=== PATIENT | female | born 1950 | race Caucasian/White ===

== ENCOUNTER 2022-02-20 11:13 | Emergency (ER) | payer OTHER, SELFPAY ==
--- NOTE | ~2022-02-20 | CT_ITS ---
Indication: Trauma EXAMINATION: CT of the brain and CT cervical spine. Axial imaging with coronal and sagittal reformatted images. This CT examination was performed using dose optimization techniques as appropriate, variously including the following: *Automated exposure control *Adjustment of mA and/or kV according to patient size (this includes techniques or standardized protocols for targeted exams where dose is matched to indication/reason for exam; i.e. extremities or head) *Use of iterative reconstruction technique. Radiation dose [address] brain; There is no midline shift there is no mass effect. There is no hemorrhage. The basal cisterns appear patent. The posterior fossa is grossly within normal limits. Scattered areas of probable white matter ischemic changes. No fracture on the bone windows. CT cervical spine; Motion limits this exam. Given this there is no convincing evidence for an acute fracture or dislocation. Carotid stent seen on the left. CT/CT cervical spine wo IV con IMPRESSION: Negative acute noncontrast CT of the brain. Limited cervical spine but no convincing evidence for fracture or dislocation. Degenerative changes are noted.
--- NOTE | ~2022-02-20 | CT_ITS ---
Indication: Trauma EXAMINATION: CT of the brain and CT cervical spine. Axial imaging with coronal and sagittal reformatted images. This CT examination was performed using dose optimization techniques as appropriate, variously including the following: *Automated exposure control *Adjustment of mA and/or kV according to patient size (this includes techniques or standardized protocols for targeted exams where dose is matched to indication/reason for exam; i.e. extremities or head) *Use of iterative reconstruction technique. Radiation dose [address] brain; There is no midline shift there is no mass effect. There is no hemorrhage. The basal cisterns appear patent. The posterior fossa is grossly within normal limits. Scattered areas of probable white matter ischemic changes. No fracture on the bone windows. CT cervical spine; Motion limits this exam. Given this there is no convincing evidence for an acute fracture or dislocation. Carotid stent seen on the left. CT/CT head/brain wo IV con IMPRESSION: Negative acute noncontrast CT of the brain. Limited cervical spine but no convincing evidence for fracture or dislocation. Degenerative changes are noted.
--- NOTE | ~2022-02-20 | XR_ITS ---
EXAMINATION: XR CHEST CLINICAL INFORMATION: Fall. Off balance. COMPARISON: None TECHNIQUE: Frontal view of the chest was obtained. FINDINGS: The cardiac silhouette is upper normal in size. The right pulmonary hilum appears slightly prominent. Mediastinal contours are unremarkable. There is linear scarring or subsegmental atelectasis in the right midlung. The lungs are otherwise clear. There is no pleural effusion or pneumothorax. There may be old right fourth and fifth posterior lateral rib fractures. No acute rib fracture. Degenerative changes of the spine and scoliosis. Sagittal seen in the soft tissues of the left lateral neck. XR/XR chest 1V IMPRESSION: No evidence for acute disease in the chest. Slightly prominent right pulmonary hilum and right midlung linear scarring or subsegmental atelectasis. Follow-up PA and lateral chest x-ray recommended.
[2022-02-20 11:21] VITALS: BP 206/94; PULSE 53; RESP 16; TEMP 36.8; O2SAT 96; BMI 17.9
--- NOTE | 2022-02-20 11:30 | ED_ITS ---
HPI - Fall General Chief Complaint: Fall <JENNIFER Lemus Last Filed: 02/20/22 17:39> Stated Complaint: Fall head inj <JENNIFER Lemus Last Filed: 02/20/22 17:39> Time Seen by Provider: 02/20/22 11:23 <JENNIFER Lemus Last Filed: 02/20/22 17:39> Source: patient <JENNIFER Lemus Last Filed: 02/20/22 17:39> Mode of arrival: wheelchair <JENNIFER Lemus Last Filed: 02/20/22 17:39> History of Present Illness HPI Narrative: 71-year-old female with a past medical history of CVA on Plavix, HTN, COPD, presenting to ED from search consultant appointment s/p mechanical fall in the office with head strike, and laceration to right eyebrow, denies LOC. Patient ambulates at baseline with cane, reports intermittently feeling off balance x months, and felt off balance [employer]. States she was trying to keep up with person in front of her and couldn't. Denies headache, neck pain, back pain, CP/SOB, abdominal pain, nausea/vomiting, numbness/tingling, room spinning dizziness/lightheadedness. Tetanus up-to-date <JENNIFER Lemus Last Filed: 02/20/22 17:39> MD complaint: fall <JENNIFER Lemus Last Filed: 02/20/22 17:39> Related Data Home Medications: Previous Rx's Medication Instructions Recorded cefuroxime axetil 250 mg tablet 250 mg PO BID 7 days #14 tabs 02/20/22 <JENNIFER Lemus Last Filed: 02/20/22 17:39> Allergies/Adverse Reactions: Allergies Allergy/AdvReac Type Severity Reaction Status Date / Time No Known Allergies Allergy Verified 02/20/22 11:48 <JENNIFER Lemus Last Filed: 02/20/22 17:39> Review of Systems Review of Systems: Constitutional: No Fever, No Chills, No Fatigue, No Malaise ENT/Mouth: No Ear Pain, No Nasal Congestion, No Hoarseness, No sore throat, No Rhinorrhea, No Swallowing Difficulty Eyes: No Eye Pain, No Swelling, No Redness, No Vision Changes Cardiovascular: No Chest Pain, No SOB, No Edema, No Palpitations Respiratory: No Cough, No Sputum, No Dyspnea Gastrointestinal: No Nausea, No Vomiting, No Diarrhea, No Constipation, No Abdominal pain Genitourinary: No Dysuria, No Urinary Frequency, No Hematuria, No Urinary Incontinence/retention, No Flank Pain Musculoskeletal: No joint pain, No Myalgias, No Joint Swelling Skin: + Skin Lesions, No rash Neuro: No Weakness, No Numbness, No Paresthesias, No Loss of Consciousness, No Dizziness, No Headache, +off balance <JENNIFER Lemus - Last Filed: 02/20/22 17:39> Yes all other systems are reviewed and are negative <JENNIFER Lemus - Last Filed: 02/20/22 17:39> Constitutional: Constitutional: Reports as per HPI <JENNIFER Lemus - Last Filed: 02/20/22 17:39> Neurologic: Denies Abnormal speech present <JENNIFER Lemus - Last Filed: 02/20/22 17:39> [facility] Past Medical History Attestation statement: The following information was validated with the patient. <JENNIFER Lemus - Last Filed: 02/20/22 17:39> Social History Social History: Social History Advance Directives: No <JENNIFER Lemus - Last Filed: 02/20/22 17:39> Physical Exam Vital Signs: Vital Signs: Last Vital Signs Temp 97.6 F 02/20/22 15:42 Pulse 77 02/20/22 15:42 Resp 16 02/20/22 15:42 BP 174/90 H 02/20/22 17:27 Pulse Ox 98 02/20/22 15:42 O2 Del Method 02/20/22 15:42 BMI result Body Mass Index 17.9 <JENNIFER Lemus - Last Filed: 02/20/22 17:39> Vital Signs: Last Vital Signs Temp 97.6 F 02/20/22 15:42 Pulse 77 02/20/22 15:42 Resp 16 02/20/22 15:42 BP 174/90 H 02/20/22 17:27 Pulse Ox 98 02/20/22 15:42 O2 Del Method 02/20/22 15:42 BMI result Body Mass Index 17.9 <Lucero Stewart NP - Last Filed: 02/20/22 17:39> Const: General: cooperative, healthy appearing and no acute distress <Crys Morgan PA - Last Filed: 02/20/22 17:39> Orientation/consciousness: patient oriented x3 <Crys Morgan PA - Last Filed: 02/20/22 17:39> Limitations: no limitations <Crys Morgan PA - Last Filed: 02/20/22 17:39> HEENT: Other: + superficial 1.5 cm linear laceration noted to right eyebrow <Crys Morgan PA - Last Filed: 02/20/22 17:39> Head: Yes normal to inspection <Crys Morgan PA - Last Filed: 02/20/22 17:39> Ears: hearing grossly normal bilaterally <Crys Morgan PA - Last Filed: 02/20/22 17:39> General nose exam: Normal external nose present <JENNIFER Lemus - Last Amilcar ed: 02/20/22 17:39> Face and sinus: Yes normal facial exam <Crys Morgan PA - Last Filed: 02/20/22 17:39> Eyes: General: appearance normal, both eyes and all related structures <Crys Morgan PA - Last Filed: 02/20/22 17:39> Pupils: Equal, round and reactive pupils present <Crys Morgan PA - Last Filed: 02/20/22 17:39> EOM: EOMs intact bilaterally <Crys Morgan PA - Last Filed: 02/20/22 17:39> Neck: Other: No midline cervical spinous tenderness <Crys Morgan PA - Last Filed: 02/20/22 17:39> Neck: Yes normal visual inspection and Yes no meningeal signs <Crys Morgan PA - Last Filed: 02/20/22 17:39> Resp: Effort & Inspection: normal respiratory effort and no respiratory distress <Crys Morgan PA - Last Filed: 02/20/22 17:39> Auscultation: clear to auscultation bilaterally, no crackles, no rales, no rhonchi and no wheezes <Crys Pouliot, PA - Last Filed: 02/20/22 17:39> Cardio: Rate: regular rate <Crys Pouliot, PA - Last Filed: 02/20/22 17:39> Heart sounds: S1 normal heart sound present and S2 normal heart sound present <Crys Pouliot, PA - Last Filed: 02/20/22 17:39> GI: Inspection: Yes normal to inspection <Crys Pouliot, PA - Last Filed: 02/20/22 17:39> Palpation (GI): Soft to palpation, nontender, no guarding and not rigid <Crys Pouliot, PA - Last Filed: 02/20/22 17:39> : General: Yes no CVA tenderness <Crys Pouliot, PA - Last Filed: 02/20/22 17:39> Back/Spine/Pelvis: Other: No midline thoracic/lumbar spinous tenderness/step-off or deformity <Crys Pouliot, PA - Last Filed: 02/20/22 17:39> Back: no CVA tenderness <Crys Pouliot, PA - Last Filed: 02/20/22 17:39> Skin: Rashes: no rashes <Crys Pouliot, PA - Last Filed: 02/20/22 17:39> Wounds: no wounds <Crys Pouliot, PA - Last Filed: 02/20/22 17:39> Neuro: General: patient oriented x3, tone normal, moves all extremities, no meningeal signs, no focal motor deficits and CN's II-XI intact bilaterally <Crys Pouliot, PA - Last Filed: 02/20/22 17:39> Cranial nerves: Yes CN's II-XII intact bilaterally, Yes Equal, round and reactive pupils present and Yes Bilaterally intact EOM present <Crys Pouliot, PA - Last Filed: 02/20/22 17:39> Cognition (Neuro): normal cognition <Crys Pouliot, PA - Last Filed: 02/20/22 17:39> Speech: No Abnormal speech present <Crys Pouliot, PA - Last Filed: 02/20/22 17:39> Gait exam (Neuro): Normal gait present <JENNIFER Lemus - Last Filed: 02/20/22 17:39> Motor exam (neuro): 5/5 motor strength present throughout, Pronator motor function not present and no tremor noted <JENNIFER Lemus - Last Filed: 02/20/22 17:39> Coordination: [id number] test normal <JENNIFER Lemus - Last Filed: 02/20/22 17:39> Romberg Test: Negative <JENNIFER Lemus - Last Filed: 02/20/22 17:39> Extrem: General: Yes normal to inspection <JENNIFER Lemus - Last Filed: 02/20/22 17:39> Course Course Course Narrative: -1500--no leukocytosis. H&H stable. Initial troponin 5.8 > will obtain 3 hour repeat -UA infected > IV Rocephin ordered CT head/brain wo IV con/CT cervical spine wo IV con IMPRESSION: Negative acute noncontrast CT of the brain. ? Limited cervical spine but no convincing evidence for fracture or dislocation. Degenerative changes are noted. XR chest 1V IMPRESSION: No evidence for acute disease in the chest. Slightly prominent right pulmonary hilum and right midlung linear scarring or subsegmental atelectasis. Follow-up PA and lateral chest x-ray recommended. ? -patient has been ambulating in the ED with steady gait -1737--repeat troponin equivocal, mi unlikely. Patient's repeat BP improved Results discussed with patient including worrisome signs and symptoms and strict return precautions, and when to return to the emergency department. They verbalized understanding and feel safe for discharge at this time. <JENNIFER Lemus - Last Filed: 02/20/22 17:39> Medications Administered Discontinued Medications Generic Name Dose Route Start Last Admin Trade Name Jerryq PRN Reason Stop Dose Admin Acetaminophen 650 mg 02/20/22 11:48 02/20/22 12:44 Acetaminophen 325 Mg Tablet PO 02/20/22 11:49 650 mg ONCE ONE Administration Sodium Chloride 500 mls @ 999 mls/hr 02/20/22 12:00 02/20/22 15:48 Ns IV 02/20/22 12:30 Infused .Q31M ANITA Infusion Lidocaine HCl 2 ml 02/20/22 11:48 02/20/22 14:46 Lidocaine Hcl 1 % Mpf 2 Ml Vial INFILTRATI 02/20/22 11:49 2 ml ONCE ONE Administration Lidocaine HCl 5 ml 02/20/22 14:27 02/20/22 14:49 Lidocaine Hcl 1 % Mpf 5 Ml Vial INFILTRATI 02/20/22 14:28 Not Given ONCE ONE Lisinopril 10 mg 02/20/22 16:20 02/20/22 16:26 Lisinopril 10 Mg Tablet PO 02/20/22 16:21 10 mg ONCE ONE Administration Protocol <JENNIFER Lemus - Last Filed: 02/20/22 17:39> Medications Administered Discontinued Medications Generic Name Dose Route Start Last Admin Trade Name Jerryq PRN Reason Stop Dose Admin Acetaminophen 650 mg 02/20/22 11:48 02/20/22 12:44 Acetaminophen 325 Mg Tablet PO 02/20/22 11:49 650 mg ONCE ONE Administration Sodium Chloride 500 mls @ 999 mls/hr 02/20/22 12:00 02/20/22 15:48 Ns IV 02/20/22 12:30 Infused .Q31M ANITA Infusion Lidocaine HCl 2 ml 02/20/22 11:48 02/20/22 14:46 Lidocaine Hcl 1 % Mpf 2 Ml Vial INFILTRATI 02/20/22 11:49 2 ml ONCE ONE Administration Lidocaine HCl 5 ml 02/20/22 14:27 02/20/22 14:49 Lidocaine Hcl 1 % Mpf 5 Ml Vial INFILTRATI 02/20/22 14:28 Not Given ONCE ONE Lisinopril 10 mg 02/20/22 16:20 02/20/22 16:26 Lisinopril 10 Mg Tablet PO 02/20/22 16:21 10 mg ONCE ONE Administration Protocol <Lucero Stewart NP - Last Filed: 02/20/22 17:39> Procedures Laceration Laceration 1: Site: face and other (eyebrow) <Lucero Stewart NP - Last Filed: 02/20/22 17:39> Side (If applicable): right <Lucero Stewart NP - Last Filed: 02/20/22 17:39> Description: linear <Lucero Stewart NP - Last Filed: 02/20/22 17:39> Depth: simple, single layer <Lucero Stewart NP - Last Filed: 02/20/22 17:39> Local Anesthetic: lidocaine 1% <Lucero Stewart NP - Last Filed: 02/20/22 17:39> Amount of anesthesia used (mL): 1 <Lucero Stewart NP - Last Filed: 02/20/22 17:39> Skin layer closed with: nylon <Lucero Stewart NP - Last Filed: 02/20/22 17:39> Size (cm): 6-0 <Lucero Stewart NP - Last Filed: 02/20/22 17:39> Number of sutures: 4 <Lucero Stewart NP - Last Filed: 02/20/22 17:39> Technique: simple, interrupted <Lucero Stewart NP - Last Filed: 02/20/22 17:39> MDM - Fall MDM Narrative Medical decision making narrative: 71-year-old female with a past medical history of CVA on Plavix, HTN, COPD, presenting to ED from search consultant appointment s/p mechanical fall in the office with head strike, and laceration to right eyebrow, denies LOC. Patient ambulates at baseline with cane, reports intermittently feeling off balance x months. On exam hypertensive, mildly anxious, laceration noted to right eyebrow, no focal neuro deficits, no midline spinous tenderness. Concern for ICH vs fracture s acute on chronic unsteady gait from ?Prior CVA. Low suspicion for acute CVA/TIA. Lower suspicion for ACS/PE Plan: EKG, labs, CXR, head/C-spine CTA, orthostatics, repair laceration, re- evaluate <JENNIFER Lemus - Last Filed: 02/20/22 17:39> Differential Diagnosis Differential diagnosis: Likely concussion without loss of consciousness <JENNIFER Lemus - Last Filed: 02/20/22 17:39> Medical Records Attestation: I reviewed the patient's medical records. <JENNIFER Lemus - Last Filed: 02/20/22 17:39> Lab Data Attestation: I reviewed the patient's lab results. <JENNIFER Lemus - Last Filed: 02/20/22 17:39> Result diagrams: : 02/20/22 12:24 02/20/22 12:24 <JENNIFER Lemus - Last Filed: 02/20/22 17:39> Labs: Lab Results 02/20/22 02/20/22 02/20/22 Range/Units 12:24 12:24 12:24 WBC 5.2 (4.8-10.8) X10*3/uL RBC 4.18 L (4.20-5.50) X10*6/uL Hgb 11.5 L (12.0-16.0) g/dl Hct 35.7 L (37.0-47.0) % MCV 85.4 (80.0-98.0) fL MCH 27.5 (27.0-33.0) pg MCHC 32.2 (31.0-35.0) g/dl RDW 15.5 (11.0-16.0) % Plt Count 199 (160-400) X10*3/uL MPV 8.8 L (9.4-12.3) fL Immature Gran % (Auto) 0.8 H (0.0-0.4) % Neut % (Auto) 70.5 (45-73) % Lymph % (Auto) 23.1 (20-40) % [place] % (Auto) 4.6 (2-11) % Eos % (Auto) 0.6 (0-4) % Baso % (Auto) 0.4 (0-2) % Lymph # (Auto) 1.2 (1.2-4.9) X10*3/uL [place] # (Auto) 0.2 (0.1-1.2) X10*3/uL Eos # (Auto) 0.0 (0.0-0.4) X10*3/uL Baso # (Auto) 0.0 (0.0-0.2) X10*3/uL Abs Immat Gran (auto) 0.04 H (0.00-0.03) X10*3/uL Absolute Neuts (auto) 3.7 (2.0-8.3) x10*3/uL Absolute Nucleated RBC 0.000 (0.0-0.012) X10*3/uL Nucleated RBC % (auto) 0.0 (0.0-0.2) /100WBC PT (10.0-13.1) SEC INR (0.9-1.1) Sodium 137 (135-145) mmol/L Potassium 4.3 (3.3-5.1) mmol/L Chloride 102 (96-108) mmol/L Carbon Dioxide 26 (22-29) mmol/L Anion Gap 13 (12-20) BUN 13 (9-16) mg/dL Creatinine 0.94 (0.5-1.4) mg/dL Estim Creat Clear Calc 35.6 Estimated GFR 59 Random Glucose 93 (60-115) mg/dL Calcium 9.0 (8.4-10.2) mg/dL Magnesium 2.1 (1.6-2.6) mg/dL Total Bilirubin 0.8 (0.0-1.0) mg/dL Direct Bilirubin 0.5 (0.0-0.5) mg/dL AST 16 (5-31) U/L ALT 8 (0-31) U/L Alkaline Phosphatase 99 (39-117) U/L Troponin I High Sens 5.8 (<3.5-17.0) ng/L Total Protein 8.5 H (6.5-8.0) g/dL Albumin 3.9 (3.5-5.0) g/dL Urine Color Urine Appearance Urine pH (5.0-9.0) Ur Specific [place] (1.005-1.025) Urine Protein (Neg-Trace) mg/dL Urine Glucose (UA) (Negative) mg/dL Urine Ketones (Negative) mg/dL Urine Blood (Negative) Urine Nitrite (Negative) Ur Leukocyte Esterase (Negative) Urine RBC (0-2) /HPF Urine WBC (0-5) /HPF Ur Squamous Epith Cells (0-2) /HPF Urine Bacteria (None Seen) Hyaline Casts (0-2) /LPF COVID-19 ([facility]) (Negative) COVID-19 Clin Com 02/20/22 02/20/22 02/20/22 Range/Units 12:24 12:24 12:46 WBC (4.8-10.8) X10*3/uL RBC (4.20-5.50) X10*6/uL Hgb (12.0-16.0) g/dl Hct (37.0-47.0) % MCV (80.0-98.0) fL MCH (27.0-33.0) pg MCHC (31.0-35.0) g/dl RDW (11.0-16.0) % Plt Count (160-400) X10*3/uL MPV (9.4-12.3) fL Immature Gran % (Auto) (0.0-0.4) % Neut % (Auto) (45-73) % Lymph % (Auto) (20-40) % [place] % (Auto) (2-11) % Eos % (Auto) (0-4) % Baso % (Auto) (0-2) % Lymph # (Auto) (1.2-4.9) X10*3/uL [place] # (Auto) (0.1-1.2) X10*3/uL Eos # (Auto) (0.0-0.4) X10*3/uL Baso # (Auto) (0.0-0.2) X10*3/uL Abs Immat Gran (auto) (0.00-0.03) X10*3/uL Absolute Neuts (auto) (2.0-8.3) x10*3/uL Absolute Nucleated RBC (0.0-0.012) X10*3/uL Nucleated RBC % (auto) (0.0-0.2) /100WBC PT 12.9 (10.0-13.1) SEC INR 1.1 (0.9-1.1) Sodium (135-145) mmol/L Potassium (3.3-5.1) mmol/L Chloride (96-108) mmol/L Carbon Dioxide (22-29) mmol/L Anion Gap (12-20) BUN (9-16) mg/dL Creatinine (0.5-1.4) mg/dL Estim Creat Clear Calc Estimated GFR Random Glucose (60-115) mg/dL Calcium (8.4-10.2) mg/dL Magnesium (1.6-2.6) mg/dL Total Bilirubin (0.0-1.0) mg/dL Direct Bilirubin (0.0-0.5) mg/dL AST (5-31) U/L ALT (0-31) U/L Alkaline Phosphatase (39-117) U/L Troponin I High Sens (<3.5-17.0) ng/L Total Protein (6.5-8.0) g/dL Albumin (3.5-5.0) g/dL Urine Color Yellow Urine Appearance Cloudy Urine pH 7.5 (5.0-9.0) Ur Specific [place] 1.010 (1.005-1.025) Urine Protein Trace (Neg-Trace) mg/dL Urine Glucose (UA) Negative (Negative) mg/dL Urine Ketones Negative (Negative) mg/dL Urine Blood Negative (Negative) Urine Nitrite Negative (Negative) Ur Leukocyte Esterase Large (3+) H (Negative) Urine RBC 0-2 (0-2) /HPF Urine WBC >50 H (0-5) /HPF Ur Squamous Epith Cells 3-5 (0-2) /HPF Urine Bacteria None Seen (None Seen) Hyaline Casts 0-2 (0-2) /LPF COVID-19 ([facility]) Negative (Negative) COVID-19 Clin Com See Note 02/20/22 Range/Units 15:37 WBC (4.8-10.8) X10*3/uL RBC (4.20-5.50) X10*6/uL Hgb (12.0-16.0) g/dl Hct (37.0-47.0) % MCV (80.0-98.0) fL MCH (27.0-33.0) pg MCHC (31.0-35.0) g/dl RDW (11.0-16.0) % Plt Count (160-400) X10*3/uL MPV (9.4-12.3) fL Immature Gran % (Auto) (0.0-0.4) % Neut % (Auto) (45-73) % Lymph % (Auto) (20-40) % [place] % (Auto) (2-11) % Eos % (Auto) (0-4) % Baso % (Auto) (0-2) % Lymph # (Auto) (1.2-4.9) X10*3/uL [place] # (Auto) (0.1-1.2) X10*3/uL Eos # (Auto) (0.0-0.4) X10*3/uL Baso # (Auto) (0.0-0.2) X10*3/uL Abs Immat Gran (auto) (0.00-0.03) X10*3/uL Absolute Neuts (auto) (2.0-8.3) x10*3/uL Absolute Nucleated RBC (0.0-0.012) X10*3/uL Nucleated RBC % (auto) (0.0-0.2) /100WBC PT (10.0-13.1) SEC INR (0.9-1.1) Sodium (135-145) mmol/L Potassium (3.3-5.1) mmol/L Chloride (96-108) mmol/L Carbon Dioxide (22-29) mmol/L Anion Gap (12-20) BUN (9-16) mg/dL Creatinine (0.5-1.4) mg/dL Estim Creat Clear Calc Estimated GFR Random Glucose (60-115) mg/dL Calcium (8.4-10.2) mg/dL Magnesium (1.6-2.6) mg/dL Total Bilirubin (0.0-1.0) mg/dL Direct Bilirubin (0.0-0.5) mg/dL AST (5-31) U/L ALT (0-31) U/L Alkaline Phosphatase (39-117) U/L Troponin I High Sens 5.6 (<3.5-17.0) ng/L Total Protein (6.5-8.0) g/dL Albumin (3.5-5.0) g/dL Urine Color Urine Appearance Urine pH (5.0-9.0) Ur Specific [place] (1.005-1.025) Urine Protein (Neg-Trace) mg/dL Urine Glucose (UA) (Negative) mg/dL Urine Ketones (Negative) mg/dL Urine Blood (Negative) Urine Nitrite (Negative) Ur Leukocyte Esterase (Negative) Urine RBC (0-2) /HPF Urine WBC (0-5) /HPF Ur Squamous Epith Cells (0-2) /HPF Urine Bacteria (None Seen) Hyaline Casts (0-2) /LPF COVID-19 ([facility]) (Negative) COVID-19 Clin Com <Crys Pouliot, PA - Last Filed: 02/20/22 17:39> Lab Results 02/20/22 02/20/22 02/20/22 Range/Units 12:24 12:24 12:24 WBC 5.2 (4.8-10.8) X10*3/uL RBC 4.18 L (4.20-5.50) X10*6/uL Hgb 11.5 L (12.0-16.0) g/dl Hct 35.7 L (37.0-47.0) % MCV 85.4 (80.0-98.0) fL MCH 27.5 (27.0-33.0) pg MCHC 32.2 (31.0-35.0) g/dl RDW 15.5 (11.0-16.0) % Plt Count 199 (160-400) X10*3/uL MPV 8.8 L (9.4-12.3) fL Immature Gran % (Auto) 0.8 H (0.0-0.4) % Neut % (Auto) 70.5 (45-73) % Lymph % (Auto) 23.1 (20-40) % [place] % (Auto) 4.6 (2-11) % Eos % (Auto) 0.6 (0-4) % Baso % (Auto) 0.4 (0-2) % Lymph # (Auto) 1.2 (1.2-4.9) X10*3/uL [place] # (Auto) 0.2 (0.1-1.2) X10*3/uL Eos # (Auto) 0.0 (0.0-0.4) X10*3/uL Baso # (Auto) 0.0 (0.0-0.2) X10*3/uL Abs Immat Gran (auto) 0.04 H (0.00-0.03) X10*3/uL Absolute Neuts (auto) 3.7 (2.0-8.3) x10*3/uL Absolute Nucleated RBC 0.000 (0.0-0.012) X10*3/uL Nucleated RBC % (auto) 0.0 (0.0-0.2) /100WBC PT (10.0-13.1) SEC INR (0.9-1.1) Sodium 137 (135-145) mmol/L Potassium 4.3 (3.3-5.1) mmol/L Chloride 102 (96-108) mmol/L Carbon Dioxide 26 (22-29) mmol/L Anion Gap 13 (12-20) BUN 13 (9-16) mg/dL Creatinine 0.94 (0.5-1.4) mg/dL Estim Creat Clear Calc 35.6 Estimated GFR 59 Random Glucose 93 (60-115) mg/dL Calcium 9.0 (8.4-10.2) mg/dL Magnesium 2.1 (1.6-2.6) mg/dL Total Bilirubin 0.8 (0.0-1.0) mg/dL Direct Bilirubin 0.5 (0.0-0.5) mg/dL AST 16 (5-31) U/L ALT 8 (0-31) U/L Alkaline Phosphatase 99 (39-117) U/L Troponin I High Sens 5.8 (<3.5-17.0) ng/L Total Protein 8.5 H (6.5-8.0) g/dL Albumin 3.9 (3.5-5.0) g/dL Urine Color Urine Appearance Urine pH (5.0-9.0) Ur Specific [place] (1.005-1.025) Urine Protein (Neg-Trace) mg/dL Urine Glucose (UA) (Negative) mg/dL Urine Ketones (Negative) mg/dL Urine Blood (Negative) Urine Nitrite (Negative) Ur Leukocyte Esterase (Negative) Urine RBC (0-2) /HPF Urine WBC (0-5) /HPF Ur Squamous Epith Cells (0-2) /HPF Urine Bacteria (None Seen) Hyaline Casts (0-2) /LPF COVID-19 ([facility]) (Negative) COVID-19 Clin Com 02/20/22 02/20/22 02/20/22 Range/Units 12:24 12:24 12:46 WBC (4.8-10.8) X10*3/uL RBC (4.20-5.50) X10*6/uL Hgb (12.0-16.0) g/dl Hct (37.0-47.0) % MCV (80.0-98.0) fL MCH (27.0-33.0) pg MCHC (31.0-35.0) g/dl RDW (11.0-16.0) % Plt Count (160-400) X10*3/uL MPV (9.4-12.3) fL Immature Gran % (Auto) (0.0-0.4) % Neut % (Auto) (45-73) % Lymph % (Auto) (20-40) % [place] % (Auto) (2-11) % Eos % (Auto) (0-4) % Baso % (Auto) (0-2) % Lymph # (Auto) (1.2-4.9) X10*3/uL [place] # (Auto) (0.1-1.2) X10*3/uL Eos # (Auto) (0.0-0.4) X10*3/uL Baso # (Auto) (0.0-0.2) X10*3/uL Abs Immat Gran (auto) (0.00-0.03) X10*3/uL Absolute Neuts (auto) (2.0-8.3) x10*3/uL Absolute Nucleated RBC (0.0-0.012) X10*3/uL Nucleated RBC % (auto) (0.0-0.2) /100WBC PT 12.9 (10.0-13.1) SEC INR 1.1 (0.9-1.1) Sodium (135-145) mmol/L Potassium (3.3-5.1) mmol/L Chloride (96-108) mmol/L Carbon Dioxide (22-29) mmol/L Anion Gap (12-20) BUN (9-16) mg/dL Creatinine (0.5-1.4) mg/dL Estim Creat Clear Calc Estimated GFR Random Glucose (60-115) mg/dL Calcium (8.4-10.2) mg/dL Magnesium (1.6-2.6) mg/dL Total Bilirubin (0.0-1.0) mg/dL Direct Bilirubin (0.0-0.5) mg/dL AST (5-31) U/L ALT (0-31) U/L Alkaline Phosphatase (39-117) U/L Troponin I High Sens (<3.5-17.0) ng/L Total Protein (6.5-8.0) g/dL Albumin (3.5-5.0) g/dL Urine Color Yellow Urine Appearance Cloudy Urine pH 7.5 (5.0-9.0) Ur Specific [place] 1.010 (1.005-1.025) Urine Protein Trace (Neg-Trace) mg/dL Urine Glucose (UA) Negative (Negative) mg/dL Urine Ketones Negative (Negative) mg/dL Urine Blood Negative (Negative) Urine Nitrite Negative (Negative) Ur Leukocyte Esterase Large (3+) H (Negative) Urine RBC 0-2 (0-2) /HPF Urine WBC >50 H (0-5) /HPF Ur Squamous Epith Cells 3-5 (0-2) /HPF Urine Bacteria None Seen (None Seen) Hyaline Casts 0-2 (0-2) /LPF COVID-19 ([facility]) Negative (Negative) COVID-19 Clin Com See Note 02/20/22 Range/Units 15:37 WBC (4.8-10.8) X10*3/uL RBC (4.20-5.50) X10*6/uL Hgb (12.0-16.0) g/dl Hct (37.0-47.0) % MCV (80.0-98.0) fL MCH (27.0-33.0) pg MCHC (31.0-35.0) g/dl RDW (11.0-16.0) % Plt Count (160-400) X10*3/uL MPV (9.4-12.3) fL Immature Gran % (Auto) (0.0-0.4) % Neut % (Auto) (45-73) % Lymph % (Auto) (20-40) % [place] % (Auto) (2-11) % Eos % (Auto) (0-4) % Baso % (Auto) (0-2) % Lymph # (Auto) (1.2-4.9) X10*3/uL [place] # (Auto) (0.1-1.2) X10*3/uL Eos # (Auto) (0.0-0.4) X10*3/uL Baso # (Auto) (0.0-0.2) X10*3/uL Abs Immat Gran (auto) (0.00-0.03) X10*3/uL Absolute Neuts (auto) (2.0-8.3) x10*3/uL Absolute Nucleated RBC (0.0-0.012) X10*3/uL Nucleated RBC % (auto) (0.0-0.2) /100WBC PT (10.0-13.1) SEC INR (0.9-1.1) Sodium (135-145) mmol/L Potassium (3.3-5.1) mmol/L Chloride (96-108) mmol/L Carbon Dioxide (22-29) mmol/L Anion Gap (12-20) BUN (9-16) mg/dL Creatinine (0.5-1.4) mg/dL Estim Creat Clear Calc Estimated GFR Random Glucose (60-115) mg/dL Calcium (8.4-10.2) mg/dL Magnesium (1.6-2.6) mg/dL Total Bilirubin (0.0-1.0) mg/dL Direct Bilirubin (0.0-0.5) mg/dL AST (5-31) U/L ALT (0-31) U/L Alkaline Phosphatase (39-117) U/L Troponin I High Sens 5.6 (<3.5-17.0) ng/L Total Protein (6.5-8.0) g/dL Albumin (3.5-5.0) g/dL Urine Color Urine Appearance Urine pH (5.0-9.0) Ur Specific [place] (1.005-1.025) Urine Protein (Neg-Trace) mg/dL Urine Glucose (UA) (Negative) mg/dL Urine Ketones (Negative) mg/dL Urine Blood (Negative) Urine Nitrite (Negative) Ur Leukocyte Esterase (Negative) Urine RBC (0-2) /HPF Urine WBC (0-5) /HPF Ur Squamous Epith Cells (0-2) /HPF Urine Bacteria (None Seen) Hyaline Casts (0-2) /LPF COVID-19 ([facility]) (Negative) COVID-19 Clin Com <Lucero Stewart NP - Last Filed: 02/20/22 17:39> Discharge Plan Discharge Clinical Impression: Acute UTI, Laceration of face <JENNIFER Lemus - Last Filed: 02/20/22 17:39> Patient Disposition: Home, Self-Care <JENNIFER Lemus - Last Filed: 02/20/22 17:39> Instructions: Laceration (ED), Urinary Tract Infection in Older Adults (ED) <JENNIFER Lemus - Last Filed: 02/20/22 17:39> Additional Instructions: Your blood work was reassuring today in the emergency department. Your scans did not show any new findings. You do have a urine infection. Ceftin is antibiotic please take as prescribed. Please have close follow-up with her doct or pertaining to her blood pressure. Your wounds were repaired today in the emergency department. Keep dry and clean. You need to return to any emergency department, urgent care, or your PCPs office in 5 days for suture removal Apply bacitracin and or Neosporin daily Once sutures are removed apply anti scar cream like Mederma If area begins look infected, is red, there is drainage, streaking, or you have fever please return to the emergency department <JENNIFER Lemus - Last Filed: 02/20/22 17:39>
--- NOTE | 2022-02-20 11:48 | ECG_ITS ---
Test Reason : FALL Blood Pressure : / mmHG Vent. Rate : 055 BPM Atrial Rate : 055 BPM P-R Int : 140 ms QRS Dur : 072 ms QT Int : 454 ms P-R-T Axes : 052 005 031 degrees QTc Int : 434 ms Sinus bradycardia Otherwise normal ECG No previous ECGs available Referred By: Crys Morgan Electronically Signed By:RONNY EDGE MD
[2022-02-20] MEDS: Acetaminophen 325 MG TABLET 650 MG PO (12:44)
[2022-02-20 12:47] LABS: MANUAL DIFF FLAG NO
[2022-02-20 12:49] LABS: Basophils Percent Auto 0.4 % (0-2); Eosinophils Percent Auto 0.6 % (0-4); Hematocrit 35.7 % (37.0-47.0); Hemoglobin 11.5 g/dl (12.0-16.0); Imm Gran Abs Auto 0.04 X10*3/uL (0.00-0.03); Imm Gran Pct Auto 0.8 % (0.0-0.4); Lymphocytes Absolute Auto 1.2 X10*3/uL (1.2-4.9); Lymphocytes Percent Auto 23.1 % (20-40); Mean Corpuscular HGB Conc 32.2 g/dl (31.0-35.0); Mean Corpuscular Hemoglobin 27.5 pg (27.0-33.0); Mean Corpuscular Volume 85.4 fL (80.0-98.0); Mean Platelet Volume 8.8 fL (9.4-12.3); Monocytes Absolute Auto 0.2 X10*3/uL (0.1-1.2); Monocytes Percent Auto 4.6 % (2-11); Neutrophils Absolute Auto 3.7 x10*3/uL (2.0-8.3); Neutrophils Percent Auto 70.5 % (45-73); Platelet Count 199 X10*3/uL (160-400); Red Blood Count 4.18 X10*6/uL (4.20-5.50); Red Cell Distribution Width 15.5 % (11.0-16.0); White Blood Count 5.2 X10*3/uL (4.8-10.8)
[2022-02-20 12:54] LABS: INTERNATIONAL NORM RATIO 1.1 (0.9-1.1); Prothrombin Time 12.9 SEC (10.0-13.1)
[2022-02-20 12:55] LABS: Appearance Urine Cloudy; Color Urine Yellow; Glucose Urine UA Negative (Negative); Leukocyte Esterase Urine Large (3+) (Negative); Nitrite Urine Negative (Negative); PH 7.5 (5.0-9.0); UMIC TRIGGER UACC YES; Urine Blood Negative (Negative); Urine Ketones Negative (Negative); Urine Protein Trace mg/dL (Neg-Trace)
[2022-02-20 13:00] LABS: Bacteria Urine None Seen (None Seen); Hyaline Casts Urine 0-2 /LPF (0-2); RBC Urine 0-2 /HPF (0-2); UACC Culture Trigger YES; WBC Urine >50 /HPF (0-5)
[2022-02-20 13:03] LABS: COVID-19 Test Negative (Negative)
[2022-02-20 13:11] LABS: Alanine Aminotransferase 8 U/L (0-31); Albumin Level 3.9 g/dL (3.5-5.0); Alkaline Phosphatase 99 U/L (39-117); Anion Gap 13 (12-20); Aspartate Amino Transferase 16 U/L (5-31); Bilirubin Direct 0.5 mg/dL (0.0-0.5); Bilirubin Total 0.8 mg/dL (0.0-1.0); Blood Urea Nitrogen 13 mg/dL (9-16); Carbon Dioxide 26 mmol/L (22-29); Chloride 102 mmol/L (96-108); Creatinine Clr Calc Pharmacy 35.6; Estimated Glomerular Filt Rate 59; Glucose Random 93 mg/dL (60-115); Magnesium 2.1 mg/dL (1.6-2.6); Potassium 4.3 mmol/L (3.3-5.1); Sodium 137 mmol/L (135-145); Total Protein 8.5 g/dL (6.5-8.0)
[2022-02-20 13:17] LABS: Troponin-I High Sensitivity 5.8 ng/L (<3.5-17.0)
[2022-02-20 13:55] VITALS: BP 205/98; PULSE 52
[2022-02-20 13:56] VITALS: BP 177/77; BP 179/78; PULSE 53; PULSE 55
[2022-02-20] MEDS: Lidocaine HCl 1 % MPF 2 ML VIAL INFILTRATI (14:46)
[2022-02-20] MEDS: 0.9 % Sodium Chloride 500 ML 999 ML IV (14:47)
[2022-02-20 15:42] VITALS: BP 205/94; PULSE 77; RESP 16; TEMP 36.4; O2SAT 98
[2022-02-20 16:09] LABS: Troponin-I High Sensitivity 5.6 ng/L (<3.5-17.0)
[2022-02-20] MEDS: lisinopriL 10 MG TABLET PO (16:26)
[2022-02-20 16:59] VITALS: BP 198/89
[2022-02-20 17:27] VITALS: BP 174/90
== END 2022-02-20 17:52 | disposition home or self-care (01) ==
PROVIDERS: Physician Assistant; Emergency Provider Student in an Organized Health Care Education/Training Program; PCP Family Medicine
DX: N39.0 Urinary tract infection, site not specified (principal); S01.111A Laceration without foreign body of right eyelid and periocular area, initial encounter; W01.0XXA Fall on same level from slipping, tripping and stumbling without subsequent striking against object, initial encounter; R26.89 Other abnormalities of gait and mobility; I10 Essential (primary) hypertension; Z91.81 History of falling; Y93.01 Activity, walking, marching and hiking; Y92.531 Health care provider office as the place of occurrence of the external cause; Y99.9 Unspecified external cause status; Z86.73 Personal history of transient ischemic attack (TIA), and cerebral infarction without residual deficits; Z79.02 Long term (current) use of antithrombotics/antiplatelets; Z20.822 Contact with and (suspected) exposure to COVID-19
CPT/HCPCS: 12011; 36415; 70450; 71045; 72125; 80048; 80076; 81001; 83735; 84484; 85025; 85610; 87086; 87088; 87186; 87635; 93005; 96360; 99284

== ENCOUNTER 2022-02-20 19:53 | Emergency (ER) | payer OTHER, MEDICARE, SELFPAY ==
--- NOTE | ~2022-02-20 | CT_ITS ---
EXAMINATION: CT LUMBAR SPINE WITHOUT CONTRAST CLINICAL INFORMATION: Lower back pain. COMPARISON: None TECHNIQUE: Axial images obtained through the lumbar spine. Coronal and sagittal reformatted images are performed This CT examination was performed using dose optimization techniques as appropriate, variously including the following: *Automated exposure control *Adjustment of mA and/or kV according to patient size (this includes techniques or standardized protocols for targeted exams where dose is matched to indication/reason for exam; i.e. extremities or head) *Use of iterative reconstruction technique DLP; 185.23+29.42 mGy-cm FINDINGS: There is a grade 2 anterolisthesis of L4 on L5. This is due to bilateral spondylolysis of the L4 pars interarticularis. Marked disc height narrowing at L4-L5 with irregularity of the endplate and vertebral spurring. No paraspinal mass, fluid collection. Vascular calcifications of aorta without aneurysm. 2 mm nonobstructive stone left kidney. There are calcifications in the right renal hilum likely due to a vascular calcification. This levels: L1-L2: Lumbar discs normal in height. No focal disc protrusion. No central canal stenosis. Neural foramina are open. Mild facet joint arthrosis. L2-L3: Lumbar disc heights are normal. No focal disc protrusion or central canal stenosis. Slight narrowing of the right neural foramina without significant compression of. The left neural foramina is open. Mild degenerative change of facet joint. L3-L4: Disc height is normal. No focal disc protrusion. No central canal stenosis. Mild narrowing of the right neural foramina slightly compressing the exiting L3 nerve root. L4-L5: Grade 2 anterolisthesis of L4 on L5 with marked disc height narrowing at L4-L5 and irregularity the endplate. Bilateral spondylolysis of the L4 pars interarticularis. Central canal is open. There is narrowing of the neural foramina bilaterally with mild compression of the exiting nerve roots. L5-S1: Lumbar disc height normal. No focal disc protrusion. No central canal stenosis. Neural foramina open bilaterally. CT/CT lumbar spine wo IV con IMPRESSION: 1. Grade 2 anterolisthesis of L4 on L5 due to bilateral spondylolysis of the L4 pars interarticularis. Narrowing of the neural foramina bilaterally with compression of the exiting nerve roots. 2. Mild narrowing of the right neural foramina at L2-L3 and L3-L4.
--- NOTE | ~2022-02-20 | CT_ITS ---
EXAMINATION: CT THORACIC SPINE WITHOUT CONTRAST CLINICAL INFORMATION: Mid back pain. COMPARISON: None TECHNIQUE: Axial images obtained through the thoracic spine. Coronal and sagittal reformatted images are performed at CT scanner This CT examination was performed using dose optimization techniques as appropriate, variously including the following: *Automated exposure control *Adjustment of mA and/or kV according to patient size (this includes techniques or standardized protocols for targeted exams where dose is matched to indication/reason for exam; i.e. extremities or head) *Use of iterative reconstruction technique DLP: 235.22 mGy-cm FINDINGS: There is a levoscoliosis of the mid thoracic spine. Multilevel disc height narrowing and vertebral endplate spurring. No acute abnormality. No fracture or bone destruction. No paraspinal soft tissue fluid collection hematoma or mass. CT/CT thoracic spine wo IV con IMPRESSION: No acute abnormality. Degenerative spondylosis of thoracic spine. Fleischner guidelines were followed.
[2022-02-20 20:06] VITALS: BP 186/81; RESP 17; TEMP 37.2; O2SAT 93; BMI 17.9
--- NOTE | 2022-02-20 22:22 | ED.FALL ---
HPI - Fall General Chief Complaint: Fall <Annmarie Kang NP - Last Filed: 02/21/22 02:01> Stated Complaint: Fall <Annmarie Kang NP - Last Filed: 02/21/22 02:01> Time Seen by Provider: 02/20/22 22:14 <Annmarie Kang NP - Last Filed: 02/21/22 02:01> Source: patient <Annmarie Kang NP - Last Filed: 02/21/22 02:01> Mode of arrival: ambulatory <Annmarie Kang NP - Last Filed: 02/21/22 02:01> Limitations: no limitations <Annmarie Kang NP - Last Filed: 02/21/22 02:01> History of Present Illness HPI Narrative: 71-year-old female presents for the 2nd time today for injuries sustained from a fall. Patient was discharged from this facility about an hour ago for injury sustained from a fall requiring sutures to the right eyebrow. Patient states that when she got out of the hospital, she slipped and fell landing on her back,. She did not hit her head or lose consciousness. She is complaining of 10/10 back pain. <Annmarie Kang NP - Last Filed: 02/21/22 02:01> MD complaint: fall <Annmarie Kang NP - Last Filed: 02/21/22 02:01> Onset (ago): hour(s) (Within the hour of arrival) <Annmarie Kang NP - Last Filed: 02/21/22 02:01> Fall from: standing <Annmarie Kang NP - Last Filed: 02/21/22 02:01> Fall witnessed: no <Annmarie Kang NP - Last Filed: 02/21/22 02:01> Place fall occurred: street <Annmarie Kang NP - Last Filed: 02/21/22 02:01> Loss of consciousness: none <Annmarie Kang NP - Last Filed: 02/21/22 02:01> Prolonged down time: no <Annmarie Kang NP - Last Filed: 02/21/22 02:01> Symptoms prior to fall: none <Annmarie Kang NP - Last Filed: 02/21/22 02:01> Context: tripped/slipped <Annmarie Kang NP - Last Filed: 02/21/22 02:01> Location of injury: back <Annmarie Kang NP - Last Filed: 02/21/22 02:01> Severity: moderate <Annmarie Kang NP - Last Filed: 02/21/22 02:01> Severity scale (1-10): 7 <Annmarie Kang NP - Last Filed: 02/21/22 02:01> Quality: aching <Annmarie Kang NP - Last Filed: 02/21/22 02:01> Associated symptoms (after fall): other (Back pain) <Annmarie Kang NP - Last Filed: 02/21/22 02:01> Related Data Home Medications: Home Medications Medication Instructions Recorded Confirmed albuterol sulfate 90 mcg/actuation 2 inh inhalation Q4H PRN Wheezing 02/21/22 02/21/22 aerosol inhaler buprenorphine 12 mg-naloxone 3 mg 1 film sublingual DAILY 02/21/22 02/21/22 sublingual film bupropion HCl 150 mg tablet,12 hr 150 mg PO DAILY 02/21/22 02/21/22 sustained-release fluticasone fur. 100 mcg-umeclid 1 inh inhalation DAILY 02/21/22 02/21/22 62.5 mcg-vilant 25 mcg inhalat.powder (Trelegy Ellipta) lisinopril 5 mg tablet 5 mg PO DAILY 02/21/22 02/21/22 paroxetine HCl 40 mg tablet 40 mg PO DAILY 02/21/22 02/21/22 propranolol 20 mg tablet 20 mg PO TID PRN Anxiety 02/21/22 02/21/22 topiramate 100 mg tablet 100 mg PO BID 02/21/22 02/21/22 Previous Rx's Medication Instructions Recorded cefuroxime axetil 250 mg tablet 250 mg PO BID 7 days #14 tabs 02/20/22 <Annmarie Kang NP - Last Filed: 02/21/22 02:01> Allergies/Adverse Reactions: Allergies Allergy/AdvReac Type Severity Reaction Status Date / Time No Known Allergies Allergy Verified 02/20/22 20:11 <Annmarie Kang NP - Last Filed: 02/21/22 02:01> Review of Systems Review of Systems: Constitutional: No Fever, No Chills ENT/Mouth: No Ear Pain, No Hoarseness, No sore throat Eyes: No Eye Pain, No Swelling, No Redness, No Foreign Body Cardiovascular: No Chest Pain, No SOB Respiratory: No Cough, No Dyspnea Gastrointestinal: No Nausea, No Vomiting, No Diarrhea, No abdominal Pain Genitourinary: No Dysuria, No Hematuria Musculoskeletal: positive back pain, No Myalgias, No Joint Swelling Skin: No Skin lacerations, No rash Neuro: No Weakness, No Numbness, No Paresthesias, No Loss of Consciousness, No Dizziness, No Headache Psych: No Anxiety/Panic, No Depression Heme/Lymph: no easy bruising, no Lymphadenopathy Endocrine: No Polyuria, No Polydipsia <Annmarie Kang NP - Last Filed: 02/21/22 02:01> Yes all other systems are reviewed and are negative <Annmarie Kang NP - Last Filed: 02/21/22 02:01> FOR[facility]LY [facility], [facility] Past Medical History Attestation statement: The following information was validated with the patient. <Annmarie Kang NP - Last Filed: 02/21/22 02:01> Source: old records reviewed <Annmarie Kang NP - Last Filed: 02/21/22 02:01> Social History Social History: Social History Alcohol intake: never Smoked in Last 30 Days: No Use of substances other than those prescribed or required for medical reasons: No Advance Directives: No <Annmarie Kang NP - Last Filed: 02/21/22 02:01> Physical Exam Vital Signs: Vital Signs: Last Vital Signs Temp 98 F 02/21/22 11:30 Pulse 67 02/21/22 11:30 Resp 16 02/21/22 11:30 BP 148/64 H 02/21/22 11:30 Pulse Ox 94 02/21/22 11:30 O2 Del Method 02/21/22 11:30 BMI result Body Mass Index 17.9 <Annmarie Kang NP - Last Filed: 02/21/22 02:01> Vital Signs: Last Vital Signs Temp 98 F 02/21/22 11:30 Pulse 67 1201/22 11:30 Resp 16 02/21/22 11:30 BP 148/64 H 02/21/22 11:30 Pulse Ox 94 02/21/22 11:30 O2 Del Method 02/21/22 11:30 BMI result Body Mass Index 17.9 <JENNIFER Davis - Last Filed: 02/21/22 12:09> Appearance: Alert. Oriented X3. No acute distress. Eyes: Pupils equal, round and reactive to light. ENT: Pharynx normal. Neck: Normal inspection. Neck supple. CVS: Normal heart rate and rhythm. Pulses normal. Respiratory: No respiratory distress. Breath sounds normal. Abdomen: Soft and nontender. Skin: Skin warm and dry. Normal skin color. Normal skin turgor. Extremities: No lower extremity edema. Moves all extremities against resistance. Gait not assessed for safety. Neuro: No motor deficit. No sensory deficit. Cranial nerves 2-12 intact <Annmarie Kang NP - Last Filed: 02/21/22 02:01> Course Course Course Narrative: 71-year-old female presents for 2nd fall today. She was discharged from this facility an hour ago for injury sustained from a fall. She stated that when she was walking into her home she slipped because of the rain, and landed on her back. Patient states that she is unable to walk due to the back pain. Patient does not report hitting her head or losing consciousness. Will order CT scan of lumbar spine, patient was tested positive for UTI earlier today. Will continue her cefuroxime, will order PT consult and case management. Tyshawn coma scale 15, NIH stroke scale 0. Labs reviewed from her visit at 12:24. I do not feel that it is necessary to repeat these lab values. Patient is not complaining of any chest pain, has no shortness of breath, no abdominal pain, no chest wall tenderness to palpation, no adventitious lung sounds, lung sounds clear to auscultation all lobes. Cranial nerves 2-12 intact. PERRLA, EOMI. No vertebral tenderness or step-offs. Patient is neurovascularly intact. 00:30 CT scan of thoracic and lumbar spine negative for acute findings requiring emergent intervention. Physician observation started at this time, patient pending PT evaluation, and possible nursing home facility versus subacute rehab placement. <Annmarie Kang NP - Last Filed: 02/21/22 02:01> Reevaluation(s) Reevaluation #1: Physician observation continued overnight. Patient remains hemodynamically stable. She was started on antibiotics for UTI. Seen by Physical therapy who is recommending short-term rehab. Case Management involved. Will continue antibiotics, all home meds have been reordered at this time as well. Will continue monitor. <JENNIFER Davis - Last Filed: 02/21/22 12:09> Medications Administered Generic Name Dose Route Start Last Admin Trade Name Freq PRN Reason Stop Dose Admin Cefuroxime Axetil 250 mg 02/20/22 22:30 02/21/22 09:38 Cefuroxime Axetil 250 Mg Tablet PO 02/27/22 22:29 250 mg Q12H ANITA Administration <Annmarie Kang NP - Last Filed: 02/21/22 02:01> Medications Administered Generic Name Dose Route Start Last Admin Trade Name Freq PRN Reason Stop Dose Admin Cefuroxime Axetil 250 mg 02/20/22 22:30 02/21/22 09:38 Cefuroxime Axetil 250 Mg Tablet PO 02/27/22 22:29 250 mg Q12H ANITA Administration <JENNIFER Davis - Last Filed: 02/21/22 12:09> MDM - Fall Differential Diagnosis Differential diagnosis: Likely dislocation, fracture, compression fracture and concussion without loss of consciousness <Annmarie Kang NP - Last Filed: 02/21/22 02:01> Medical Records Attestation: I reviewed the patient's medical records. <Annmarie Kang NP - Last Filed: 02/21/22 02:01> Lab Data Attestation: I reviewed the patient's lab results. <Annmarie Kang NP - Last Filed: 02/21/22 02:01> Labs: Lab Results 02/21/22 Range/Units 10:46 COVID-19 ([facility]) Negative (Negative) COVID-19 Clin Com See Note Labs reviewed from 02/20/2022 at 12:24 <Annmarie Kang NP - Last Filed: 02/21/22 02:01> Lab Results 02/21/22 Range/Units 10:46 COVID-19 ([facility]) Negative (Negative) COVID-19 Clin Com See Note <JENNIFER Davis - Last Filed: 02/21/22 12:09> Imaging Data CT thoracic and lumbar: Attestation: I personally reviewed and interpreted this imaging study as follows: <Annmarie Kang NP - Last Filed: 02/21/22 02:01> Radiologist's impression: EXAMINATION: CT LUMBAR SPINE WITHOUT CONTRAST CLINICAL INFORMATION: Lower back pain.? COMPARISON: None? TECHNIQUE: Axial images obtained through the lumbar spine. Coronal and sagittal reformatted images are performed? This CT examination was performed using dose optimization techniques as appropriate, variously including the following: *Automated exposure control *Adjustment of mA and/or kV according to patient size (this includes techniques or standardized protocols for targeted exams where dose is matched to indication/reason for exam; i.e. extremities or head) *Use of iterative reconstruction technique DLP; 185.23+29.42 mGy-cm FINDINGS: There is a grade 2 anterolisthesis of L4 on L5. This is due to bilateral spondylolysis of the L4 pars interarticularis. Marked disc height narrowing at L4-L5 with irregularity of the endplate and vertebral spurring. No paraspinal mass, fluid collection. Vascular calcifications of aorta without aneurysm. 2 mm nonobstructive stone left kidney. There are calcifications in the right renal hilum likely due to a vascular calcification. This levels: L1-L2: Lumbar discs normal in height. No focal disc protrusion. No central canal stenosis. Neural foramina are open. Mild facet joint arthrosis. L2-L3: Lumbar disc heights are normal. No focal disc protrusion or central canal stenosis. Slight narrowing of the right neural foramina without significant compression of. The left neural foramina is open. Mild degenerative change of facet joint. L3-L4: Disc height is normal. No focal disc protrusion. No central canal stenosis. Mild narrowing of the right neural foramina slightly compressing the exiting L3 nerve root. L4-L5: Grade 2 anterolisthesis of L4 on L5 with marked disc height narrowing at L4-L5 and irregularity the endplate. Bilateral spondylolysis of the L4 pars interarticularis. Central canal is open. There is narrowing of the neural foramina bilaterally with mild compression of the exiting nerve roots. L5-S1: Lumbar disc height normal. No focal disc protrusion. No central canal stenosis. Neural foramina open bilaterally. CT/CT lumbar spine wo IV con IMPRESSION: 1.? Grade 2 anterolisthesis of L4 on L5 due to bilateral spondylolysis of the L4 pars interarticularis. Narrowing of the neural foramina bilaterally with compression of the exiting nerve roots. 2.? Mild narrowing of the right neural foramina at L2-L3 and L3-L4. <Annmarie Kang NP - Last Filed: 02/21/22 02:01> Discharge Plan Discharge Clinical Impression: Multiple falls, Acute UTI <Annmarie Kang NP - Last Filed: 02/21/22 02:01> Patient Disposition: Still a Patient <Annmarie Kang NP - Last Filed: 02/21/22 02:01> Prescriptions: No Action cefuroxime axetil 250 mg tablet 250 mg PO BID 7 Days Qty: 14 0RF bupropion HCl 150 mg tablet sustained-release 12 hr 150 mg PO DAILY lisinopril 5 mg tablet 5 mg PO DAILY albuterol sulfate 90 mcg/actuation HFA aerosol inhaler 2 inh INHALATION Q4H PRN (Reason: Wheezing) paroxetine HCl 40 mg tablet 40 mg PO DAILY propranolol 20 mg tablet 20 mg PO TID PRN (Reason: Anxiety) topiramate 100 mg tablet 100 mg PO BID buprenorphine-naloxone 12-3 mg film 1 film sublingual DAILY Trelegy Ellipta 100-62.5-25 mcg blister with device 1 inh INHALATION DAILY <Annmarie Kang NP - Last Filed: 02/21/22 02:01>
--- NOTE | 2022-02-20 23:09 | MHC.CM.ED ---
CM met with patient at request of Annmarie ARELLANO. Pt seen twice today for falls. Has UTI and lac over right eye. Thinks she lost her balance and fell with rain. Lives with roommate, Rose. Uses cane. No services. Independent. Moderna x3/[employer] x1. 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 States works well for her. No HCP on file. Reviewed, completed and signed. Copies given. Uploaded into [facility] and [facility] Expan[facility]. HCP/daughter Kae Dupont ([phone]). PT pending. Pt agreeable to STR if recommended. Requests local facilities. Aware that CM will refer to facilities that accept [employer]. CM will follow for d/c planning.
[2022-02-21] VITALS (8 sets, daily range): BP systolic 124–182; BP diastolic 64–83; PULSE 66–109; RESP 16–19; TEMP 36.6–37; O2SAT 92–97
--- NOTE | 2022-02-21 07:46 | PC.NURSE ---
pt's sister bruce regalado ([phone]) called [facility] and was updated on pt status.
--- NOTE | 2022-02-21 09:40 | PC.NURSE ---
pt is a/o x 4 no sob/mateo noted lungs - aziza upper lobes cta, aizza lobes - slightly diminished. speaks in full sentences. heart sounds regular. abd soft and non-tender. bs + 4 quads. no edema noted. pt seen by physical therapy earlier. pt is aware of plan of care.
--- NOTE | 2022-02-21 10:14 | MHC.CM.ED ---
Patient remains in ER. Physical therapy eval completed. Short term rehab is recomended. Patient's Suboxone is prescribed by Dr Ha Rainey at [facility]. Continue to monitor for d/c needs.
--- NOTE | 2022-02-21 10:22 | PHA.MEDREC ---
Pharmacy Consult ? Medication Reconciliation Pharmacy has completed the medication reconciliation. Patient mildly confused and only knew directions on some meds. Called [facility] to verify doses. Audie
[2022-02-21 11:17] LABS: COVID-19 Test Negative (Negative); IDNOW Serial# BCCEAD1C
[2022-02-21] MEDS: Buprenorphine/Naloxone 12/3 mg FILM 1 FILM SUBLINGUAL (13:14)
[2022-02-21] MEDS: Topiramate 100 MG TABLET PO ×2 (13:14→22:52)
[2022-02-21] MEDS: PARoxetine HCL 40 MG TABLET PO (13:14)
[2022-02-21] MEDS: lisinopriL 5 MG TABLET PO (13:14)
[2022-02-22 05:34] VITALS: BP 176/72; PULSE 62; RESP 16; O2SAT 95
--- NOTE | 2022-02-22 06:05 | PC.NURSE ---
pt cleaned, linens changed. resting comfortably at this time.
[2022-02-22 07:18] VITALS: BP 149/66; PULSE 55; RESP 12; TEMP 36.6; O2SAT 95
[2022-02-22] MEDS: Topiramate 100 MG TABLET PO ×2 (09:21→21:14)
[2022-02-22] MEDS: lisinopriL 5 MG TABLET PO (09:21)
[2022-02-22] MEDS: buPROPion HCL 75 MG TABLET PO ×2 (09:22→21:15)
[2022-02-22] MEDS: Buprenorphine/Naloxone 12/3 mg FILM 1 FILM SUBLINGUAL (09:22)
[2022-02-22] MEDS: PARoxetine HCL 40 MG TABLET PO (09:22)
[2022-02-22 09:24] VITALS: TEMP 36.6
[2022-02-22 09:34] VITALS: BP 174/53; PULSE 59; RESP 16; TEMP 36.5; O2SAT 98
--- NOTE | 2022-02-22 10:12 | PC.NURSE ---
patient a/ox4 . latrellrliyah . stitches above right eye from prior fall . heart rate regular at 60 beats per minute . breathing even and unlabored . lungs diminished , history of smoking , patient reports quitting within last two years . skin pink warm and dry . abdomen soft . positive bowel sounds through out . patient aware of plan of care .
--- NOTE | 2022-02-22 10:45 | MHC.CM.ED ---
Patient remains in ER. [facility] is in the process of trying to obtain insurance auth and verify with Suboxone provider that they will prescribe Suboxone while patient is in [place]. Continue to monitor for d/c needs.
[2022-02-22 16:09] VITALS: BP 153/65; PULSE 60; RESP 14; TEMP 36.9; O2SAT 97
--- NOTE | 2022-02-22 21:59 | PC.NURSE ---
Patient had episode of urinary incontinence. Kristie care provided, purewick external catheter applied to prevent skin breakdown. Patient reports she is comfortable. She is alert and oriented x3 and able to make her needs known. Call [facility] within patient's reach.
[2022-02-22 23:51] VITALS: BP 160/60; PULSE 67; RESP 16; TEMP 36.9; O2SAT 98
--- NOTE | 2022-02-23 00:55 | PC.NURSE ---
This snow technician brought pt toothbrush, toothpaste, basin and water to rinse mouth.
[2022-02-23] MEDS: Acetaminophen 325 MG TABLET 650 MG PO ×2 (01:11→09:45)
[2022-02-23 06:00] VITALS: BP 155/65; PULSE 68; RESP 16; TEMP 36.9; O2SAT 98
[2022-02-23] MEDS: lisinopriL 5 MG TABLET PO ×2 (08:12→11:02)
[2022-02-23] MEDS: Buprenorphine/Naloxone 12/3 mg FILM 1 FILM SUBLINGUAL (08:12)
[2022-02-23] MEDS: Topiramate 100 MG TABLET PO ×2 (08:12→23:16)
[2022-02-23] MEDS: buPROPion HCL 75 MG TABLET PO (08:22)
[2022-02-23] MEDS: PARoxetine HCL 40 MG TABLET PO (08:22)
[2022-02-23 09:15] VITALS: BP 189/87; PULSE 64; RESP 16; TEMP 38.1; O2SAT 100
--- NOTE | 2022-02-23 09:47 | PC.NURSE ---
medicated as ordered, nad, has some body aches and occasional cough, watching tv
[2022-02-23] MEDS: Propranolol HCL 20 MG TABLET PO (10:54)
--- NOTE | 2022-02-23 10:56 | PC.NURSE ---
medicated w inderal for tremors, pharmacy looking into lisinopril additional order of 10mg as pt already got her 5mg
[2022-02-23 11:01] LABS: Influenza A PCR NEGATIVE (Negative); Influenza B PCR NEGATIVE (Negative); Resp Syncy Virus RNA Qual PCR NEGATIVE (Negative); SARS COV2 PCR INHOUSE NEGATIVE (Negative)
--- NOTE | 2022-02-23 11:02 | PC.NURSE ---
medicated as ordered 140/54 bp, pa aware and aware of inderal prn
[2022-02-23 15:35] VITALS: BP 168/71; PULSE 54; RESP 16; TEMP 36.7; O2SAT 95
--- NOTE | 2022-02-23 23:20 | PC.NURSE ---
this rn medicated pt according to 2099 wellbutrin 75mg not available in ED. Nursing supervisor receiving and processing contacted and will be bringing to this rn
[2022-02-24] VITALS: BP 186/75; PULSE 81; RESP 18; TEMP 36.3; O2SAT 96
[2022-02-24] MEDS: buPROPion HCL 75 MG TABLET PO ×3 (00:01→21:32)
--- NOTE | 2022-02-24 01:45 | PC.NURSE ---
pt had a purewick in but was put in wrong way , when i went to check pt she was saturated, she was cleaned up new jm, and new purewick now the pt is comfortable nurse aware
--- NOTE | 2022-02-24 06:14 | PC.NURSE ---
pt resting comfortably at this time. no new requests at this time
[2022-02-24 06:35] VITALS: BP 136/79; PULSE 79; RESP 16; TEMP 36.3; O2SAT 96
[2022-02-24 10:18] VITALS: BP 180/60; PULSE 54; RESP 16; TEMP 36.8; O2SAT 97
[2022-02-24] MEDS: Topiramate 100 MG TABLET PO ×2 (10:20→21:32)
[2022-02-24] MEDS: Buprenorphine/Naloxone 12/3 mg FILM 1 FILM SUBLINGUAL (10:20)
[2022-02-24] MEDS: PARoxetine HCL 40 MG TABLET PO (10:20)
[2022-02-24] MEDS: lisinopriL 10 MG TABLET PO (10:21)
[2022-02-24] MEDS: Acetaminophen 325 MG TABLET 650 MG PO (13:38)
--- NOTE | 2022-02-24 13:52 | MHC.CM.ED ---
Patient remains in ER. Waiting for insurance auth from [facility]. Continue to monitor for d/c needs.
--- NOTE | 2022-02-24 15:41 | PC.NURSE ---
Report received from [facility]. Pt resting on stretcher. Replaced purewick, suctioning properly. Adjusted pt on stretcher to ensure comfort. Pt reports no pain at this time.
[2022-02-24 21:06] VITALS: BP 137/60; PULSE 57; TEMP 36.8; O2SAT 94
--- NOTE | 2022-02-24 23:51 | PC.NURSE ---
Pt continues to rest comfortably, pt ate 100% of dinner, continues to remain pain free. Pt now getting ready to go to sleep
[2022-02-25 03:59] VITALS: RESP 17
[2022-02-25 05:52] VITALS: BP 135/61; PULSE 60; TEMP 36.8; O2SAT 95
[2022-02-25 09:07] VITALS: BP 132/68; PULSE 64; RESP 16; TEMP 36.8; O2SAT 96
[2022-02-25] MEDS: PARoxetine HCL 40 MG TABLET PO (10:02)
[2022-02-25] MEDS: Buprenorphine/Naloxone 12/3 mg FILM 1 FILM SUBLINGUAL (10:03)
[2022-02-25] MEDS: lisinopriL 10 MG TABLET PO (10:03)
[2022-02-25] MEDS: Topiramate 100 MG TABLET PO ×2 (10:03→22:00)
[2022-02-25] MEDS: buPROPion HCL 75 MG TABLET PO ×2 (10:03→22:01)
[2022-02-25 10:06] VITALS: PULSE 67; RESP 18; O2SAT 97
--- NOTE | 2022-02-25 10:24 | PC.NURSE ---
report taken from rojelio gutiérrez pt here for case mgmt placement, sitting upright in stretcher, ate some of breakfast but mostly refused, did not like options. tolerating po without issue. alert and oriented x 3. no new complaints noted, took all hs meds. awaiting insurance auth for placement, wctm for dc needs.
--- NOTE | 2022-02-25 11:53 | MHC.CM.ED ---
Addendum entered by Brittani Louise 02/25/22 14:19: Patient aware and agreeable of discharge plan. Original Note: Patient remains in ER. T/W spoke with Cinthia at Dr Rainey's office. They would normally send an electric prescription to [facility]. However, they are in the process of switching computer systems and don't have that ability at this time. They will happily send the RX to [facility]) on 03/04. Thea Schneider NP will be asked to send a bridge Suboxone RX when she [place] [facility] [place]. After that RX is received, patient will be able to transport to [facility] via BLS. Continue to monitor for d/c needs.
[2022-02-25 13:16] LABS: COVID-19 Test Negative (Negative); IDNOW Serial# 55D5AD1C
--- NOTE | 2022-02-25 15:36 | PC.NURSE ---
THIS PCT ASSUMED CARE OF PT AT 1500 ,PT IN BED WATCHING TELEVISION ,CALL RODRIGUEZ WITHIN REACH .
--- NOTE | 2022-02-25 18:52 | PC.NURSE ---
Addendum entered by Harini Carson RN 02/26/22 07:06: Report given to ARNOL Liu Addendum entered by Harini Carson RN 02/26/22 03:58: pt resting comfortably no signs of acute distress notice breathing equally unlabored close monitoring maintained Original Note: report received from ARNOL Mendieta
[2022-02-25 20:42] VITALS: BP 161/80; PULSE 77; RESP 15; TEMP 37.6; O2SAT 94
--- NOTE | 2022-02-25 20:59 | PC.NURSE ---
pt ate some chicken noddle soup for supper and drank 120 ml jasiel collin,pt was given a bed bath ,linen change clean purewick in place ,warm blankets given ,urine out put 700 ml ,call hennessy within reach .
--- NOTE | 2022-02-26 00:29 | PC.NURSE ---
0000 rounding done ,pt sleeping ,call hennessy within reach.
[2022-02-26 06:00] VITALS: BP 130/71; PULSE 73; RESP 16; TEMP 36.1; O2SAT 95
--- NOTE | 2022-02-26 06:11 | PC.NURSE ---
0600 rounding done ,pt vs taken pt was reposition ,pt is dry and warm blanket given .
[2022-02-26] MEDS: lisinopriL 10 MG TABLET PO (09:20)
[2022-02-26] MEDS: buPROPion HCL 75 MG TABLET PO ×2 (09:20→22:14)
[2022-02-26] MEDS: PARoxetine HCL 40 MG TABLET PO (09:20)
[2022-02-26] MEDS: Topiramate 100 MG TABLET PO ×2 (09:20→22:13)
--- NOTE | 2022-02-26 10:08 | PC.NURSE ---
At 9am this RN did give patient Suboxone per order
[2022-02-26 20:47] VITALS: BP 153/70; PULSE 74; RESP 18; TEMP 36.7; O2SAT 98
[2022-02-26] MEDS: Acetaminophen 325 MG TABLET 650 MG PO (22:13)
[2022-02-27 02:55] VITALS: BP 132/79; PULSE 77; RESP 18; TEMP 36.3; O2SAT 96
--- NOTE | 2022-02-27 02:56 | PC.NURSE ---
pt is resting , her suction canister was emptied and a new one was put in replace,her vitals are good, no issues
--- NOTE | 2022-02-27 02:57 | PC.NURSE ---
1500 was the output in the canister
[2022-02-27 06:26] VITALS: BP 121/73; PULSE 69; RESP 17; TEMP 36.1; O2SAT 96
[2022-02-27 07:41] VITALS: BP 153/53; PULSE 61; RESP 16; TEMP 36.7
[2022-02-27] MEDS: lisinopriL 10 MG TABLET PO (09:38)
[2022-02-27] MEDS: Topiramate 100 MG TABLET PO (09:38)
[2022-02-27] MEDS: Buprenorphine/Naloxone 12/3 mg FILM 1 FILM SUBLINGUAL ×2 (09:39→09:40)
--- NOTE | 2022-02-27 09:41 | PC.NURSE ---
patient a&ox3, pt denies pain/discomfort, vss, pure wick intact, pt had large bm in bedpan, pt medicated per order, will continue to monitor
--- NOTE | 2022-02-27 09:41 | PC.NURSE ---
called pharmacy for missing medications
--- NOTE | 2022-02-27 11:28 | PC.NURSE ---
Awaiting morning medications from pharmacy, this RN called pharmacy at 11:17 for the medications
--- NOTE | 2022-02-27 11:52 | PC.NURSE ---
this pt remains in ed pending [facility], pt is aware of plan. Pt states she is uncomfortable in on stretcher and feels her mobility is declining. This RN will attempt to get a hospital bed to allow pt more independence. Otherwise pt has no pain and no other complaints at this time. Pt has purewick in place draining appropriately
--- NOTE | 2022-02-27 12:28 | PC.NURSE ---
Moved pt into hospital bed. Pt was able to successfully stand and pivot over to the bed with some assistance from this RN. Pt is feeling hopeful about moving around again. Pt has eaten lunch and is now resting
[2022-02-27] MEDS: buPROPion HCL 75 MG TABLET PO (15:01)
[2022-02-27] MEDS: PARoxetine HCL 40 MG TABLET PO (15:01)
--- NOTE | 2022-02-27 15:02 | MHC.CM.ED ---
Patient remains in ER. [facility] has been obtained. Patient can leave at 4pm. Marlys JAMES booked. [facility]. Patient, Flex RN and Trice RODRIGUEZ aware. Left voicemail for patient's sisterPrema at [phone] providing discharge information. Continue to monitor for d/c needs.
[2022-02-27 16:00] VITALS: BP 140/70; PULSE 74; RESP 16; TEMP 36.6; O2SAT 96
--- NOTE | 2022-02-27 16:43 | PC.NURSE ---
Ambulance here to pick pt up
--- NOTE | 2022-02-27 16:54 | PC.NURSE ---
This RN attempted to give report to [facility] 3 separate times. Each time, this RN got disconnected. Will attempt a final time. EMS was given full report as well as discharge papers
== END 2022-02-27 16:57 | disposition skilled nursing facility (03) ==
PROVIDERS: Physician Assistant; Physician Assistant Medical; Emergency Provider Internal Medicine; PCP Family Medicine
DX: N39.0 Urinary tract infection, site not specified (principal); B96.1 Klebsiella pneumoniae [K. pneumoniae] as the cause of diseases classified elsewhere; R50.9 Fever, unspecified; R29.6 Repeated falls; Z91.81 History of falling; Z79.899 Other long term (current) drug therapy; Z20.822 Contact with and (suspected) exposure to COVID-19
CPT/HCPCS: 0241U; 72128; 72131; 87635; 97162; 99285

== ENCOUNTER 2022-03-26 14:13 | Inpatient (IN) | payer OTHER, MEDICARE, SELFPAY ==
--- NOTE | ~2022-03-26 | XR_ITS ---
EXAMINATION: XR CHEST CLINICAL INFORMATION: Cough. COMPARISON: None TECHNIQUE: Frontal view of the chest was obtained. FINDINGS: The lungs are well-expanded with minimal patchy atelectatic changes left lung base. Rest lungs are clear. The heart size and pulmonary vascularity is normal. There is moderate ipsilateral scoliosis. XR/XR chest 1V IMPRESSION: Minimal patchy atelectatic changes left lung base. .
--- NOTE | ~2022-03-26 | CT_ITS ---
EXAMINATION: CT ABDOMEN AND PELVIS WITHOUT CONTRAST CLINICAL INFORMATION: Recurrent UTI COMPARISON: None TECHNIQUE: Multidetector volumetric imaging was performed from the superior aspect of the liver through the pubic symphysis. Sagittal and coronal reformatted images were obtained on the technologist's workstation. This CT examination was performed using dose optimization techniques as appropriate, variously including the following: *Automated exposure control *Adjustment of mA and/or kV according to patient size (this includes techniques or standardized protocols for targeted exams where dose is matched to indication/reason for exam; i.e. extremities or head) *Use of iterative reconstruction technique DLP: 152 mGy-cm FINDINGS: Limited exam due to lack of oral and IV contrast. LUNG BASES: The visualized lung bases are unremarkable. LIVER, GALLBLADDER, AND BILIARY TREE: The liver is normal in size, shape, and attenuation. No focal hepatic lesion or biliary ductal dilatation is present. The gallbladder is unremarkable with no evidence of radiopaque gallstones, gallbladder wall thickening, or obvious pericholecystic inflammatory changes. PANCREAS: Unremarkable. SPLEEN: Unremarkable. ADRENAL GLANDS: Unremarkable. KIDNEYS AND URETERS: The kidneys are normal in size, shape, and attenuation. There are small nonobstructive radiopaque calculi measuring 6 mm in upper pole right kidney, 3 mm lower pole and 2 small tumor radiopaque calculi adjacent to each other midpole left kidney. There is no caliectasis or hydronephrosis. BLADDER: Unremarkable. GASTROINTESTINAL TRACT: There is a large amount of stool and gas seen throughout the entire colon suggesting moderate to severe constipation. There are multiple prominent small bowel loops with air-fluid levels in mid and lower pelvis. No free air or free fluid seen. ABDOMINAL WALL: No significant hernia is appreciated. LYMPH NODES: Normal. VASCULAR: There is atherosclerotic changes of abdominal aorta without aneurysmal dilatation. PELVIC VISCERA: The uterus is not visualized. No adnexal mass or free fluid. OSSEOUS STRUCTURES: There is grade 2 anterolisthesis L4 over L5 with degenerative disc changes L4-L5, T10-T11 and T11-T12 disc levels. No aggressive lytic or sclerotic process seen.. CT/CT abdomen pelvis wo IV con IMPRESSION: 1. Bilateral nonobstructive radiopaque renal calculi. No caliectasis or hydronephrosis. 2. Significant constipation with mild prominence of small bowel loops with air-fluid levels in mid and lower pelvis. Question ileus versus early obstruction. No free air or free fluid seen 3. Grade 2 anterolisthesis L4 over L5 with degenerative disc changes L4-L5, T10-T11 and T11-T12 disc levels. Fleischner guidelines were followed.
--- NOTE | ~2022-03-26 | CT_ITS ---
EXAMINATION: CT HEAD WITHOUT CONTRAST CLINICAL INFORMATION: Headache. COMPARISON: None TECHNIQUE: Contiguous axial imaging was performed from the skull base to vertex without intravenous administration of contrast. This CT examination was performed using dose optimization techniques as appropriate, variously including the following: *Automated exposure control *Adjustment of mA and/or kV according to patient size (this includes techniques or standardized protocols for targeted exams where dose is matched to indication/reason for exam; i.e. extremities or head) *Use of iterative reconstruction technique DLP: 628 mGy-cm FINDINGS: There is no acute intra-axial, extra-axial bleed, masses or midline shift. There is no acute infarction evolution. There is no edema. The lucero to white matter differentiation is maintained normal. The lateral ventricles are symmetrical but moderately enlarged with mild prominence of cortical sulci. There is mild periventricular hypodensity in both cerebral hemispheres without mass effect. Bone windows reveal no calvarial abnormality. Bilateral paranasal sinuses and mastoid air cells are well-aerated. CT/CT head/brain wo IV con IMPRESSION: 1. No acute intracranial process seen. 2. Age-related cerebral volume loss with chronic small vessel ischemic changes.
--- NOTE | 2022-03-26 14:23 | ECG_ITS ---
Test Reason : weakness Blood Pressure : / mmHG Vent. Rate : 055 BPM Atrial Rate : 055 BPM P-R Int : 146 ms QRS Dur : 074 ms QT Int : 470 ms P-R-T Axes : 064 -18 009 degrees QTc Int : 449 ms Sinus bradycardia Septal infarct , age undetermined Abnormal ECG When compared with ECG of 20-FEB-2022 12:20, Nonspecific T wave abnormality now evident in Anterolateral leads Referred By: Ketty Allen Electronically Signed By:KATHARINA MARTINEZ
--- NOTE | 2022-03-26 14:42 | ED.GENADULT ---
HPI - General Adult General Chief complaint: Weakness Stated complaint: WARM TO TOUCH,WEAK PER EMS Time Seen by Provider: 03/26/22 14:17 Source: patient and EMS Mode of arrival: EMS History of Present Illness HPI narrative: 71-year-old female who arrives via EMS from ?her friend's house? and was recently discharged from short-term rehab when she had a UTI and now is presenting with what the patient believes is a high heart rate and several episodes of nausea and vomiting. Patient states that she was able take her morning medications today and denies any associated fever but is having chills and denies any shortness of breath/cough/chest pain/palpitations and states that she is having urinary frequency but no diarrhea. Patient states that she walks around with a walker which she used this morning. Related Data Home Medications Medication Instructions Recorded Confirmed buprenorphine 12 mg-naloxone 3 mg 1 film sublingual DAILY 02/21/22 03/26/22 sublingual film bupropion HCl 150 mg tablet,12 hr 150 mg PO DAILY 02/21/22 03/26/22 sustained-release fluticasone fur. 100 mcg-umeclid 1 inh inhalation DAILY 02/21/22 03/26/22 62.5 mcg-vilant 25 mcg inhalat.powder (Trelegy Ellipta) paroxetine HCl 40 mg tablet 40 mg PO DAILY 02/21/22 03/26/22 propranolol 20 mg tablet 20 mg PO TID PRN Anxiety 02/21/22 03/26/22 topiramate 100 mg tablet 100 mg PO BID 02/21/22 03/26/22 ipratropium 20 mcg-albuterol 100 1 puff inhalation QID 03/26/22 03/26/22 mcg/actuation mist for inhalation (Combivent Respimat) naloxone 4 mg/actuation nasal 4 mg intranasal Q24H PRN Opiate 03/26/22 03/26/22 spray (Narcan) Reversal Allergies Allergy/AdvReac Type Severity Reaction Status Date / Time No Known Allergies Allergy Verified 02/20/22 20:11 Review of Systems Review of Systems: Pertinent positives and negatives as stated in HPI [facility] Past Medical History Source: nursing notes reviewed Social History Social History Alcohol intake: never Advance Directives: No Advance Directives Information Provided: No Physical Exam ED Vital Signs: Vital Signs - 24 hr 03/26/22 15:04 03/26/22 16:23 03/26/22 17:41 Temperature 97.9 F Pulse Rate 55 58 60 Respiratory Rate 16 18 18 Blood Pressure 198/67 H 191/85 H 186/98 H Pulse Oximetry 97 94 97 Oxygen Delivery Method Room Air Room Air Room Air BMI result Body Mass Index 15.7 VITAL SIGNS: Reviewed. GENERAL: Frail, elderly in no acute distress. HEAD: Normocephalic/atraumatic EYES: PERRLA, EOMI EARS: Ext canals without abnormality OROPHARYNX: no oral lesions noted, posterior pharynx clear LUNGS: Normal breath sounds. No adventitious sounds or accessory muscle use. CARDIOVASCULAR: Regular rate and rhythm without noted murmurs, no JVD or lower extremity edema. ABDOMEN: Soft, non-tender, non-distended with bowel sounds. MUSCULOSKELETAL: No tenderness, deformities, or effusions noted on gross inspection. EXTREMITIES: No cyanosis, clubbing or edema. SKIN: Inspection of the skin reveals no rashes, ulcerations, jaundice, pallor, or petechiae. NEUROLOGIC: Alert and oriented x 3. Strength and sensation to light touch were grossly intact x 4, it is noted that patient has 4/5 symmetrical strength on lower extremity leg lift but otherwise plantar and dorsiflexion are 5/5 and otherwise cranial nerves 2-12 are grossly intact.. Medications Administered Discontinued Medications Generic Name Dose Route Start Last Admin Trade Name Freq PRN Reason Stop Dose Admin Ceftriaxone Sodium 1 gm/ 50 mls @ 100 mls/hr 03/26/22 16:01 03/26/22 16:52 Sodium Chloride IV 03/26/22 16:30 Infused ONCE ONE Infusion Lisinopril 5 mg 03/26/22 14:47 03/26/22 15:19 Lisinopril 5 Mg Tablet PO 03/26/22 14:48 5 mg ONCE ONE Administration Protocol Medical Decision Making Medical Decision Making MDM Narrative: 71-year-old female with a few episodes of nausea and vomiting, chills and ?high heart rate? but suspect that the latter may have been high blood pressure. I have reviewed all workup and findings are consistent with confusion likely attributed to by UTI as CT of the head is negative and there are no focal findings. Patient received IV antibiotics, but due to her mild confusion will seek admission. There is no leukocytosis and anemia is chronically stable. Remaining lab work appears to be chronically stable and suspect that the bilirubin is mildly elevated at 1.3 secondary to patient's nausea and vomiting. Differential Diagnosis Differential Diagnoses: The differential diagnosis associated with the presentation includes I will rule out viral illness, infection, anemia Admission/Observation Consideration of admission/observation: Escalation of care including admission/observation considered Consult Healthcare Provider Management of the patient was discussed with: Hospitalist [id number]: I communicated with the inpatient hospitalist for admission in this patient who is mildly altered and has a UTI. Lab Data MDM Lab Attestation statement: I reviewed the patient's lab results. Please see above discussion. Result Diagrams: 03/26/22 14:54 03/26/22 14:54 Labs: Lab Results 03/26/22 03/26/22 03/26/22 Range/Units 14:54 14:54 14:54 WBC 7.7 (4.8-10.8) X10*3/uL RBC 4.21 (4.20-5.50) X10*6/uL Hgb 11.9 L (12.0-16.0) g/dl Hct 35.5 L (37.0-47.0) % MCV 84.3 (80.0-98.0) fL MCH 28.3 (27.0-33.0) pg MCHC 33.5 (31.0-35.0) g/dl RDW 15.7 (11.0-16.0) % Plt Count 164 (160-400) X10*3/uL MPV 8.8 L (9.4-12.3) fL Immature Gran % (Auto) 0.4 (0.0-0.4) % Neut % (Auto) 77.6 H (45-73) % Lymph % (Auto) 16.7 L (20-40) % Rains % (Auto) 5.0 (2-11) % Eos % (Auto) 0.0 (0-4) % Baso % (Auto) 0.3 (0-2) % Lymph # (Auto) 1.3 (1.2-4.9) X10*3/uL Rains # (Auto) 0.4 (0.1-1.2) X10*3/uL Eos # (Auto) 0.0 (0.0-0.4) X10*3/uL Baso # (Auto) 0.0 (0.0-0.2) X10*3/uL Abs Immat Gran (auto) 0.03 (0.00-0.03) X10*3/uL Absolute Neuts (auto) 6.0 (2.0-8.3) x10*3/uL Absolute Nucleated RBC 0.000 (0.0-0.012) X10*3/uL Nucleated RBC % (auto) 0.0 (0.0-0.2) /100WBC Sodium 139 (135-145) mmol/L Potassium 3.8 (3.3-5.1) mmol/L Chloride 107 (96-108) mmol/L Carbon Dioxide 25 (22-29) mmol/L Anion Gap 11 L (12-20) BUN 17 H (9-16) mg/dL Creatinine 1.08 (0.5-1.4) mg/dL Estim Creat Clear Calc 31.0 Estimated GFR 50 Random Glucose 113 (60-115) mg/dL Lactic Acid (0.5-2.0) mmol/L Calcium 9.4 (8.4-10.2) mg/dL Total Bilirubin 1.3 H (0.0-1.0) mg/dL AST 17 (5-31) U/L ALT 9 (0-31) U/L Alkaline Phosphatase 151 H (39-117) U/L Troponin I High Sens (<3.5-17.0) ng/L Total Protein 7.7 (6.5-8.0) g/dL Albumin 3.9 (3.5-5.0) g/dL Urine Color Urine Appearance Urine pH (5.0-9.0) Ur Specific [place] (1.005-1.025) Urine Protein (Neg-Trace) mg/dL Urine Glucose (UA) (Negative) mg/dL Urine Ketones (Negative) mg/dL Urine Blood (Negative) Urine Nitrite (Negative) Ur Leukocyte Esterase (Negative) Urine RBC (0-2) /HPF Urine WBC (0-5) /HPF Ur Squamous Epith Cells (0-2) /HPF Urine Bacteria (None Seen) Hyaline Casts (0-2) /LPF COVID-19 (MORALES) (Negative) COVID-19 Clin Com Influenza Type A (HIRAL) Negative (Negative) Influenza Type B (HIRAL) Negative (Negative) Influenza A & B Note See Note 03/26/22 03/26/22 03/26/22 Range/Units 14:54 14:54 15:43 WBC (4.8-10.8) X10*3/uL RBC (4.20-5.50) X10*6/uL Hgb (12.0-16.0) g/dl Hct (37.0-47.0) % MCV (80.0-98.0) fL MCH (27.0-33.0) pg MCHC (31.0-35.0) g/dl RDW (11.0-16.0) % Plt Count (160-400) X10*3/uL MPV (9.4-12.3) fL Immature Gran % (Auto) (0.0-0.4) % Neut % (Auto) (45-73) % Lymph % (Auto) (20-40) % Rains % (Auto) (2-11) % Eos % (Auto) (0-4) % Baso % (Auto) (0-2) % Lymph # (Auto) (1.2-4.9) X10*3/uL Rains # (Auto) (0.1-1.2) X10*3/uL Eos # (Auto) (0.0-0.4) X10*3/uL Baso # (Auto) (0.0-0.2) X10*3/uL Abs Immat Gran (auto) (0.00-0.03) X10*3/uL Absolute Neuts (auto) (2.0-8.3) x10*3/uL Absolute Nucleated RBC (0.0-0.012) X10*3/uL Nucleated RBC % (auto) (0.0-0.2) /100WBC Sodium (135-145) mmol/L Potassium (3.3-5.1) mmol/L Chloride (96-108) mmol/L Carbon Dioxide (22-29) mmol/L Anion Gap (12-20) BUN (9-16) mg/dL Creatinine (0.5-1.4) mg/dL Estim Creat Clear Calc Estimated GFR Random Glucose (60-115) mg/dL Lactic Acid (0.5-2.0) mmol/L Calcium (8.4-10.2) mg/dL Total Bilirubin (0.0-1.0) mg/dL AST (5-31) U/L ALT (0-31) U/L Alkaline Phosphatase (39-117) U/L Troponin I High Sens 6.7 (<3.5-17.0) ng/L Total Protein (6.5-8.0) g/dL Albumin (3.5-5.0) g/dL Urine Color Dark Yellow Urine Appearance Turbid Urine pH 6.5 (5.0-9.0) Ur Specific [place] 1.015 (1.005-1.025) Urine Protein 100 (2+) H (Neg-Trace) mg/dL Urine Glucose (UA) Negative (Negative) mg/dL Urine Ketones Negative (Negative) mg/dL Urine Blood Large (3+) H (Negative) Urine Nitrite Positive H (Negative) Ur Leukocyte Esterase Large (3+) H (Negative) Urine RBC >20 H (0-2) /HPF Urine WBC >50 H (0-5) /HPF Ur Squamous Epith Cells 11-20 (0-2) /HPF Urine Bacteria 4+ (None Seen) Hyaline Casts 0-2 (0-2) /LPF COVID-19 (MORALES) Negative (Negative) COVID-19 Clin Com See Note Influenza Type A (HIRAL) (Negative) Influenza Type B (HIRAL) (Negative) Influenza A & B Note 03/26/22 Range/Units 16:12 WBC (4.8-10.8) X10*3/uL RBC (4.20-5.50) X10*6/uL Hgb (12.0-16.0) g/dl Hct (37.0-47.0) % MCV (80.0-98.0) fL MCH (27.0-33.0) pg MCHC (31.0-35.0) g/dl RDW (11.0-16.0) % Plt Count (160-400) X10*3/uL MPV (9.4-12.3) fL Immature Gran % (Auto) (0.0-0.4) % Neut % (Auto) (45-73) % Lymph % (Auto) (20-40) % Rains % (Auto) (2-11) % Eos % (Auto) (0-4) % Baso % (Auto) (0-2) % Lymph # (Auto) (1.2-4.9) X10*3/uL Rains # (Auto) (0.1-1.2) X10*3/uL Eos # (Auto) (0.0-0.4) X10*3/uL Baso # (Auto) (0.0-0.2) X10*3/uL Abs Immat Gran (auto) (0.00-0.03) X10*3/uL Absolute Neuts (auto) (2.0-8.3) x10*3/uL Absolute Nucleated RBC (0.0-0.012) X10*3/uL Nucleated RBC % (auto) (0.0-0.2) /100WBC Sodium (135-145) mmol/L Potassium (3.3-5.1) mmol/L Chloride (96-108) mmol/L Carbon Dioxide (22-29) mmol/L Anion Gap (12-20) BUN (9-16) mg/dL Creatinine (0.5-1.4) mg/dL Estim Creat Clear Calc Estimated GFR Random Glucose (60-115) mg/dL Lactic Acid 1.2 (0.5-2.0) mmol/L Calcium (8.4-10.2) mg/dL Total Bilirubin (0.0-1.0) mg/dL AST (5-31) U/L ALT (0-31) U/L Alkaline Phosphatase (39-117) U/L Troponin I High Sens (<3.5-17.0) ng/L Total Protein (6.5-8.0) g/dL Albumin (3.5-5.0) g/dL Urine Color Urine Appearance Urine pH (5.0-9.0) Ur Specific [place] (1.005-1.025) Urine Protein (Neg-Trace) mg/dL Urine Glucose (UA) (Negative) mg/dL Urine Ketones (Negative) mg/dL Urine Blood (Negative) Urine Nitrite (Negative) Ur Leukocyte Esterase (Negative) Urine RBC (0-2) /HPF Urine WBC (0-5) /HPF Ur Squamous Epith Cells (0-2) /HPF Urine Bacteria (None Seen) Hyaline Casts (0-2) /LPF COVID-19 (MORALES) (Negative) COVID-19 Clin Com Influenza Type A (HIRAL) (Negative) Influenza Type B (HIRAL) (Negative) Influenza A & B Note Independent Interpretation I performed an independent interpretation of an: EKG Interpretation: Sinus bradycardia, HR -55, no STEMI, DC/QRS/QTC is within normal limits. Radiology Impression Radiologist Impression: My interpretation is in agreement with radiology's impression of radiologic studies. External Record Review External record reviewed: Inpatient record, Outpatient record and Prior outpatient labs Chronic Conditions Patient?s care impacted by: Hypertension Critical Care Time Critical Care Time Critical Care Time: Yes Total Critical Care Time: 45 Attestation: I personally attest to this time spent taking care of the patient. Discharge Plan Discharge Clinical Impression: Altered mental status, Acute UTI Patient Disposition: Admitted As Inpatient
[2022-03-26 15:01] LABS: MANUAL DIFF FLAG NO
[2022-03-26 15:02] LABS: Basophils Percent Auto 0.3 % (0-2); Hematocrit 35.5 % (37.0-47.0); Hemoglobin 11.9 g/dl (12.0-16.0); Imm Gran Abs Auto 0.03 X10*3/uL (0.00-0.03); Imm Gran Pct Auto 0.4 % (0.0-0.4); Lymphocytes Absolute Auto 1.3 X10*3/uL (1.2-4.9); Lymphocytes Percent Auto 16.7 % (20-40); Mean Corpuscular HGB Conc 33.5 g/dl (31.0-35.0); Mean Corpuscular Hemoglobin 28.3 pg (27.0-33.0); Mean Corpuscular Volume 84.3 fL (80.0-98.0); Mean Platelet Volume 8.8 fL (9.4-12.3); Monocytes Absolute Auto 0.4 X10*3/uL (0.1-1.2); Neutrophils Percent Auto 77.6 % (45-73); Platelet Count 164 X10*3/uL (160-400); Red Blood Count 4.21 X10*6/uL (4.20-5.50); Red Cell Distribution Width 15.7 % (11.0-16.0); White Blood Count 7.7 X10*3/uL (4.8-10.8)
[2022-03-26 15:04] VITALS: BP 198/67; BP 200/100; PULSE 55; PULSE 67; RESP 16; TEMP 36.6; O2SAT 97; BMI 15.7
[2022-03-26 15:18] LABS: IDNOW Serial# BCCEAD1C; Influenza A Negative (Negative); Influenza B2 Negative (Negative)
[2022-03-26 15:19] LABS: COVID-19 Test Negative (Negative); IDNOW Serial# 55D5AD1C
[2022-03-26] MEDS: lisinopriL 5 MG TABLET PO (15:19)
[2022-03-26 15:32] LABS: Troponin-I High Sensitivity 6.7 ng/L (<3.5-17.0)
[2022-03-26 15:51] LABS: Appearance Urine Turbid; Color Urine Dark Yellow; Glucose Urine UA Negative (Negative); Leukocyte Esterase Urine Large (3+) (Negative); Nitrite Urine Positive (Negative); PH 6.5 (5.0-9.0); Specific Gravity - Urine 1.015 (1.005-1.025); UMIC TRIGGER UACC YES; Urine Blood Large (3+) (Negative); Urine Ketones Negative (Negative); Urine Protein 100 (2+) mg/dL (Neg-Trace)
--- NOTE | 2022-03-26 15:53 | PC.NURSE ---
Tonya needs assistance to stand and does have episodes of confusion MD aware will CTM
[2022-03-26 16:01] LABS: Alanine Aminotransferase 9 U/L (0-31); Albumin Level 3.9 g/dL (3.5-5.0); Alkaline Phosphatase 151 U/L (39-117); Anion Gap 11 (12-20); Aspartate Amino Transferase 17 U/L (5-31); Bilirubin Total 1.3 mg/dL (0.0-1.0); Blood Urea Nitrogen 17 mg/dL (9-16); Calcium 9.4 mg/dL (8.4-10.2); Carbon Dioxide 25 mmol/L (22-29); Chloride 107 mmol/L (96-108); Estimated Glomerular Filt Rate 50; Glucose Random 113 mg/dL (60-115); Potassium 3.8 mmol/L (3.3-5.1); Sodium 139 mmol/L (135-145); Total Protein 7.7 g/dL (6.5-8.0)
[2022-03-26 16:06] LABS: Bacteria Urine 4+ (None Seen); Hyaline Casts Urine 0-2 /LPF (0-2); RBC Urine >20 /HPF (0-2); UACC Culture Trigger YES; WBC Urine >50 /HPF (0-5)
[2022-03-26] MEDS: cefTRIAXone sodium 1 GM in 0.9 % Sodium Chloride 50 ML IV (16:21)
[2022-03-26 16:23] VITALS: BP 191/85; PULSE 58; RESP 18; O2SAT 94
[2022-03-26 16:36] LABS: Lactic Acid 1.2 mmol/L (0.5-2.0)
[2022-03-26 17:41] VITALS: BP 186/98; PULSE 60; RESP 18; O2SAT 97
--- NOTE | 2022-03-26 18:11 | PC.NURSE ---
Confusion noted patient is able to be redirected will CTM
--- NOTE | 2022-03-26 18:16 | P.HPHOSP_ITS ---
History of Present Illness Date of Service: 03/26/22 Chief Complaint: Confusion 71-year-old female with unknown PMH history brought to the ED to be evaluated for confusion, detail are lacking and patient is confused and not able to offer any reliable history at this point, she tells me she lives with roomate RN states that her daughter has called several times when I try calling the daughter Hope only go to answering machine. CT of head is negative, UA is grossely negative and given Ceftriaxone . Review of Systems Review of Systems: Gen: no fever Resp: no sob, no cough CV: no chest, no ZAPATA, no leg edema GI: No n/v, no abd pain Neuro: + confusion Yes all other systems are reviewed and are negative PMFSH Social History Alcohol intake: never Smoked in Last 30 Days: No Advance Directives: No Advance Directives Information Provided: No service: No Current occupational status: retired [employer] Allergies Allergy/AdvReac Type Severity Reaction Status Date / Time No Known Allergies Allergy Verified 02/20/22 20:11 Active Medications: Current Medications Pharmacy Consult (Consult Rx Perform Med Rec) 1 each MISCELLANE ONCE PRN PRN Reason: Consult order Home Medications Medication Instructions Recorded Confirmed Last Taken Type buprenorphine 12 mg-naloxone 3 mg 1 film sublingual DAILY 02/21/22 03/26/22 02/20/22 History sublingual film bupropion HCl 150 mg tablet,12 hr 150 mg PO DAILY 02/21/22 03/26/22 Unknown History sustained-release fluticasone fur. 100 mcg-umeclid 1 inh inhalation DAILY 02/21/22 03/26/22 Unknown History 62.5 mcg-vilant 25 mcg inhalat.powder (Trelegy Ellipta) paroxetine HCl 40 mg tablet 40 mg PO DAILY 02/21/22 03/26/22 Unknown History propranolol 20 mg tablet 20 mg PO TID PRN Anxiety 02/21/22 03/26/22 Unknown History topiramate 100 mg tablet 100 mg PO BID 02/21/22 03/26/22 Unknown History ipratropium 20 mcg-albuterol 100 1 puff inhalation QID 03/26/22 03/26/22 Unknown History mcg/actuation mist for inhalation (Combivent Respimat) naloxone 4 mg/actuation nasal 4 mg intranasal Q24H PRN Opiate 03/26/22 03/26/22 Unknown History spray (Narcan) Reversal Physical Exam Vital Signs and Narrative: Vital Signs: Last Vital Signs Temp 97.9 F 03/26/22 15:04 Pulse 60 03/26/22 17:41 Resp 18 03/26/22 17:41 BP 186/98 H 03/26/22 17:41 Pulse Ox 97 03/26/22 17:41 O2 Del Method 03/26/22 17:41 BMI result Body Mass Index 15.7 Const: Other: Constitutional: Alert, in no distress, oriented to self Mental Status: Oriented to person, place and time. Eyes: Pupils are equal, round and reactive to light. Ear, Nose and Throat: Oropharynx clear, mucous membranes moist. Ears and nose without eformities. Trachea midline. Respiratory: Clear to auscultation. No wheezing, rales or rhonchi. Cardiovascular: S1 S2 regular. No murmurs, rubs or gallops. Gastrointestinal: Abdomen soft, non-tender, non-distended. Normal bowel sounds.? Neurologic: Cranial nerves II-XII grossly intact. No focal neurological deficits. Moves all extremities spontaneously.? Skin: No rashes or lesions.? Musculoskeletal: No cyanosis or clubbing. Psychiatric: Normal mood and affect? Results Labs CBC and Chem 7: 03/26/22 14:54 03/26/22 14:54 Labs: Laboratory Results - last 24 hr 03/26/22 03/26/22 03/26/22 14:54 14:54 14:54 MCV 84.3 MCH 28.3 MCHC 33.5 RDW 15.7 Plt Count 164 MPV 8.8 L Immature Gran % (Auto) 0.4 Neut % (Auto) 77.6 H Lymph % (Auto) 16.7 L [place] % (Auto) 5.0 Eos % (Auto) 0.0 Baso % (Auto) 0.3 Lymph # (Auto) 1.3 [place] # (Auto) 0.4 Eos # (Auto) 0.0 Baso # (Auto) 0.0 Abs Immat Gran (auto) 0.03 Absolute Neuts (auto) 6.0 Absolute Nucleated RBC 0.000 Nucleated RBC % (auto) 0.0 Anion Gap 11 L Estim Creat Clear Calc 31.0 Estimated GFR 50 Random Glucose 113 Lactic Acid Calcium 9.4 Total Bilirubin 1.3 H AST 17 ALT 9 Alkaline Phosphatase 151 H Troponin I High Sens Total Protein 7.7 Albumin 3.9 Urine Color Urine Appearance Urine pH Ur Specific [place] Urine Protein Urine Glucose (UA) Urine Ketones Urine Blood Urine Nitrite Ur Leukocyte Esterase Urine RBC Urine WBC Ur Squamous Epith Cells Urine Bacteria Hyaline Casts COVID-19 (MORALES) COVID-19 Clin Com Influenza Type A (HIRAL) Negative Influenza Type B (HIRAL) Negative Influenza A & B Note See Note 03/26/22 03/26/22 03/26/22 14:54 14:54 15:43 MCV MCH MCHC RDW Plt Count MPV Immature Gran % (Auto) Neut % (Auto) Lymph % (Auto) [place] % (Auto) Eos % (Auto) Baso % (Auto) Lymph # (Auto) [place] # (Auto) Eos # (Auto) Baso # (Auto) Abs Immat Gran (auto) Absolute Neuts (auto) Absolute Nucleated RBC Nucleated RBC % (auto) Anion Gap Estim Creat Clear Calc Estimated GFR Random Glucose Lactic Acid Calcium Total Bilirubin AST ALT Alkaline Phosphatase Troponin I High Sens 6.7 Total Protein Albumin Urine Color Dark Yellow Urine Appearance Turbid Urine pH 6.5 Ur Specific [place] 1.015 Urine Protein 100 (2+) H Urine Glucose (UA) Negative Urine Ketones Negative Urine Blood Large (3+) H Urine Nitrite Positive H Ur Leukocyte Esterase Large (3+) H Urine RBC >20 H Urine WBC >50 H Ur Squamous Epith Cells 11-20 Urine Bacteria 4+ Hyaline Casts 0-2 COVID-19 (MORALES) Negative COVID-19 Clin Com See Note Influenza Type A (HIRAL) Influenza Type B (HIRAL) Influenza A & B Note 03/26/22 16:12 MCV MCH MCHC RDW Plt Count MPV Immature Gran % (Auto) Neut % (Auto) Lymph % (Auto) [place] % (Auto) Eos % (Auto) Baso % (Auto) Lymph # (Auto) [place] # (Auto) Eos # (Auto) Baso # (Auto) Abs Immat Gran (auto) Absolute Neuts (auto) Absolute Nucleated RBC Nucleated RBC % (auto) Anion Gap Estim Creat Clear Calc Estimated GFR Random Glucose Lactic Acid 1.2 Calcium Total Bilirubin AST ALT Alkaline Phosphatase Troponin I High Sens Total Protein Albumin Urine Color Urine Appearance Urine pH Ur Specific [place] Urine Protein Urine Glucose (UA) Urine Ketones Urine Blood Urine Nitrite Ur Leukocyte Esterase Urine RBC Urine WBC Ur Squamous Epith Cells Urine Bacteria Hyaline Casts COVID-19 (MORALES) COVID-19 Clin Com Influenza Type A (HIRAL) Influenza Type B (HIRAL) Influenza A & B Note Imaging Radiologist's Impressions: Impressions Chest X-Ray 03/26/22 13:00 IMPRESSION: Minimal patchy atelectatic changes left lung base. . Head CT 03/26/22 15:31 IMPRESSION: 1. No acute intracranial process seen. 2. Age-related cerebral volume loss with chronic small vessel ischemic changes. Assessment and Plan (1) UTI (urinary tract infection): Status: Acute (2) Metabolic encephalopathy: Status: Acute Plan 77/F with acute confusion/toxic metabolic encephalopathy likely related to UTI -Treat underlying UTI with Ceftriaxone and follow culture -will try to reachout to daughter later to get additional history, awaiting on med rec to be done mood desorder continue home meds once med rec done HTN --no meds listed, admission to span at least 2 midnights for metabolic encephalopathy due to UTI needing Iv Abx not able to do this in the communicity Time Spent With Patient Time: Total time managing care of this patient today ____ minutes. Quality Stroke Does the patient have a stroke diagnosis?: No VTE Prior VTE?: No VTE Risk Level:: Medical - moderate - high VTE Device Contraindication: Treatment Not Indicated VTE Drug Contraindication: Treatment Not Indicated
--- NOTE | 2022-03-26 18:20 | PHA.MEDREC ---
Pharmacy Consult ? Medication Reconciliation Pharmacy has completed the medication reconciliation. Med list obtained from [facility] and [facility]
--- NOTE | 2022-03-26 19:02 | PC.NURSE ---
Addendum entered by Harini Carson RN 03/26/22 20:05: repot given to ARNOL Ren Original Note: report received from ARNOL Chang
[2022-03-26] MEDS: Dextrose 5 % and 0.45 % NaCl 1,000 ML 100 ML IVCONT (19:52)
[2022-03-26] MEDS: Heparin Sodium,Porcine 5,000 UNIT/ML VIAL 5000 UNIT SUBCUT (19:57)
[2022-03-26 21:11] VITALS: BP 221/98; PULSE 86; RESP 16; TEMP 36.5; O2SAT 97
--- NOTE | 2022-03-26 21:12 | MHC.EDTECH ---
ARNOL RENEE IS AWARE OF PT HIGH BP .
--- NOTE | 2022-03-26 22:03 | PC.NURSE ---
Patient is oriented to self and place, confused at times. Patient denies any pain. She is incontinent of urine, purewick applied to prevent skin breakdown. BP is high 200-228/80's. P 86-88. Dr. Valencia notified, new order received for Labetalol IV push.
[2022-03-26] MEDS: Labetalol HCL 100 MG/20 ML VIAL 10 MG IVPUSH (22:17)
[2022-03-27] VITALS (10 sets, daily range): BP systolic 148–222; BP diastolic 70–95; PULSE 52–74; RESP 16–20; TEMP 36.4–37.1; O2SAT 95–97
--- NOTE | 2022-03-27 00:04 | PC.NURSE ---
Labetalol 10 mg IV push administered at 22:17. BP continues to be elevated 222/95, P 60. Dr. Valencia notified via [address] [employer] message.
[2022-03-27] MEDS: hydrALAZINE HCl 20 MG/ML VIAL 10 MG IVPUSH (00:30)
[2022-03-27] MEDS: Nitroglycerin 2 % Oint 1 GM Packet 1 INCH TRANSDERMA (00:40)
--- NOTE | 2022-03-27 00:43 | PC.NURSE ---
Nitro-Dur 0.1 mg transdermal patch is not available at this time. Dr. Valencia notified. Verbal order obtained for Nitro-Bid 2% apply 1 once.
[2022-03-27] MEDS: Dextrose 5 % and 0.45 % NaCl 1,000 ML 100 ML IVCONT ×2 (05:38→14:49)
[2022-03-27] MEDS: Heparin Sodium,Porcine 5,000 UNIT/ML VIAL 5000 UNIT SUBCUT ×2 (06:06→20:03)
[2022-03-27 07:22] LABS: Glucose, Whole Blood 115 mg/dL (60-115)
--- NOTE | 2022-03-27 09:26 | MHC.CM.PN ---
Patient is here with s/s of Confusion (UTI & Metabolic Encephalopathy);CM spoke with Daughter/HCP/Hope, in [place] @[phone] and addressed IMM with her (original and a copy to be placed on chart for Patient's future review if/when s/s of confusion improve). Patient lives in a trailer with her Roommate/Rose at [phone] or [phone] and she just recently was released from STR @ [facility] [place] (Patient is on Suboxone). Hope feels that Patient will benefit from a PT eval and may require further STR at time of dc. CM has initiated and will follow for dc planning. Kae also identified a secondary HCP/Waldemar @ [phone]. Patient has received [employer] vax x1 and her PCP is Dr. Jaye Lim.
[2022-03-27] MEDS: Topiramate 100 MG TABLET PO ×2 (10:25→20:03)
[2022-03-27] MEDS: PARoxetine HCL 40 MG TABLET PO (10:25)
[2022-03-27] MEDS: 0.9 % Sodium Chloride Flush 3 ML SYRINGE IVFLUSH ×2 (10:26→20:03)
--- NOTE | 2022-03-27 10:40 | PC.NURSE ---
Pt was assisted with a partial bed bath. Pt needed extensive assistance to run in bed but tolerated activity well. Pt was incontinent of urine.
--- NOTE | 2022-03-27 11:38 | P.PNIM_ITS ---
Subjective Subjective Date of Service: 03/27/22 Interval History: f/u on encephalopathy d/t uti, she's more lucid oriented to self, place Review of Systems Gen: no fever Resp: no sob, no cough CV: no chest, no ZAPATA, no leg edema GI: No n/v, no abd pain Neuro:less confusion Physical Exam Vital Signs: Vital Signs: Last Vital Signs Temp 98.0 F 03/27/22 08:06 Pulse 52 03/27/22 08:06 Resp 16 03/27/22 08:06 BP 192/86 H 03/27/22 08:06 Pulse Ox 97 03/27/22 08:06 O2 Del Method 03/27/22 08:06 BMI result Body Mass Index 15.7 Const: Other: Constitutional: Alert, in no distress, oriented to self Mental Status: Oriented to person, place and time. Eyes: Pupils are equal, round and reactive to light. Ear, Nose and Throat: Oropharynx clear, mucous membranes moist. Ears and nose without eformities. Trachea midline. Respiratory: Clear to auscultation. No wheezing, rales or rhonchi. Cardiovascular: S1 S2 regular. No murmurs, rubs or gallops. Gastrointestinal: Abdomen soft, non-tender, non-distended. Normal bowel sounds.? Neurologic: Cranial nerves II-XII grossly intact. No focal neurological deficits. Moves all extremities spontaneously.? Skin: No rashes or lesions.? Musculoskeletal: No cyanosis or clubbing. Psychiatric: Normal mood and affect? Objective Data Active Medications Acetaminophen (Acetaminophen 325 Mg Tablet) 650 mg PO Q6H PRN PRN Reason: Pain, Mild (Pain Scale 1-3) Albuterol/Ipratropium (Albuterol/Iprat 2.5/0.5mg 3 Ml Ampul.Neb) 3 ml INHALE RQID [facility] Buprenorphine/Naloxone (Buprenorphine/Naloxone 12/3 Mg Film) 1 film SUBLINGUAL DAILY [facility] Heparin Sodium (Porcine) (Heparin Sodium,Porcine 5,000 Unit/Ml Vial) 5,000 unit SUBCUT Q12H [facility] Last Admin: 03/27/22 06:06 Dose: 5,000 unit Documented By: CHRIS Dextrose/Sodium Chloride (D51/2ns) 1,000 mls @ 100 mls/hr IVCONT .Q10H [facility] Last Admin: 03/27/22 05:38 Dose: 100 mls/hr Documented By: CHRIS Melatonin (Melatonin 3 Mg Tablet) 3 mg PO BEDTIME PRN PRN Reason: Insomnia Non-Formulary Medication (Bupropion Hcl) 150 mg PO DAILY [facility] Non-Formulary Medication (Misryqifnrw-Elixobcbs-Lsgadtpz [Trelegy Ellipta]) 1 inhalation INHALE DAILY [facility] Ondansetron HCl (Ondansetron Hcl 4 Mg/2 Ml Vial) 4 mg IVPUSH Q8H PRN PRN Reason: Nausea and Vomiting Paroxetine HCl (Paroxetine Hcl 40 Mg Tablet) 40 mg PO DAILY [facility] Last Admin: 03/27/22 10:25 Dose: 40 mg Documented By: CONSTANTINO Pharmacy Consult (Consult Rx Perform Med Rec) 1 each MISCELLANE ONCE PRN PRN Reason: Consult order Propranolol HCl (Propranolol Hcl 20 Mg Tablet) 20 mg PO TID PRN; Protocol PRN Reason: Anxiety Sodium Chloride (0.9 % Sodium Chloride Flush 3 Ml Syringe) 3 ml IVFLUSH QSHIFT [facility] Last Admin: 03/27/22 10:26 Dose: 3 ml Documented By: CONSTANTINO Topiramate (Topiramate 100 Mg Tablet) 100 mg PO BID [facility] Last Admin: 03/27/22 10:25 Dose: 100 mg Documented By: CONSTANTINO Labs CBC & Chem 7: 03/26/22 14:54 03/26/22 14:54 Labs: Laboratory Results - last 24 hr 03/26/22 03/26/22 03/26/22 14:54 14:54 14:54 MCV 84.3 MCH 28.3 MCHC 33.5 RDW 15.7 Plt Count 164 MPV 8.8 L Immature Gran % (Auto) 0.4 Neut % (Auto) 77.6 H Lymph % (Auto) 16.7 L [place] % (Auto) 5.0 Eos % (Auto) 0.0 Baso % (Auto) 0.3 Lymph # (Auto) 1.3 [place] # (Auto) 0.4 Eos # (Auto) 0.0 Baso # (Auto) 0.0 Abs Immat Gran (auto) 0.03 Absolute Neuts (auto) 6.0 Absolute Nucleated RBC 0.000 Nucleated RBC % (auto) 0.0 Anion Gap 11 L Estim Creat Clear Calc 31.0 Estimated GFR 50 POC Glucose Random Glucose 113 Lactic Acid Calcium 9.4 Total Bilirubin 1.3 H AST 17 ALT 9 Alkaline Phosphatase 151 H Troponin I High Sens Total Protein 7.7 Albumin 3.9 Urine Color Urine Appearance Urine pH Ur Specific [place] Urine Protein Urine Glucose (UA) Urine Ketones Urine Blood Urine Nitrite Ur Leukocyte Esterase Urine RBC Urine WBC Ur Squamous Epith Cells Urine Bacteria Hyaline Casts COVID-19 ([facility]) COVID-19 Clin Com Influenza Type A (HIRAL) Negative Influenza Type B (HIRAL) Negative Influenza A & B Note See Note 03/26/22 03/26/22 03/26/22 14:54 14:54 15:43 MCV MCH MCHC RDW Plt Count MPV Immature Gran % (Auto) Neut % (Auto) Lymph % (Auto) [place] % (Auto) Eos % (Auto) Baso % (Auto) Lymph # (Auto) [place] # (Auto) Eos # (Auto) Baso # (Auto) Abs Immat Gran (auto) Absolute Neuts (auto) Absolute Nucleated RBC Nucleated RBC % (auto) Anion Gap Estim Creat Clear Calc Estimated GFR POC Glucose Random Glucose Lactic Acid Calcium Total Bilirubin AST ALT Alkaline Phosphatase Troponin I High Sens 6.7 Total Protein Albumin Urine Color Dark Yellow Urine Appearance Turbid Urine pH 6.5 Ur Specific [place] 1.015 Urine Protein 100 (2+) H Urine Glucose (UA) Negative Urine Ketones Negative Urine Blood Large (3+) H Urine Nitrite Positive H Ur Leukocyte Esterase Large (3+) H Urine RBC >20 H Urine WBC >50 H Ur Squamous Epith Cells 11-20 Urine Bacteria 4+ Hyaline Casts 0-2 COVID-19 ([facility]) Negative COVID-19 Clin Com See Note Influenza Type A (HIRAL) Influenza Type B (HIRAL) Influenza A & B Note 03/26/22 03/27/22 16:12 07:14 MCV MCH MCHC RDW Plt Count MPV Immature Gran % (Auto) Neut % (Auto) Lymph % (Auto) [place] % (Auto) Eos % (Auto) Baso % (Auto) Lymph # (Auto) [place] # (Auto) Eos # (Auto) Baso # (Auto) Abs Immat Gran (auto) Absolute Neuts (auto) Absolute Nucleated RBC Nucleated RBC % (auto) Anion Gap Estim Creat Clear Calc Estimated GFR POC Glucose 115 Random Glucose Lactic Acid 1.2 Calcium Total Bilirubin AST ALT Alkaline Phosphatase Troponin I High Sens Total Protein Albumin Urine Color Urine Appearance Urine pH Ur Specific [place] Urine Protein Urine Glucose (UA) Urine Ketones Urine Blood Urine Nitrite Ur Leukocyte Esterase Urine RBC Urine WBC Ur Squamous Epith Cells Urine Bacteria Hyaline Casts COVID-19 ([facility]) COVID-19 Clin Com Influenza Type A (HIRAL) Influenza Type B (HIRAL) Influenza A & B Note Microbiology Microbiology Results: Microbiology 03/26/22 16:19 Urine Culture - Preliminary Urine clean catch - Urine lucero top Gram negative jay Assessment and Plan (1) Metabolic encephalopathy: Status: Acute (2) UTI (urinary tract infection): Status: Acute Plan 77/F with acute confusion/toxic metabolic encephalopathy likely related to UTI -Treat underlying UTI with Ceftriaxone D2 and follow culture -to reach out to family or friend to get additional history ? COPD continue inhalers mood desorder continue home meds once med rec done mild protein calory malnutriton on top of small frame, ensure if not eating well HTN --no meds listed, admission to span at least 2 midnights for metabolic encephalopathy due to UTI needing Iv Abx not able to do this in the communicity Time Spent With Patient Time: Total time managing care of this patient today ____ minutes. Quality Stroke Does the patient have a stroke diagnosis?: No VTE Prior VTE?: No VTE Risk Level:: Medical - moderate - high VTE Device Contraindication: Treatment Not Indicated VTE Drug Contraindication: Treatment Not Indicated
[2022-03-27] MEDS: Albuterol/Iprat 2.5/0.5MG 3 ML AMPUL.NEB INHALE ×2 (12:37→15:29)
--- NOTE | 2022-03-27 12:43 | PC.NURSE ---
pharmacy contacted for amlodipine. not loaded in overflow pyxis.
[2022-03-27] MEDS: amLODIPine Besylate 2.5 MG TABLET PO (13:54)
[2022-03-27] MEDS: Buprenorphine/Naloxone 12/3 mg FILM 1 FILM SUBLINGUAL (14:05)
--- NOTE | 2022-03-27 18:16 | PC.NURSE ---
RN-RN report given to S3.
[2022-03-28] VITALS (11 sets, daily range): BP systolic 138–208; BP diastolic 70–102; PULSE 55–74; RESP 12–18; TEMP 36–36.6; O2SAT 94–99; BMI 17.9
[2022-03-28] MEDS: Dextrose 5 % and 0.45 % NaCl 1,000 ML 100 ML IVCONT (00:35)
[2022-03-28] MEDS: Heparin Sodium,Porcine 5,000 UNIT/ML VIAL 5000 UNIT SUBCUT ×2 (05:57→18:05)
[2022-03-28] MEDS: amLODIPine Besylate 2.5 MG TABLET PO ×2 (07:23→11:05)
[2022-03-28] MEDS: Topiramate 100 MG TABLET PO ×2 (07:23→20:30)
[2022-03-28] MEDS: PARoxetine HCL 40 MG TABLET PO (07:23)
[2022-03-28] MEDS: Buprenorphine/Naloxone 12/3 mg FILM 1 FILM SUBLINGUAL (07:24)
[2022-03-28] MEDS: cefTRIAXone sodium 1 GM in 0.9 % Sodium Chloride 50 ML IV (09:44)
--- NOTE | 2022-03-28 10:32 | HO.PM.IMPN ---
Subjective Subjective Date of Service: 03/28/22 Interval History: f/u on encephalopathy d/t uti, has some baseline confusion probably underlying dementia, BP high Review of Systems Gen: no fever Resp: no sob, no cough CV: no chest, no ZAPATA, no leg edema GI: No n/v, no abd pain Neuro:less confusion Physical Exam Vital Signs: Vital Signs: Last Vital Signs Temp 98 F 03/28/22 08:00 Pulse 61 03/28/22 08:28 Resp 16 03/28/22 08:28 BP 190/78 H 03/28/22 08:51 Pulse Ox 98 03/28/22 08:00 O2 Del Method 03/28/22 08:00 BMI result Body Mass Index 15.7 Const: Other: General: AO X 2, no acute distress Resp: CTA bilateral CVS: S1,S2,RRR GI: +BS, NT, no distention Skin: No rash Neuro: motor grossly intact Psych: appropriate affect Objective Data Active Medications Acetaminophen (Acetaminophen 325 Mg Tablet) 650 mg PO Q6H PRN PRN Reason: Pain, Mild (Pain Scale 1-3) Amlodipine Besylate (Amlodipine Besylate 2.5 Mg Tablet) 2.5 mg PO ONCE ONE; Protocol Stop: 03/28/22 10:29 Amlodipine Besylate (Amlodipine Besylate 5 Mg Tablet) 5 mg PO DAILY [facility] BEDS AT [facility]; Protocol Buprenorphine/Naloxone (Buprenorphine/Naloxone 12/3 Mg Film) 1 film SUBLINGUAL DAILY [facility]S INCLUDE 234 BEDS AT THE [facility] Last Admin: 03/28/22 07:24 Dose: 1 film Documented By: MAGGI Albuterol Sulfate 2.5 mg/ (Ipratropium [place] 0.5 mg) 0 mg INHALE RQID COUNTS INCLUDE 234 BEDS AT THE [facility] Last Admin: 03/28/22 08:26 Dose: 2.5 each Documented By: NADIA Heparin Sodium (Porcine) (Heparin Sodium,Porcine 5,000 Unit/Ml Vial) 5,000 unit SUBCUT Q12H [facility]S INCLUDE 234 BEDS AT THE [facility] Last Admin: 03/28/22 05:57 Dose: 5,000 unit Documented By: LUCIA Hydralazine HCl (Hydralazine Hcl 20 Mg/Ml Vial) 5 mg IVPUSH Q6H PRN; Protocol PRN Reason: SBP > 180 Dextrose/Sodium Chloride (D51/2ns) 1,000 mls @ 100 mls/hr IVCONT .Q10H [facility]S INCLUDE 234 BEDS AT THE [facility] Last Infusion: 03/28/22 10:22 Dose: 0 mls/hr Documented By: MAGGI Ceftriaxone Sodium 1 gm/ (Sodium Chloride) 50 mls @ 100 mls/hr IV Q24H [facility]S INCLUDE 234 BEDS AT THE [facility] Last Infusion: 03/28/22 10:26 Dose: 100 mls/hr Documented By: MAGGI Lisinopril (Lisinopril 10 Mg Tablet) 10 mg PO DAILY [facility]S [facility]CLUDE 234 BEDS AT [facility]; Protocol Melatonin (Melatonin 3 Mg Tablet) 3 mg PO BEDTIME PRN PRN Reason: Insomnia Non-Formulary Medication (Bupropion Hcl) 150 mg PO DAILY [facility] 234 BEDS AT [facility] Non-Formulary Medication (Fixujntviit-Tidknrpgb-Yjrfwjbh [Trelegy Ellipta]) 1 inhalation INHALE DAILY [facility]S INCLUDE 234 BEDS AT [facility] Ondansetron HCl (Ondansetron Hcl 4 Mg/2 Ml Vial) 4 mg IVPUSH Q8H PRN PRN Reason: Nausea and Vomiting Paroxetine HCl (Paroxetine Hcl 40 Mg Tablet) 40 mg PO DAILY [facility] 234 BEDS AT [facility] Last Admin: 03/28/22 07:23 Dose: 40 mg Documented By: MAGGI Pharmacy Consult (Consult Rx Perform Med Rec) 1 each MISCELLANE ONCE PRN PRN Reason: Consult order Propranolol HCl (Propranolol Hcl 20 Mg Tablet) 20 mg PO TID PRN; Protocol PRN Reason: Anxiety Sodium Chloride (0.9 % Sodium Chloride Flush 3 Ml Syringe) 3 ml IVFLUSH QSHIFT COUNTS INCLUDE 234 BEDS AT THE [facility] Last Admin: 03/28/22 07:24 Dose: Not Given Documented By: MAGGI Non-Admin Reason: IV Running Topiramate (Topiramate 100 Mg Tablet) 100 mg PO BID COUNTS INCLUDE 234 BEDS AT THE [facility] Last Admin: 03/28/22 07:23 Dose: 100 mg Documented By: MAGGI Labs CBC & Chem 7: 03/26/22 14:54 03/26/22 14:54 Microbiology Microbiology Results: Microbiology 03/26/22 16:19 Urine Culture - Final Urine clean catch - Urine lucero top Escherichia coli 03/26/22 16:12 Blood Culture - Preliminary Blood - Venous No growth after 24 hours. 03/26/22 16:11 Blood Culture - Preliminary Blood - Venous No growth after 24 hours. Assessment and Plan (1) Metabolic encephalopathy: Status: Acute (2) UTI (urinary tract infection): Status: Acute Plan 77/F with acute confusion/toxic metabolic encephalopathy likely related to UTI -Treat underlying UTI with Ceftriaxone D2, Culture: E.coli -to reach out to family or friend to get additional history ? COPD continue inhalers mood desorder continue home meds once med rec done mild protein calory malnutriton on top of small frame, ensure if not eating well HTN --no meds listed, history of opioid dependence subboxone admission to span at least 2 midnights for metabolic encephalopathy due to UTI needing Iv Abx not able to do this in the communicity PT and OT eval Time Spent With Patient Time: Total time managing care of this patient today ____ minutes. Quality Stroke Does the patient have a stroke diagnosis?: No VTE Prior VTE?: No VTE Risk Level:: Medical - moderate - high VTE Device Contraindication: Treatment Not Indicated VTE Drug Contraindication: Treatment Not Indicated
[2022-03-28] MEDS: lisinopriL 10 MG TABLET PO (11:05)
--- NOTE | 2022-03-28 12:10 | MHC.CLN ---
PT QUALIFIES FOR MODERATE MALNUTRITION PT REPORTS 8% NONSIGNIFICANT WT LOSS X 6 MONTHS WITH CHRONIC POOR PO INTAKE AND MODERATELY DEPLETED MUSCLE MASS PT REPORTS INVOLUNTARY WT LOSS OVER PAST 6 MONTHS R/T CHANGE IN HOUSING SITUATION AND MOVING FROM [place] PT STATED HER APPETITE SUCKS AND REQUIRES SMALL PORTIONS ONLY WITH MEALS UBW 100# HT 5' BMI CORRECTED 17.9 DIET RX: REGULAR-APPROPRIATE PT RECEPTIVE TO DRINKING ENSURE BID TO INCREASE KCALS PT FIXATED ON DISCHARGE PLANNING AND LIVING SITUATION UPON INTERVIEW MONITOR PO INTAKE CLOSELY SEE ALSO FULL CLINICAL NUTRITION ASSESSMENT
[2022-03-28] MEDS: 0.9 % Sodium Chloride Flush 3 ML SYRINGE IVFLUSH ×2 (15:36→23:57)
--- NOTE | 2022-03-28 16:27 | MHC.CM.PN ---
CM MET WITH PT AND BROTHER VISITING FROM [place]. THEY ARE CONCERNED ABOUT PTS AFTERCARE PLANS SHE WAS DC'D FROM STR PREMATURELY AND IS UNABLE TO MANAGE AT HOME CM EXPLAINED STR REFERRALS WERE MADE HOWEVER ACCORDING TO THE STR SHE WAS RECENTLY DISCHARGED FROM, [facility] HAD DENIED REQUESTS FOR FURTHER STR TREATMENT. PT REPORTS SHE IS INTERESTED IN CONVERTING HER INSURANCE BACK TO MEDICARE CM DISCUSSED CONCERNS ABOUT COVERAGE FOR PCP AND MEDS AND INFORMED HER THIS MAY COST MORE PER DISCUSSION, A REFERRAL WAS SENT TO [facility] [place] [facility] TO DETERMINE IF PT IS ABLE TO REVERT HER COVERAGE IF SO, PTS BROTHER WILL ASSIST HER IN DETERMINING COSTS FOR MEDICATION AND OUTPATIENT CARE BENEFITS PT WILL REQUIRE STR REFERRALS WERE MADE HOWEVER, [facility] IS UNWILLING TO OFFER A BED DUE TO [facility]S DENIALS DURING HER LAST ADMIT [facility] IS FOLLOWING BUT DOES NOT HAVE A BED DUE TO PT BEING ON [employer], THESE ARE THE ONLY AREA SNFS THAT WILL ACCEPT
[2022-03-29] VITALS (13 sets, daily range): BP systolic 160–197; BP diastolic 70–90; PULSE 64–74; RESP 16–18; TEMP 36.1–37.2; O2SAT 95–98
[2022-03-29] MEDS: hydrALAZINE HCl 20 MG/ML VIAL 5 MG IVPUSH (03:47)
[2022-03-29] MEDS: Heparin Sodium,Porcine 5,000 UNIT/ML VIAL 5000 UNIT SUBCUT ×2 (05:53→17:57)
[2022-03-29] MEDS: 0.9 % Sodium Chloride Flush 3 ML SYRINGE IVFLUSH ×3 (07:11→23:43)
[2022-03-29] MEDS: cefTRIAXone sodium 1 GM in 0.9 % Sodium Chloride 50 ML IV (09:17)
[2022-03-29] MEDS: Buprenorphine/Naloxone 12/3 mg FILM 1 FILM SUBLINGUAL (09:24)
[2022-03-29] MEDS: lisinopriL 10 MG TABLET PO (09:24)
[2022-03-29] MEDS: Topiramate 100 MG TABLET PO ×2 (09:24→20:28)
[2022-03-29] MEDS: PARoxetine HCL 40 MG TABLET PO (09:25)
[2022-03-29] MEDS: amLODIPine Besylate 5 MG TABLET PO (09:25)
--- NOTE | 2022-03-29 10:34 | P.PNIM_ITS ---
Subjective Subjective Date of Service: 03/29/22 Interval History: f/u on encephalopathy d/t uti, has some baseline confusion probably underlying dementia, BP is very better Review of Systems Gen: no fever Resp: no sob, no cough CV: no chest, no ZAPATA, no leg edema GI: No n/v, no abd pain Neuro:less confusion Physical Exam Vital Signs: Vital Signs: Last Vital Signs Temp 98.9 F 03/29/22 07:55 Pulse 68 03/29/22 09:03 Resp 17 03/29/22 07:55 BP 164/90 H 03/29/22 07:55 Pulse Ox 97 03/29/22 07:55 O2 Del Method 03/29/22 07:55 BMI result Body Mass Index 17.9 Const: Other: General: AO X 2, no acute distress Resp: CTA bilateral CVS: S1,S2,RRR GI: +BS, NT, no distention Skin: No rash Neuro: motor grossly intact Psych: appropriate affect Objective Data Active Medications Acetaminophen (Acetaminophen 325 Mg Tablet) 650 mg PO Q6H PRN PRN Reason: Pain, Mild (Pain Scale 1-3) Amlodipine Besylate (Amlodipine Besylate 5 Mg Tablet) 5 mg PO DAILY [facility]; Protocol Last Admin: 03/29/22 09:25 Dose: 5 mg Documented By: MONA Buprenorphine/Naloxone (Buprenorphine/Naloxone 12/3 Mg Film) 1 film SUBLINGUAL DAILY [facility] Last Admin: 03/29/22 09:24 Dose: 1 film Documented By: MONA Albuterol Sulfate 2.5 mg/ (Ipratropium [place] 0.5 mg) 0 mg INHALE RQID [facility] Last Admin: 03/29/22 09:02 Dose: 0.5 each Documented By: ADRIANE Heparin Sodium (Porcine) (Heparin Sodium,Porcine 5,000 Unit/Ml Vial) 5,000 unit SUBCUT Q12H [facility] Last Admin: 03/29/22 05:53 Dose: 5,000 unit Documented By: ROLANDO Hydralazine HCl (Hydralazine Hcl 20 Mg/Ml Vial) 5 mg IVPUSH Q6H PRN; Protocol PRN Reason: SBP > 180 Last Admin: 03/29/22 03:47 Dose: 5 mg Documented By: ROLANDO Ceftriaxone Sodium 1 gm/ (Sodium Chloride) 50 mls @ 100 mls/hr IV Q24H [facility] Last Infusion: 03/29/22 10:22 Dose: 0 mls/hr Documented By: MONA Lisinopril (Lisinopril 10 Mg Tablet) 10 mg PO DAILY [facility]; Protocol Last Admin: 03/29/22 09:24 Dose: 10 mg Documented By: MONA Melatonin (Melatonin 3 Mg Tablet) 3 mg PO BEDTIME PRN PRN Reason: Insomnia Pt Own Bupropion Sr (150 Mg) 0 each PO DAILY [facility] Non-Formulary Medication (Ofjxruabxnl-Hgyuyulaz-Sjurqtdk [Trelegy Ellipta]) 1 inhalation INHALE DAILY [facility] Ondansetron HCl (Ondansetron Hcl 4 Mg/2 Ml Vial) 4 mg IVPUSH Q8H PRN PRN Reason: Nausea and Vomiting Paroxetine HCl (Paroxetine Hcl 40 Mg Tablet) 40 mg PO DAILY [facility] [place] Last Admin: 03/29/22 09:25 Dose: 40 mg Documented By: MONA Pharmacy Consult (Consult Rx Perform Med Rec) 1 each MISCELLANE ONCE PRN PRN Reason: Consult order Propranolol HCl (Propranolol Hcl 20 Mg Tablet) 20 mg PO TID PRN; Protocol PRN Reason: Anxiety Sodium Chloride (0.9 % Sodium Chloride Flush 3 Ml Syringe) 3 ml IVFLUSH QSHIFT [facility] [place] Last Admin: 03/29/22 07:11 Dose: 3 ml Documented By: ROLANDO Topiramate (Topiramate 100 Mg Tablet) 100 mg PO BID [facility] [place] Last Admin: 03/29/22 09:24 Dose: 100 mg Documented By: MONA Labs 03/26/22 14:54 03/26/22 14:54 Microbiology Microbiology Results: Microbiology 03/26/22 16:11 Blood Culture - Preliminary Blood - Venous No growth after 48 hours. 03/26/22 16:12 Blood Culture - Preliminary Blood - Venous No growth after 48 hours. 03/26/22 16:19 Urine Culture - Final Urine clean catch - Urine lucero top Escherichia coli Assessment and Plan (1) Metabolic encephalopathy: Status: Acute (2) UTI (urinary tract infection): Status: Acute Plan 77/F with acute confusion/toxic metabolic encephalopathy likely related to UTI -Treat underlying UTI with Ceftriaxone D3, Culture: E.coli -brother wants urology for possible urine leak causing recurrent uti, this can be done on outpatient basis ? COPD continue inhalers mood desorder continue home meds once med rec done mild protein calory malnutriton on top of small frame, ensure if not eating well HTN --continue Lisinopril 10, Norvasc 5 and adjust as needed history of opioid dependence subboxone admission to span at least 2 midnights for metabolic encephalopathy due to UTI needing Iv Abx not able to do this in the communicity PT and OT eval recommend STR Time Spent With Patient Time: Total time managing care of this patient today ____ minutes. Quality Stroke Does the patient have a stroke diagnosis?: No VTE Prior VTE?: No VTE Risk Level:: Medical - moderate - high VTE Device Contraindication: Treatment Not Indicated VTE Drug Contraindication: Treatment Not Indicated
--- NOTE | 2022-03-29 12:16 | MHC.CLN ---
F/U PT QUALIFIES FOR MODERATE MALNUTRITION SEE ALSO FULL CLINICAL NUTRITION ASSESSMENT DATED 03/28/22 PT STATED HER APPETITE SUCKS AND REQUIRES SMALL PORTIONS ONLY WITH MEALS PO INTAKE 100% X 3 MEALS DIET RX: REGULAR-APPROPRIATE PT RECEPTIVE TO DRINKING ENSURE BID TO INCREASE KCALS SUPP PROVIDES 700KCALS, 40G PROTEIN MONITOR PO INTAKE CLOSELY
--- NOTE | 2022-03-29 16:09 | PC.NURSE ---
pt's brother requesting Urology consult whle pt is still inpatient. Dr Liu was notified and stated the consult will be ordered
[2022-03-30] VITALS (8 sets, daily range): BP systolic 141–189; BP diastolic 69–81; PULSE 53–71; RESP 16–18; TEMP 36.4–37; O2SAT 94–97
[2022-03-30] MEDS: Heparin Sodium,Porcine 5,000 UNIT/ML VIAL 5000 UNIT SUBCUT ×2 (06:30→18:34)
--- NOTE | 2022-03-30 08:19 | P.PNIM_ITS ---
Subjective Subjective Date of Service: 03/30/22 Interval History: f/u on encephalopathy d/t uti, has some baseline confusion probably underlying dementia, BP is still very high Review of Systems Gen: no fever Resp: no sob, no cough CV: no chest, no ZAPATA, no leg edema GI: No n/v, no abd pain Neuro:less confusion Physical Exam Vital Signs: Vital Signs: Last Vital Signs Temp 97.8 F 03/30/22 08:00 Pulse 64 03/30/22 08:00 Resp 17 03/30/22 08:00 BP 189/81 H 03/30/22 08:00 Pulse Ox 94 03/30/22 08:00 O2 Del Method 03/30/22 08:00 BMI result Body Mass Index 17.9 Const: Other: General: AO X 2, no acute distress Resp: CTA bilateral CVS: S1,S2,RRR GI: +BS, NT, no distention Skin: No rash Neuro: motor grossly intact Psych: appropriate affect Objective Data Active Medications Acetaminophen (Acetaminophen 325 Mg Tablet) 650 mg PO Q6H PRN PRN Reason: Pain, Mild (Pain Scale 1-3) Amlodipine Besylate (Amlodipine Besylate 5 Mg Tablet) 5 mg PO DAILY [facility]; Protocol Last Admin: 03/29/22 09:25 Dose: 5 mg Documented By: MONA Buprenorphine/Naloxone (Buprenorphine/Naloxone 12/3 Mg Film) 1 film SUBLINGUAL DAILY [facility] Last Admin: 03/29/22 09:24 Dose: 1 film Documented By: MONA Albuterol Sulfate 2.5 mg/ (Ipratropium [place] 0.5 mg) 0 mg INHALE RQID [facility] Last Admin: 03/29/22 19:48 Dose: Not Given Documented By: VANESA Non-Admin Reason: Patient Refused Heparin Sodium (Porcine) (Heparin Sodium,Porcine 5,000 Unit/Ml Vial) 5,000 unit SUBCUT Q12H [facility] Last Admin: 03/30/22 06:30 Dose: 5,000 unit Documented By: GENARO Hydralazine HCl (Hydralazine Hcl 20 Mg/Ml Vial) 5 mg IVPUSH Q6H PRN; Protocol PRN Reason: SBP > 180 Last Admin: 03/29/22 03:47 Dose: 5 mg Documented By: ROLANDO Ceftriaxone Sodium 1 gm/ (Sodium Chloride) 50 mls @ 100 mls/hr IV Q24H [facility] Last Infusion: 03/29/22 10:22 Dose: 0 mls/hr Documented By: MONA Lisinopril (Lisinopril 10 Mg Tablet) 10 mg PO DAILY [facility]; Protocol Last Admin: 03/29/22 09:24 Dose: 10 mg Documented By: MONA Melatonin (Melatonin 3 Mg Tablet) 3 mg PO BEDTIME PRN PRN Reason: Insomnia Pt Own Bupropion Sr (150 Mg) 0 each PO DAILY [facility] Non-Formulary Medication (Qliuizfbkld-Ylqibbqib-Mxunnwrt [Trelegy Ellipta]) 1 inhalation INHALE DAILY [facility] Ondansetron HCl (Ondansetron Hcl 4 Mg/2 Ml Vial) 4 mg IVPUSH Q8H PRN PRN Reason: Nausea and Vomiting Paroxetine HCl (Paroxetine Hcl 40 Mg Tablet) 40 mg PO DAILY [facility] Last Admin: 03/29/22 09:25 Dose: 40 mg Documented By: MONA Pharmacy Consult (Consult Rx Perform Med Rec) 1 each MISCELLANE ONCE PRN PRN Reason: Consult order Propranolol HCl (Propranolol Hcl 20 Mg Tablet) 20 mg PO TID PRN; Protocol PRN Reason: Anxiety Sodium Chloride (0.9 % Sodium Chloride Flush 3 Ml Syringe) 3 ml IVFLUSH QSHIFT [facility] Last Admin: 03/29/22 23:43 Dose: 3 ml Documented By: GENARO Topiramate (Topiramate 100 Mg Tablet) 100 mg PO BID [facility] Last Admin: 03/29/22 20:28 Dose: 100 mg Documented By: ANNABELLAMAT Labs 03/26/22 14:54 03/26/22 14:54 Assessment and Plan (1) Metabolic encephalopathy: Status: Acute (2) UTI (urinary tract infection): Status: Acute Plan 77/F with acute confusion/toxic metabolic encephalopathy likely related to UTI -Treat underlying UTI with Ceftriaxone D4, Culture: E.coli --> change to Ceftin -brother wants urology for possible urine leak causing recurrent uti, this can be done on outpatient basis ? COPD continue inhalers, assymptomatic mood desorder continue home meds once med rec done mild protein calory malnutriton on top of small frame, ensure if not eating well HTN --continue Lisinopril at higher dose of 20, Norvasc 5 and propranolol 20 bid history of opioid dependence subboxone admission to span at least 2 midnights for metabolic encephalopathy due to UTI needing Iv Abx not able to do this in the communicity PT and OT eval recommend STR, no bed available Time Spent With Patient Time: Total time managing care of this patient today ____ minutes. Quality Stroke Does the patient have a stroke diagnosis?: No VTE Prior VTE?: No VTE Risk Level:: Medical - moderate - high VTE Device Contraindication: Treatment Not Indicated VTE Drug Contraindication: Treatment Not Indicated
[2022-03-30] MEDS: Topiramate 100 MG TABLET PO ×2 (08:32→19:58)
[2022-03-30] MEDS: Buprenorphine/Naloxone 12/3 mg FILM 1 FILM SUBLINGUAL (08:32)
[2022-03-30] MEDS: lisinopriL 10 MG TABLET PO ×2 (08:32→09:55)
[2022-03-30] MEDS: amLODIPine Besylate 5 MG TABLET PO (08:32)
[2022-03-30] MEDS: cefTRIAXone sodium 1 GM in 0.9 % Sodium Chloride 50 ML IV (08:33)
[2022-03-30] MEDS: PARoxetine HCL 40 MG TABLET PO (08:33)
[2022-03-30] MEDS: 0.9 % Sodium Chloride Flush 3 ML SYRINGE IVFLUSH ×3 (08:33→19:58)
[2022-03-30] MEDS: Propranolol HCL 20 MG TABLET PO ×2 (09:58→19:58)
[2022-03-30] MEDS: hydrALAZINE HCl 20 MG/ML VIAL 5 MG IVPUSH (15:25)
[2022-03-31] VITALS (10 sets, daily range): BP systolic 142–190; BP diastolic 62–94; PULSE 51–100; RESP 15–18; TEMP 36–37.4; O2SAT 94–97
[2022-03-31] MEDS: Heparin Sodium,Porcine 5,000 UNIT/ML VIAL 5000 UNIT SUBCUT ×2 (05:51→17:46)
[2022-03-31] MEDS: hydrALAZINE HCl 20 MG/ML VIAL 5 MG IVPUSH ×2 (08:16→23:50)
[2022-03-31] MEDS: 0.9 % Sodium Chloride Flush 3 ML SYRINGE IVFLUSH ×3 (08:16→23:52)
[2022-03-31] MEDS: Topiramate 100 MG TABLET PO ×2 (08:19→19:38)
[2022-03-31] MEDS: PARoxetine HCL 40 MG TABLET PO (08:19)
[2022-03-31] MEDS: Propranolol HCL 20 MG TABLET PO ×2 (08:20→19:38)
[2022-03-31] MEDS: cefTRIAXone sodium 1 GM in 0.9 % Sodium Chloride 50 ML IV (08:20)
[2022-03-31] MEDS: lisinopriL 20 MG TABLET PO (08:20)
[2022-03-31] MEDS: amLODIPine Besylate 5 MG TABLET PO (08:20)
[2022-03-31] MEDS: Buprenorphine/Naloxone 12/3 mg FILM 1 FILM SUBLINGUAL (08:21)
[2022-03-31] MEDS: Fluticasone/Vilanterol 100/25 BLST.W.DEV 1 PUFF INHALE (08:35)
--- NOTE | 2022-03-31 09:33 | HO.PM.IMPN ---
Subjective Subjective Date of Service: 03/31/22 Interval History: f/u on encephalopathy d/t uti, has some baseline confusion probably underlying dementia but stable,. BP still very high Review of Systems no chest pain no sob Physical Exam Vital Signs: Vital Signs: Last Vital Signs Temp 98.1 F 03/31/22 08:00 Pulse 56 03/31/22 08:39 Resp 17 03/31/22 08:39 BP 188/82 H 03/31/22 09:05 Pulse Ox 97 03/31/22 08:00 O2 Del Method 03/31/22 08:00 BMI result Body Mass Index 17.9 Const: Other: General: AO X 2, no acute distress Resp: CTA bilateral CVS: S1,S2,RRR GI: +BS, NT, no distention Skin: No rash Neuro: motor grossly intact Psych: appropriate affect Objective Data Active Medications Acetaminophen (Acetaminophen 325 Mg Tablet) 650 mg PO Q6H PRN PRN Reason: Pain, Mild (Pain Scale 1-3) Amlodipine Besylate (Amlodipine Besylate 5 Mg Tablet) 5 mg PO DAILY [facility]; Protocol Last Admin: 03/31/22 08:20 Dose: 5 mg Documented By: ANA ROSA Buprenorphine/Naloxone (Buprenorphine/Naloxone 12/3 Mg Film) 1 film SUBLINGUAL DAILY [facility] Last Admin: 03/31/22 08:21 Dose: 1 film Documented By: ANA ROSA Albuterol Sulfate 2.5 mg/ (Ipratropium [place] 0.5 mg) 0 mg INHALE RQID [facility] Last Admin: 03/31/22 08:34 Dose: 0.5 each Documented By: ADRIANE Fluticasone/Vilanterol (Fluticasone/Vilanterol 100/25 Blst.W.Dev) 1 puff INHALE RDAILY [facility] Last Admin: 03/31/22 08:35 Dose: 1 puff Documented By: ADRIANE Heparin Sodium (Porcine) (Heparin Sodium,Porcine 5,000 Unit/Ml Vial) 5,000 unit SUBCUT Q12H [facility] Last Admin: 03/31/22 05:51 Dose: 5,000 unit Documented By: GABEORALB Hydralazine HCl (Hydralazine Hcl 20 Mg/Ml Vial) 5 mg IVPUSH Q6H PRN; Protocol PRN Reason: SBP > 180 Last Admin: 03/31/22 08:16 Dose: 5 mg Documented By: ANA ROSA Ceftriaxone Sodium 1 gm/ (Sodium Chloride) 50 mls @ 100 mls/hr IV Q24H [facility] Last Admin: 03/31/22 08:20 Dose: 100 mls/hr Documented By: ANA ROSA Lisinopril (Lisinopril 20 Mg Tablet) 20 mg PO DAILY [facility]; Protocol Last Admin: 03/31/22 08:20 Dose: 20 mg Documented By: ANA ROSA Melatonin (Melatonin 3 Mg Tablet) 3 mg PO BEDTIME PRN PRN Reason: Insomnia Pt Own Bupropion Sr (150 Mg) 0 each PO DAILY [facility] Ondansetron HCl (Ondansetron Hcl 4 Mg/2 Ml Vial) 4 mg IVPUSH Q8H PRN PRN Reason: Nausea and Vomiting Paroxetine HCl (Paroxetine Hcl 40 Mg Tablet) 40 mg PO DAILY [facility] Last Admin: 03/31/22 08:19 Dose: 40 mg Documented By: ANA ROSA Pharmacy Consult (Consult Rx Perform Med Rec) 1 each MISCELLANE ONCE PRN PRN Reason: Consult order Propranolol HCl (Propranolol Hcl 20 Mg Tablet) 20 mg PO BID [facility]; Protocol Last Admin: 03/31/22 08:20 Dose: 20 mg Documented By: ANA ROSA Sodium Chloride (0.9 % Sodium Chloride Flush 3 Ml Syringe) 3 ml IVFLUSH QSHIFT [facility] Last Admin: 03/31/22 08:16 Dose: 3 ml Documented By: ANA ROSA Tiotropium [place] (Tiotropium [place] 18 Mcg Cap.W.Dev) 1 puff INHALE RDAILY [facility] Last Admin: 03/31/22 08:35 Dose: 1 puff Documented By: ADRIANE Topiramate (Topiramate 100 Mg Tablet) 100 mg PO BID [facility] Last Admin: 03/31/22 08:19 Dose: 100 mg Documented By: ANA ROSA Labs 03/26/22 14:54 03/26/22 14:54 Assessment and Plan (1) Metabolic encephalopathy: Status: Acute (2) UTI (urinary tract infection): Status: Acute Plan 77/F with acute confusion/toxic metabolic encephalopathy likely related to UTI -Treat underlying UTI with Ceftriaxone D5, Culture: E.coli -brother wants urology for possible urine leak causing recurrent uti, this can be done on outpatient basis ? COPD continue inhalers, assymptomatic mood desorder continue home meds once med rec done mild protein calory malnutriton on top of small frame, ensure if not eating well HTN BP very high--continue Lisinopril at higher dose of 20, Norvasc increase to 10 and propranolol 20 bid, if persistently high then add PO Hydralazine history of opioid dependence subboxone admission to span at least 2 midnights for metabolic encephalopathy due to UTI needing Iv Abx not able to do this in the communicity PT and OT eval recommend STR, no bed available Time Spent With Patient Time: Total time managing care of this patient today ____ minutes. Quality Stroke Does the patient have a stroke diagnosis?: No VTE Prior VTE?: No VTE Risk Level:: Medical - moderate - high VTE Device Contraindication: Treatment Not Indicated VTE Drug Contraindication: Treatment Not Indicated
[2022-04-01] VITALS (10 sets, daily range): BP systolic 128–180; BP diastolic 60–92; PULSE 50–67; RESP 12–18; TEMP 36.2–36.7; O2SAT 94–98
[2022-04-01] MEDS: Heparin Sodium,Porcine 5,000 UNIT/ML VIAL 5000 UNIT SUBCUT ×2 (05:39→18:38)
[2022-04-01] MEDS: PARoxetine HCL 40 MG TABLET PO (08:28)
[2022-04-01] MEDS: cefTRIAXone sodium 1 GM in 0.9 % Sodium Chloride 50 ML IV (08:28)
[2022-04-01] MEDS: Topiramate 100 MG TABLET PO ×2 (08:28→19:55)
[2022-04-01] MEDS: Buprenorphine/Naloxone 12/3 mg FILM 1 FILM SUBLINGUAL (08:28)
[2022-04-01] MEDS: amLODIPine Besylate 10 MG TABLET PO (08:28)
[2022-04-01] MEDS: lisinopriL 20 MG TABLET PO (08:28)
[2022-04-01] MEDS: Propranolol HCL 20 MG TABLET PO ×2 (08:28→19:56)
[2022-04-01] MEDS: 0.9 % Sodium Chloride Flush 3 ML SYRINGE IVFLUSH ×3 (08:29→19:55)
[2022-04-01] MEDS: Fluticasone/Vilanterol 100/25 BLST.W.DEV 1 PUFF INHALE (09:08)
--- NOTE | 2022-04-01 12:09 | HO.PM.IMPN ---
Subjective Subjective Date of Service: 04/01/22 Interval History: f/u on encephalopathy d/t uti, has some baseline confusion probably underlying dementia but stable,. BP is better Review of Systems no chest pain no sob Physical Exam Vital Signs: Vital Signs: Last Vital Signs Temp 98 F 04/01/22 07:50 Pulse 64 04/01/22 11:40 Resp 16 04/01/22 11:40 BP 135/70 04/01/22 09:53 Pulse Ox 96 04/01/22 07:50 O2 Del Method 04/01/22 07:50 BMI result Body Mass Index 17.9 Const: Other: General: AO X 2, no acute distress Resp: CTA bilateral CVS: S1,S2,RRR GI: +BS, NT, no distention Skin: No rash Neuro: motor grossly intact Psych: appropriate affect Objective Data Active Medications Acetaminophen (Acetaminophen 325 Mg Tablet) 650 mg PO Q6H PRN PRN Reason: Pain, Mild (Pain Scale 1-3) Amlodipine Besylate (Amlodipine Besylate 10 Mg Tablet) 10 mg PO DAILY [facility]; Protocol Last Admin: 04/01/22 08:28 Dose: 10 mg Documented By: COTEMA Buprenorphine/Naloxone (Buprenorphine/Naloxone 12/3 Mg Film) 1 film SUBLINGUAL DAILY [facility] Last Admin: 04/01/22 08:28 Dose: 1 film Documented By: ALVAROEMA Albuterol Sulfate 2.5 mg/ (Ipratropium [place] 0.5 mg) 0 mg INHALE RQID [facility] Last Admin: 04/01/22 11:38 Dose: 1 each Documented By: TC Fluticasone/Vilanterol (Fluticasone/Vilanterol 100/25 Blst.W.Dev) 1 puff INHALE RDAILY [facility] Last Admin: 04/01/22 09:08 Dose: 1 puff Documented By: TC Heparin Sodium (Porcine) (Heparin Sodium,Porcine 5,000 Unit/Ml Vial) 5,000 unit SUBCUT Q12H [facility] Last Admin: 04/01/22 05:39 Dose: 5,000 unit Documented By: LAY-FARNE Hydralazine HCl (Hydralazine Hcl 20 Mg/Ml Vial) 5 mg IVPUSH Q6H PRN; Protocol PRN Reason: SBP > 180 Last Admin: 03/31/22 23:50 Dose: 5 mg Documented By: ZULAY Ceftriaxone Sodium 1 gm/ (Sodium Chloride) 50 mls @ 100 mls/hr IV Q24H [facility] Last Infusion: 04/01/22 09:22 Dose: 0 mls/hr Documented By: JADA Lisinopril (Lisinopril 20 Mg Tablet) 20 mg PO DAILY [facility]; Protocol Last Admin: 04/01/22 08:28 Dose: 20 mg Documented By: JADA Melatonin (Melatonin 3 Mg Tablet) 3 mg PO BEDTIME PRN PRN Reason: Insomnia Pt Own Bupropion Sr (150 Mg) 0 each PO DAILY [facility] Ondansetron HCl (Ondansetron Hcl 4 Mg/2 Ml Vial) 4 mg IVPUSH Q8H PRN PRN Reason: Nausea and Vomiting Paroxetine HCl (Paroxetine Hcl 40 Mg Tablet) 40 mg PO DAILY [facility] Last Admin: 04/01/22 08:28 Dose: 40 mg Documented By: JADA Pharmacy Consult (Consult Rx Perform Med Rec) 1 each MISCELLANE ONCE PRN PRN Reason: Consult order Propranolol HCl (Propranolol Hcl 20 Mg Tablet) 20 mg PO BID [facility]; Protocol Last Admin: 04/01/22 08:28 Dose: 20 mg Documented By: JADA Sodium Chloride (0.9 % Sodium Chloride Flush 3 Ml Syringe) 3 ml IVFLUSH QSHIFT [facility] Last Admin: 04/01/22 08:29 Dose: 3 ml Documented By: JADA Tiotropium [place] (Tiotropium [place] 18 Mcg Cap.W.Dev) 1 puff INHALE RDAILY [facility] Last Admin: 04/01/22 09:08 Dose: 1 puff Documented By: BLASCL Topiramate (Topiramate 100 Mg Tablet) 100 mg PO BID [facility] Last Admin: 04/01/22 08:28 Dose: 100 mg Documented By: JADA Labs 03/26/22 14:54 03/26/22 14:54 Microbiology Microbiology Results: Microbiology 03/26/22 16:11 Blood Culture - Final Blood - Venous No growth after 5 days. 03/26/22 16:12 Blood Culture - Final Blood - Venous No growth after 5 days. Assessment and Plan (1) Metabolic encephalopathy: Status: Acute (2) UTI (urinary tract infection): Status: Acute Plan 77/F with acute confusion/toxic metabolic encephalopathy likely related to UTI -Treat underlying UTI with Ceftriaxone D5, Culture: E.coli . Stop Ceftriaxone -brother wants urology for possible urine leak causing recurrent uti, this can be done on outpatient basis ? COPD continue inhalers, assymptomatic mood desorder continue home meds once med rec done mild protein calory malnutriton on top of small frame, ensure if not eating well HTN BP very high--continue Lisinopril at higher dose of 20, Norvasc increase to 10 and propranolol 20 bid, if persistently high then add PO Hydralazine history of opioid dependence subboxone admission to span at least 2 midnights for metabolic encephalopathy due to UTI needing Iv Abx not able to do this in the communicity PT and OT eval recommend STR, no bed available Time Spent With Patient Time: Total time managing care of this patient today ____ minutes. Quality Stroke Does the patient have a stroke diagnosis?: No VTE Prior VTE?: No VTE Risk Level:: Medical - moderate - high VTE Device Contraindication: Treatment Not Indicated VTE Drug Contraindication: Treatment Not Indicated
--- NOTE | 2022-04-01 14:20 | MHC.CLN ---
F/U DIET=REGULAR-APPROPRIATE. SUPPLEMENT ENSURE BID PROVIDES ADDITIONAL 700 KCALS, 40 G PROTEIN. PREFERS SMALL PORTIONS. PO INTAKE VARIABLE, 50-100%. MONITOR PO INTAKE CLOSELY.
[2022-04-01] MEDS: hydrALAZINE HCl 10 MG TABLET PO ×2 (15:04→19:54)
[2022-04-02] VITALS (7 sets, daily range): BP systolic 121–171; BP diastolic 59–72; PULSE 52–61; RESP 16–18; TEMP 36.1–37; O2SAT 95–98
[2022-04-02] MEDS: Heparin Sodium,Porcine 5,000 UNIT/ML VIAL 5000 UNIT SUBCUT ×2 (06:04→18:00)
[2022-04-02] MEDS: amLODIPine Besylate 10 MG TABLET PO (08:45)
[2022-04-02] MEDS: 0.9 % Sodium Chloride Flush 3 ML SYRINGE IVFLUSH (08:45)
[2022-04-02] MEDS: Topiramate 100 MG TABLET PO ×2 (08:45→20:27)
[2022-04-02] MEDS: Buprenorphine/Naloxone 12/3 mg FILM 1 FILM SUBLINGUAL (08:45)
[2022-04-02] MEDS: cefTRIAXone sodium 1 GM in 0.9 % Sodium Chloride 50 ML IV (08:45)
[2022-04-02] MEDS: hydrALAZINE HCl 10 MG TABLET PO ×3 (08:45→20:27)
[2022-04-02] MEDS: lisinopriL 20 MG TABLET PO (08:45)
[2022-04-02] MEDS: PARoxetine HCL 40 MG TABLET PO (08:45)
[2022-04-02] MEDS: Propranolol HCL 20 MG TABLET PO ×2 (08:49→20:27)
--- NOTE | 2022-04-02 12:43 | MHC.CM.PN ---
Patient recently @ [facility] for STR and discharged. The patient [place] [facility] [place] UTI Metobolic encephalopathy. PT is recommending STR. Spoke with the kerrie re Insurance authorization. She will speak with the Business office in the facility. T/W requests that she go for auth from [employer]. Kerrie will follow via [facility].
--- NOTE | 2022-04-02 14:46 | PC.NURSE ---
pt IV access infiltrated. Dr. kumari made aware. verbal order to hold on new iv. per dr. kumari IV ceftriaxone will be changed to po ceftin.
--- NOTE | 2022-04-02 15:09 | HO.PM.IMPN ---
Subjective Subjective Date of Service: 04/02/22 Interval History: Confusion improved; continues to improve ambulating with PT with walker Review of Systems Denies chest pain Denies shortness of breath Denies nausea vomiting diarrhea Denies fever chills Physical Exam Vital Signs: Vital Signs: Last Vital Signs Temp 98.6 F 04/02/22 07:53 Pulse 61 04/02/22 12:00 Resp 16 04/02/22 12:00 BP 145/72 H 04/02/22 10:05 Pulse Ox 95 04/02/22 10:05 O2 Del Method 04/02/22 07:53 BMI result Body Mass Index 17.9 Const: Other: Awake alert no acute issues Resp: Other: Clear to auscultation bilaterally no rales rhonchi wheezes Cardio: Other: No S4; positive S1-S2; no S3 murmurs rubs or gallops GI: Other: Soft nontender nondistended normoactive bowel sounds Extrem: Other: No edema bilaterally Objective Data Active Medications Acetaminophen (Acetaminophen 325 Mg Tablet) 650 mg PO Q6H PRN PRN Reason: Pain, Mild (Pain Scale 1-3) Amlodipine Besylate (Amlodipine Besylate 10 Mg Tablet) 10 mg PO DAILY [facility]; Protocol Last Admin: 04/02/22 08:45 Dose: 10 mg Documented By: COTEMA Buprenorphine/Naloxone (Buprenorphine/Naloxone 12/3 Mg Film) 1 film SUBLINGUAL DAILY [facility] Last Admin: 04/02/22 08:45 Dose: 1 film Documented By: COTEMA Albuterol Sulfate 2.5 mg/ (Ipratropium [place] 0.5 mg) 0 mg INHALE RQID [facility] Last Admin: 04/02/22 11:59 Dose: 2.5 each Documented By: GUIDIB Fluticasone/Vilanterol (Fluticasone/Vilanterol 100/25 Blst.W.Dev) 1 puff INHALE RDAILY [facility] Last Admin: 04/01/22 09:08 Dose: 1 puff Documented By: TC Heparin Sodium (Porcine) (Heparin Sodium,Porcine 5,000 Unit/Ml Vial) 5,000 unit SUBCUT Q12H [facility] Last Admin: 04/02/22 06:04 Dose: 5,000 unit Documented By: CASTILM Hydralazine HCl (Hydralazine Hcl 20 Mg/Ml Vial) 5 mg IVPUSH Q6H PRN; Protocol PRN Reason: SBP > 180 Last Admin: 03/31/22 23:50 Dose: 5 mg Documented By: N-FARNE Hydralazine HCl (Hydralazine Hcl 10 Mg Tablet) 10 mg PO TID [facility]; Protocol Last Admin: 04/02/22 15:05 Dose: 10 mg Documented By: S-KLEIC Ceftriaxone Sodium 1 gm/ (Sodium Chloride) 50 mls @ 100 mls/hr IV Q24H [facility] Last Infusion: 04/02/22 12:55 Dose: 0 mls/hr Documented By: JADA Lisinopril (Lisinopril 20 Mg Tablet) 20 mg PO DAILY [facility]; Protocol Last Admin: 04/02/22 08:45 Dose: 20 mg Documented By: JADA Melatonin (Melatonin 3 Mg Tablet) 3 mg PO BEDTIME PRN PRN Reason: Insomnia Pt Own Bupropion Sr (150 Mg) 0 each PO DAILY [facility] Ondansetron HCl (Ondansetron Hcl 4 Mg/2 Ml Vial) 4 mg IVPUSH Q8H PRN PRN Reason: Nausea and Vomiting Paroxetine HCl (Paroxetine Hcl 40 Mg Tablet) 40 mg PO DAILY [facility] Last Admin: 04/02/22 08:45 Dose: 40 mg Documented By: JADA Pharmacy Consult (Consult Rx Perform Med Rec) 1 each MISCELLANE ONCE PRN PRN Reason: Consult order Propranolol HCl (Propranolol Hcl 20 Mg Tablet) 20 mg PO BID [facility]; Protocol Last Admin: 04/02/22 08:49 Dose: 20 mg Documented By: JADA Sodium Chloride (0.9 % Sodium Chloride Flush 3 Ml Syringe) 3 ml IVFLUSH QSHIFT [facility] Last Admin: 04/02/22 14:46 Dose: Not Given Documented By: JADA Non-Admin Reason: No Access Tiotropium [place] (Tiotropium [place] 18 Mcg Cap.W.Dev) 1 puff INHALE RDAILY [facility] Last Admin: 04/01/22 09:08 Dose: 1 puff Documented By: BLASCL Topiramate (Topiramate 100 Mg Tablet) 100 mg PO BID [facility] Last Admin: 04/02/22 08:45 Dose: 100 mg Documented By: JADA Labs 03/26/22 14:54 03/26/22 14:54 Assessment and Plan (1) Metabolic encephalopathy: Status: Acute (2) UTI (urinary tract infection): Status: Acute (3) HTN (hypertension): Status: Acute (4) Opiate dependence: Status: Acute Plan 77/F with acute confusion/toxic metabolic encephalopathy likely related to UTI 1. Metabolic encephalopathy/UTI -will switch to p.o. Ceftin -likely baseline dementia underlying 2. COPD -no acute issues at this time -continue outpatient therapies 3.HTN -acceptable control on current therapies -adjust as indicated 4.Opioid dependence -subboxone as ordered Continues hospitalization required to guarantee safe post hospitalization placement Time Spent With Patient Time: Total time managing care of this patient today ____ minutes. Quality Stroke Does the patient have a stroke diagnosis?: No VTE Prior VTE?: No VTE Risk Level:: Medical - moderate - high VTE Device Contraindication: Treatment Not Indicated VTE Drug Contraindication: Treatment Not Indicated
[2022-04-03] VITALS (8 sets, daily range): BP systolic 130–172; BP diastolic 60–79; PULSE 51–60; RESP 17–18; TEMP 35.6–36.4; O2SAT 93–96
[2022-04-03] MEDS: Heparin Sodium,Porcine 5,000 UNIT/ML VIAL 5000 UNIT SUBCUT ×2 (05:38→18:17)
[2022-04-03] MEDS: lisinopriL 20 MG TABLET PO (08:22)
[2022-04-03] MEDS: PARoxetine HCL 40 MG TABLET PO (08:22)
[2022-04-03] MEDS: Topiramate 100 MG TABLET PO ×2 (08:23→22:24)
[2022-04-03] MEDS: Buprenorphine/Naloxone 12/3 mg FILM 1 FILM SUBLINGUAL (08:24)
[2022-04-03] MEDS: hydrALAZINE HCl 10 MG TABLET PO ×3 (08:24→22:24)
[2022-04-03] MEDS: amLODIPine Besylate 10 MG TABLET PO (08:24)
[2022-04-03] MEDS: Fluticasone/Vilanterol 100/25 BLST.W.DEV 1 PUFF INHALE (09:08)
--- NOTE | 2022-04-03 11:16 | MHC.CM.PN ---
NO BED OFFERS OF THIS NOTE. RENATO ASKING FOR A REFERRAL TO [facility] IN [place]
--- NOTE | 2022-04-03 11:40 | MHC.CM.PN ---
REFERRAL SENT TO [email or web address] [place]
--- NOTE | 2022-04-03 13:11 | MHC.CM.PN ---
CALL TO ADMISSIONS DEPARTMENT AT [facility] @ [phone] PER CONVERSATION WITH ZACH, CASE WAS RECEIVED VIA EMAIL AND IS UNDER REVIEW. CASE MANAGEMENT SHOULD HAVE AN ANSWER BY TOMORROW AFTERNOON AND WILL UPDATE ACCORDINGLY
--- NOTE | 2022-04-03 14:16 | HO.PM.IMPN ---
Subjective Subjective Date of Service: 04/03/22 Interval History: Confusion improved,clearer this am. Review of Systems Denies chest pain Denies shortness of breath Denies nausea vomiting diarrhea Denies fever chills Physical Exam Vital Signs: Vital Signs: Last Vital Signs Temp 97.3 F 04/03/22 07:33 Pulse 55 04/03/22 12:17 Resp 17 04/03/22 12:17 BP 172/79 H 04/03/22 07:33 Pulse Ox 93 04/03/22 07:33 O2 Del Method 04/03/22 07:33 BMI result Body Mass Index 17.9 Const: Other: Awake alert no acute issues Resp: Other: Clear to auscultation bilaterally no rales rhonchi wheezes Cardio: Other: No S4; positive S1-S2; no S3 murmurs rubs or gallops GI: Other: Soft nontender nondistended normoactive bowel sounds Extrem: Other: No edema bilaterally Objective Data Active Medications Acetaminophen (Acetaminophen 325 Mg Tablet) 650 mg PO Q6H PRN PRN Reason: Pain, Mild (Pain Scale 1-3) Amlodipine Besylate (Amlodipine Besylate 10 Mg Tablet) 10 mg PO DAILY [facility]; Protocol Last Admin: 04/03/22 08:24 Dose: 10 mg Documented By: NAYELI Buprenorphine/Naloxone (Buprenorphine/Naloxone 12/3 Mg Film) 1 film SUBLINGUAL DAILY [facility] Last Admin: 04/03/22 08:24 Dose: 1 film Documented By: NAYELI Cefuroxime Axetil (Cefuroxime Axetil 250 Mg Tablet) 250 mg PO Q12H [facility] Last Admin: 04/03/22 05:38 Dose: 250 mg Documented By: ERASMO Albuterol Sulfate 2.5 mg/ (Ipratropium [place] 0.5 mg) 0 mg INHALE RQID [facility] Last Admin: 04/03/22 12:15 Dose: 1 each Documented By: OLI Fluticasone/Vilanterol (Fluticasone/Vilanterol 100/25 Blst.W.Dev) 1 puff INHALE RDAILY [facility] Last Admin: 04/03/22 09:08 Dose: 1 puff Documented By: OLI Heparin Sodium (Porcine) (Heparin Sodium,Porcine 5,000 Unit/Ml Vial) 5,000 unit SUBCUT Q12H [facility] Last Admin: 04/03/22 05:38 Dose: 5,000 unit Documented By: ERASMO Hydralazine HCl (Hydralazine Hcl 20 Mg/Ml Vial) 5 mg IVPUSH Q6H PRN; Protocol PRN Reason: SBP > 180 Last Admin: 03/31/22 23:50 Dose: 5 mg Documented By: LAY-SUSANNE Hydralazine HCl (Hydralazine Hcl 10 Mg Tablet) 10 mg PO TID [facility]; Protocol Last Admin: 04/03/22 08:24 Dose: 10 mg Documented By: NAYELI Lisinopril (Lisinopril 20 Mg Tablet) 20 mg PO DAILY [facility]; Protocol Last Admin: 04/03/22 08:22 Dose: 20 mg Documented By: NAYELI Melatonin (Melatonin 3 Mg Tablet) 3 mg PO BEDTIME PRN PRN Reason: Insomnia Pt Own Bupropion Sr (150 Mg) 0 each PO DAILY [facility] Ondansetron HCl (Ondansetron Hcl 4 Mg/2 Ml Vial) 4 mg IVPUSH Q8H PRN PRN Reason: Nausea and Vomiting Paroxetine HCl (Paroxetine Hcl 40 Mg Tablet) 40 mg PO DAILY [facility] Last Admin: 04/03/22 08:22 Dose: 40 mg Documented By: NAYELI Pharmacy Consult (Consult Rx Perform Med Rec) 1 each MISCELLANE ONCE PRN PRN Reason: Consult order Propranolol HCl (Propranolol Hcl 20 Mg Tablet) 20 mg PO BID [facility]; Protocol Last Admin: 04/03/22 08:23 Dose: Not Given Documented By: NAYELI Non-Admin Reason: Decreased Heart Rate Sodium Chloride (0.9 % Sodium Chloride Flush 3 Ml Syringe) 3 ml IVFLUSH QSHIFT [facility] Last Admin: 04/03/22 07:19 Dose: Not Given Documented By: NAYELI Non-Admin Reason: No Access Tiotropium [place] (Tiotropium [place] 18 Mcg Cap.W.Dev) 1 puff INHALE RDAILY [facility] Last Admin: 04/03/22 09:08 Dose: 1 puff Documented By: OLI Topiramate (Topiramate 100 Mg Tablet) 100 mg PO BID [facility] Last Admin: 04/03/22 08:23 Dose: 100 mg Documented By: NAYELI Labs 03/26/22 14:54 03/26/22 14:54 Assessment and Plan (1) Metabolic encephalopathy: Status: Acute (2) UTI (urinary tract infection): Status: Acute (3) HTN (hypertension): Status: Acute (4) Opiate dependence: Status: Acute Plan 77/F with acute confusion/toxic metabolic encephalopathy likely related to UTI 1. Metabolic encephalopathy/UTI -Ceftin as ordered -likely baseline dementia underlying 2. COPD -no acute issues at this time -continue outpatient therapies 3.HTN -acceptable control on current therapies -adjust as indicated 4.Opioid dependence -subboxone as ordered Continues hospitalization required to guarantee safe post hospitalization placement Time Spent With Patient Time: Total time managing care of this patient today ____ minutes. Quality Stroke Does the patient have a stroke diagnosis?: No VTE Prior VTE?: No VTE Risk Level:: Medical - moderate - high VTE Device Contraindication: Treatment Not Indicated VTE Drug Contraindication: Treatment Not Indicated
--- NOTE | 2022-04-03 14:33 | MHC.CLN ---
F/U DIET=REGULAR-APPROPRIATE. DISLIKES ENSURE SUPPLEMENT AND DISCONTINUED. PO INTAKE VARIABLE, WITH MOST MEALS 50-75%. MONITOR PO INTAKE CLOSELY.
--- NOTE | 2022-04-03 15:28 | MHC.CM.PN ---
CALL FROM [employer]PERATOR, [employer], OR [facility], WHO STATES THAT PATIENT WOULD BE [id number] FOR 30% OF HER STAY AT REHAB BECAUSE OF HER INSURANCE PLAN. CURRENTLY, A REHAB BED IS APPROX. $3,000 AND THAT DOES NOT INCLUDE MEDICATION. JUSTINADOMINGUEZ IS UNABLE TO AFFORD THIS AND IS AWARE THAT CASE MANAGEMENT WILL CONTINUE WITH ATTEMPTS.
[2022-04-03] MEDS: Propranolol HCL 20 MG TABLET PO (22:24)
[2022-04-04 04:00] VITALS: BP 158/60; PULSE 55; RESP 18; TEMP 36.2; O2SAT 99
[2022-04-04] MEDS: Heparin Sodium,Porcine 5,000 UNIT/ML VIAL 5000 UNIT SUBCUT ×2 (05:54→18:20)
[2022-04-04 07:50] VITALS: BP 166/74; PULSE 53; RESP 17; TEMP 37.4; O2SAT 97
[2022-04-04] MEDS: Propranolol HCL 20 MG TABLET PO ×2 (10:19→20:08)
[2022-04-04] MEDS: Topiramate 100 MG TABLET PO ×2 (10:20→20:08)
[2022-04-04] MEDS: amLODIPine Besylate 10 MG TABLET PO (10:20)
[2022-04-04] MEDS: PARoxetine HCL 40 MG TABLET PO (10:20)
[2022-04-04] MEDS: hydrALAZINE HCl 10 MG TABLET PO ×3 (10:20→20:08)
[2022-04-04] MEDS: lisinopriL 20 MG TABLET PO (10:20)
[2022-04-04] MEDS: Buprenorphine/Naloxone 12/3 mg FILM 1 FILM SUBLINGUAL (10:20)
[2022-04-04] MEDS: Fluticasone/Vilanterol 100/25 BLST.W.DEV 1 PUFF INHALE (12:16)
[2022-04-04 12:18] VITALS: PULSE 57; RESP 16; O2SAT 95
[2022-04-04 13:03] VITALS: PULSE 57
[2022-04-04 15:53] VITALS: BP 143/65; PULSE 49; RESP 18; TEMP 36.6; O2SAT 96
--- NOTE | 2022-04-04 16:17 | P.PNIM_ITS ---
Subjective Subjective Date of Service: 04/04/22 Interval History: Confusion improved,clearer this am. Review of Systems Denies chest pain Denies shortness of breath Denies nausea vomiting diarrhea Denies fever chills Physical Exam Vital Signs: Vital Signs: Last Vital Signs Temp 97.9 F 04/04/22 15:53 Pulse 49 L 04/04/22 15:53 Resp 18 04/04/22 15:53 BP 143/65 H 04/04/22 15:53 Pulse Ox 96 04/04/22 15:53 O2 Del Method 04/04/22 15:53 BMI result Body Mass Index 17.9 Const: Other: Awake alert no acute issues Resp: Other: Clear to auscultation bilaterally no rales rhonchi wheezes Cardio: Other: No S4; positive S1-S2; no S3 murmurs rubs or gallops GI: Other: Soft nontender nondistended normoactive bowel sounds Extrem: Other: No edema bilaterally Objective Data Active Medications Acetaminophen (Acetaminophen 325 Mg Tablet) 650 mg PO Q6H PRN PRN Reason: Pain, Mild (Pain Scale 1-3) Amlodipine Besylate (Amlodipine Besylate 10 Mg Tablet) 10 mg PO DAILY [facility]; Protocol Last Admin: 04/04/22 10:20 Dose: 10 mg Documented By: JAQUI Buprenorphine/Naloxone (Buprenorphine/Naloxone 12/3 Mg Film) 1 film SUBLINGUAL DAILY [facility] Last Admin: 04/04/22 10:20 Dose: 1 film Documented By: JAQUI Cefuroxime Axetil (Cefuroxime Axetil 250 Mg Tablet) 250 mg PO Q12H [facility] Last Admin: 04/04/22 05:54 Dose: 250 mg Documented By: ANA ROSA Fluticasone/Vilanterol (Fluticasone/Vilanterol 100/25 Blst.W.Dev) 1 puff INHALE RDAILY [facility] Last Admin: 04/04/22 12:16 Dose: 1 puff Documented By: ADRIANE Heparin Sodium (Porcine) (Heparin Sodium,Porcine 5,000 Unit/Ml Vial) 5,000 unit SUBCUT Q12H [facility] Last Admin: 04/04/22 05:54 Dose: 5,000 unit Documented By: ANA ROSA Hydralazine HCl (Hydralazine Hcl 20 Mg/Ml Vial) 5 mg IVPUSH Q6H PRN; Protocol PRN Reason: SBP > 180 Last Admin: 03/31/22 23:50 Dose: 5 mg Documented By: ZULAY Hydralazine HCl (Hydralazine Hcl 10 Mg Tablet) 10 mg PO TID [facility]; Protocol Last Admin: 04/04/22 10:20 Dose: 10 mg Documented By: JAQUI Lisinopril (Lisinopril 20 Mg Tablet) 20 mg PO DAILY [facility]; Protocol Last Admin: 04/04/22 10:20 Dose: 20 mg Documented By: JAQUI Melatonin (Melatonin 3 Mg Tablet) 3 mg PO BEDTIME PRN PRN Reason: Insomnia Pt Own Bupropion Sr (150 Mg) 0 each PO DAILY [facility] Ondansetron HCl (Ondansetron Hcl 4 Mg/2 Ml Vial) 4 mg IVPUSH Q8H PRN PRN Reason: Nausea and Vomiting Paroxetine HCl (Paroxetine Hcl 40 Mg Tablet) 40 mg PO DAILY [facility] Last Admin: 04/04/22 10:20 Dose: 40 mg Documented By: JAQUI Pharmacy Consult (Consult Rx Perform Med Rec) 1 each MISCELLANE ONCE PRN PRN Reason: Consult order Propranolol HCl (Propranolol Hcl 20 Mg Tablet) 20 mg PO BID [facility]; Protocol Last Admin: 04/04/22 10:19 Dose: 20 mg Documented By: JAQUI Sodium Chloride (0.9 % Sodium Chloride Flush 3 Ml Syringe) 3 ml IVFLUSH QSHIFT [facility] Last Admin: 04/04/22 10:19 Dose: Not Given Documented By: JAQUI Non-Admin Reason: No Access Tiotropium [place] (Tiotropium [place] 18 Mcg Cap.W.Dev) 1 puff INHALE RDAILY [facility] Last Admin: 04/04/22 12:16 Dose: 1 puff Documented By: ADRIANE Topiramate (Topiramate 100 Mg Tablet) 100 mg PO BID [facility] Last Admin: 04/04/22 10:20 Dose: 100 mg Documented By: JAQUI Labs 03/26/22 14:54 03/26/22 14:54 Assessment and Plan (1) Metabolic encephalopathy: Status: Acute (2) UTI (urinary tract infection): Status: Acute (3) HTN (hypertension): Status: Acute (4) Opiate dependence: Status: Acute Plan 77/F with acute confusion/toxic metabolic encephalopathy likely related to UTI 1. Metabolic encephalopathy/UTI -Ceftin x 5 days -likely baseline dementia underlying 2. COPD -no acute issues at this time -continue outpatient therapies 3.HTN -acceptable control on current therapies -adjust as indicated 4.Opioid dependence -subboxone as ordered Continues hospitalization required to guarantee safe post hospitalization placement Time Spent With Patient Time: Total time managing care of this patient today ____ minutes. Quality Stroke Does the patient have a stroke diagnosis?: No VTE Prior VTE?: No VTE Risk Level:: Medical - moderate - high VTE Device Contraindication: Treatment Not Indicated VTE Drug Contraindication: Treatment Not Indicated
[2022-04-04 19:52] VITALS: BP 132/62; PULSE 56; RESP 16; TEMP 37.6; O2SAT 96
[2022-04-05] VITALS (7 sets, daily range): BP systolic 114–155; BP diastolic 53–68; PULSE 49–58; RESP 14–18; TEMP 36.2–36.6; O2SAT 93–98
[2022-04-05] MEDS: Heparin Sodium,Porcine 5,000 UNIT/ML VIAL 5000 UNIT SUBCUT ×2 (05:30→17:45)
[2022-04-05] MEDS: hydrALAZINE HCl 10 MG TABLET PO ×3 (08:34→20:03)
[2022-04-05] MEDS: Topiramate 100 MG TABLET PO ×2 (08:34→20:03)
[2022-04-05] MEDS: PARoxetine HCL 40 MG TABLET PO (08:34)
[2022-04-05] MEDS: lisinopriL 20 MG TABLET PO (08:35)
[2022-04-05] MEDS: Buprenorphine/Naloxone 12/3 mg FILM 1 FILM SUBLINGUAL (08:36)
[2022-04-05] MEDS: amLODIPine Besylate 10 MG TABLET PO (08:36)
--- NOTE | 2022-04-05 08:41 | PC.NURSE ---
Held AM propanolol, HR 50, MD aware
[2022-04-05] MEDS: Fluticasone/Vilanterol 100/25 BLST.W.DEV 1 PUFF INHALE (09:08)
--- NOTE | 2022-04-05 09:14 | MHC.CM.PN ---
CASE MANAGEMENT INFORMED THAT LTC APPLICATION HAS BEEN STARTED HERE. PATIENT AGREEABLE TO LTC. CASE MANAGEMENT IS FOLLOWING IN THE EVENT PATIENT CAN RETURN HOME INSTEAD
--- NOTE | 2022-04-05 10:36 | MHC.CLN ---
F/U DIET=REGULAR-APPROPRIATE. PO INTAKE X 2 DAYS 75-100%. CONTINUE TO MONITOR PO INTAKE.
--- NOTE | 2022-04-05 14:28 | HO.PM.IMPN ---
Subjective Subjective Date of Service: 04/05/22 Interval History: No acute issues overnight Review of Systems Denies chest pain Denies shortness of breath Denies nausea vomiting diarrhea Denies fever chills Physical Exam Vital Signs: Vital Signs: Last Vital Signs Temp 97.7 F 04/05/22 08:00 Pulse 55 04/05/22 09:13 Resp 18 04/05/22 09:13 BP 155/68 H 04/05/22 08:00 Pulse Ox 96 04/05/22 08:37 O2 Del Method 04/05/22 08:37 BMI result Body Mass Index 17.9 Const: Other: Awake alert no acute issues Resp: Other: Clear to auscultation bilaterally no rales rhonchi wheezes Cardio: Other: No S4; positive S1-S2; no S3 murmurs rubs or gallops GI: Other: Soft nontender nondistended normoactive bowel sounds Extrem: Other: No edema bilaterally Objective Data Active Medications Acetaminophen (Acetaminophen 325 Mg Tablet) 650 mg PO Q6H PRN PRN Reason: Pain, Mild (Pain Scale 1-3) Amlodipine Besylate (Amlodipine Besylate 10 Mg Tablet) 10 mg PO DAILY [facility]; Protocol Last Admin: 04/05/22 08:36 Dose: 10 mg Documented By: RASHEL Buprenorphine/Naloxone (Buprenorphine/Naloxone 12/3 Mg Film) 1 film SUBLINGUAL DAILY [facility] Last Admin: 04/05/22 08:36 Dose: 1 film Documented By: RASHEL Cefuroxime Axetil (Cefuroxime Axetil 250 Mg Tablet) 250 mg PO Q12H [facility] Last Admin: 04/05/22 05:30 Dose: 250 mg Documented By: DEVANG Fluticasone/Vilanterol (Fluticasone/Vilanterol 100/25 Blst.W.Dev) 1 puff INHALE RDAILY [facility] Last Admin: 04/05/22 09:08 Dose: 1 puff Documented By: HARDEEP Heparin Sodium (Porcine) (Heparin Sodium,Porcine 5,000 Unit/Ml Vial) 5,000 unit SUBCUT Q12H [facility] Last Admin: 04/05/22 05:30 Dose: 5,000 unit Documented By: DEVANG Hydralazine HCl (Hydralazine Hcl 20 Mg/Ml Vial) 5 mg IVPUSH Q6H PRN; Protocol PRN Reason: SBP > 180 Last Admin: 03/31/22 23:50 Dose: 5 mg Documented By: ZULAY Hydralazine HCl (Hydralazine Hcl 10 Mg Tablet) 10 mg PO TID [facility]; Protocol Last Admin: 04/05/22 08:34 Dose: 10 mg Documented By: RASHEL Lisinopril (Lisinopril 20 Mg Tablet) 20 mg PO DAILY [facility]; Protocol Last Admin: 04/05/22 08:35 Dose: 20 mg Documented By: RASHEL Melatonin (Melatonin 3 Mg Tablet) 3 mg PO BEDTIME PRN PRN Reason: Insomnia Ondansetron HCl (Ondansetron Hcl 4 Mg/2 Ml Vial) 4 mg IVPUSH Q8H PRN PRN Reason: Nausea and Vomiting Paroxetine HCl (Paroxetine Hcl 40 Mg Tablet) 40 mg PO DAILY [facility] Last Admin: 04/05/22 08:34 Dose: 40 mg Documented By: RASHEL Pharmacy Consult (Consult Rx Perform Med Rec) 1 each MISCELLANE ONCE PRN PRN Reason: Consult order Propranolol HCl (Propranolol Hcl 20 Mg Tablet) 20 mg PO BID [facility]; Protocol Last Admin: 04/05/22 08:38 Dose: Not Given Documented By: RASHEL Non-Admin Reason: Decreased Heart Rate Sodium Chloride (0.9 % Sodium Chloride Flush 3 Ml Syringe) 3 ml IVFLUSH QSHIFT [facility] Last Admin: 04/05/22 08:36 Dose: Not Given Documented By: RASHEL Non-Admin Reason: No Access Tiotropium [place] (Tiotropium [place] 18 Mcg Cap.W.Dev) 1 puff INHALE RDAILY [facility] Last Admin: 04/05/22 09:08 Dose: 1 puff Documented By: HARDEEP Topiramate (Topiramate 100 Mg Tablet) 100 mg PO BID [facility] Last Admin: 04/05/22 08:34 Dose: 100 mg Documented By: RASHEL Labs 03/26/22 14:54 03/26/22 14:54 Assessment and Plan (1) Metabolic encephalopathy: Status: Acute (2) UTI (urinary tract infection): Status: Acute (3) HTN (hypertension): Status: Acute (4) Opiate dependence: Status: Acute Plan 77/F with acute confusion/toxic metabolic encephalopathy likely related to UTI 1. Metabolic encephalopathy/UTI -Ceftin x 5 days (LD 04/07) -likely baseline dementia underlying 2. COPD -no acute issues at this time -continue outpatient therapies 3.HTN -acceptable control on current therapies -adjust as indicated 4.Opioid dependence -subboxone as ordered Continues hospitalization required to guarantee safe post hospitalization placement Time Spent With Patient Time: Total time managing care of this patient today ____ minutes. Quality Stroke Does the patient have a stroke diagnosis?: No VTE Prior VTE?: No VTE Risk Level:: Medical - moderate - high VTE Device Contraindication: Treatment Not Indicated VTE Drug Contraindication: Treatment Not Indicated
[2022-04-06 00:40] VITALS: PULSE 67
[2022-04-06 03:29] VITALS: BP 119/56; PULSE 55; RESP 17; TEMP 36.2; O2SAT 94
[2022-04-06] MEDS: Heparin Sodium,Porcine 5,000 UNIT/ML VIAL 5000 UNIT SUBCUT ×2 (06:14→17:23)
[2022-04-06 07:09] VITALS: BP 155/71; PULSE 54; RESP 16; TEMP 36.6; O2SAT 97
[2022-04-06] MEDS: Propranolol HCL 20 MG TABLET PO ×2 (08:10→20:33)
[2022-04-06] MEDS: PARoxetine HCL 40 MG TABLET PO (08:10)
[2022-04-06] MEDS: amLODIPine Besylate 10 MG TABLET PO (08:10)
[2022-04-06] MEDS: Topiramate 100 MG TABLET PO ×2 (08:10→20:33)
[2022-04-06] MEDS: hydrALAZINE HCl 10 MG TABLET PO ×3 (08:11→20:33)
[2022-04-06] MEDS: lisinopriL 20 MG TABLET PO (08:11)
[2022-04-06] MEDS: Buprenorphine/Naloxone 12/3 mg FILM 1 FILM SUBLINGUAL (08:11)
[2022-04-06] MEDS: Fluticasone/Vilanterol 100/25 BLST.W.DEV 1 PUFF INHALE (08:26)
[2022-04-06 08:27] VITALS: PULSE 57; RESP 18; O2SAT 97
--- NOTE | 2022-04-06 12:08 | P.PNIM_ITS ---
Subjective Subjective Date of Service: 04/06/22 Interval History: Continues to improve ambulating in [place] with walker with assist no acute issues over Review of Systems Denies chest pain Denies shortness of breath Denies nausea vomiting diarrhea Denies fever chills Physical Exam Vital Signs: Vital Signs: Last Vital Signs Temp 97.8 F 04/06/22 07:09 Pulse 57 04/06/22 08:27 Resp 18 04/06/22 08:27 BP 155/71 H 04/06/22 07:09 Pulse Ox 97 04/06/22 07:09 O2 Del Method 04/06/22 07:09 BMI result Body Mass Index 17.9 Const: Other: Awake alert no acute issues Resp: Other: Clear to auscultation bilaterally no rales rhonchi wheezes Cardio: Other: No S4; positive S1-S2; no S3 murmurs rubs or gallops GI: Other: Soft nontender nondistended normoactive bowel sounds Extrem: Other: No edema bilaterally Objective Data Active Medications Acetaminophen (Acetaminophen 325 Mg Tablet) 650 mg PO Q6H PRN PRN Reason: Pain, Mild (Pain Scale 1-3) Amlodipine Besylate (Amlodipine Besylate 10 Mg Tablet) 10 mg PO DAILY [facility]; Protocol Last Admin: 04/06/22 08:10 Dose: 10 mg Documented By: SARAH Buprenorphine/Naloxone (Buprenorphine/Naloxone 12/3 Mg Film) 1 film SUBLINGUAL DAILY [facility] Last Admin: 04/06/22 08:11 Dose: 1 film Documented By: SARAH Cefuroxime Axetil (Cefuroxime Axetil 250 Mg Tablet) 250 mg PO Q12H [facility] Last Admin: 04/06/22 06:11 Dose: 250 mg Documented By: GENARO Fluticasone/Vilanterol (Fluticasone/Vilanterol 100/25 Blst.W.Dev) 1 puff INHALE RDAILY [facility] Last Admin: 04/06/22 08:26 Dose: 1 puff Documented By: TC Heparin Sodium (Porcine) (Heparin Sodium,Porcine 5,000 Unit/Ml Vial) 5,000 unit SUBCUT Q12H [facility] Last Admin: 04/06/22 06:14 Dose: 5,000 unit Documented By: GENARO Comments: label torn Hydralazine HCl (Hydralazine Hcl 20 Mg/Ml Vial) 5 mg IVPUSH Q6H PRN; Protocol PRN Reason: SBP > 180 Last Admin: 03/31/22 23:50 Dose: 5 mg Documented By: ZULAY Hydralazine HCl (Hydralazine Hcl 10 Mg Tablet) 10 mg PO TID [facility]; Protocol Last Admin: 04/06/22 08:11 Dose: 10 mg Documented By: SARAH Lisinopril (Lisinopril 20 Mg Tablet) 20 mg PO DAILY [facility]; Protocol Last Admin: 04/06/22 08:11 Dose: 20 mg Documented By: SARAH Melatonin (Melatonin 3 Mg Tablet) 3 mg PO BEDTIME PRN PRN Reason: Insomnia Ondansetron HCl (Ondansetron Hcl 4 Mg/2 Ml Vial) 4 mg IVPUSH Q8H PRN PRN Reason: Nausea and Vomiting Paroxetine HCl (Paroxetine Hcl 40 Mg Tablet) 40 mg PO DAILY [facility] Last Admin: 04/06/22 08:10 Dose: 40 mg Documented By: SARAH Pharmacy Consult (Consult Rx Perform Med Rec) 1 each MISCELLANE ONCE PRN PRN Reason: Consult order Propranolol HCl (Propranolol Hcl 20 Mg Tablet) 20 mg PO BID [facility]; Protocol Last Admin: 04/06/22 08:10 Dose: 20 mg Documented By: SARAH Sodium Chloride (0.9 % Sodium Chloride Flush 3 Ml Syringe) 3 ml IVFLUSH QSHIFT [facility] Last Admin: 04/06/22 08:11 Dose: 3 ml Documented By: SARAH Tiotropium [place] (Tiotropium [place] 18 Mcg Cap.W.Dev) 1 puff INHALE RDAILY [facility] Last Admin: 04/06/22 08:26 Dose: 1 puff Documented By: TC Topiramate (Topiramate 100 Mg Tablet) 100 mg PO BID [facility] Last Admin: 04/06/22 08:10 Dose: 100 mg Documented By: SARAH Labs 03/26/22 14:54 03/26/22 14:54 Assessment and Plan (1) Metabolic encephalopathy: Status: Acute (2) UTI (urinary tract infection): Status: Acute (3) HTN (hypertension): Status: Acute (4) Opiate dependence: Status: Acute Plan 77/F with acute confusion/toxic metabolic encephalopathy likely related to UTI 1. Metabolic encephalopathy/UTI -Ceftin x 5 days (LD 04/07) -improved with treatment if UTI 2. COPD -no acute issues at this time -continue outpatient therapies 3.HTN -acceptable control on current therapies -adjust as indicated 4.Opioid dependence -subboxone as ordered Continues hospitalization required to guarantee safe post hospitalization placement Time Spent With Patient Time: Total time managing care of this patient today ____ minutes. Quality Stroke Does the patient have a stroke diagnosis?: No VTE Prior VTE?: No VTE Risk Level:: Medical - moderate - high VTE Device Contraindication: Treatment Not Indicated VTE Drug Contraindication: Treatment Not Indicated
[2022-04-06 15:17] VITALS: BP 116/58; PULSE 52; RESP 16; TEMP 36.2; O2SAT 96
[2022-04-06 19:27] VITALS: BP 143/69; PULSE 59; RESP 16; TEMP 36.6; O2SAT 95
[2022-04-07 04:00] VITALS: BP 124/58; PULSE 78; RESP 17; TEMP 36.2; O2SAT 95
[2022-04-07] MEDS: Heparin Sodium,Porcine 5,000 UNIT/ML VIAL 5000 UNIT SUBCUT ×2 (05:35→16:55)
[2022-04-07 07:29] VITALS: BP 149/70; PULSE 51; RESP 12; TEMP 36.6; O2SAT 99
[2022-04-07] MEDS: amLODIPine Besylate 10 MG TABLET PO (07:38)
[2022-04-07] MEDS: PARoxetine HCL 40 MG TABLET PO (07:38)
[2022-04-07] MEDS: lisinopriL 20 MG TABLET PO (07:38)
[2022-04-07] MEDS: hydrALAZINE HCl 10 MG TABLET PO ×3 (07:38→21:00)
[2022-04-07] MEDS: Topiramate 100 MG TABLET PO ×2 (07:38→21:00)
[2022-04-07] MEDS: Propranolol HCL 20 MG TABLET PO ×2 (07:39→20:59)
[2022-04-07] MEDS: Buprenorphine/Naloxone 12/3 mg FILM 1 FILM SUBLINGUAL (07:39)
[2022-04-07] MEDS: Fluticasone/Vilanterol 100/25 BLST.W.DEV 1 PUFF INHALE (07:52)
[2022-04-07 07:55] VITALS: PULSE 56; RESP 18; O2SAT 98
--- NOTE | 2022-04-07 12:35 | HO.PM.IMPN ---
Subjective Subjective Date of Service: 04/07/22 Interval History: Continues to improve ; no dysuric symptoms Review of Systems Denies chest pain Denies shortness of breath Denies nausea vomiting diarrhea Denies fever chills Physical Exam Vital Signs: Vital Signs: Last Vital Signs Temp 97.9 F 04/07/22 07:29 Pulse 56 04/07/22 07:55 Resp 18 04/07/22 07:55 BP 149/70 H 04/07/22 07:29 Pulse Ox 99 04/07/22 07:29 O2 Del Method 04/07/22 07:29 BMI result Body Mass Index 17.9 Const: Other: Awake alert no acute issues Resp: Other: Clear to auscultation bilaterally no rales rhonchi wheezes Cardio: Other: No S4; positive S1-S2; no S3 murmurs rubs or gallops GI: Other: Soft nontender nondistended normoactive bowel sounds Extrem: Other: No edema bilaterally Objective Data Active Medications Acetaminophen (Acetaminophen 325 Mg Tablet) 650 mg PO Q6H PRN PRN Reason: Pain, Mild (Pain Scale 1-3) Amlodipine Besylate (Amlodipine Besylate 10 Mg Tablet) 10 mg PO DAILY [facility]; Protocol Last Admin: 04/07/22 07:38 Dose: 10 mg Documented By: SARAH Buprenorphine/Naloxone (Buprenorphine/Naloxone 12/3 Mg Film) 1 film SUBLINGUAL DAILY [facility] Last Admin: 04/07/22 07:39 Dose: 1 film Documented By: SARAH Cefuroxime Axetil (Cefuroxime Axetil 250 Mg Tablet) 250 mg PO Q12H [facility] Last Admin: 04/07/22 05:35 Dose: 250 mg Documented By: JUSTINE Fluticasone/Vilanterol (Fluticasone/Vilanterol 100/25 Blst.W.Dev) 1 puff INHALE RDAILY [facility] Last Admin: 04/07/22 07:52 Dose: 1 puff Documented By: ULRICRubens Heparin Sodium (Porcine) (Heparin Sodium,Porcine 5,000 Unit/Ml Vial) 5,000 unit SUBCUT Q12H [facility] Last Admin: 04/07/22 05:35 Dose: 5,000 unit Documented By: ELMOILAlicia Hydralazine HCl (Hydralazine Hcl 20 Mg/Ml Vial) 5 mg IVPUSH Q6H PRN; Protocol PRN Reason: SBP > 180 Last Admin: 03/31/22 23:50 Dose: 5 mg Documented By: ZULAY Hydralazine HCl (Hydralazine Hcl 10 Mg Tablet) 10 mg PO TID [facility]; Protocol Last Admin: 04/07/22 07:38 Dose: 10 mg Documented By: SARAH Lisinopril (Lisinopril 20 Mg Tablet) 20 mg PO DAILY [facility]; Protocol Last Admin: 04/07/22 07:38 Dose: 20 mg Documented By: SARAH Melatonin (Melatonin 3 Mg Tablet) 3 mg PO BEDTIME PRN PRN Reason: Insomnia Ondansetron HCl (Ondansetron Hcl 4 Mg/2 Ml Vial) 4 mg IVPUSH Q8H PRN PRN Reason: Nausea and Vomiting Paroxetine HCl (Paroxetine Hcl 40 Mg Tablet) 40 mg PO DAILY [facility] Last Admin: 04/07/22 07:38 Dose: 40 mg Documented By: SARAH Pharmacy Consult (Consult Rx Perform Med Rec) 1 each MISCELLANE ONCE PRN PRN Reason: Consult order Propranolol HCl (Propranolol Hcl 20 Mg Tablet) 20 mg PO BID [facility]; Protocol Last Admin: 04/07/22 07:39 Dose: 20 mg Documented By: SARAH Sodium Chloride (0.9 % Sodium Chloride Flush 3 Ml Syringe) 3 ml IVFLUSH QSHIFT [facility] Last Admin: 04/07/22 07:37 Dose: Not Given Documented By: SARAH Non-Admin Reason: No Access Tiotropium [place] (Tiotropium [place] 18 Mcg Cap.W.Dev) 1 puff INHALE RDAILY [facility] Last Admin: 04/07/22 07:52 Dose: 1 puff Documented By: DOMINIQUE Topiramate (Topiramate 100 Mg Tablet) 100 mg PO BID [facility] Last Admin: 04/07/22 07:38 Dose: 100 mg Documented By: SARAH Labs 03/26/22 14:54 03/26/22 14:54 Assessment and Plan (1) Metabolic encephalopathy: Status: Acute (2) UTI (urinary tract infection): Status: Acute (3) HTN (hypertension): Status: Acute (4) Opiate dependence: Status: Acute Plan 77/F with acute confusion/toxic metabolic encephalopathy likely related to UTI 1. Metabolic encephalopathy/UTI -Ceftin x 5 days (LD 04/07) -improved with treatment of UTI -consider topical Estrace cream Friday and Friday once completion of therapy 2. COPD -no acute issues at this time -continue outpatient therapies 3.HTN -acceptable control on current therapies -adjust as indicated 4.Opioid dependence -subboxone as ordered Continues hospitalization required to guarantee safe post hospitalization placement Time Spent With Patient Time: Total time managing care of this patient today ____ minutes. Quality Stroke Does the patient have a stroke diagnosis?: No VTE Prior VTE?: No VTE Risk Level:: Medical - moderate - high VTE Device Contraindication: Treatment Not Indicated VTE Drug Contraindication: Treatment Not Indicated
[2022-04-07 15:30] VITALS: BP 109/56; PULSE 51; RESP 18; TEMP 36.5; O2SAT 96
[2022-04-07 19:38] VITALS: BP 114/53; PULSE 55; RESP 18; TEMP 37; O2SAT 95
[2022-04-08 03:31] VITALS: BP 137/63; PULSE 55; RESP 16; TEMP 36.4; O2SAT 94
[2022-04-08] MEDS: Heparin Sodium,Porcine 5,000 UNIT/ML VIAL 5000 UNIT SUBCUT ×2 (05:38→18:03)
[2022-04-08 07:58] VITALS: BP 159/74; PULSE 55; RESP 18; TEMP 36.3; O2SAT 96
[2022-04-08] MEDS: Fluticasone/Vilanterol 100/25 BLST.W.DEV 1 PUFF INHALE (08:09)
[2022-04-08 08:13] VITALS: PULSE 57; RESP 16; O2SAT 96
[2022-04-08] MEDS: lisinopriL 20 MG TABLET PO (08:40)
[2022-04-08] MEDS: Topiramate 100 MG TABLET PO ×2 (08:40→20:12)
[2022-04-08] MEDS: Propranolol HCL 20 MG TABLET PO ×2 (08:40→20:12)
[2022-04-08] MEDS: hydrALAZINE HCl 10 MG TABLET PO ×3 (08:40→20:12)
[2022-04-08] MEDS: PARoxetine HCL 40 MG TABLET PO (08:40)
[2022-04-08] MEDS: amLODIPine Besylate 10 MG TABLET PO (08:41)
[2022-04-08] MEDS: 0.9 % Sodium Chloride Flush 3 ML SYRINGE IVFLUSH (08:41)
[2022-04-08] MEDS: Buprenorphine/Naloxone 12/3 mg FILM 1 FILM SUBLINGUAL (08:41)
--- NOTE | 2022-04-08 11:44 | MHC.CLN ---
F/U PO INTAKE EXCELLENT DIET RX: REGULAR-APPROPRIATE OBTAIN CURRENT WT R/T PCM MONITOR PO INTAKE
--- NOTE | 2022-04-08 12:44 | P.PNIM_ITS ---
Subjective Subjective Date of Service: 04/08/22 Interval History: no urinary symptoms awaiting placement Review of Systems Review of Systems: Yes all other systems are reviewed and are negative Physical Exam Vital Signs: Vital Signs: Last Vital Signs Temp 97.4 F 04/08/22 07:58 Pulse 57 04/08/22 08:13 Resp 16 04/08/22 08:13 BP 159/74 H 04/08/22 07:58 Pulse Ox 96 04/08/22 07:58 O2 Del Method 04/08/22 07:58 BMI result Body Mass Index 17.9 Objective Data Active Medications Acetaminophen (Acetaminophen 325 Mg Tablet) 650 mg PO Q6H PRN PRN Reason: Pain, Mild (Pain Scale 1-3) Amlodipine Besylate (Amlodipine Besylate 10 Mg Tablet) 10 mg PO DAILY [facility]; Pro tocol Last Admin: 04/08/22 08:41 Dose: 10 mg Documented By: TERRI Buprenorphine/Naloxone (Buprenorphine/Naloxone 12/3 Mg Film) 1 film SUBLINGUAL DAILY [facility] Last Admin: 04/08/22 08:41 Dose: 1 film Documented By: TERRI Cefuroxime Axetil (Cefuroxime Axetil 250 Mg Tablet) 250 mg PO Q12H [facility] Last Admin: 04/08/22 05:38 Dose: 250 mg Documented By: DEVANG Fluticasone/Vilanterol (Fluticasone/Vilanterol 100/25 Blst.W.Dev) 1 puff INHALE RDAILY [facility] Last Admin: 04/08/22 08:09 Dose: 1 puff Documented By: HARDEEP Heparin Sodium (Porcine) (Heparin Sodium,Porcine 5,000 Unit/Ml Vial) 5,000 unit SUBCUT Q12H [facility] Last Admin: 04/08/22 05:38 Dose: 5,000 unit Documented By: DEVANG Hydralazine HCl (Hydralazine Hcl 20 Mg/Ml Vial) 5 mg IVPUSH Q6H PRN; Protocol PRN Reason: SBP > 180 Last Admin: 03/31/22 23:50 Dose: 5 mg Documented By: ZULAY Hydralazine HCl (Hydralazine Hcl 10 Mg Tablet) 10 mg PO TID [facility]; Protocol Last Admin: 04/08/22 08:40 Dose: 10 mg Documented By: TERRI Lisinopril (Lisinopril 20 Mg Tablet) 20 mg PO DAILY [facility]; Protocol Last Admin: 04/08/22 08:40 Dose: 20 mg Documented By: TERRI Melatonin (Melatonin 3 Mg Tablet) 3 mg PO BEDTIME PRN PRN Reason: Insomnia Ondansetron HCl (Ondansetron Hcl 4 Mg/2 Ml Vial) 4 mg IVPUSH Q8H PRN PRN Reason: Nausea and Vomiting Paroxetine HCl (Paroxetine Hcl 40 Mg Tablet) 40 mg PO DAILY [facility] Last Admin: 04/08/22 08:40 Dose: 40 mg Documented By: TERRI Pharmacy Consult (Consult Rx Perform Med Rec) 1 each MISCELLANE ONCE PRN PRN Reason: Consult order Propranolol HCl (Propranolol Hcl 20 Mg Tablet) 20 mg PO BID [facility]; Protocol Last Admin: 04/08/22 08:40 Dose: 20 mg Documented By: TERRI Sodium Chloride (0.9 % Sodium Chloride Flush 3 Ml Syringe) 3 ml IVFLUSH QSHIFT [facility] Last Admin: 04/08/22 08:41 Dose: 3 ml Documented By: TERRI Tiotropium [place] (Tiotropium [place] 18 Mcg Cap.W.Dev) 1 puff INHALE RDAILY [facility] Last Admin: 04/08/22 08:09 Dose: 1 puff Documented By: HARDEEP Topiramate (Topiramate 100 Mg Tablet) 100 mg PO BID [facility] Last Admin: 04/08/22 08:40 Dose: 100 mg Documented By: TERRI Labs 03/26/22 14:54 03/26/22 14:54 Assessment and Plan (1) Metabolic encephalopathy: Status: Acute (2) UTI (urinary tract infection): Status: Acute (3) HTN (hypertension): Status: Acute (4) Opiate dependence: Status: Acute Plan d#14 77yo F admitted with confusion due to encephalopathy due to UTI # toxic encephalopathy - resolved # recurrent UTI - grew E coli R to amp/gent/TMP-SMX - treated with ceftriaxone + cefuroxime, completed 04/07/22 - Urology consult # COPD, not acute exac - continue triple controller therapy # HTN - continue lisinopril, amlodipine, hydralazine, propranolol # mood disorder - continue paroxetine, topiramate # opioid dependence - continue Suboxone # VTE ppx: LMWH # dispo: LTC In my clinical judgment, the patient requires continued inpatient hos pitalization for the following reasons: safe disposition planning Time Spent With Patient Time: Total time managing care of this patient today _20___ minutes. Quality Stroke Does the patient have a stroke diagnosis?: No VTE Prior VTE?: No VTE Risk Level:: Medical - moderate - high VTE Device Contraindication: Treatment Not Indicated VTE Drug Contraindication: Treatment Not Indicated
[2022-04-08 12:52] VITALS: PULSE 57
[2022-04-08 13:14] VITALS: BMI 16.0
[2022-04-08 15:31] VITALS: BP 138/65; PULSE 57; RESP 19; TEMP 36.4; O2SAT 94
[2022-04-08 19:51] VITALS: BP 128/58; PULSE 100; RESP 17; TEMP 36.8; O2SAT 96
[2022-04-08] MEDS: Melatonin 3 MG TABLET PO (20:12)
[2022-04-09 03:40] VITALS: BP 130/60; PULSE 55; RESP 16; TEMP 36.3; O2SAT 94
[2022-04-09] MEDS: Heparin Sodium,Porcine 5,000 UNIT/ML VIAL 5000 UNIT SUBCUT ×2 (06:40→17:48)
[2022-04-09] MEDS: Fluticasone/Vilanterol 100/25 BLST.W.DEV 1 PUFF INHALE (07:53)
[2022-04-09 08:00] VITALS: BP 160/72; PULSE 54; RESP 18; TEMP 36.6; O2SAT 98
[2022-04-09] MEDS: PARoxetine HCL 40 MG TABLET PO (08:09)
[2022-04-09] MEDS: Propranolol HCL 20 MG TABLET PO ×2 (08:09→21:04)
[2022-04-09] MEDS: lisinopriL 20 MG TABLET PO (08:09)
[2022-04-09] MEDS: polyethylene glycoL 3350 17 GM POWD.PACK PO (08:09)
[2022-04-09] MEDS: Topiramate 100 MG TABLET PO ×2 (08:09→21:04)
[2022-04-09] MEDS: amLODIPine Besylate 10 MG TABLET PO (08:09)
[2022-04-09] MEDS: Buprenorphine/Naloxone 12/3 mg FILM 1 FILM SUBLINGUAL (08:09)
[2022-04-09] MEDS: hydrALAZINE HCl 10 MG TABLET PO ×3 (08:09→21:04)
[2022-04-09] MEDS: Sennosides/Docusate Sodium TABLET 2 TAB PO ×2 (08:10→21:04)
--- NOTE | 2022-04-09 09:05 | PM.UROCN ---
History of Present Illness Consult details Consult date: 04/09/22 Requesting physician: Chasity Davis Narrative: Sandy is a 71-year-old female who was admitted for metabolic encephalopathy on 03/26/2022 and treated for E coli UTI. Review of patient's chart she had Klebsiella UTI 02/12/2022. The patient states she has had spontaneous leakage associated with urge as on outpatient. CT KUB notes small bilateral nonobstructing kidney stones. Other significant findings constipation possible ileus. On evaluation, [place] in place, recommend hold on anticholinergics for now due to constipation, use pads prn on discharge and I will fu with patient regarding urinary incontinence,& stone management. CT KUB 04/08/2022: pertinent findings- KIDNEYS AND URETERS: The kidneys are normal in size, shape, and attenuation. There are small nonobstructive radiopaque calculi B/L right kidney, 6 mm in upper pole -3 mm lower pole and Left kidney-2 small radiopaque calculi adjacent to each other midpole There is no caliectasis or hydronephrosis.?BLADDER: Unremarkable.? Review of Systems Review of Systems: 10 point ROS negative other than state in [facility] Social History Social History Household Members: Friend(s) Housing: Apartment Do you presently have visiting nurse or other home services: No Alcohol intake: never Patient Tobacco Use Status: Former Tobacco user Tobacco use type: Cigarette e-Cigarette/Vaping Use: Former Use service: No Current occupational status: retired Meds Allergies Allergy/AdvReac Type Severity Reaction Status Date / Time No Known Allergies Allergy Verified 02/20/22 20:11 Active Medications: Current Medications Acetaminophen (Acetaminophen 325 Mg Tablet) 650 mg PO Q6H PRN PRN Reason: Pain, Mild (Pain Scale 1-3) Amlodipine Besylate (Amlodipine Besylate 10 Mg Tablet) 10 mg PO DAILY [facility]; Protocol Last Admin: 04/09/22 08:09 Dose: 10 mg Buprenorphine/Naloxone (Buprenorphine/Naloxone 12/3 Mg Film) 1 film SUBLINGUAL DAILY [facility] Last Admin: 04/09/22 08:09 Dose: 1 film Fluticasone/Vilanterol (Fluticasone/Vilanterol 100/25 Blst.W.Dev) 1 puff INHALE RDAILY [facility] Last Admin: 04/09/22 07:53 Dose: 1 puff Heparin Sodium (Porcine) (Heparin Sodium,Porcine 5,000 Unit/Ml Vial) 5,000 unit SUBCUT Q12H [facility] Last Admin: 04/09/22 06:40 Dose: 5,000 unit Hydralazine HCl (Hydralazine Hcl 20 Mg/Ml Vial) 5 mg IVPUSH Q6H PRN; Protocol PRN Reason: SBP > 180 Last Admin: 03/31/22 23:50 Dose: 5 mg Hydralazine HCl (Hydralazine Hcl 10 Mg Tablet) 10 mg PO TID [facility]; Protocol Last Admin: 04/09/22 08:09 Dose: 10 mg Lisinopril (Lisinopril 20 Mg Tablet) 20 mg PO DAILY [facility]; Protocol Last Admin: 04/09/22 08:09 Dose: 20 mg Melatonin (Melatonin 3 Mg Tablet) 3 mg PO BEDTIME PRN PRN Reason: Insomnia Last Admin: 04/08/22 20:12 Dose: 3 mg Ondansetron HCl (Ondansetron Hcl 4 Mg/2 Ml Vial) 4 mg IVPUSH Q8H PRN PRN Reason: Nausea and Vomiting Paroxetine HCl (Paroxetine Hcl 40 Mg Tablet) 40 mg PO DAILY [facility] Last Admin: 04/09/22 08:09 Dose: 40 mg Pharmacy Consult (Consult Rx Perform Med Rec) 1 each MISCELLANE ONCE PRN PRN Reason: Consult order Polyethylene Glycol (Polyethylene Glycol 3350 17 Gm Powd.Pack) 17 gm PO DAILY [facility] Last Admin: 04/09/22 08:09 Dose: 17 gm Propranolol HCl (Propranolol Hcl 20 Mg Tablet) 20 mg PO BID [facility]; Protocol Last Admin: 04/09/22 08:09 Dose: 20 mg Senna/Docusate Sodium (Sennosides/Docusate Sodium Tablet) 2 tab PO BID [facility] Last Admin: 04/09/22 08:10 Dose: 2 tab Sodium Chloride (0.9 % Sodium Chloride Flush 3 Ml Syringe) 3 ml IVFLUSH QSHIFT [facility] Last Admin: 04/09/22 08:10 Dose: Not Given Tiotropium [place] (Tiotropium [place] 18 Mcg Cap.W.Dev) 1 puff INHALE RDAILY [facility] Last Admin: 04/09/22 07:53 Dose: 1 puff Topiramate (Topiramate 100 Mg Tablet) 100 mg PO BID [facility] Last Admin: 04/09/22 08:09 Dose: 100 mg Home Medications Medication Instructions Recorded Confirmed Last Taken Type buprenorphine 12 mg-naloxone 3 mg 1 film sublingual DAILY 02/21/22 03/26/22 02/20/22 History sublingual film bupropion HCl 150 mg tablet,12 hr 150 mg PO DAILY 02/21/22 03/26/22 Unknown History sustained-release fluticasone fur. 100 mcg-umeclid 1 inh inhalation DAILY 02/21/22 03/26/22 Unknown History 62.5 mcg-vilant 25 mcg inhalat.powder (Trelegy Ellipta) paroxetine HCl 40 mg tablet 40 mg PO DAILY 02/21/22 03/26/22 Unknown History propranolol 20 mg tablet 20 mg PO TID PRN Anxiety 02/21/22 03/26/22 Unknown History topiramate 100 mg tablet 100 mg PO BID 02/21/22 03/26/22 Unknown History ipratropium 20 mcg-albuterol 100 1 puff inhalation QID 03/26/22 03/26/22 Unknown History mcg/actuation mist for inhalation (Combivent Respimat) naloxone 4 mg/actuation nasal 4 mg intranasal Q24H PRN Opiate 03/26/22 03/26/22 Unknown History spray (Narcan) Reversal Physical Exam Vital Signs: Vital Signs: Last Vital Signs Temp 97.8 F 04/09/22 08:00 Pulse 54 04/09/22 08:00 Resp 18 04/09/22 08:00 BP 160/72 H 04/09/22 08:00 Pulse Ox 98 04/09/22 08:00 O2 Del Method 04/09/22 08:00 BMI result Body Mass Index 16.0 Const: General: cooperative and no acute distress Orientation/consciousness: patient oriented x3 HEENT: Head: Yes normal to inspection, Yes normocephalic and Yes atraumatic Eyes: Conjunctivae: conjunctivae normal Neck: Neck: Yes normal visual inspection and Yes trachea midline Chest: Chest palpation & inspection: normal inspection of the chest Resp: Effort & Inspection: normal respiratory effort Cardio: Rate: regular rate GI: Inspection: Yes normal to inspection Skin: General skin exam: no rashes or lesions noted Neuro: General: patient oriented x3 Extrem: General: No edema Psych: Appearance: grossly normal Results Labs 03/26/22 14:54 03/26/22 14:54 Labs: Urine 03/26/22 Range/Units 15:43 Urine Color Dark Yellow Urine Appearance Turbid Urine pH 6.5 (5.0-9.0) Ur Specific [place] 1.015 (1.005-1.025) Urine Protein 100 (2+) H (Neg-Trace) mg/dL Urine Glucose (UA) Negative (Negative) mg/dL Imaging Abdomen CT scan report/results: report reviewed and image reviewed CT scan - pelvis: report reviewed and image reviewed Additional studies: Date of Service: 04/08/22 CT ABDOMEN AND PELVIS WITHOUT CONTRAST? CLINICAL INFORMATION: Recurrent UTI? COMPARISON: None? FINDINGS: Limited exam due to lack of oral and IV contrast. LUNG BASES: The visualized lung bases are unremarkable.? LIVER, GALLBLADDER, AND BILIARY TREE: The liver is normal in size, shape, and attenuation. No focal hepatic lesion or biliary ductal dilatation is present. The gallbladder is unremarkable with no evidence of radiopaque gallstones, gallbladder wall thickening, or obvious pericholecystic inflammatory changes.? PANCREAS: Unremarkable.? SPLEEN: Unremarkable.? ADRENAL GLANDS: Unremarkable.? KIDNEYS AND URETERS: The kidneys are normal in size, shape, and attenuation. There are small nonobstructive radiopaque calculi measuring 6 mm in upper pole right kidney, 3 mm lower pole and 2 small tumor radiopaque calculi adjacent to each other midpole left kidney. There is no caliectasis or hydronephrosis.? BLADDER: Unremarkable.? GASTROINTESTINAL TRACT: There is a large amount of stool and gas seen throughout the entire colon suggesting moderate to severe constipation. There are multiple prominent small bowel loops with air-fluid levels in mid and lower pelvis. No free air or free fluid seen. ABDOMINAL WALL: No significant hernia is appreciated.? LYMPH NODES: Normal. VASCULAR: There is atherosclerotic changes of abdominal aorta without aneurysmal dilatation. PELVIC VISCERA: The uterus is not visualized. No adnexal mass or free fluid. ? OSSEOUS STRUCTURES: There is grade 2 anterolisthesis L4 over L5 with degenerative disc changes L4-L5,? T10-T11 and T11-T12 disc levels. No aggressive lytic or sclerotic process seen..? CT/CT abdomen pelvis wo IV con IMPRESSION: 1.? Bilateral nonobstructive radiopaque renal calculi. No caliectasis or hydronephrosis. 2.? Significant constipation with mild prominence of small bowel loops with air-fluid levels in mid and lower pelvis. Question ileus versus early obstruction. No free air or free fluid seen 3.? Grade 2 anterolisthesis L4 over L5 with degenerative disc changes L4-L5, T10-T11 and T11-T12 disc levels. Assessment and Plan (1) Recurrent UTI: Status: Acute (2) Urinary incontinence: Status: Acute (3) Bilateral kidney stones: Status: Acute Plan B/L kidney stones, no hydro Recurrent UTI's, (coMorbidity kidney stones and constipation) Urinary incontinence Hold on anticholinergics due to constipation Better management of constipation would be beneficial Out patient follow up Time Spent With Patient Time: Total time managing care of this patient today ____ minutes. Procedures Date of Service Date of Service: 04/09/22
--- NOTE | 2022-04-09 09:53 | MHC.CM.PN ---
PATIENT CURRENTLY RECOMMENDED FOR LTC PLACEMENT. NO OFFERS AND NO [facility] BENEFIT YET. CASE MANAGEMENT FOLLOWING. WILL DISCUSS AT MEDICAL ROUNDS
[2022-04-09 10:20] VITALS: BP 160/72; PULSE 54; O2SAT 98
[2022-04-09] MEDS: Lactulose 20 GM/30 ML SOLUTION PO (12:38)
--- NOTE | 2022-04-09 14:35 | HO.PM.IMPN ---
Subjective Subjective Date of Service: 04/09/22 Interval History: no abd pain no BM yet but passing gas no dysuria Review of Systems Review of Systems: Yes all other systems are reviewed and are negative Physical Exam Vital Signs: Vital Signs: Last Vital Signs Temp 97.8 F 04/09/22 08:00 Pulse 54 04/09/22 10:20 Resp 18 04/09/22 08:00 BP 160/72 H 04/09/22 10:20 Pulse Ox 98 04/09/22 10:20 O2 Del Method 04/09/22 08:00 BMI result Body Mass Index 16.0 Gen: in no acute distress HEENT: sclera anicteric, moist mucus membranes Neck: supple Lungs: clear to auscultation bilaterally Heart: regular rate and rhythm, no murmurs Abd: soft, non-tender, non-distended, normal bowel sounds x4quad Ext: no edema Skin: warm/well-perfused Neuro: alert and oriented x3 Psych: appropriate affect Objective Data Active Medications Acetaminophen (Acetaminophen 325 Mg Tablet) 650 mg PO Q6H PRN PRN Reason: Pain, Mild (Pain Scale 1-3) Amlodipine Besylate (Amlodipine Besylate 10 Mg Tablet) 10 mg PO DAILY [facility]; Protocol Last Admin: 04/09/22 08:09 Dose: 10 mg Documented By: TERRI Buprenorphine/Naloxone (Buprenorphine/Naloxone 12/3 Mg Film) 1 film SUBLINGUAL DAILY [facility] Last Admin: 04/09/22 08:09 Dose: 1 film Documented By: TERRI Fluticasone/Vilanterol (Fluticasone/Vilanterol 100/25 Blst.W.Dev) 1 puff INHALE RDAILY [facility] Last Admin: 04/09/22 07:53 Dose: 1 puff Documented By: OLI Heparin Sodium (Porcine) (Heparin Sodium,Porcine 5,000 Unit/Ml Vial) 5,000 unit SUBCUT Q12H [facility] Last Admin: 04/09/22 06:40 Dose: 5,000 unit Documented By: ROLANDO Hydralazine HCl (Hydralazine Hcl 20 Mg/Ml Vial) 5 mg IVPUSH Q6H PRN; Protocol PRN Reason: SBP > 180 Last Admin: 03/31/22 23:50 Dose: 5 mg Documented By: ZULAY Hydralazine HCl (Hydralazine Hcl 10 Mg Tablet) 10 mg PO TID [facility]; Protocol Last Admin: 04/09/22 08:09 Dose: 10 mg Documented By: TERRI Lisinopril (Lisinopril 20 Mg Tablet) 20 mg PO DAILY [facility]; Protocol Last Admin: 04/09/22 08:09 Dose: 20 mg Documented By: TERRI Melatonin (Melatonin 3 Mg Tablet) 3 mg PO BEDTIME PRN PRN Reason: Insomnia Last Admin: 04/08/22 20:12 Dose: 3 mg Documented By: YELENA Ondansetron HCl (Ondansetron Hcl 4 Mg/2 Ml Vial) 4 mg IVPUSH Q8H PRN PRN Reason: Nausea and Vomiting Paroxetine HCl (Paroxetine Hcl 40 Mg Tablet) 40 mg PO DAILY [facility] Last Admin: 04/09/22 08:09 Dose: 40 mg Documented By: TERRI Pharmacy Consult (Consult Rx Perform Med Rec) 1 each MISCELLANE ONCE PRN PRN Reason: Consult order Polyethylene Glycol (Polyethylene Glycol 3350 17 Gm Powd.Pack) 17 gm PO DAILY [facility] Last Admin: 04/09/22 08:09 Dose: 17 gm Documented By: TERRI Propranolol HCl (Propranolol Hcl 20 Mg Tablet) 20 mg PO BID [facility]; Protocol Last Admin: 04/09/22 08:09 Dose: 20 mg Documented By: TERRI Senna/Docusate Sodium (Sennosides/Docusate Sodium Tablet) 2 tab PO BID [facility] Last Admin: 04/09/22 08:10 Dose: 2 tab Documented By: TERRI Sodium Chloride (0.9 % Sodium Chloride Flush 3 Ml Syringe) 3 ml IVFLUSH QSHIFT [facility] Last Admin: 04/09/22 08:10 Dose: Not Given Documented By: TERRI Non-Admin Reason: No Access Tiotropium [place] (Tiotropium [place] 18 Mcg Cap.W.Dev) 1 puff INHALE RDAILY [facility] Last Admin: 04/09/22 07:53 Dose: 1 puff Documented By: OLI Topiramate (Topiramate 100 Mg Tablet) 100 mg PO BID [facility] Last Admin: 04/09/22 08:09 Dose: 100 mg Documented By: TERRI Labs 03/26/22 14:54 03/26/22 14:54 Labs: Impressions Abdomen/Pelvis CT 04/08/22 13:35 IMPRESSION: 1. Bilateral nonobstructive radiopaque renal calculi. No caliectasis or hydronephrosis. 2. Significant constipation with mild prominence of small bowel loops with air-fluid levels in mid and lower pelvis. Question ileus versus early obstruction. No free air or free fluid seen 3. Grade 2 anterolisthesis L4 over L5 with degenerative disc changes L4-L5, T10-T11 and T11-T12 disc levels. Fleischner guidelines were followed. Assessment and Plan (1) Metabolic encephalopathy: Status: Acute (2) UTI (urinary tract infection): Status: Acute (3) HTN (hypertension): Status: Acute (4) Opiate dependence: Status: Acute Plan d#14 77yo F admitted with confusion due to encephalopathy due to UTI # toxic encephalopathy - resolved # recurrent UTI - grew E coli R to amp/gent/TMP-SMX - treated with ceftriaxone + cefuroxime, completed 04/07/22 - Urology consulted: has bilateral nephrolithiasis without hydronephrosis. no anticholinergis due to constipation. outpt f/u. # constipation - start bowel regimen. no ileus on clinical exam [has bowel sounds + passing gas] # COPD, not acute exac - continue triple controller therapy # HTN - continue lisinopril, amlodipine, hydralazine, propranolol # mood disorder - continue paroxetine, topiramate # opioid dependence - continue Suboxone # VTE ppx: LMWH # dispo: LTC In my clinical judgment, the patient requires continued inpatient hospitalization for the following reasons: safe disposition planning Time Spent With Patient Time: Total time managing care of this patient today __25__ minutes. Quality Stroke Does the patient have a stroke diagnosis?: No VTE Prior VTE?: No VTE Risk Level:: Medical - moderate - high VTE Device Contraindication: Treatment Not Indicated VTE Drug Contraindication: Treatment Not Indicated
[2022-04-10 03:43] VITALS: BP 146/63; PULSE 50; RESP 18; TEMP 36.4; O2SAT 91
[2022-04-10] MEDS: Heparin Sodium,Porcine 5,000 UNIT/ML VIAL 5000 UNIT SUBCUT ×2 (05:35→15:46)
[2022-04-10 08:00] VITALS: BP 150/72; PULSE 56; RESP 18; TEMP 36.6; O2SAT 96
[2022-04-10] MEDS: polyethylene glycoL 3350 17 GM POWD.PACK PO (09:41)
[2022-04-10] MEDS: Sennosides/Docusate Sodium TABLET 2 TAB PO ×2 (09:41→20:54)
[2022-04-10] MEDS: PARoxetine HCL 40 MG TABLET PO (09:42)
[2022-04-10] MEDS: lisinopriL 20 MG TABLET PO (09:42)
[2022-04-10] MEDS: Topiramate 100 MG TABLET PO ×2 (09:42→20:54)
[2022-04-10] MEDS: amLODIPine Besylate 10 MG TABLET PO (09:42)
[2022-04-10] MEDS: hydrALAZINE HCl 10 MG TABLET PO ×3 (09:42→20:53)
[2022-04-10] MEDS: Propranolol HCL 20 MG TABLET PO ×2 (09:43→20:53)
[2022-04-10] MEDS: Buprenorphine/Naloxone 12/3 mg FILM 1 FILM SUBLINGUAL (09:43)
--- NOTE | 2022-04-10 10:22 | MHC.CM.PN ---
CALL TO PATIENT'S BROTHER MARISSA @ [phone] (PER HIS REQUEST) MARISSA UPDATED WITH STATUS AND NO BED OFFERS. MARISSA ALSO STATES THAT PATIENT CANNOT LIVE WITH ANY FAMILY MEMBER. WHEN THE SUBJECT OF SENDING PATIENT BACK TO HER TRAILER, MARISSA SAYS THE HALLWAY CANNOT ACCOMMODATE A WALKER. WHEN ASKED IF PATIENT CAN MANAGE THE [address] WAY WITH HER HANDS, HE SAYS SHE DOESN'T TRY .
--- NOTE | 2022-04-10 10:43 | P.PNIM_ITS ---
Subjective Subjective Date of Service: 04/10/22 Interval History: had BM no abd pain no N/V no dysuria Review of Systems Review of Systems: Yes all other systems are reviewed and are negative Physical Exam Vital Signs: Vital Signs: Last Vital Signs Temp 97.8 F 04/10/22 08:00 Pulse 56 04/10/22 08:00 Resp 18 04/10/22 08:00 BP 150/72 H 04/10/22 08:00 Pulse Ox 96 04/10/22 08:00 O2 Del Method 04/10/22 08:00 BMI result Body Mass Index 16.0 Gen: in no acute distress HEENT: sclera anicteric, moist mucus membranes Neck: supple Lungs: clear to auscultation bilaterally Heart: regular rate and rhythm, no murmurs Abd: soft, non-tender, non-distended Ext: no edema Skin: warm/well-perfused Neuro: alert and oriented x3, no focal findings Psych: appropriate affect Objective Data Active Medications Acetaminophen (Acetaminophen 325 Mg Tablet) 650 mg PO Q6H PRN PRN Reason: Pain, Mild (Pain Scale 1-3) Amlodipine Besylate (Amlodipine Besylate 10 Mg Tablet) 10 mg PO DAILY [facility]; Protocol Last Admin: 04/10/22 09:42 Dose: 10 mg Documented By: OSCAR Buprenorphine/Naloxone (Buprenorphine/Naloxone 12/3 Mg Film) 1 film SUBLINGUAL DAILY [facility] Last Admin: 04/10/22 09:43 Dose: 1 film Documented By: OSCAR Fluticasone/Vilanterol (Fluticasone/Vilanterol 100/25 Blst.W.Dev) 1 puff INHALE RDAILY [facility] Last Admin: 04/10/22 07:34 Dose: Not Given Documented By: TC Non-Admin Reason: Med Not Available Heparin Sodium (Porcine) (Heparin Sodium,Porcine 5,000 Unit/Ml Vial) 5,000 unit SUBCUT Q12H [facility] Last Admin: 04/10/22 05:35 Dose: 5,000 unit Documented By: ZULAY Hydralazine HCl (Hydralazine Hcl 20 Mg/Ml Vial) 5 mg IVPUSH Q6H PRN; Protocol PRN Reason: SBP > 180 Last Admin: 03/31/22 23:50 Dose: 5 mg Documented By: ZULAY Hydralazine HCl (Hydralazine Hcl 10 Mg Tablet) 10 mg PO TID [facility]; Protocol Last Admin: 04/10/22 09:42 Dose: 10 mg Documented By: OSCAR Lisinopril (Lisinopril 20 Mg Tablet) 20 mg PO DAILY [facility]; Protocol Last Admin: 04/10/22 09:42 Dose: 20 mg Documented By: OSCAR Melatonin (Melatonin 3 Mg Tablet) 3 mg PO BEDTIME PRN PRN Reason: Insomnia Last Admin: 04/08/22 20:12 Dose: 3 mg Documented By: YELENA Ondansetron HCl (Ondansetron Hcl 4 Mg/2 Ml Vial) 4 mg IVPUSH Q8H PRN PRN Reason: Nausea and Vomiting Paroxetine HCl (Paroxetine Hcl 40 Mg Tablet) 40 mg PO DAILY [facility] Last Admin: 04/10/22 09:42 Dose: 40 mg Documented By: OSCAR Pharmacy Consult (Consult Rx Perform Med Rec) 1 each MISCELLANE ONCE PRN PRN Reason: Consult order Polyethylene Glycol (Polyethylene Glycol 3350 17 Gm Powd.Pack) 17 gm PO DAILY [facility] Last Admin: 04/10/22 09:41 Dose: 17 gm Documented By: OSCAR Propranolol HCl (Propranolol Hcl 20 Mg Tablet) 20 mg PO BID [facility]; Protocol Last Admin: 04/10/22 09:43 Dose: 20 mg Documented By: OSCAR Senna/Docusate Sodium (Sennosides/Docusate Sodium Tablet) 2 tab PO BID [facility] Last Admin: 04/10/22 09:41 Dose: 2 tab Documented By: OSCAR Sodium Chloride (0.9 % Sodium Chloride Flush 3 Ml Syringe) 3 ml IVFLUSH QSHIFT [facility] Last Admin: 04/10/22 09:47 Dose: Not Given Documented By: OSCAR Non-Admin Reason: No Access Tiotropium [place] (Tiotropium [place] 18 Mcg Cap.W.Dev) 1 puff INHALE RDAILY [facility] Last Admin: 04/10/22 07:34 Dose: Not Given Documented By: TC Non-Admin Reason: Med Not Available Topiramate (Topiramate 100 Mg Tablet) 100 mg PO BID [facility] Last Admin: 04/10/22 09:42 Dose: 100 mg Documented By: OSCAR Labs 03/26/22 14:54 03/26/22 14:54 Assessment and Plan (1) Metabolic encephalopathy: Status: Acute (2) UTI (urinary tract infection): Status: Acute (3) HTN (hypertension): Status: Acute (4) Opiate dependence: Status: Acute Plan d#15 77yo F admitted with confusion due to encephalopathy due to UTI # toxic encephalopathy - resolved # recurrent UTI - grew E coli R to amp/gent/TMP-SMX - treated with ceftriaxone + cefuroxime, completed 04/07/22 - Urology consulted: has bilateral nephrolithiasis without hydronephrosis. no anticholinergis due to constipation. outpt f/u. # constipation - started bowel regimen. no ileus on clinical exam [has bowel sounds + passing gas] # COPD, not acute exac - continue triple controller therapy # HTN - continue lisinopril, amlodipine, hydralazine, propranolol # mood disorder - continue paroxetine, topiramate # opioid dependence - continue Suboxone # VTE ppx: LMWH # dispo: LTC In my clinical judgment, the patient requires continued inpatient hospitalization for the following reasons: safe disposition planning Time Spent With Patient Time: Total time managing care of this patient today _25___ minutes. Quality Stroke Does the patient have a stroke diagnosis?: No VTE Prior VTE?: No VTE Risk Level:: Medical - moderate - high VTE Device Contraindication: Treatment Not Indicated VTE Drug Contraindication: Treatment Not Indicated
--- NOTE | 2022-04-10 11:35 | MHC.CLN ---
F/U PO INTAKE RANGES FROM 50-100% DIET RX: REGULAR-APPROPRIATE PT DISLIKES ENSURE RECOMMEND ADDING MAGIC CUP TO INCREASE KCALS MAGIC CUP TO PROVIDE 870KCALS, 27G PROTEIN MONITOR PO INTAKE
[2022-04-10 15:58] VITALS: BP 146/58; PULSE 58; RESP 17; TEMP 36.3; O2SAT 94
[2022-04-10 19:25] VITALS: BP 143/77; PULSE 67; RESP 17; TEMP 36.4; O2SAT 94
[2022-04-10] MEDS: 0.9 % Sodium Chloride Flush 3 ML SYRINGE IVFLUSH (20:56)
[2022-04-11 03:16] VITALS: BP 155/67; PULSE 53; RESP 17; TEMP 36.1; O2SAT 95
[2022-04-11] MEDS: Heparin Sodium,Porcine 5,000 UNIT/ML VIAL 5000 UNIT SUBCUT ×2 (05:36→19:27)
[2022-04-11 08:00] VITALS: BP 159/72; PULSE 78; RESP 12; TEMP 36.2; O2SAT 97
--- NOTE | 2022-04-11 09:55 | P.PNIM_ITS ---
Subjective Subjective Date of Service: 04/11/22 Interval History: no abd pain passing gas no N/V Review of Systems Review of Systems: Yes all other systems are reviewed and are negative Physical Exam Vital Signs: Vital Signs: Last Vital Signs Temp 97.2 F 04/11/22 08:00 Pulse 78 04/11/22 08:00 Resp 12 04/11/22 08:00 BP 159/72 H 04/11/22 08:00 Pulse Ox 97 04/11/22 08:00 O2 Del Method 04/11/22 08:00 BMI result Body Mass Index 16.0 Gen: in no acute distress HEENT: sclera anicteric, moist mucus membranes Neck: supple Lungs: clear to auscultation bilaterally Heart: regular rate and rhythm, no murmurs Abd: soft, non-tender, non-distended Ext: no edema Skin: warm/well-perfused Neuro: alert and oriented x3, no focal findings Psych: appropriate affect Objective Data Active Medications Acetaminophen (Acetaminophen 325 Mg Tablet) 650 mg PO Q6H PRN PRN Reason: Pain, Mild (Pain Scale 1-3) Amlodipine Besylate (Amlodipine Besylate 10 Mg Tablet) 10 mg PO DAILY [facility]; Protocol Last Admin: 04/10/22 09:42 Dose: 10 mg Documented By: OSCAR Buprenorphine/Naloxone (Buprenorphine/Naloxone 12/3 Mg Film) 1 film SUBLINGUAL DAILY [facility] Last Admin: 04/10/22 09:43 Dose: 1 film Documented By: OSCAR Fluticasone/Vilanterol (Fluticasone/Vilanterol 100/25 Blst.W.Dev) 1 puff INHALE RDAILY [facility] Last Admin: 04/11/22 07:50 Dose: Not Given Documented By: TC Non-Admin Reason: Med Not Available Heparin Sodium (Porcine) (Heparin Sodium,Porcine 5,000 Unit/Ml Vial) 5,000 unit SUBCUT Q12H [facility] Last Admin: 04/11/22 05:36 Dose: 5,000 unit Documented By: TAVO Hydralazine HCl (Hydralazine Hcl 20 Mg/Ml Vial) 5 mg IVPUSH Q6H PRN; Protocol PRN Reason: SBP > 180 Last Admin: 03/31/22 23:50 Dose: 5 mg Documented By: ZULAY Hydralazine HCl (Hydralazine Hcl 10 Mg Tablet) 10 mg PO TID [facility]; Protocol Last Admin: 04/10/22 20:53 Dose: 10 mg Documented By: TAVO Lisinopril (Lisinopril 20 Mg Tablet) 20 mg PO DAILY [facility]; Protocol Last Admin: 04/10/22 09:42 Dose: 20 mg Documented By: OSCAR Melatonin (Melatonin 3 Mg Tablet) 3 mg PO BEDTIME PRN PRN Reason: Insomnia Last Admin: 04/08/22 20:12 Dose: 3 mg Documented By: YELENA Ondansetron HCl (Ondansetron Hcl 4 Mg/2 Ml Vial) 4 mg IVPUSH Q8H PRN PRN Reason: Nausea and Vomiting Paroxetine HCl (Paroxetine Hcl 40 Mg Tablet) 40 mg PO DAILY [facility] Last Admin: 04/10/22 09:42 Dose: 40 mg Documented By: OSCAR Pharmacy Consult (Consult Rx Perform Med Rec) 1 each MISCELLANE ONCE PRN PRN Reason: Consult order Polyethylene Glycol (Polyethylene Glycol 3350 17 Gm Powd.Pack) 17 gm PO DAILY [facility] Last Admin: 04/10/22 09:41 Dose: 17 gm Documented By: OSCAR Propranolol HCl (Propranolol Hcl 20 Mg Tablet) 20 mg PO BID [facility]; Protocol Last Admin: 04/10/22 20:53 Dose: 20 mg Documented By: TAVO Senna/Docusate Sodium (Sennosides/Docusate Sodium Tablet) 2 tab PO BID [facility] Last Admin: 04/10/22 20:54 Dose: 2 tab Documented By: TAVO Sodium Chloride (0.9 % Sodium Chloride Flush 3 Ml Syringe) 3 ml IVFLUSH QSHIFT [facility] Last Admin: 04/10/22 20:56 Dose: 3 ml Documented By: TAVO Tiotropium [place] (Tiotropium [place] 18 Mcg Cap.W.Dev) 1 puff INHALE RDAILY [facility] Last Admin: 04/11/22 07:50 Dose: Not Given Documented By: TC Non-Admin Reason: Med Not Available Topiramate (Topiramate 100 Mg Tablet) 100 mg PO BID [facility] Last Admin: 04/10/22 20:54 Dose: 100 mg Documented By: HO.RAINAS Labs 03/26/22 14:54 03/26/22 14:54 Assessment and Plan (1) Metabolic encephalopathy: Status: Acute (2) UTI (urinary tract infection): Status: Acute (3) HTN (hypertension): Status: Acute (4) Opiate dependence: Status: Acute Plan d#16 77yo F admitted with confusion due to encephalopathy due to UTI # toxic encephalopathy - resolved # recurrent UTI - grew E coli R to amp/gent/TMP-SMX - treated with ceftriaxone + cefuroxime, completed 04/07/22 - Urology consulted: has bilateral nephrolithiasis without hydronephrosis. no anticholinergisc due to constipation. outpt f/u. # constipation - started bowel regimen and had BM. no ileus on clinical exam [has bowel sounds + passing gas] # COPD, not acute exac - continue triple controller therapy # HTN - continue lisinopril, amlodipine, hydralazine, propranolol # mood disorder - continue paroxetine, topiramate # opioid dependence - continue Suboxone # VTE ppx: LMWH # dispo: LTC In my clinical judgment, the patient requires continued inpatient hospitalization for the following reasons: safe disposition planning Time Spent With Patient Time: Total time managing care of this patient today __25__ minutes. Quality Stroke Does the patient have a stroke diagnosis?: No VTE Prior VTE?: No VTE Risk Level:: Medical - moderate - high VTE Device Contraindication: Treatment Not Indicated VTE Drug Contraindication: Treatment Not Indicated
[2022-04-11 10:18] VITALS: BP 159/72; PULSE 78; O2SAT 97
[2022-04-11] MEDS: 0.9 % Sodium Chloride Flush 3 ML SYRINGE IVFLUSH ×2 (10:19→18:18)
[2022-04-11] MEDS: Propranolol HCL 20 MG TABLET PO ×2 (10:21→19:27)
[2022-04-11] MEDS: lisinopriL 20 MG TABLET PO (10:21)
[2022-04-11] MEDS: PARoxetine HCL 40 MG TABLET PO (10:21)
[2022-04-11] MEDS: amLODIPine Besylate 10 MG TABLET PO (10:21)
[2022-04-11] MEDS: Sennosides/Docusate Sodium TABLET 2 TAB PO ×2 (10:21→19:27)
[2022-04-11] MEDS: hydrALAZINE HCl 10 MG TABLET PO ×3 (10:21→19:27)
[2022-04-11] MEDS: Buprenorphine/Naloxone 12/3 mg FILM 1 FILM SUBLINGUAL (10:22)
[2022-04-11] MEDS: Topiramate 100 MG TABLET PO ×2 (10:22→19:27)
--- NOTE | 2022-04-11 14:19 | MHC.CM.PN ---
CASE DISCUSSED AT ROUNDS. NO FINANCIAL UPDATES. CM CONTINUING TO FOLLOW
[2022-04-11 15:47] VITALS: BP 152/65; PULSE 52; RESP 17; TEMP 36.6; O2SAT 93
[2022-04-11 19:12] VITALS: BP 144/67; PULSE 53; RESP 17; TEMP 36.2; O2SAT 94
[2022-04-12 04:00] VITALS: BP 144/65; PULSE 53; RESP 18; TEMP 36.6; O2SAT 99
[2022-04-12] MEDS: Heparin Sodium,Porcine 5,000 UNIT/ML VIAL 5000 UNIT SUBCUT ×2 (05:56→20:11)
[2022-04-12 08:00] VITALS: BP 131/63; PULSE 51; RESP 18; TEMP 36.6; O2SAT 96
[2022-04-12] MEDS: amLODIPine Besylate 10 MG TABLET PO (09:36)
[2022-04-12] MEDS: polyethylene glycoL 3350 17 GM POWD.PACK PO (09:36)
[2022-04-12] MEDS: Propranolol HCL 20 MG TABLET PO (09:36)
[2022-04-12] MEDS: hydrALAZINE HCl 10 MG TABLET PO ×3 (09:36→20:12)
[2022-04-12] MEDS: Sennosides/Docusate Sodium TABLET 2 TAB PO ×2 (09:36→20:12)
[2022-04-12] MEDS: Buprenorphine/Naloxone 12/3 mg FILM 1 FILM SUBLINGUAL (09:36)
[2022-04-12] MEDS: PARoxetine HCL 40 MG TABLET PO (09:36)
[2022-04-12] MEDS: lisinopriL 20 MG TABLET PO (09:36)
[2022-04-12] MEDS: Topiramate 100 MG TABLET PO ×2 (09:36→20:12)
[2022-04-12 10:19] VITALS: BP 131/63; PULSE 51; O2SAT 96
--- NOTE | 2022-04-12 12:11 | MHC.CM.PN ---
Addendum entered by Karissa Narnajo 04/12/22 12:18: PTS SNF REFERRAL WAS ALSO UPDATED AND EXPANDED Original Note: CM MET WITH PT WHO REPORTS HER SISTER IN LAW IS WORKING ON A [employer] FOR HER CM REMINDED HER THAT [facility] WAS ALREADY WORKING ON THE SAME THING SHE ASKS THAT THIS BE DISCUSSED WITH FAMILY SO THEY WILL UNDERSTAND CM SPOKE TO PTS DAUGHTER, FABIOLA AND EXPLAINED THE MH ALE[employer]ANDAR HAS ALREADY BEEN INITIATED SHE REPORTS UNDERSTANDING [facility] CONTACT INFO ALSO GIVEN TO PTS FAMILY
--- NOTE | 2022-04-12 12:25 | P.PNIM_ITS ---
Subjective Subjective Date of Service: 04/12/22 Interval History: Denies pain sitting up in chair stated that she is trying to get her [facility] paperwork together Review of Systems Review of Systems: Yes all other systems are reviewed and are negative Physical Exam Vital Signs: Vital Signs: Last Vital Signs Temp 97.9 F 04/12/22 08:00 Pulse 51 04/12/22 10:19 Resp 18 04/12/22 08:00 BP 131/63 04/12/22 10:19 Pulse Ox 96 04/12/22 10:19 O2 Del Method 04/12/22 08:00 BMI result Body Mass Index 16.0 Appearing in no acute distress lung sounds are clear to auscultation heart regular rate rhythm, clear S1, S2 positive bowel sounds, abdomen is soft, nontender neuro patient is alert x3, no focal deficits Objective Data Active Medications Acetaminophen (Acetaminophen 325 Mg Tablet) 650 mg PO Q6H PRN PRN Reason: Pain, Mild (Pain Scale 1-3) Amlodipine Besylate (Amlodipine Besylate 10 Mg Tablet) 10 mg PO DAILY [facility]; Protocol Last Admin: 04/12/22 09:36 Dose: 10 mg Documented By: KARLEY Buprenorphine/Naloxone (Buprenorphine/Naloxone 12/3 Mg Film) 1 film SUBLINGUAL DAILY [facility] Last Admin: 04/12/22 09:36 Dose: 1 film Documented By: KARLEY Fluticasone/Vilanterol (Fluticasone/Vilanterol 100/25 Blst.W.Dev) 1 puff INHALE RDAILY [facility] Last Admin: 04/12/22 07:30 Dose: Not Given Documented By: TC Non-Admin Reason: Med Not Available Heparin Sodium (Porcine) (Heparin Sodium,Porcine 5,000 Unit/Ml Vial) 5,000 unit SUBCUT Q12H [facility] Last Admin: 04/12/22 05:56 Dose: 5,000 unit Documented By: ROLANDO Hydralazine HCl (Hydralazine Hcl 20 Mg/Ml Vial) 5 mg IVPUSH Q6H PRN; Protocol PRN Reason: SBP > 180 Last Admin: 03/31/22 23:50 Dose: 5 mg Documented By: ZULAY Hydralazine HCl (Hydralazine Hcl 10 Mg Tablet) 10 mg PO TID [facility]; Protocol Last Admin: 04/12/22 09:36 Dose: 10 mg Documented By: KARLEY Lisinopril (Lisinopril 20 Mg Tablet) 20 mg PO DAILY [facility]; Protocol Last Admin: 04/12/22 09:36 Dose: 20 mg Documented By: KARLEY Melatonin (Melatonin 3 Mg Tablet) 3 mg PO BEDTIME PRN PRN Reason: Insomnia Last Admin: 04/08/22 20:12 Dose: 3 mg Documented By: YELENA Ondansetron HCl (Ondansetron Hcl 4 Mg/2 Ml Vial) 4 mg IVPUSH Q8H PRN PRN Reason: Nausea and Vomiting Paroxetine HCl (Paroxetine Hcl 40 Mg Tablet) 40 mg PO DAILY [facility] Last Admin: 04/12/22 09:36 Dose: 40 mg Documented By: KARLEY Pharmacy Consult (Consult Rx Perform Med Rec) 1 each MISCELLANE ONCE PRN PRN Reason: Consult order Polyethylene Glycol (Polyethylene Glycol 3350 17 Gm Powd.Pack) 17 gm PO DAILY [facility] Last Admin: 04/12/22 09:36 Dose: 17 gm Documented By: KARLEY Propranolol HCl (Propranolol Hcl 20 Mg Tablet) 20 mg PO BID [facility]; Protocol Last Admin: 04/12/22 09:36 Dose: 20 mg Documented By: KARLEY Senna/Docusate Sodium (Sennosides/Docusate Sodium Tablet) 2 tab PO BID [facility] Last Admin: 04/12/22 09:36 Dose: 2 tab Documented By: KARLEY Sodium Chloride (0.9 % Sodium Chloride Flush 3 Ml Syringe) 3 ml IVFLUSH QSHIFT [facility] Last Admin: 04/12/22 09:37 Dose: Not Given Documented By: KARLEY Non-Admin Reason: No Access Tiotropium [place] (Tiotropium [place] 18 Mcg Cap.W.Dev) 1 puff INHALE RDAILY [facility] Last Admin: 04/12/22 07:30 Dose: Not Given Documented By: TC Non-Admin Reason: Med Not Available Topiramate (Topiramate 100 Mg Tablet) 100 mg PO BID [facility] Last Admin: 04/12/22 09:36 Dose: 100 mg Documented By: KARLEY Labs 03/26/22 14:54 03/26/22 14:54 Assessment and Plan (1) Metabolic encephalopathy: Status: Acute (2) UTI (urinary tract infection): Status: Acute (3) HTN (hypertension): Status: Acute (4) Opiate dependence: Status: Acute Plan 77yo F admitted with confusion due to encephalopathy due to UTI toxic encephalopathy. Resolved Secondary to UTI recurrent UTI grew E coli R to amp/gent/TMP-SMX treated with ceftriaxone + cefuroxime, completed 04/07/22 Urology consulted: has bilateral nephrolithiasis without hydronephrosis. no anticholinergisc due to constipation. outpt f/u. constipation. Resolved Started bowel regimen and had BM. no ileus on clinical exam COPD. no acute exacerbation continue triple controller therapy HTN continue lisinopril, amlodipine, hydralazine, propranolol mood disorder continue paroxetine, topiramate opioid dependence continue Suboxone VTE ppx: LMWH Attending Dr. Self dispo: C In my clinical judgment, the patient requires continued inpatient hospitalization for the following reasons: safe disposition planning Time Spent With Patient Time: Total time managing care of this patient today ____ minutes. Quality Stroke Does the patient have a stroke diagnosis?: No VTE Prior VTE?: No VTE Risk Level:: Medical - moderate - high VTE Device Contraindication: Treatment Not Indicated VTE Drug Contraindication: Treatment Not Indicated
--- NOTE | 2022-04-12 13:17 | MHC.CLN ---
F/U PO INTAKE 75-100% DIET RX: REGULAR-APPROPRIATE PT DISLIKES ENSURE PT RECEIVING MAGIC CUP PROVIDES 870KCALS, 27G PROTEIN MONITOR PO INTAKE AND WEEKLY WEIGHTS R/T PCM
[2022-04-12 15:19] VITALS: BP 116/56; PULSE 50; RESP 17; TEMP 36.1; O2SAT 94
[2022-04-12 19:21] VITALS: BP 121/53; PULSE 52; RESP 18; TEMP 36; O2SAT 94
[2022-04-13 04:00] VITALS: BP 132/61; PULSE 58; RESP 17; TEMP 36; O2SAT 95
[2022-04-13 06:17] LABS: MANUAL DIFF FLAG NO
[2022-04-13] MEDS: Heparin Sodium,Porcine 5,000 UNIT/ML VIAL 5000 UNIT SUBCUT ×2 (06:18→17:56)
[2022-04-13 06:26] LABS: Basophils Percent Auto 0.6 % (0-2); Eosinophils Absolute Auto 0.1 X10*3/uL (0.0-0.4); Eosinophils Percent Auto 1.4 % (0-4); Hematocrit 35.6 % (37.0-47.0); Hemoglobin 11.3 g/dl (12.0-16.0); Imm Gran Abs Auto 0.01 X10*3/uL (0.00-0.03); Imm Gran Pct Auto 0.3 % (0.0-0.4); Lymphocytes Absolute Auto 1.9 X10*3/uL (1.2-4.9); Lymphocytes Percent Auto 53.4 % (20-40); Mean Corpuscular HGB Conc 31.7 g/dl (31.0-35.0); Mean Corpuscular Hemoglobin 28.7 pg (27.0-33.0); Mean Corpuscular Volume 90.4 fL (80.0-98.0); Mean Platelet Volume 10.5 fL (9.4-12.3); Monocytes Absolute Auto 0.3 X10*3/uL (0.1-1.2); Monocytes Percent Auto 6.9 % (2-11); Neutrophils Absolute Auto 1.4 x10*3/uL (2.0-8.3); Neutrophils Percent Auto 37.4 % (45-73); Platelet Count 166 X10*3/uL (160-400); Red Blood Count 3.94 X10*6/uL (4.20-5.50); Red Cell Distribution Width 15.8 % (11.0-16.0); White Blood Count 3.6 X10*3/uL (4.8-10.8)
[2022-04-13 06:36] LABS: Anion Gap 13 (12-20); Blood Urea Nitrogen 44 mg/dL (9-16); Calcium 9.1 mg/dL (8.4-10.2); Carbon Dioxide 26 mmol/L (22-29); Chloride 107 mmol/L (96-108); Creatinine Clr Calc Pharmacy 24.8; Estimated Glomerular Filt Rate 44; Glucose Random 86 mg/dL (60-115); Potassium 5.1 mmol/L (3.3-5.1); Sodium 141 mmol/L (135-145)
[2022-04-13 08:00] VITALS: BP 153/67; PULSE 58; RESP 18; TEMP 36.6; O2SAT 96
--- NOTE | 2022-04-13 08:32 | HO.PM.IMPN ---
Subjective Subjective Date of Service: 04/13/22 Interval History: Denies pain sitting up in chair stated that she is trying to get her [facility] paperwork together Review of Systems Review of Systems: Yes all other systems are reviewed and are negative Physical Exam Vital Signs: Vital Signs: Last Vital Signs Temp 96.8 F 04/13/22 04:00 Pulse 58 04/13/22 04:00 Resp 17 04/13/22 04:00 BP 132/61 04/13/22 04:00 Pulse Ox 95 04/13/22 04:00 O2 Del Method 04/13/22 04:00 BMI result Body Mass Index 16.0 Appearing in no acute distress lung sounds are clear to auscultation heart regular rate rhythm, clear S1, S2 positive bowel sounds, abdomen is soft, nontender neuro patient is alert x3, no focal deficits Objective Data Active Medications Acetaminophen (Acetaminophen 325 Mg Tablet) 650 mg PO Q6H PRN PRN Reason: Pain, Mild (Pain Scale 1-3) Amlodipine Besylate (Amlodipine Besylate 10 Mg Tablet) 10 mg PO DAILY [facility]; Protocol Last Admin: 04/12/22 09:36 Dose: 10 mg Documented By: KARLEY Buprenorphine/Naloxone (Buprenorphine/Naloxone 12/3 Mg Film) 1 film SUBLINGUAL DAILY [facility] Last Admin: 04/12/22 09:36 Dose: 1 film Documented By: KARLEY Fluticasone/Vilanterol (Fluticasone/Vilanterol 100/25 Blst.W.Dev) 1 puff INHALE RDAILY [facility] Last Admin: 04/12/22 07:30 Dose: Not Given Documented By: TC Non-Admin Reason: Med Not Available Heparin Sodium (Porcine) (Heparin Sodium,Porcine 5,000 Unit/Ml Vial) 5,000 unit SUBCUT Q12H [facility] Last Admin: 04/13/22 06:18 Dose: 5,000 unit Documented By: NALLELY Hydralazine HCl (Hydralazine Hcl 20 Mg/Ml Vial) 5 mg IVPUSH Q6H PRN; Protocol PRN Reason: SBP > 180 Last Admin: 03/31/22 23:50 Dose: 5 mg Documented By: ZULAY Hydralazine HCl (Hydralazine Hcl 10 Mg Tablet) 10 mg PO TID [facility]; Protocol Last Admin: 04/12/22 20:12 Dose: 10 mg Documented By: AARON Lisinopril (Lisinopril 20 Mg Tablet) 20 mg PO DAILY [facility]; Protocol Last Admin: 04/12/22 09:36 Dose: 20 mg Documented By: KARLEY Melatonin (Melatonin 3 Mg Tablet) 3 mg PO BEDTIME PRN PRN Reason: Insomnia Last Admin: 04/08/22 20:12 Dose: 3 mg Documented By: YELENA Ondansetron HCl (Ondansetron Hcl 4 Mg/2 Ml Vial) 4 mg IVPUSH Q8H PRN PRN Reason: Nausea and Vomiting Paroxetine HCl (Paroxetine Hcl 40 Mg Tablet) 40 mg PO DAILY [facility] Last Admin: 04/12/22 09:36 Dose: 40 mg Documented By: KARLEY Pharmacy Consult (Consult Rx Perform Med Rec) 1 each MISCELLANE ONCE PRN PRN Reason: Consult order Polyethylene Glycol (Polyethylene Glycol 3350 17 Gm Powd.Pack) 17 gm PO DAILY [facility] Last Admin: 04/12/22 09:36 Dose: 17 gm Documented By: KARLEY Propranolol HCl (Propranolol Hcl 20 Mg Tablet) 20 mg PO BID [facility]; Protocol Last Admin: 04/12/22 20:11 Dose: Not Given Documented By: AARON Non-Admin Reason: hr 52 Senna/Docusate Sodium (Sennosides/Docusate Sodium Tablet) 2 tab PO BID [facility] Last Admin: 04/12/22 20:12 Dose: 2 tab Documented By: AARON Sodium Chloride (0.9 % Sodium Chloride Flush 3 Ml Syringe) 3 ml IVFLUSH QSHIFT [facility] Last Admin: 04/13/22 02:50 Dose: Not Given Documented By: NALLELY Non-Admin Reason: No Access Tiotropium [place] (Tiotropium [place] 18 Mcg Cap.W.Dev) 1 puff INHALE RDAILY [facility] Last Admin: 04/12/22 07:30 Dose: Not Given Documented By: TC Non-Admin Reason: Med Not Available Topiramate (Topiramate 100 Mg Tablet) 100 mg PO BID [facility] Last Admin: 04/12/22 20:12 Dose: 100 mg Documented By: AARON Labs 04/13/22 05:49 01/21/23 05:49 Labs: Laboratory Results - last 24 hr 04/13/22 04/13/22 05:49 05:49 MCV 90.4 MCH 28.7 MCHC 31.7 RDW 15.8 Plt Count 166 MPV 10.5 Immature Gran % (Auto) 0.3 Neut % (Auto) 37.4 L Lymph % (Auto) 53.4 H Mcculloch % (Auto) 6.9 Eos % (Auto) 1.4 Baso % (Auto) 0.6 Lymph # (Auto) 1.9 Mcculloch # (Auto) 0.3 Eos # (Auto) 0.1 Baso # (Auto) 0.0 Abs Immat Gran (auto) 0.01 Absolute Neuts (auto) 1.4 L Absolute Nucleated RBC 0.000 Nucleated RBC % (auto) 0.0 Anion Gap 13 Estim Creat Clear Calc 24.8 Estimated GFR 44 Random Glucose 86 Calcium 9.1 Assessment and Plan (1) Metabolic encephalopathy: Status: Acute (2) UTI (urinary tract infection): Status: Acute (3) HTN (hypertension): Status: Acute (4) Opiate dependence: Status: Acute Plan 77yo F admitted with confusion due to encephalopathy due to UTI toxic encephalopathy. Resolved Secondary to UTI recurrent UTI grew E coli R to amp/gent/TMP-SMX treated with ceftriaxone + cefuroxime, completed 04/07/22 Urology consulted: has bilateral nephrolithiasis without hydronephrosis. no anticholinergisc due to constipation. outpt f/u. constipation. Resolved Started bowel regimen and had BM. no ileus on clinical exam COPD. no acute exacerbation continue triple controller therapy HTN continue lisinopril, amlodipine, hydralazine, propranolol mood disorder continue paroxetine, topiramate opioid dependence continue Suboxone VTE ppx: LMWH Attending Dr. Rodriguez dispo: LTC In my clinical judgment, the patient requires continued inpatient hospitalization for the following reasons: safe disposition planning Time Spent With Patient Time: Total time managing care of this patient today ____ minutes. Quality Stroke Does the patient have a stroke diagnosis?: No VTE Prior VTE?: No VTE Risk Level:: Medical - moderate - high VTE Device Contraindication: Treatment Not Indicated VTE Drug Contraindication: Treatment Not Indicated
[2022-04-13] MEDS: PARoxetine HCL 40 MG TABLET PO (09:07)
[2022-04-13] MEDS: Propranolol HCL 20 MG TABLET PO ×2 (09:07→20:10)
[2022-04-13] MEDS: Topiramate 100 MG TABLET PO ×2 (09:07→20:10)
[2022-04-13] MEDS: hydrALAZINE HCl 10 MG TABLET PO ×3 (09:07→20:10)
[2022-04-13] MEDS: amLODIPine Besylate 10 MG TABLET PO (09:07)
[2022-04-13] MEDS: lisinopriL 20 MG TABLET PO (09:08)
[2022-04-13] MEDS: Buprenorphine/Naloxone 12/3 mg FILM 1 FILM SUBLINGUAL (09:08)
[2022-04-13] MEDS: Fluticasone/Vilanterol 100/25 BLST.W.DEV 1 PUFF INHALE (12:26)
[2022-04-13 12:29] VITALS: PULSE 58; RESP 18; O2SAT 96
[2022-04-13 14:26] VITALS: BP 139/65
[2022-04-13 16:00] VITALS: BP 125/70; PULSE 53; RESP 18; TEMP 36.4; O2SAT 94
[2022-04-13 19:59] VITALS: BP 124/59; PULSE 54; RESP 15; TEMP 36.5; O2SAT 95
[2022-04-14] MEDS: Heparin Sodium,Porcine 5,000 UNIT/ML VIAL 5000 UNIT SUBCUT ×2 (06:45→18:06)
[2022-04-14] MEDS: Fluticasone/Vilanterol 100/25 BLST.W.DEV 1 PUFF INHALE (07:55)
[2022-04-14 07:59] VITALS: PULSE 55; RESP 18; O2SAT 96
[2022-04-14 08:00] VITALS: BP 146/67; PULSE 50; RESP 18; TEMP 36.3; O2SAT 98
[2022-04-14] MEDS: hydrALAZINE HCl 10 MG TABLET PO ×3 (09:04→21:11)
[2022-04-14] MEDS: amLODIPine Besylate 10 MG TABLET PO (09:04)
[2022-04-14] MEDS: PARoxetine HCL 40 MG TABLET PO (09:04)
[2022-04-14] MEDS: Propranolol HCL 20 MG TABLET PO ×2 (09:05→21:11)
[2022-04-14] MEDS: Buprenorphine/Naloxone 12/3 mg FILM 1 FILM SUBLINGUAL (09:05)
[2022-04-14] MEDS: Topiramate 100 MG TABLET PO ×2 (09:05→21:11)
[2022-04-14] MEDS: lisinopriL 20 MG TABLET PO (09:05)
--- NOTE | 2022-04-14 10:26 | P.PNIM_ITS ---
Subjective Subjective Date of Service: 04/14/22 Interval History: Denies pain sitting up in chair stated that she is trying to get her [facility] paperwork together Review of Systems Review of Systems: Yes all other systems are reviewed and are negative Physical Exam Vital Signs: Vital Signs: Last Vital Signs Temp 97.4 F 04/14/22 08:00 Pulse 50 04/14/22 08:00 Resp 18 04/14/22 08:00 BP 146/67 H 04/14/22 08:00 Pulse Ox 98 04/14/22 08:00 O2 Del Method 04/14/22 08:00 BMI result Body Mass Index 16.0 Appearing in no acute distress lung sounds are clear to auscultation heart regular rate rhythm, clear S1, S2 positive bowel sounds, abdomen is soft, nontender neuro patient is alert x3, no focal deficits Objective Data Active Medications Acetaminophen (Acetaminophen 325 Mg Tablet) 650 mg PO Q6H PRN PRN Reason: Pain, Mild (Pain Scale 1-3) Amlodipine Besylate (Amlodipine Besylate 10 Mg Tablet) 10 mg PO DAILY [facility]; Protocol Last Admin: 04/14/22 09:04 Dose: 10 mg Documented By: ANTONIA Buprenorphine/Naloxone (Buprenorphine/Naloxone 12/3 Mg Film) 1 film SUBLINGUAL DAILY [facility] Last Admin: 04/14/22 09:05 Dose: 1 film Documented By: ANTONIA Fluticasone/Vilanterol (Fluticasone/Vilanterol 100/25 Blst.W.Dev) 1 puff INHALE RDAILY [facility] Last Admin: 04/14/22 07:55 Dose: 1 puff Documented By: HARDEEP Heparin Sodium (Porcine) (Heparin Sodium,Porcine 5,000 Unit/Ml Vial) 5,000 unit SUBCUT Q12H [facility] Last Admin: 04/14/22 06:45 Dose: 5,000 unit Documented By: MATTHEW Hydralazine HCl (Hydralazine Hcl 20 Mg/Ml Vial) 5 mg IVPUSH Q6H PRN; Protocol PRN Reason: SBP > 180 Last Admin: 03/31/22 23:50 Dose: 5 mg Documented By: ZULAY Hydralazine HCl (Hydralazine Hcl 10 Mg Tablet) 10 mg PO TID [facility]; Protocol Last Admin: 04/14/22 09:04 Dose: 10 mg Documented By: ANTONIA Lisinopril (Lisinopril 20 Mg Tablet) 20 mg PO DAILY [facility]; Protocol Last Admin: 04/14/22 09:05 Dose: 20 mg Documented By: ANTONIA Melatonin (Melatonin 3 Mg Tablet) 3 mg PO BEDTIME PRN PRN Reason: Insomnia Last Admin: 04/08/22 20:12 Dose: 3 mg Documented By: YELENA Ondansetron HCl (Ondansetron Hcl 4 Mg/2 Ml Vial) 4 mg IVPUSH Q8H PRN PRN Reason: Nausea and Vomiting Paroxetine HCl (Paroxetine Hcl 40 Mg Tablet) 40 mg PO DAILY [facility] Last Admin: 04/14/22 09:04 Dose: 40 mg Documented By: ANTONIA Pharmacy Consult (Consult Rx Perform Med Rec) 1 each MISCELLANE ONCE PRN PRN Reason: Consult order Polyethylene Glycol (Polyethylene Glycol 3350 17 Gm Powd.Pack) 17 gm PO DAILY [facility] Last Admin: 04/14/22 09:07 Dose: Not Given Documented By: ANTONIA Non-Admin Reason: Patient Refused Propranolol HCl (Propranolol Hcl 20 Mg Tablet) 20 mg PO BID [facility]; Protocol Last Admin: 04/14/22 09:05 Dose: 20 mg Documented By: ANTONIA Senna/Docusate Sodium (Sennosides/Docusate Sodium Tablet) 2 tab PO BID [facility] Last Admin: 04/14/22 09:07 Dose: Not Given Documented By: ANTONIA Non-Admin Reason: Patient Refused Sodium Chloride (0.9 % Sodium Chloride Flush 3 Ml Syringe) 3 ml IVFLUSH QSHIFT [facility] Last Admin: 04/14/22 07:51 Dose: Not Given Documented By: ANTONIA Non-Admin Reason: No Access Tiotropium [place] (Tiotropium [place] 18 Mcg Cap.W.Dev) 1 puff INHALE RDAILY [facility] Last Admin: 04/14/22 07:55 Dose: 1 puff Documented By: HARDEEP Topiramate (Topiramate 100 Mg Tablet) 100 mg PO BID [facility] Last Admin: 04/14/22 09:05 Dose: 100 mg Documented By: ANTONIA Labs 04/13/22 05:49 04/13/22 05:49 Assessment and Plan (1) Metabolic encephalopathy: Status: Acute (2) UTI (urinary tract infection): Status: Acute (3) HTN (hypertension): Status: Acute (4) Opiate dependence: Status: Acute Plan 77yo F admitted with confusion due to encephalopathy due to UTI toxic encephalopathy. Resolved Secondary to UTI recurrent UTI grew E coli R to amp/gent/TMP-SMX treated with ceftriaxone + cefuroxime, completed 04/07/22 Urology consulted: has bilateral nephrolithiasis without hydronephrosis. no anticholinergisc due to constipation. outpt f/u. constipation. Resolved Started bowel regimen and had BM. no ileus on clinical exam COPD. no acute exacerbation continue triple controller therapy HTN continue lisinopril, amlodipine, hydralazine, propranolol mood disorder continue paroxetine, topiramate opioid dependence continue Suboxone VTE ppx: LMWH Attending Dr. Bagley dispo: LTC In my clinical judgment, the patient requires continued inpatient hospitalization for the following reasons: safe disposition planning Time Spent With Patient Time: Total time managing care of this patient today ____ minutes. Quality Stroke Does the patient have a stroke diagnosis?: No VTE Prior VTE?: No VTE Risk Level:: Medical - moderate - high VTE Device Contraindication: Treatment Not Indicated VTE Drug Contraindication: Treatment Not Indicated
[2022-04-14 15:17] VITALS: BP 129/62; PULSE 51; RESP 16; TEMP 36.6; O2SAT 94
[2022-04-14 19:54] VITALS: BP 113/54; PULSE 60; RESP 18; TEMP 36.5; O2SAT 98
[2022-04-14] MEDS: Sennosides/Docusate Sodium TABLET 2 TAB PO (21:11)
[2022-04-15 04:00] VITALS: BP 120/65; PULSE 75; RESP 17; TEMP 36.4; O2SAT 96
[2022-04-15] MEDS: Heparin Sodium,Porcine 5,000 UNIT/ML VIAL 5000 UNIT SUBCUT ×2 (05:58→18:33)
[2022-04-15 07:51] VITALS: BP 140/64; PULSE 68; RESP 16; TEMP 36.8; O2SAT 94
[2022-04-15] MEDS: Fluticasone/Vilanterol 100/25 BLST.W.DEV 1 PUFF INHALE (07:54)
[2022-04-15 07:56] VITALS: PULSE 56; RESP 18; O2SAT 96
[2022-04-15] MEDS: hydrALAZINE HCl 10 MG TABLET PO ×3 (08:47→22:01)
[2022-04-15] MEDS: Propranolol HCL 20 MG TABLET PO ×2 (08:47→22:01)
[2022-04-15] MEDS: PARoxetine HCL 40 MG TABLET PO (08:47)
[2022-04-15] MEDS: amLODIPine Besylate 10 MG TABLET PO (08:47)
[2022-04-15] MEDS: lisinopriL 20 MG TABLET PO (08:47)
[2022-04-15] MEDS: Topiramate 100 MG TABLET PO ×2 (08:47→22:01)
[2022-04-15] MEDS: Buprenorphine/Naloxone 12/3 mg FILM 1 FILM SUBLINGUAL (08:47)
[2022-04-15] MEDS: Sennosides/Docusate Sodium TABLET 2 TAB PO ×2 (08:48→22:01)
--- NOTE | 2022-04-15 09:28 | P.PNIM_ITS ---
Subjective Subjective Date of Service: 04/15/22 Interval History: Denies pain sitting up in chair stated that she is trying to get her [facility] paperwork together Review of Systems Review of Systems: Yes all other systems are reviewed and are negative Physical Exam Vital Signs: Vital Signs: Last Vital Signs Temp 98.3 F 04/15/22 07:51 Pulse 56 04/15/22 07:56 Resp 18 04/15/22 07:56 BP 140/64 H 04/15/22 07:51 Pulse Ox 94 04/15/22 07:51 O2 Del Method 04/15/22 07:51 BMI result Body Mass Index 16.0 Appearing in no acute distress lung sounds are clear to auscultation heart regular rate rhythm, clear S1, S2 positive bowel sounds, abdomen is soft, nontender neuro patient is alert x3, no focal deficits Objective Data Active Medications Acetaminophen (Acetaminophen 325 Mg Tablet) 650 mg PO Q6H PRN PRN Reason: Pain, Mild (Pain Scale 1-3) Amlodipine Besylate (Amlodipine Besylate 10 Mg Tablet) 10 mg PO DAILY [facility]; Protocol Last Admin: 04/15/22 08:47 Dose: 10 mg Documented By: TERRI Buprenorphine/Naloxone (Buprenorphine/Naloxone 12/3 Mg Film) 1 film SUBLINGUAL DAILY [facility] Last Admin: 04/15/22 08:47 Dose: 1 film Documented By: TERRI Fluticasone/Vilanterol (Fluticasone/Vilanterol 100/25 Blst.W.Dev) 1 puff INHALE RDAILY [facility] Last Admin: 04/15/22 07:54 Dose: 1 puff Documented By: TC Heparin Sodium (Porcine) (Heparin Sodium,Porcine 5,000 Unit/Ml Vial) 5,000 unit SUBCUT Q12H [facility] Last Admin: 04/15/22 05:58 Dose: 5,000 unit Documented By: OZORALB Hydralazine HCl (Hydralazine Hcl 20 Mg/Ml Vial) 5 mg IVPUSH Q6H PRN; Protocol PRN Reason: SBP > 180 Last Admin: 03/31/22 23:50 Dose: 5 mg Documented By: ZULAY Hydralazine HCl (Hydralazine Hcl 10 Mg Tablet) 10 mg PO TID [facility]; Protocol Last Admin: 04/15/22 08:47 Dose: 10 mg Documented By: TERRI Lisinopril (Lisinopril 20 Mg Tablet) 20 mg PO DAILY [facility]; Protocol Last Admin: 04/15/22 08:47 Dose: 20 mg Documented By: TERRI Melatonin (Melatonin 3 Mg Tablet) 3 mg PO BEDTIME PRN PRN Reason: Insomnia Last Admin: 04/08/22 20:12 Dose: 3 mg Documented By: YELENA Ondansetron HCl (Ondansetron Hcl 4 Mg/2 Ml Vial) 4 mg IVPUSH Q8H PRN PRN Reason: Nausea and Vomiting Paroxetine HCl (Paroxetine Hcl 40 Mg Tablet) 40 mg PO DAILY [facility] Last Admin: 04/15/22 08:47 Dose: 40 mg Documented By: TERRI Pharmacy Consult (Consult Rx Perform Med Rec) 1 each MISCELLANE ONCE PRN PRN Reason: Consult order Polyethylene Glycol (Polyethylene Glycol 3350 17 Gm Powd.Pack) 17 gm PO DAILY [facility] Last Admin: 04/15/22 08:49 Dose: Not Given Documented By: TERRI Non-Admin Reason: Patient Refused Propranolol HCl (Propranolol Hcl 20 Mg Tablet) 20 mg PO BID [facility]; Protocol Last Admin: 04/15/22 08:47 Dose: 20 mg Documented By: TERRI Senna/Docusate Sodium (Sennosides/Docusate Sodium Tablet) 2 tab PO BID [facility] Last Admin: 04/15/22 08:48 Dose: 2 tab Documented By: TERRI Sodium Chloride (0.9 % Sodium Chloride Flush 3 Ml Syringe) 3 ml IVFLUSH QSHIFT [facility] Last Admin: 04/15/22 08:25 Dose: Not Given Documented By: TERRI Non-Admin Reason: No Access Tiotropium [place] (Tiotropium [place] 18 Mcg Cap.W.Dev) 1 puff INHALE RDAILY [facility] Last Admin: 04/15/22 07:54 Dose: 1 puff Documented By: TC Topiramate (Topiramate 100 Mg Tablet) 100 mg PO BID [facility] Last Admin: 04/15/22 08:47 Dose: 100 mg Documented By: TERRI Labs 04/13/22 05:49 04/13/22 05:49 Assessment and Plan (1) Metabolic encephalopathy: Status: Acute (2) UTI (urinary tract infection): Status: Acute (3) HTN (hypertension): Status: Acute (4) Opiate dependence: Status: Acute Plan 77yo F admitted with confusion due to encephalopathy due to UTI toxic encephalopathy. Resolved Secondary to UTI recurrent UTI grew E coli R to amp/gent/TMP-SMX treated with ceftriaxone + cefuroxime, completed 04/07/22 Urology consulted: has bilateral nephrolithiasis without hydronephrosis. no anticholinergisc due to constipation. outpt f/u. constipation. Resolved Started bowel regimen and had BM. no ileus on clinical exam COPD. no acute exacerbation continue triple controller therapy HTN continue lisinopril, amlodipine, hydralazine, propranolol mood disorder continue paroxetine, topiramate opioid dependence continue Suboxone VTE ppx: LMWH Attending Dr. Self dispo: LTC In my clinical judgment, the patient requires continued inpatient hospitalization for the following reasons: safe disposition planning Time Spent With Patient Time: Total time managing care of this patient today ____ minutes. Quality Stroke Does the patient have a stroke diagnosis?: No VTE Prior VTE?: No VTE Risk Level:: Medical - moderate - high VTE Device Contraindication: Treatment Not Indicated VTE Drug Contraindication: Treatment Not Indicated
[2022-04-15 13:27] LABS: HBc Num1 6.56 S/CO (0.00-0.79); HBsAGNum1 0.21 S/CO (0.00-0.99); HIV AB/AG Nonreactive (Nonreactive); HIV Num 1 0.05 S/CO (0.00-0.99); Hepatitis B Surface Antigen Negative (Negative); ~HepC Num1 14.11 S/CO (0.00-0.79); ~Hepatitis C Antibody Reactive (Nonreactive)
[2022-04-15 13:47] LABS: HBS Num1 0.62 mIU/mL (0-7.99); ~Hepatitis B Surface Antibody NONREACTIVE (Nonreactive)
--- NOTE | 2022-04-15 14:04 | MHC.CLN ---
F/U DIET=REGULAR-APPROPRIATE. PO USUALLY 75-100%. DISLIKES ENSURE. PT RECEIVING MAGIC CUP TID. PROVIDES 870 KCALS, 27 G PROTEIN. WEIGHT 04/08=37.2 KG; BMI=16.0. MONITOR PO INTAKE AND WEEKLY WEIGHTS R/T PCM.
[2022-04-15 16:00] VITALS: BP 124/59; PULSE 58; RESP 18; TEMP 36.5; O2SAT 95
--- NOTE | 2022-04-15 16:26 | MHC.CM.PN ---
CM OBSERVED PT WALKING IN [place] WITH [employer] PROCESS[employer] PT USING A WALKER AND REPORTS SHE DOES THIS ALMOST DAILY CM SUGGESTED PT CONSIDER RETURNING HOME PT REPORTS SHE IS CONCERNED SHE CANNOT FIT THROUGH THE [place] WHERE THE WASHER AND DRYER IS SHE SAYS THIS IS THE ONLY WAY TO THE REST ROOM CM DISCUSSED OPTIONS SUCH USING TWO CANES THROUGH THAT SHORT DISTANCE OR OBTAINING A 3-WHEELED WALKER WITH ADJUSTABLE WIDTH PT REPORTS SHE WILL NEED TO THINK ABOUT THIS AND CONSIDER ALL OF THE POSSIBLE BARRIERS CM WILL CONTINUE TO WORK WITH PT TO DEVELOP A SAFE DC PLAN
[2022-04-15 20:00] VITALS: BP 130/62; PULSE 88; RESP 17; TEMP 36.4; O2SAT 95
[2022-04-16 03:02] VITALS: BP 131/62; PULSE 55; RESP 16; TEMP 36.4; O2SAT 97
[2022-04-16] MEDS: Heparin Sodium,Porcine 5,000 UNIT/ML VIAL 5000 UNIT SUBCUT ×2 (06:10→18:04)
[2022-04-16 07:34] VITALS: BP 155/70; PULSE 53; RESP 16; TEMP 36.3; O2SAT 98
[2022-04-16] MEDS: Fluticasone/Vilanterol 100/25 BLST.W.DEV 1 PUFF INHALE (07:50)
--- NOTE | 2022-04-16 07:50 | P.PNIM_ITS ---
Subjective Subjective Date of Service: 04/16/22 Interval History: Denies pain sitting up in chair stated that she is trying to get her [facility] paperwork together Review of Systems Review of Systems: Yes all other systems are reviewed and are negative Physical Exam Vital Signs: Vital Signs: Last Vital Signs Temp 97.3 F 04/16/22 07:34 Pulse 53 04/16/22 07:34 Resp 16 04/16/22 07:34 BP 155/70 H 04/16/22 07:34 Pulse Ox 98 04/16/22 07:34 O2 Del Method 04/16/22 07:34 BMI result Body Mass Index 16.0 Appearing in no acute distress lung sounds are clear to auscultation heart regular rate rhythm, clear S1, S2 positive bowel sounds, abdomen is soft, nontender neuro patient is alert x3, no focal deficits Objective Data Active Medications Acetaminophen (Acetaminophen 325 Mg Tablet) 650 mg PO Q6H PRN PRN Reason: Pain, Mild (Pain Scale 1-3) Amlodipine Besylate (Amlodipine Besylate 10 Mg Tablet) 10 mg PO DAILY [facility]; Protocol Last Admin: 04/15/22 08:47 Dose: 10 mg Documented By: TERRI Buprenorphine/Naloxone (Buprenorphine/Naloxone 12/3 Mg Film) 1 film SUBLINGUAL DAILY [facility] Last Admin: 04/15/22 08:47 Dose: 1 film Documented By: TERRI Fluticasone/Vilanterol (Fluticasone/Vilanterol 100/25 Blst.W.Dev) 1 puff INHALE RDAILY [facility] Last Admin: 04/16/22 07:50 Dose: 1 puff Documented By: TC Heparin Sodium (Porcine) (Heparin Sodium,Porcine 5,000 Unit/Ml Vial) 5,000 unit SUBCUT Q12H [facility] Last Admin: 04/16/22 06:10 Dose: 5,000 unit Documented By: MATTHEW Hydralazine HCl (Hydralazine Hcl 20 Mg/Ml Vial) 5 mg IVPUSH Q6H PRN; Protocol PRN Reason: SBP > 180 Last Admin: 03/31/22 23:50 Dose: 5 mg Documented By: ZULAY Hydralazine HCl (Hydralazine Hcl 10 Mg Tablet) 10 mg PO TID [facility]; Protocol Last Admin: 04/15/22 22:01 Dose: 10 mg Documented By: MATTHEW Lisinopril (Lisinopril 20 Mg Tablet) 20 mg PO DAILY [facility]; Protocol Last Admin: 04/15/22 08:47 Dose: 20 mg Documented By: TERRI Melatonin (Melatonin 3 Mg Tablet) 3 mg PO BEDTIME PRN PRN Reason: Insomnia Last Admin: 04/08/22 20:12 Dose: 3 mg Documented By: YELENA Ondansetron HCl (Ondansetron Hcl 4 Mg/2 Ml Vial) 4 mg IVPUSH Q8H PRN PRN Reason: Nausea and Vomiting Paroxetine HCl (Paroxetine Hcl 40 Mg Tablet) 40 mg PO DAILY [facility] Last Admin: 04/15/22 08:47 Dose: 40 mg Documented By: TERRI Pharmacy Consult (Consult Rx Perform Med Rec) 1 each MISCELLANE ONCE PRN PRN Reason: Consult order Polyethylene Glycol (Polyethylene Glycol 3350 17 Gm Powd.Pack) 17 gm PO DAILY [facility] Last Admin: 04/15/22 08:49 Dose: Not Given Documented By: TERRI Non-Admin Reason: Patient Refused Propranolol HCl (Propranolol Hcl 20 Mg Tablet) 20 mg PO BID [facility]; Protocol Last Admin: 04/15/22 22:01 Dose: 20 mg Documented By: MATTHEW Senna/Docusate Sodium (Sennosides/Docusate Sodium Tablet) 2 tab PO BID [facility] Last Admin: 04/15/22 22:01 Dose: 2 tab Documented By: MATTHEW Sodium Chloride (0.9 % Sodium Chloride Flush 3 Ml Syringe) 3 ml IVFLUSH QSHIFT [facility] Last Admin: 04/16/22 01:02 Dose: Not Given Documented By: MATTHEW Non-Admin Reason: No Access Tiotropium [place] (Tiotropium [place] 18 Mcg Cap.W.Dev) 1 puff INHALE RDAILY [facility] Last Admin: 04/16/22 07:50 Dose: 1 puff Documented By: TC Topiramate (Topiramate 100 Mg Tablet) 100 mg PO BID [facility] Last Admin: 04/15/22 22:01 Dose: 100 mg Documented By: MATTHEW Labs 04/13/22 05:49 04/13/22 05:49 Labs: Laboratory Results - last 24 hr 04/13/22 05:49 Hep Bs Antigen Negative Hep Bs Antibody NONREACTIVE Hepatitis C Ab (EIA) Reactive H HIV 1&2 Ab/P24 Ag 4thGn Nonreactive Assessment and Plan (1) Metabolic encephalopathy: Status: Acute (2) UTI (urinary tract infection): Status: Acute (3) HTN (hypertension): Status: Acute (4) Opiate dependence: Status: Acute Plan 77yo F admitted with confusion due to encephalopathy due to UTI toxic encephalopathy. Resolved Secondary to UTI recurrent UTI grew E coli R to amp/gent/TMP-SMX treated with ceftriaxone + cefuroxime, completed 04/07/22 Urology consulted: has bilateral nephrolithiasis without hydronephrosis. constipation. Resolved Started bowel regimen and had BM. no ileus on clinical exam COPD. no acute exacerbation continue triple controller therapy HTN continue lisinopril, amlodipine, hydralazine, propranolol mood disorder continue paroxetine, topiramate opioid dependence continue Suboxone VTE ppx: Heparin Attending Dr. Self dispo: LTC In my clinical judgment, the patient requires continued inpatient hospitalization for the following reasons: safe disposition planning Time Spent With Patient Time: Total time managing care of this patient today ____ minutes. Quality Stroke Does the patient have a stroke diagnosis?: No VTE Prior VTE?: No VTE Risk Level:: Medical - moderate - high VTE Device Contraindication: Treatment Not Indicated VTE Drug Contraindication: Treatment Not Indicated
[2022-04-16] MEDS: lisinopriL 20 MG TABLET PO (08:51)
[2022-04-16] MEDS: Sennosides/Docusate Sodium TABLET 2 TAB PO ×2 (08:51→20:46)
[2022-04-16] MEDS: PARoxetine HCL 40 MG TABLET PO (08:52)
[2022-04-16] MEDS: Propranolol HCL 20 MG TABLET PO ×2 (08:52→20:46)
[2022-04-16] MEDS: amLODIPine Besylate 10 MG TABLET PO (08:52)
--- NOTE | 2022-04-16 08:53 | MHC.CM.PN ---
Addendum entered by Jaye Cary 04/16/22 14:39: PER BROTHER MARISSA, HE WAS SUCCESSFUL IN CONVERTING PT TO [employer] EFFECTIVE 04/24/22 Addendum entered by Jaye Cary 04/16/22 11:50: CM SPOKE WITH BROTHER MARISSA WHO WILL BE CONTACTING [facility] TODAY TO ATTEMPT TO SWITCH OVER FROM [employer] TO [employer]. CONTACT INFO FOR CM PROVIDED FOR F/U. Original Note: DP: TAVON SPOKE WITH [facility], THE FACILITY WILL CONSIDER TAKING HER BACK BUT NOT UNDER HER [employer] BENEFIT. SHE WILL NEED TO HAVE A MH BENEFIT OR CONVERT TO [employer] BEFORE THEY WILL CONSIDER. SHE WAS DENIED FOR A FINANCIAL REASON, NOT CLINICAL. CALL PLACED TO FINANCIAL COUNSELOR KOLE FORD, AWAITING RETURN CALL.
[2022-04-16] MEDS: hydrALAZINE HCl 10 MG TABLET PO ×3 (09:10→20:46)
[2022-04-16] MEDS: polyethylene glycoL 3350 17 GM POWD.PACK PO (09:11)
[2022-04-16] MEDS: Buprenorphine/Naloxone 12/3 mg FILM 1 FILM SUBLINGUAL (09:11)
[2022-04-16] MEDS: Topiramate 100 MG TABLET PO ×2 (09:11→20:46)
[2022-04-16 10:42] VITALS: BP 155/70; PULSE 53; O2SAT 98
[2022-04-16 15:08] VITALS: BP 125/60; PULSE 55; RESP 18; TEMP 36.9; O2SAT 94
[2022-04-16 19:19] VITALS: BP 116/53; PULSE 55; RESP 18; TEMP 36.2; O2SAT 94
[2022-04-17 03:41] VITALS: BP 119/58; PULSE 52; RESP 16; TEMP 36.6; O2SAT 96
[2022-04-17] MEDS: Heparin Sodium,Porcine 5,000 UNIT/ML VIAL 5000 UNIT SUBCUT ×2 (06:22→17:09)
[2022-04-17 07:31] VITALS: PULSE 58; RESP 18; O2SAT 96
[2022-04-17] MEDS: Fluticasone/Vilanterol 100/25 BLST.W.DEV 1 PUFF INHALE (07:31)
[2022-04-17 08:00] VITALS: BP 107/54; PULSE 57; RESP 16; TEMP 36.8; O2SAT 96
[2022-04-17 08:14] LABS: HBc Num2 6.81 S/CO
[2022-04-17 08:15] LABS: HBc Num3 6.73 S/CO; Hepatitis B Core Antibody Reactive (Nonreactive)
[2022-04-17] MEDS: hydrALAZINE HCl 10 MG TABLET PO ×3 (08:57→20:13)
[2022-04-17] MEDS: PARoxetine HCL 40 MG TABLET PO (08:57)
[2022-04-17] MEDS: Topiramate 100 MG TABLET PO ×2 (08:58→20:13)
[2022-04-17] MEDS: Buprenorphine/Naloxone 12/3 mg FILM 1 FILM SUBLINGUAL (08:58)
[2022-04-17] MEDS: lisinopriL 20 MG TABLET PO (08:58)
[2022-04-17] MEDS: Propranolol HCL 20 MG TABLET PO ×2 (08:58→20:13)
[2022-04-17] MEDS: amLODIPine Besylate 10 MG TABLET PO (08:58)
[2022-04-17] MEDS: Sennosides/Docusate Sodium TABLET 2 TAB PO ×2 (09:00→20:13)
--- NOTE | 2022-04-17 11:36 | MHC.CLN ---
F/U DIET=REGULAR-APPROPRIATE. PO USUALLY 75-100%. PT RECEIVING MAGIC CUP TID. PROVIDES 870 KCALS, 27 G PROTEIN. MONITOR PO INTAKE AND WEIGHTS. RD TO FOLLOW WEEKLY.
[2022-04-17 13:59] VITALS: BP 107/54; PULSE 57; O2SAT 96
--- NOTE | 2022-04-17 13:59 | HO.PM.IMPN ---
Subjective Subjective Date of Service: 04/17/22 Interval History: Offers no acute complaints being followed for placement denies nausea vomiting, no abdominal pain tolerating diet, no urinary symptoms of urgency, no frequency has been ambulating with walker Review of Systems Review of Systems: Yes all other systems are reviewed and are negative Physical Exam Vital Signs: Vital Signs: Last Vital Signs Temp 98.2 F 04/17/22 08:00 Pulse 57 04/17/22 08:00 Resp 16 04/17/22 08:00 BP 107/54 L 04/17/22 08:00 Pulse Ox 96 04/17/22 08:00 O2 Del Method 04/17/22 08:00 BMI result Body Mass Index 16.0 Const: Other: Gen: in no acute distress HEENT: sclera anicteric, moist mucus membranes Neck: supple Lungs: clear to auscultation bilaterally Heart: regular rate and rhythm, no murmurs Abd: soft, non-tender, non-distended Ext: no edema Skin: warm/well-perfused Neuro: alert and oriented x3, no focal findings Psych: appropriate affect Objective Data Active Medications Acetaminophen (Acetaminophen 325 Mg Tablet) 650 mg PO Q6H PRN PRN Reason: Pain, Mild (Pain Scale 1-3) Amlodipine Besylate (Amlodipine Besylate 10 Mg Tablet) 10 mg PO DAILY [facility]; Protocol Last Admin: 04/17/22 08:58 Dose: 10 mg Documented By: CAROLINA Buprenorphine/Naloxone (Buprenorphine/Naloxone 12/3 Mg Film) 1 film SUBLINGUAL DAILY [facility] Last Admin: 04/17/22 08:58 Dose: 1 film Documented By: CAROLINA Fluticasone/Vilanterol (Fluticasone/Vilanterol 100/25 Blst.W.Dev) 1 puff INHALE RDAILY [facility] Last Admin: 04/17/22 07:31 Dose: 1 puff Documented By: TC Heparin Sodium (Porcine) (Heparin Sodium,Porcine 5,000 Unit/Ml Vial) 5,000 unit SUBCUT Q12H [facility] Last Admin: 04/17/22 06:22 Dose: 5,000 unit Documented By: ROLANDO Hydralazine HCl (Hydralazine Hcl 20 Mg/Ml Vial) 5 mg IVPUSH Q6H PRN; Protocol PRN Reason: SBP > 180 Last Admin: 03/31/22 23:50 Dose: 5 mg Documented By: ZULAY Hydralazine HCl (Hydralazine Hcl 10 Mg Tablet) 10 mg PO TID [facility]; Protocol Last Admin: 04/17/22 08:57 Dose: 10 mg Documented By: CAROLINA Lisinopril (Lisinopril 20 Mg Tablet) 20 mg PO DAILY [facility]; Protocol Last Admin: 04/17/22 08:58 Dose: 20 mg Documented By: CAROLINA Melatonin (Melatonin 3 Mg Tablet) 3 mg PO BEDTIME PRN PRN Reason: Insomnia Last Admin: 04/08/22 20:12 Dose: 3 mg Documented By: YELENA Ondansetron HCl (Ondansetron Hcl 4 Mg/2 Ml Vial) 4 mg IVPUSH Q8H PRN PRN Reason: Nausea and Vomiting Paroxetine HCl (Paroxetine Hcl 40 Mg Tablet) 40 mg PO DAILY [facility] Last Admin: 04/17/22 08:57 Dose: 40 mg Documented By: CAROLINA Pharmacy Consult (Consult Rx Perform Med Rec) 1 each MISCELLANE ONCE PRN PRN Reason: Consult order Polyethylene Glycol (Polyethylene Glycol 3350 17 Gm Powd.Pack) 17 gm PO DAILY [facility] Last Admin: 04/17/22 09:05 Dose: Not Given Documented By: CAROLINA Non-Admin Reason: Patient Refused Propranolol HCl (Propranolol Hcl 20 Mg Tablet) 20 mg PO BID [facility]; Protocol Last Admin: 04/17/22 08:58 Dose: 20 mg Documented By: CAROLINA Senna/Docusate Sodium (Sennosides/Docusate Sodium Tablet) 2 tab PO BID [facility] Last Admin: 04/17/22 09:00 Dose: 2 tab Documented By: CAROLINA Sodium Chloride (0.9 % Sodium Chloride Flush 3 Ml Syringe) 3 ml IVFLUSH QSHIFT [facility] Last Admin: 04/17/22 09:05 Dose: Not Given Documented By: CAROLINA Non-Admin Reason: No Access Tiotropium [place] (Tiotropium [place] 18 Mcg Cap.W.Dev) 1 puff INHALE RDAILY [facility] Last Admin: 04/17/22 07:30 Dose: 1 puff Documented By: TC Topiramate (Topiramate 100 Mg Tablet) 100 mg PO BID [facility] Last Admin: 04/17/22 08:58 Dose: 100 mg Documented By: CAROLINA Labs 04/13/22 05:49 04/13/22 05:49 Labs: Laboratory Results - last 24 hr 04/13/22 05:49 Hep B Core Total Ab Reactive Assessment and Plan (1) Metabolic encephalopathy: Status: Acute (2) UTI (urinary tract infection): Status: Acute (3) HTN (hypertension): Status: Acute (4) Opiate dependence: Status: Acute Plan 77yo F admitted with confusion due to encephalopathy due to UTI toxic encephalopathy. Resolved Secondary to UTI recurrent UTI grew E coli treated with ceftriaxone + cefuroxime, completed 04/07/22 Urology consulted: has bilateral nephrolithiasis without hydronephrosis. constipation. Resolved , continue bowel meds COPD. no acute exacerbation ,continue triple controller therapy HTN continue lisinopril, amlodipine, hydralazine, and propranolol mood disorder continue paroxetine, topiramate opioid dependence continue Suboxone VTE ppx: Heparin dispo: LTC In my clinical judgment, the patient requires continued inpatient hospitalization for the following reasons: safe disposition planning Time Spent With Patient Time: Total time managing care of this patient today ____ minutes. Quality Stroke Does the patient have a stroke diagnosis?: No VTE Prior VTE?: No VTE Risk Level:: Medical - moderate - high VTE Device Contraindication: Treatment Not Indicated VTE Drug Contraindication: Treatment Not Indicated
[2022-04-17 15:37] VITALS: BP 128/59; PULSE 55; RESP 16; TEMP 36.1; O2SAT 95
[2022-04-17 19:39] VITALS: BP 127/56; PULSE 57; RESP 16; TEMP 36.6; O2SAT 96
[2022-04-18 04:00] VITALS: BP 118/56; PULSE 55; RESP 16; TEMP 36.2; O2SAT 93
[2022-04-18] MEDS: Heparin Sodium,Porcine 5,000 UNIT/ML VIAL 5000 UNIT SUBCUT ×2 (05:44→18:25)
[2022-04-18 07:49] VITALS: BP 109/60; PULSE 60; RESP 16; TEMP 37.1; O2SAT 92
[2022-04-18] MEDS: Fluticasone/Vilanterol 100/25 BLST.W.DEV 1 PUFF INHALE (09:04)
[2022-04-18] MEDS: Buprenorphine/Naloxone 12/3 mg FILM 1 FILM SUBLINGUAL (09:04)
[2022-04-18] MEDS: PARoxetine HCL 40 MG TABLET PO (09:04)
[2022-04-18] MEDS: Topiramate 100 MG TABLET PO ×2 (09:04→20:44)
[2022-04-18] MEDS: Sennosides/Docusate Sodium TABLET 2 TAB PO (09:04)
[2022-04-18 09:05] VITALS: PULSE 51; RESP 18; O2SAT 92
[2022-04-18] MEDS: Propranolol HCL 20 MG TABLET PO (09:05)
--- NOTE | 2022-04-18 14:13 | HO.PM.IMPN ---
Subjective Subjective Date of Service: 04/18/22 Interval History: Being followed for placement, no acute events overnight tolerating diet ambulating with wheeled walker no nausea, no vomiting, no diarrhea, tolerating diet, no acute events overnight. Review of Systems Review of Systems: Yes all other systems are reviewed and are negative Physical Exam Vital Signs: Vital Signs: Last Vital Signs Temp 98.8 F 04/18/22 07:49 Pulse 51 04/18/22 09:05 Resp 18 04/18/22 09:05 BP 109/60 04/18/22 07:49 Pulse Ox 92 04/18/22 07:49 O2 Del Method 04/18/22 07:49 BMI result Body Mass Index 16.0 Const: Other: Gen: in no acute d istress HEENT: scl era anicteric, adán st mucus membranes Neck: supple Lung s: clear to auscul tation bilaterally Heart: regular ra te and rhythm, no murmurs Abd: soft, non-tender, non-d istended Ext: no e susi Skin: warm/we ll-perfused Neuro: alert and oriente d x3, no focal fin dings Psych: appro priate affect Objective Data Active Medications Acetaminophen (Acetaminophen 325 Mg Tablet) 650 mg PO Q6H PRN PRN Reason: Pain, Mild (Pain Scale 1-3) Amlodipine Besylate (Amlodipine Besylate 10 Mg Tablet) 10 mg PO DAILY [facility]; Protocol Last Admin: 04/18/22 11:13 Dose: Not Given Documented By: RASHEL Non-Admin Reason: Physician Held Med Buprenorphine/Naloxone (Buprenorphine/Naloxone 12/3 Mg Film) 1 film SUBLINGUAL DAILY [facility] Last Admin: 04/18/22 09:04 Dose: 1 film Documented By: RASHEL Fluticasone/Vilanterol (Fluticasone/Vilanterol 100/25 Blst.W.Dev) 1 puff INHALE RDAILY [facility] Last Admin: 04/18/22 09:04 Dose: 1 puff Documented By: DOMINIQUE Heparin Sodium (Porcine) (Heparin Sodium,Porcine 5,000 Unit/Ml Vial) 5,000 unit SUBCUT Q12H [facility] Last Admin: 04/18/22 05:44 Dose: 5,000 unit Documented By: DEVANG Hydralazine HCl (Hydralazine Hcl 20 Mg/Ml Vial) 5 mg IVPUSH Q6H PRN; Protocol PRN Reason: SBP > 180 Last Admin: 03/31/22 23:50 Dose: 5 mg Documented By: ZULAY Hydralazine HCl (Hydralazine Hcl 10 Mg Tablet) 10 mg PO TID [facility]; Protocol Last Admin: 04/18/22 11:13 Dose: Not Given Documented By: RASHEL Non-Admin Reason: Physician Held Med Lisinopril (Lisinopril 20 Mg Tablet) 20 mg PO DAILY [facility]; Protocol Last Admin: 04/18/22 11:13 Dose: Not Given Documented By: RASHEL Non-Admin Reason: Physician Held Med Melatonin (Melatonin 3 Mg Tablet) 3 mg PO BEDTIME PRN PRN Reason: Insomnia Last Admin: 04/08/22 20:12 Dose: 3 mg Documented By: YELENA Ondansetron HCl (Ondansetron Hcl 4 Mg/2 Ml Vial) 4 mg IVPUSH Q8H PRN PRN Reason: Nausea and Vomiting Paroxetine HCl (Paroxetine Hcl 40 Mg Tablet) 40 mg PO DAILY [facility] Last Admin: 04/18/22 09:04 Dose: 40 mg Documented By: RASHEL Pharmacy Consult (Consult Rx Perform Med Rec) 1 each MISCELLANE ONCE PRN PRN Reason: Consult order Polyethylene Glycol (Polyethylene Glycol 3350 17 Gm Powd.Pack) 17 gm PO DAILY [facility] Last Admin: 04/18/22 09:11 Dose: Not Given Documented By: RASHEL Non-Admin Reason: Patient Refused Propranolol HCl (Propranolol Hcl 20 Mg Tablet) 20 mg PO BID [facility]; Protocol Last Admin: 04/18/22 09:05 Dose: 20 mg Documented By: RASHEL Senna/Docusate Sodium (Sennosides/Docusate Sodium Tablet) 2 tab PO BID [facility] Last Admin: 04/18/22 09:04 Dose: 2 tab Documented By: RASHEL Sodium Chloride (0.9 % Sodium Chloride Flush 3 Ml Syringe) 3 ml IVFLUSH QSHIFT [facility] Last Admin: 04/18/22 09:02 Dose: Not Given Documented By: RASHEL Non-Admin Reason: IV Running Tiotropium [place] (Tiotropium [place] 18 Mcg Cap.W.Dev) 1 puff INHALE RDAILY [facility] Last Admin: 04/18/22 09:04 Dose: 1 puff Documented By: DOMINIQUE Topiramate (Topiramate 100 Mg Tablet) 100 mg PO BID [facility] Last Admin: 04/18/22 09:04 Dose: 100 mg Documented By: RASHEL Labs 04/13/22 05:49 04/13/22 05:49 Assessment and Plan (1) Metabolic encephalopathy: Status: Acute (2) UTI (urinary tract infection): Status: Acute (3) HTN (hypertension): Status: Acute (4) Opiate dependence: Status: Acute Plan 77yo F admitted with confusion due to encephalopathy due to UTI toxic encephalopathy. Resolved Secondary to UTI recurrent UTI grew E coli treated with ceftriaxone ,completed 04/07/22 Urology consulted: has bilateral nephrolithiasis without hydronephrosis. constipation. Resolved , continue bowel meds COPD. no acute exacerbation ,continue triple controller therapy HTN continue lisinopril, amlodipine, hydralazine, and propranolol mood disorder continue paroxetine, topiramate opioid dependence continue Suboxone VTE ppx: Heparin In my clinical judgment, the patient requires continued inpatient hospitalization for the following reasons: safe disposition planning Time Spent With Patient Time: Total time managing care of this patient today ____ minutes. Quality Stroke Does the patient have a stroke diagnosis?: No VTE Prior VTE?: No VTE Risk Level:: Medical - moderate - high VTE Device Contraindication: Treatment Not Indicated VTE Drug Contraindication: Treatment Not Indicated
[2022-04-18 15:49] VITALS: BP 130/60; PULSE 54; RESP 18; TEMP 36.3; O2SAT 93
[2022-04-18] MEDS: hydrALAZINE HCl 10 MG TABLET PO ×2 (16:03→20:44)
[2022-04-18 20:00] VITALS: BP 120/58; PULSE 55; RESP 18; TEMP 36.5; O2SAT 94
[2022-04-19 03:44] LABS: Hepatitis B Core Antibody IgM NON-REACTIVE (NON-REACTIVE)
[2022-04-19 04:00] VITALS: BP 144/65; PULSE 57; RESP 18; TEMP 36.7; O2SAT 95
[2022-04-19] MEDS: Heparin Sodium,Porcine 5,000 UNIT/ML VIAL 5000 UNIT SUBCUT ×2 (05:47→18:32)
[2022-04-19 07:38] VITALS: BP 165/74; PULSE 56; RESP 17; TEMP 36.9; O2SAT 92
[2022-04-19] MEDS: Fluticasone/Vilanterol 100/25 BLST.W.DEV 1 PUFF INHALE (07:50)
[2022-04-19 07:56] VITALS: PULSE 51; RESP 18; O2SAT 91
[2022-04-19] MEDS: Sennosides/Docusate Sodium TABLET 2 TAB PO ×2 (08:32→20:28)
[2022-04-19] MEDS: PARoxetine HCL 40 MG TABLET PO (08:33)
[2022-04-19] MEDS: lisinopriL 20 MG TABLET PO (08:33)
[2022-04-19] MEDS: amLODIPine Besylate 10 MG TABLET PO (08:33)
[2022-04-19] MEDS: Buprenorphine/Naloxone 12/3 mg FILM 1 FILM SUBLINGUAL (08:33)
[2022-04-19] MEDS: hydrALAZINE HCl 10 MG TABLET PO ×3 (08:33→20:28)
[2022-04-19] MEDS: Topiramate 100 MG TABLET PO ×2 (08:33→20:28)
[2022-04-19 09:22] VITALS: PULSE 51
--- NOTE | 2022-04-19 10:47 | HO.PM.IMPN ---
Subjective Subjective Date of Service: 04/19/22 Interval History: Being followed for placement offers no acute complaints, sitting comfortably on bed, tolerating diet, with no nausea, no vomiting, no abdominal pain, no acute issues overnight, ambulating with wheeled walker. Review of Systems Review of Systems: Yes all other systems are reviewed and are negative Physical Exam Vital Signs: Vital Signs: Last Vital Signs Temp 98.4 F 04/19/22 07:38 Pulse 51 04/19/22 09:22 Resp 18 04/19/22 07:56 BP 165/74 H 04/19/22 07:38 Pulse Ox 92 04/19/22 07:38 O2 Del Method 04/19/22 07:38 BMI result Body Mass Index 16.0 Const: Other: Gen: in no acute distress HEENT: sclera anicteric, moist mucus membranes Neck: supple Lungs: clear to auscultation bilaterally Heart: regular rate and rhythm, no murmurs Abd: soft, non-tender, non-distended Ext: no edema Skin: warm/well-perfused Neuro: alert and oriented x3, no focal findings Psych: appropriate affect Objective Data Active Medications Acetaminophen (Acetaminophen 325 Mg Tablet) 650 mg PO Q6H PRN PRN Reason: Pain, Mild (Pain Scale 1-3) Amlodipine Besylate (Amlodipine Besylate 10 Mg Tablet) 10 mg PO DAILY [facility]; Protocol Last Admin: 04/19/22 08:33 Dose: 10 mg Documented By: FEMI Buprenorphine/Naloxone (Buprenorphine/Naloxone 12/3 Mg Film) 1 film SUBLINGUAL DAILY [facility] Last Admin: 04/19/22 08:33 Dose: 1 film Documented By: FEMI Fluticasone/Vilanterol (Fluticasone/Vilanterol 100/25 Blst.W.Dev) 1 puff INHALE RDAILY [facility] Last Admin: 04/19/22 07:50 Dose: 1 puff Documented By: HARDEEP Heparin Sodium (Porcine) (Heparin Sodium,Porcine 5,000 Unit/Ml Vial) 5,000 unit SUBCUT Q12H [facility] Last Admin: 04/19/22 05:47 Dose: 5,000 unit Documented By: BILLY Hydralazine HCl (Hydralazine Hcl 20 Mg/Ml Vial) 5 mg IVPUSH Q6H PRN; Protocol PRN Reason: SBP > 180 Last Admin: 03/31/22 23:50 Dose: 5 mg Documented By: ZULAY Hydralazine HCl (Hydralazine Hcl 10 Mg Tablet) 10 mg PO TID [facility]; Protocol Last Admin: 04/19/22 08:33 Dose: 10 mg Documented By: FEMI Lisinopril (Lisinopril 20 Mg Tablet) 20 mg PO DAILY [facility]; Protocol Last Admin: 04/19/22 08:33 Dose: 20 mg Documented By: FEMI Melatonin (Melatonin 3 Mg Tablet) 3 mg PO BEDTIME PRN PRN Reason: Insomnia Last Admin: 04/08/22 20:12 Dose: 3 mg Documented By: YELENA Ondansetron HCl (Ondansetron Hcl 4 Mg/2 Ml Vial) 4 mg IVPUSH Q8H PRN PRN Reason: Nausea and Vomiting Paroxetine HCl (Paroxetine Hcl 40 Mg Tablet) 40 mg PO DAILY [facility] Last Admin: 04/19/22 08:33 Dose: 40 mg Documented By: FEMI Pharmacy Consult (Consult Rx Perform Med Rec) 1 each MISCELLANE ONCE PRN PRN Reason: Consult order Polyethylene Glycol (Polyethylene Glycol 3350 17 Gm Powd.Pack) 17 gm PO DAILY [facility] Last Admin: 04/19/22 08:33 Dose: Not Given Documented By: FEMI Non-Admin Reason: Patient Refused Propranolol HCl (Propranolol Hcl 20 Mg Tablet) 20 mg PO BID [facility]; Protocol Last Admin: 04/19/22 08:39 Dose: Not Given Documented By: FEMI Non-Admin Reason: Decreased Heart Rate Senna/Docusate Sodium (Sennosides/Docusate Sodium Tablet) 2 tab PO BID [facility] Last Admin: 04/19/22 08:32 Dose: 2 tab Documented By: FEMI Sodium Chloride (0.9 % Sodium Chloride Flush 3 Ml Syringe) 3 ml IVFLUSH QSHIFT [facility] Last Admin: 04/19/22 07:16 Dose: Not Given Documented By: FEMI Non-Admin Reason: No Access Tiotropium [place] (Tiotropium [place] 18 Mcg Cap.W.Dev) 1 puff INHALE RDAILY [facility] Last Admin: 04/19/22 07:50 Dose: 1 puff Documented By: HARDEEP Topiramate (Topiramate 100 Mg Tablet) 100 mg PO BID [facility] Last Admin: 04/19/22 08:33 Dose: 100 mg Documented By: FEMI Labs 04/13/22 05:49 04/13/22 05:49 Labs: Laboratory Results - last 24 hr 04/13/22 05:49 Hep B Core IgM Ab NON-REACTIVE Assessment and Plan (1) Metabolic encephalopathy: Status: Acute (2) UTI (urinary tract infection): Status: Acute (3) HTN (hypertension): Status: Acute (4) Opiate dependence: Status: Acute Plan 77yo F admitted with confusion due to encephalopathy due to UTI toxic encephalopathy. Resolved Secondary to UTI recurrent UTI grew E coli treated with ceftriaxone ,completed 04/07/22 Urology consulted: has bilateral nephrolithiasis without hydronephrosis. constipation. Resolved , continue bowel meds COPD. no acute exacerbation ,continue triple controller therapy HTN is stable BP, continue lisinopril, amlodipine, hydralazine, and propranolol mood disorder continue paroxetine, topiramate opioid dependence continue Suboxone VTE ppx: Heparin In my clinical judgment, the patient requires continued inpatient hospitalization for the following reasons: safe disposition planning, patient was residing previously in a trailer with her friend. Time Spent With Patient Time: Total time managing care of this patient today ____ minutes. Quality Stroke Does the patient have a stroke diagnosis?: No VTE Prior VTE?: No VTE Risk Level:: Medical - moderate - high VTE Device Contraindication: Treatment Not Indicated VTE Drug Contraindication: Treatment Not Indicated
--- NOTE | 2022-04-19 11:48 | MHC.CM.PN ---
CASE MANAGEMENT FOLLOWING FOR Apr COMMERCIAL MEDICARE CHANGE TO STRAIGHT MEDICARE. PATIENT WAS AMBULATING WITH P.T. TODAY. (HOLDING WALL) PLAN WILL BE STR VERSUS HOME WITH SERVICES
[2022-04-19 16:00] VITALS: BP 139/65; PULSE 58; RESP 18; TEMP 36.7; O2SAT 99
[2022-04-19 19:08] VITALS: BP 133/61; PULSE 60; RESP 17; TEMP 36.7; O2SAT 96
[2022-04-19] MEDS: Propranolol HCL 20 MG TABLET PO (20:28)
[2022-04-20 03:37] VITALS: BP 117/58; PULSE 94; RESP 14; TEMP 36.9; O2SAT 96
[2022-04-20] MEDS: Heparin Sodium,Porcine 5,000 UNIT/ML VIAL 5000 UNIT SUBCUT ×2 (05:38→17:53)
[2022-04-20 07:52] VITALS: BP 157/71; PULSE 79; RESP 20; TEMP 36.3; O2SAT 96
[2022-04-20] MEDS: Fluticasone/Vilanterol 100/25 BLST.W.DEV 1 PUFF INHALE (08:00)
[2022-04-20 08:01] VITALS: PULSE 52; RESP 18; O2SAT 94
[2022-04-20] MEDS: PARoxetine HCL 40 MG TABLET PO (09:20)
[2022-04-20] MEDS: Propranolol HCL 20 MG TABLET PO ×2 (09:20→21:17)
[2022-04-20] MEDS: lisinopriL 20 MG TABLET PO (09:20)
[2022-04-20] MEDS: hydrALAZINE HCl 10 MG TABLET PO ×3 (09:20→21:17)
[2022-04-20] MEDS: amLODIPine Besylate 10 MG TABLET PO (09:20)
[2022-04-20] MEDS: Sennosides/Docusate Sodium TABLET 2 TAB PO ×2 (09:21→21:17)
[2022-04-20] MEDS: Topiramate 100 MG TABLET PO ×2 (09:21→21:17)
[2022-04-20] MEDS: Buprenorphine/Naloxone 12/3 mg FILM 1 FILM SUBLINGUAL (09:21)
--- NOTE | 2022-04-20 13:11 | HO.PM.IMPN ---
Subjective Subjective Date of Service: 04/20/22 Interval History: no new complaints, awaiting placement Review of Systems Review of Systems: Yes all other systems are reviewed and are negative Physical Exam Vital Signs: Vital Signs: Last Vital Signs Temp 97.3 F 04/20/22 07:52 Pulse 52 04/20/22 08:01 Resp 18 04/20/22 08:01 BP 157/71 H 04/20/22 07:52 Pulse Ox 96 04/20/22 07:52 O2 Del Method 04/20/22 07:52 BMI result Body Mass Index 16.0 Gen: in no acute distress HEENT: sclera anicteric, moist mucus membranes Neck: supple Lungs: clear to auscultation bilaterally Heart: regular rate and rhythm, no murmurs Abd: soft, non-tender, non-distended Ext: no edema Skin: warm/well-perfused Neuro: alert and oriented x3, no focal findings Psych: appropriate affect Objective Data Active Medications Acetaminophen (Acetaminophen 325 Mg Tablet) 650 mg PO Q6H PRN PRN Reason: Pain, Mild (Pain Scale 1-3) Amlodipine Besylate (Amlodipine Besylate 10 Mg Tablet) 10 mg PO DAILY [facility]; Protocol Last Admin: 04/20/22 09:20 Dose: 10 mg Documented By: KEVIN Buprenorphine/Naloxone (Buprenorphine/Naloxone 12/3 Mg Film) 1 film SUBLINGUAL DAILY [facility] Last Admin: 04/20/22 09:21 Dose: 1 film Documented By: KEVIN Fluticasone/Vilanterol (Fluticasone/Vilanterol 100/25 Blst.W.Dev) 1 puff INHALE RDAILY [facility] Last Admin: 04/20/22 08:00 Dose: 1 puff Documented By: TC Heparin Sodium (Porcine) (Heparin Sodium,Porcine 5,000 Unit/Ml Vial) 5,000 unit SUBCUT Q12H [facility] Last Admin: 04/20/22 05:38 Dose: 5,000 unit Documented By: DEVANG Hydralazine HCl (Hydralazine Hcl 20 Mg/Ml Vial) 5 mg IVPUSH Q6H PRN; Protocol PRN Reason: SBP > 180 Last Admin: 03/31/22 23:50 Dose: 5 mg Documented By: ZULAY Hydralazine HCl (Hydralazine Hcl 10 Mg Tablet) 10 mg PO TID [facility]; Protocol Last Admin: 04/20/22 09:20 Dose: 10 mg Documented By: KEVIN Lisinopril (Lisinopril 20 Mg Tablet) 20 mg PO DAILY [facility]; Protocol Last Admin: 04/20/22 09:20 Dose: 20 mg Documented By: KEVIN Melatonin (Melatonin 3 Mg Tablet) 3 mg PO BEDTIME PRN PRN Reason: Insomnia Last Admin: 04/08/22 20:12 Dose: 3 mg Documented By: YELENA Ondansetron HCl (Ondansetron Hcl 4 Mg/2 Ml Vial) 4 mg IVPUSH Q8H PRN PRN Reason: Nausea and Vomiting Paroxetine HCl (Paroxetine Hcl 40 Mg Tablet) 40 mg PO DAILY [facility] Last Admin: 04/20/22 09:20 Dose: 40 mg Documented By: KEVIN Pharmacy Consult (Consult Rx Perform Med Rec) 1 each MISCELLANE ONCE PRN PRN Reason: Consult order Polyethylene Glycol (Polyethylene Glycol 3350 17 Gm Powd.Pack) 17 gm PO DAILY [facility] Last Admin: 04/20/22 09:21 Dose: Not Given Documented By: KEVIN Non-Admin Reason: Patient Refused Propranolol HCl (Propranolol Hcl 20 Mg Tablet) 20 mg PO BID [facility]; Protocol Last Admin: 04/20/22 09:20 Dose: 20 mg Documented By: KEVIN Senna/Docusate Sodium (Sennosides/Docusate Sodium Tablet) 2 tab PO BID [facility] Last Admin: 04/20/22 09:21 Dose: 2 tab Documented By: KEVIN Sodium Chloride (0.9 % Sodium Chloride Flush 3 Ml Syringe) 3 ml IVFLUSH QSHIFT [facility] Last Admin: 04/20/22 09:13 Dose: Not Given Documented By: KEVIN Non-Admin Reason: No Access Tiotropium [place] (Tiotropium [place] 18 Mcg Cap.W.Dev) 1 puff INHALE RDAILY [facility] Last Admin: 04/20/22 08:00 Dose: 1 puff Documented By: TC Topiramate (Topiramate 100 Mg Tablet) 100 mg PO BID [facility] Last Admin: 04/20/22 09:21 Dose: 100 mg Documented By: KEVIN Labs 04/13/22 05:49 04/13/22 05:49 Assessment and Plan (1) Metabolic encephalopathy: Status: Acute (2) UTI (urinary tract infection): Status: Acute (3) HTN (hypertension): Status: Acute (4) Opiate dependence: Status: Acute Plan hospital [id number] 77yo F admitted with confusion due to encephalopathy due to UTI # toxic encephalopathy due to UTI - resolved # recurrent UTI - grew E coli, treated with ceftriaxone, completed 04/07/22 - Urology consulted: has bilateral nephrolithiasis without hydronephrosis. no anticholinergisc due to constipation.? outpt f/u. # constipation - resolved # COPD with no acute exacerbation - continue triple controller therapy # HTN - continue lisinopril, amlodipine, hydralazine, and propranolol # mood disorder - continue paroxetine, topiramate # opioid dependence - continue Suboxone # VTE ppx: UFH # dispo: LTC In my clinical judgment, the patient requires continued inpatient hospitalization for the following reasons: safe disposition planning Time Spent With Patient Time: Total time managing care of this patient today __25__ minutes. Quality Stroke Does the patient have a stroke diagnosis?: No VTE Prior VTE?: No VTE Risk Level:: Medical - moderate - high VTE Device Contraindication: Treatment Not Indicated VTE Drug Contraindication: Treatment Not Indicated
[2022-04-20 15:33] VITALS: BP 123/60; PULSE 54; RESP 17; TEMP 36.2; O2SAT 96
[2022-04-20 19:24] VITALS: BP 123/57; PULSE 58; RESP 16; TEMP 36.6; O2SAT 94
[2022-04-21 04:00] VITALS: BP 112/57; PULSE 91; RESP 18; TEMP 36.7; O2SAT 94
[2022-04-21] MEDS: Heparin Sodium,Porcine 5,000 UNIT/ML VIAL 5000 UNIT SUBCUT ×2 (05:39→18:33)
[2022-04-21] MEDS: Fluticasone/Vilanterol 100/25 BLST.W.DEV 1 PUFF INHALE (07:55)
[2022-04-21 07:57] VITALS: PULSE 53; RESP 18; O2SAT 95
[2022-04-21 08:00] VITALS: BP 175/72; PULSE 52; RESP 20; TEMP 36.4; O2SAT 100
[2022-04-21] MEDS: Topiramate 100 MG TABLET PO ×2 (08:49→20:29)
[2022-04-21] MEDS: PARoxetine HCL 40 MG TABLET PO (08:49)
[2022-04-21] MEDS: amLODIPine Besylate 10 MG TABLET PO (08:49)
[2022-04-21] MEDS: Sennosides/Docusate Sodium TABLET 2 TAB PO ×2 (08:49→20:29)
[2022-04-21] MEDS: hydrALAZINE HCl 10 MG TABLET PO ×3 (08:49→20:29)
[2022-04-21] MEDS: lisinopriL 20 MG TABLET PO (08:50)
[2022-04-21] MEDS: Buprenorphine/Naloxone 12/3 mg FILM 1 FILM SUBLINGUAL (08:50)
--- NOTE | 2022-04-21 12:24 | HO.PM.IMPN ---
Subjective Subjective Date of Service: 04/21/22 Interval History: no complaints no new issues Review of Systems Review of Systems: Yes all other systems are reviewed and are negative Physical Exam Vital Signs: Vital Signs: Last Vital Signs Temp 97.5 F 04/21/22 08:00 Pulse 52 04/21/22 08:00 Resp 20 04/21/22 08:00 BP 175/72 H 04/21/22 08:00 Pulse Ox 100 04/21/22 08:00 O2 Del Method 04/21/22 08:00 BMI result Body Mass Index 16.0 Const: Other: Gen: in no acute distress HEENT: sclera anicteric, moist mucus membranes Neck: supple Lungs: clear to auscultation bilaterally Heart: regular rate and rhythm, no murmurs Abd: soft, non-tender, non-distended Ext: no edema Skin: warm/well-perfused Neuro: alert and oriented x3, no focal findings Psych: appropriate affect Objective Data Active Medications Acetaminophen (Acetaminophen 325 Mg Tablet) 650 mg PO Q6H PRN PRN Reason: Pain, Mild (Pain Scale 1-3) Amlodipine Besylate (Amlodipine Besylate 10 Mg Tablet) 10 mg PO DAILY [facility]; Protocol Last Admin: 04/21/22 08:49 Dose: 10 mg Documented By: KEVIN Buprenorphine/Naloxone (Buprenorphine/Naloxone 12/3 Mg Film) 1 film SUBLINGUAL DAILY [facility] Last Admin: 04/21/22 08:50 Dose: 1 film Documented By: KEVIN Fluticasone/Vilanterol (Fluticasone/Vilanterol 100/25 Blst.W.Dev) 1 puff INHALE RDAILY [facility] Last Admin: 04/21/22 07:55 Dose: 1 puff Documented By: DOMINIQUE Heparin Sodium (Porcine) (Heparin Sodium,Porcine 5,000 Unit/Ml Vial) 5,000 unit SUBCUT Q12H [facility] Last Admin: 04/21/22 05:39 Dose: 5,000 unit Documented By: TAVO Hydralazine HCl (Hydralazine Hcl 20 Mg/Ml Vial) 5 mg IVPUSH Q6H PRN; Protocol PRN Reason: SBP > 180 Last Admin: 03/31/22 23:50 Dose: 5 mg Documented By: ZULAY Hydralazine HCl (Hydralazine Hcl 10 Mg Tablet) 10 mg PO TID [facility]; Protocol Last Admin: 04/21/22 08:49 Dose: 10 mg Documented By: KEVIN Lisinopril (Lisinopril 20 Mg Tablet) 20 mg PO DAILY [facility]; Protocol Last Admin: 04/21/22 08:50 Dose: 20 mg Documented By: KEVIN Melatonin (Melatonin 3 Mg Tablet) 3 mg PO BEDTIME PRN PRN Reason: Insomnia Last Admin: 04/08/22 20:12 Dose: 3 mg Documented By: YELENA Ondansetron HCl (Ondansetron Hcl 4 Mg/2 Ml Vial) 4 mg IVPUSH Q8H PRN PRN Reason: Nausea and Vomiting Paroxetine HCl (Paroxetine Hcl 40 Mg Tablet) 40 mg PO DAILY [facility] Last Admin: 04/21/22 08:49 Dose: 40 mg Documented By: KEVIN Pharmacy Consult (Consult Rx Perform Med Rec) 1 each MISCELLANE ONCE PRN PRN Reason: Consult order Polyethylene Glycol (Polyethylene Glycol 3350 17 Gm Powd.Pack) 17 gm PO DAILY [facility] Last Admin: 04/21/22 08:47 Dose: Not Given Documented By: KEVIN Non-Admin Reason: Patient Refused Propranolol HCl (Propranolol Hcl 20 Mg Tablet) 20 mg PO BID [facility]; Protocol Last Admin: 04/21/22 08:47 Dose: Not Given Documented By: KEVIN Non-Admin Reason: Decreased Heart Rate Senna/Docusate Sodium (Sennosides/Docusate Sodium Tablet) 2 tab PO BID [facility] Last Admin: 04/21/22 08:49 Dose: 2 tab Documented By: KEVIN Sodium Chloride (0.9 % Sodium Chloride Flush 3 Ml Syringe) 3 ml IVFLUSH QSHIFT [facility] Last Admin: 04/21/22 08:47 Dose: Not Given Documented By: KEVIN Non-Admin Reason: No Access Tiotropium [place] (Tiotropium [place] 18 Mcg Cap.W.Dev) 1 puff INHALE RDAILY [facility] Last Admin: 04/21/22 07:55 Dose: 1 puff Documented By: AFSANEHRICRubens Topiramate (Topiramate 100 Mg Tablet) 100 mg PO BID [facility] Last Admin: 04/21/22 08:49 Dose: 100 mg Documented By: KEVIN Labs 04/13/22 05:49 01/21/23 05:49 Assessment and Plan (1) Metabolic encephalopathy: Status: Acute (2) UTI (urinary tract infection): Status: Acute (3) HTN (hypertension): Status: Acute (4) Opiate dependence: Status: Acute Plan hospital d#27 77yo F admitted with confusion due to encephalopathy due to UTI # toxic encephalopathy due to UTI - resolved # recurrent UTI - grew E coli, treated with ceftriaxone, completed 04/07/22 - Urology consulted: has bilateral nephrolithiasis without hydronephrosis. no anticholinergisc due to constipation.? outpt f/u. # constipation - resolved # COPD with no acute exacerbation - continue triple controller therapy # HTN - continue lisinopril, amlodipine, hydralazine, and propranolol # mood disorder - continue paroxetine, topiramate # opioid dependence - continue Suboxone # VTE ppx: UFH # dispo: LTC In my clinical judgment, the patient requires continued inpatient hospitalization for the following reasons: safe disposition planning Time Spent With Patient Time: Total time managing care of this patient today __25__ minutes. Quality Stroke Does the patient have a stroke diagnosis?: No VTE Prior VTE?: No VTE Risk Level:: Medical - moderate - high VTE Device Contraindication: Treatment Not Indicated VTE Drug Contraindication: Treatment Not Indicated
[2022-04-21 15:33] VITALS: BP 123/60; PULSE 56; RESP 16; TEMP 36.4; O2SAT 95
[2022-04-21 19:17] VITALS: BP 132/60; PULSE 65; RESP 16; TEMP 36.3; O2SAT 97
[2022-04-21] MEDS: Propranolol HCL 20 MG TABLET PO (20:29)
[2022-04-22 04:00] VITALS: RESP 18
[2022-04-22] MEDS: Heparin Sodium,Porcine 5,000 UNIT/ML VIAL 5000 UNIT SUBCUT ×2 (06:29→17:47)
[2022-04-22 07:55] VITALS: BP 155/68; PULSE 58; RESP 18; TEMP 37; O2SAT 98
[2022-04-22] MEDS: Fluticasone/Vilanterol 100/25 BLST.W.DEV 1 PUFF INHALE (08:21)
[2022-04-22 08:23] VITALS: PULSE 56; RESP 15; O2SAT 90
[2022-04-22] MEDS: PARoxetine HCL 40 MG TABLET PO (08:23)
[2022-04-22] MEDS: lisinopriL 20 MG TABLET PO (08:23)
[2022-04-22] MEDS: amLODIPine Besylate 10 MG TABLET PO (08:23)
[2022-04-22] MEDS: Sennosides/Docusate Sodium TABLET 2 TAB PO ×2 (08:23→20:33)
[2022-04-22] MEDS: Buprenorphine/Naloxone 12/3 mg FILM 1 FILM SUBLINGUAL (08:23)
[2022-04-22] MEDS: Topiramate 100 MG TABLET PO ×2 (08:23→20:32)
[2022-04-22] MEDS: hydrALAZINE HCl 10 MG TABLET PO ×2 (08:24→20:33)
--- NOTE | 2022-04-22 10:45 | HO.PM.IMPN ---
Subjective Subjective Date of Service: 04/22/22 Interval History: no new issues Review of Systems Review of Systems: Yes all other systems are reviewed and are negative Physical Exam Vital Signs: Vital Signs: Last Vital Signs Temp 98.6 F 04/22/22 07:55 Pulse 56 04/22/22 08:23 Resp 15 04/22/22 08:23 BP 155/68 H 04/22/22 07:55 Pulse Ox 98 04/22/22 07:55 O2 Del Method 04/22/22 07:55 BMI result Body Mass Index 16.0 Const: Other: Gen: in no acute distress HEENT: sclera anicteric, moist mucus membranes Neck: supple Lungs: clear to auscultation bilaterally Heart: regular rate and rhythm, no murmurs Abd: soft, non-tender, non-distended Ext: no edema Skin: warm/well-perfused Neuro: alert and oriented x3, no focal findings Psych: appropriate affect Objective Data Active Medications Acetaminophen (Acetaminophen 325 Mg Tablet) 650 mg PO Q6H PRN PRN Reason: Pain, Mild (Pain Scale 1-3) Amlodipine Besylate (Amlodipine Besylate 10 Mg Tablet) 10 mg PO DAILY [facility]; Protocol Last Admin: 04/22/22 08:23 Dose: 10 mg Documented By: BO Buprenorphine/Naloxone (Buprenorphine/Naloxone 12/3 Mg Film) 1 film SUBLINGUAL DAILY [facility] Last Admin: 04/22/22 08:23 Dose: 1 film Documented By: BO Fluticasone/Vilanterol (Fluticasone/Vilanterol 100/25 Blst.W.Dev) 1 puff INHALE RDAILY [facility] Last Admin: 04/22/22 08:21 Dose: 1 puff Documented By: OLI Heparin Sodium (Porcine) (Heparin Sodium,Porcine 5,000 Unit/Ml Vial) 5,000 unit SUBCUT Q12H [facility] Last Admin: 04/22/22 06:29 Dose: 5,000 unit Documented By: ERASMO Hydralazine HCl (Hydralazine Hcl 20 Mg/Ml Vial) 5 mg IVPUSH Q6H PRN; Protocol PRN Reason: SBP > 180 Last Admin: 03/31/22 23:50 Dose: 5 mg Documented By: ZULAY Hydralazine HCl (Hydralazine Hcl 10 Mg Tablet) 10 mg PO TID [facility]; Protocol Last Admin: 04/22/22 08:24 Dose: 10 mg Documented By: BO Lisinopril (Lisinopril 20 Mg Tablet) 20 mg PO DAILY [facility]; Protocol Last Admin: 04/22/22 08:23 Dose: 20 mg Documented By: OB Melatonin (Melatonin 3 Mg Tablet) 3 mg PO BEDTIME PRN PRN Reason: Insomnia Last Admin: 04/08/22 20:12 Dose: 3 mg Documented By: YELENA Ondansetron HCl (Ondansetron Hcl 4 Mg/2 Ml Vial) 4 mg IVPUSH Q8H PRN PRN Reason: Nausea and Vomiting Paroxetine HCl (Paroxetine Hcl 40 Mg Tablet) 40 mg PO DAILY [facility] Last Admin: 04/22/22 08:23 Dose: 40 mg Documented By: BO Pharmacy Consult (Consult Rx Perform Med Rec) 1 each MISCELLANE ONCE PRN PRN Reason: Consult order Polyethylene Glycol (Polyethylene Glycol 3350 17 Gm Powd.Pack) 17 gm PO DAILY [facility] Last Admin: 04/22/22 08:25 Dose: Not Given Documented By: BO Non-Admin Reason: Patient Refused Propranolol HCl (Propranolol Hcl 20 Mg Tablet) 20 mg PO BID [facility]; Protocol Last Admin: 04/22/22 08:25 Dose: Not Given Documented By: BO Non-Admin Reason: low pulse Senna/Docusate Sodium (Sennosides/Docusate Sodium Tablet) 2 tab PO BID [facility] Last Admin: 04/22/22 08:23 Dose: 2 tab Documented By: BO Sodium Chloride (0.9 % Sodium Chloride Flush 3 Ml Syringe) 3 ml IVFLUSH QSHIFT [facility] Last Admin: 04/22/22 08:24 Dose: Not Given Documented By: BO Non-Admin Reason: No Access Tiotropium [place] (Tiotropium [place] 18 Mcg Cap.W.Dev) 1 puff INHALE RDAILY [facility] Last Admin: 04/22/22 08:21 Dose: 1 puff Documented By: OLI Topiramate (Topiramate 100 Mg Tablet) 100 mg PO BID [facility] Last Admin: 04/22/22 08:23 Dose: 100 mg Documented By: BO Labs 04/13/22 05:49 04/13/22 05:49 Assessment and Plan (1) Metabolic encephalopathy: Status: Acute (2) UTI (urinary tract infection): Status: Acute (3) HTN (hypertension): Status: Acute (4) Opiate dependence: Status: Acute Plan hospital d#28 77yo F admitted with confusion due to encephalopathy due to UTI # toxic encephalopathy due to UTI - resolved # recurrent UTI - grew E coli, treated with ceftriaxone, completed 04/07/22 - Urology consulted: has bilateral nephrolithiasis without hydronephrosis. no anticholinergisc due to constipation.? outpt f/u. # constipation - resolved # COPD with no acute exacerbation - continue triple controller therapy # HTN - continue lisinopril, amlodipine, hydralazine, and propranolol # mood disorder - continue paroxetine, topiramate # opioid dependence - continue Suboxone # VTE ppx: UFH # dispo: LTC In my clinical judgment, the patient requires continued inpatient hospitalization for the following reasons: safe disposition planning Time Spent With Patient Time: Total time managing care of this patient today __25__ minutes. Quality Stroke Does the patient have a stroke diagnosis?: No VTE Prior VTE?: No VTE Risk Level:: Medical - moderate - high VTE Device Contraindication: Treatment Not Indicated VTE Drug Contraindication: Treatment Not Indicated
--- NOTE | 2022-04-22 15:23 | MHC.CM.PN ---
T/W MET WITH PATIENT TO DISCUSS RETURNING HOME WITH SERVICES. PATIENT WANTS OT DC TO REHAB BEFORE RETURNING HOME. SHE SAYS THAT HER MEDICARE WILL BE CONVERTED TO STANDARD ON APRIL 24, 2022. CASE MANAGEMENT UPDATING SNF REFERRALS
[2022-04-22 15:53] VITALS: BP 100/50; PULSE 60; RESP 18; TEMP 36.4; O2SAT 98
[2022-04-22 16:00] VITALS: RESP 18
[2022-04-22 20:00] VITALS: BP 107/61; PULSE 59; RESP 20; TEMP 36.8; O2SAT 97
[2022-04-23 04:00] VITALS: BP 148/69; PULSE 60; RESP 17; TEMP 36.1; O2SAT 97
[2022-04-23] MEDS: Heparin Sodium,Porcine 5,000 UNIT/ML VIAL 5000 UNIT SUBCUT ×2 (06:18→18:23)
[2022-04-23 07:56] VITALS: BP 155/69; PULSE 62; RESP 18; TEMP 36.3; O2SAT 97
[2022-04-23 08:54] VITALS: PULSE 62; RESP 18; O2SAT 97
--- NOTE | 2022-04-23 09:12 | MHC.CM.PN ---
T/W MET WITH PATIENT PER REQUEST. PATIENT HAS BEEN A LOW FALL RISK PATIENT OF YESTERDAY AND IS AMBULATING IN THE ROOM WITHOUT AN ASSISTIVE DEVICE (PER CONVERSATION WITH RN) PATIENT MADE AWARE THAT IF NO STR BED IS OFFERED, PLAN IS TO DC HER HOME WITH SERVICES. IF PATIENT WANTS ASSISTED LIVING, SHE IS NOW AWARE THAT SHE WILL NEED TO WORK ON THAT FROM HOME MEDICARE IS REPORTEDLY ACTIVE TOMORROW (04/24/22) CM TO CONTINUE TO SECURE A STR BED FOR HER
[2022-04-23] MEDS: amLODIPine Besylate 10 MG TABLET PO (09:15)
[2022-04-23] MEDS: lisinopriL 20 MG TABLET PO (09:23)
[2022-04-23] MEDS: hydrALAZINE HCl 10 MG TABLET PO ×2 (09:24→19:41)
[2022-04-23] MEDS: Buprenorphine/Naloxone 12/3 mg FILM 1 FILM SUBLINGUAL (09:24)
[2022-04-23] MEDS: Topiramate 100 MG TABLET PO ×2 (09:24→19:41)
[2022-04-23] MEDS: Sennosides/Docusate Sodium TABLET 2 TAB PO ×2 (09:24→19:41)
[2022-04-23] MEDS: PARoxetine HCL 40 MG TABLET PO (09:24)
[2022-04-23] MEDS: Fluticasone/Vilanterol 100/25 BLST.W.DEV 1 PUFF INHALE (11:12)
--- NOTE | 2022-04-23 13:34 | P.PNIM_ITS ---
Subjective Subjective Date of Service: 04/23/22 Interval History: Seen in follow up for recurrent UTI, metabolic encephalopathy Interval history: No complaints. Eating breakfast. No recurrent urinary symptoms. Awaiting placement, does not feel safe to return home to [facility] as she cannot maneuver her walker and does not have rails. Review of Systems Review of Systems: Yes all other systems are reviewed and are negative Physical Exam Vital Signs: Vital Signs: Last Vital Signs Temp 97.4 F 04/23/22 07:56 Pulse 62 04/23/22 08:54 Resp 18 04/23/22 08:54 BP 155/69 H 04/23/22 07:56 Pulse Ox 97 04/23/22 07:56 O2 Del Method 04/23/22 07:56 BMI result Body Mass Index 16.0 Constitutional - Awake and Alert, No apparent distress Eyes - PERRLA, EOMI Cardiovascular - S1S2, RRR, No edema Respiratory - Normal lung expansion, Normal respiratory effort, No respiratory distress, CTA bilaterally Extremities - no calf tenderness bilaterally, no swelling Skin - Warm/Dry Neurological - Alert & oriented x3 Psychological - Appropriate affect Objective Data Active Medications Acetaminophen (Acetaminophen 325 Mg Tablet) 650 mg PO Q6H PRN PRN Reason: Pain, Mild (Pain Scale 1-3) Amlodipine Besylate (Amlodipine Besylate 10 Mg Tablet) 10 mg PO DAILY [facility]; Protocol Last Admin: 04/23/22 09:15 Dose: 10 mg Documented By: BO Buprenorphine/Naloxone (Buprenorphine/Naloxone 12/3 Mg Film) 1 film SUBLINGUAL DAILY [facility] Last Admin: 04/23/22 09:24 Dose: 1 film Documented By: BO Fluticasone/Vilanterol (Fluticasone/Vilanterol 100/25 Blst.W.Dev) 1 puff INHALE RDAILY [facility] Last Admin: 04/23/22 11:12 Dose: 1 puff Documented By: ADRIANE Heparin Sodium (Porcine) (Heparin Sodium,Porcine 5,000 Unit/Ml Vial) 5,000 unit SUBCUT Q12H [facility] Last Admin: 04/23/22 06:18 Dose: 5,000 unit Documented By: KIRAN Hydralazine HCl (Hydralazine Hcl 20 Mg/Ml Vial) 5 mg IVPUSH Q6H PRN; Protocol PRN Reason: SBP > 180 Last Admin: 03/31/22 23:50 Dose: 5 mg Documented By: ZULAY Hydralazine HCl (Hydralazine Hcl 10 Mg Tablet) 10 mg PO TID [facility]; Protocol Last Admin: 04/23/22 09:24 Dose: 10 mg Documented By: BO Lisinopril (Lisinopril 20 Mg Tablet) 20 mg PO DAILY [facility]; Protocol Last Admin: 04/23/22 09:23 Dose: 20 mg Documented By: BO Melatonin (Melatonin 3 Mg Tablet) 3 mg PO BEDTIME PRN PRN Reason: Insomnia Last Admin: 04/08/22 20:12 Dose: 3 mg Documented By: YELENA Ondansetron HCl (Ondansetron Hcl 4 Mg/2 Ml Vial) 4 mg IVPUSH Q8H PRN PRN Reason: Nausea and Vomiting Paroxetine HCl (Paroxetine Hcl 40 Mg Tablet) 40 mg PO DAILY [facility] Last Admin: 04/23/22 09:24 Dose: 40 mg Documented By: BO Pharmacy Consult (Consult Rx Perform Med Rec) 1 each MISCELLANE ONCE PRN PRN Reason: Consult order Polyethylene Glycol (Polyethylene Glycol 3350 17 Gm Powd.Pack) 17 gm PO DAILY [facility] Last Admin: 04/23/22 09:25 Dose: Not Given Documented By: BO Non-Admin Reason: Patient Refused Propranolol HCl (Propranolol Hcl 20 Mg Tablet) 20 mg PO BID [facility]; Protocol Last Admin: 04/23/22 09:27 Dose: Not Given Documented By: BO Non-Admin Reason: Decreased Heart Rate Senna/Docusate Sodium (Sennosides/Docusate Sodium Tablet) 2 tab PO BID [facility] Last Admin: 04/23/22 09:24 Dose: 2 tab Documented By: BO Sodium Chloride (0.9 % Sodium Chloride Flush 3 Ml Syringe) 3 ml IVFLUSH QSHIFT [facility] Last Admin: 04/23/22 09:23 Dose: Not Given Documented By: BO Non-Admin Reason: No Access Tiotropium [place] (Tiotropium [place] 18 Mcg Cap.W.Dev) 1 puff INHALE RDAILY [facility] Last Admin: 04/23/22 11:12 Dose: 1 puff Documented By: ADIRANE Topiramate (Topiramate 100 Mg Tablet) 100 mg PO BID [facility] Last Admin: 04/23/22 09:24 Dose: 100 mg Documented By: BO Labs 04/13/22 05:49 04/13/22 05:49 Assessment and Plan (1) Bilateral kidney stones: Status: Acute (2) Urinary incontinence: Status: Acute (3) Recurrent UTI: Status: Acute Plan 77yo F admitted with confusion due to encephalopathy due to UTI # toxic encephalopathy due to UTI - resolved # recurrent UTI - grew E coli, treated with ceftriaxone, completed 04/07/22 - Urology consulted: has bilateral nephrolithiasis without hydronephrosis.? no anticholinergics due to constipation.? outpt f/u. # constipation - resolved # COPD with no acute exacerbation - continue triple controller therapy # HTN - continue lisinopril, amlodipine, hydralazine, and propranolol # mood disorder - continue paroxetine, topiramate # opioid dependence - continue Suboxone # VTE ppx: UFH # dispo: LTC In my clinical judgment, the patient requires continued inpatient hospitalization for the following reasons: safe disposition planning Time Spent With Patient Time: Total time managing care of this patient today ____ minutes. Quality Stroke Does the patient have a stroke diagnosis?: No VTE Prior VTE?: No VTE Risk Level:: Medical - moderate - high VTE Device Contraindication: Treatment Not Indicated VTE Drug Contraindication: Treatment Not Indicated
[2022-04-23 14:02] VITALS: PULSE 62
[2022-04-23 16:13] VITALS: BP 112/55; PULSE 67; RESP 18; TEMP 36.4; O2SAT 97
[2022-04-23] MEDS: Propranolol HCL 20 MG TABLET PO (19:42)
[2022-04-23] MEDS: Melatonin 3 MG TABLET PO (19:42)
[2022-04-23 20:00] VITALS: BP 125/59; PULSE 66; RESP 19; TEMP 36.7; O2SAT 95
[2022-04-24 03:29] VITALS: BP 103/51; PULSE 52; RESP 18; TEMP 36.3; O2SAT 96
[2022-04-24] MEDS: Heparin Sodium,Porcine 5,000 UNIT/ML VIAL 5000 UNIT SUBCUT ×2 (05:52→18:22)
[2022-04-24] MEDS: Fluticasone/Vilanterol 100/25 BLST.W.DEV 1 PUFF INHALE (07:36)
[2022-04-24 07:37] VITALS: PULSE 61; RESP 18; O2SAT 96
[2022-04-24 07:43] VITALS: BP 170/74; PULSE 51; RESP 18; TEMP 37.2; O2SAT 94
[2022-04-24 07:50] LABS: Anion Gap 14 (12-20); Blood Urea Nitrogen 34 mg/dL (9-16); Calcium 8.9 mg/dL (8.4-10.2); Carbon Dioxide 23 mmol/L (22-29); Chloride 110 mmol/L (96-108); Creatinine Clr Calc Pharmacy 23.9; Estimated Glomerular Filt Rate 42; Glucose Random 87 mg/dL (60-115); Potassium 4.3 mmol/L (3.3-5.1); Sodium 143 mmol/L (135-145)
[2022-04-24] MEDS: Sennosides/Docusate Sodium TABLET 2 TAB PO ×2 (09:03→21:22)
[2022-04-24] MEDS: hydrALAZINE HCl 10 MG TABLET PO ×3 (09:03→21:22)
[2022-04-24] MEDS: lisinopriL 20 MG TABLET PO (09:03)
[2022-04-24] MEDS: Propranolol HCL 20 MG TABLET PO ×2 (09:04→21:23)
[2022-04-24] MEDS: Topiramate 100 MG TABLET PO ×2 (09:04→21:23)
[2022-04-24] MEDS: PARoxetine HCL 40 MG TABLET PO (09:04)
[2022-04-24] MEDS: amLODIPine Besylate 10 MG TABLET PO (09:04)
[2022-04-24] MEDS: Buprenorphine/Naloxone 12/3 mg FILM 1 FILM SUBLINGUAL (09:04)
[2022-04-24 11:19] VITALS: PULSE 51; O2SAT 94
--- NOTE | 2022-04-24 11:55 | MHC.CLN ---
F/U DIET=REGULAR-APPROPRIATE. PO USUALLY 75-100%. PT RECEIVING MAGIC CUP TID. PROVIDES 870 KCALS, 27 G PROTEIN. STATED THAT EATS MAGIC CUP MORE THAN 50% OF THE TIME. CONTINUE TO PROVIDE. STATED THAT ORDERS FOODS THAT SHE KNOWS SHE WILL EAT. TYPICALLY ORDERS A HAMBURGER AND CHIPS AT LUNCH AND SUPPER. MONITOR PO INTAKE AND WEIGHTS. RD TO FOLLOW WEEKLY.
--- NOTE | 2022-04-24 14:08 | P.PNIM_ITS ---
Subjective Subjective Date of Service: 04/24/22 Interval History: Seen in follow up for recurrent UTI, metabolic encephalopathy Interval history: No complaints. Eating breakfast. No recurrent urinary symptoms. Awaiting placement. Tells me she has gained 6 pounds since admission, which she has been working on. Review of Systems Review of Systems: Yes all other systems are reviewed and are negative Physical Exam Vital Signs: Vital Signs: Last Vital Signs Temp 99.0 F 04/24/22 07:43 Pulse 51 04/24/22 11:19 Resp 18 04/24/22 07:43 BP 170/74 H 04/24/22 07:43 Pulse Ox 94 04/24/22 11:19 O2 Del Method 04/24/22 07:43 BMI result Body Mass Index 16.0 Constitutional - Awake and Alert, No apparent distress Eyes - PERRLA, EOMI Cardiovascular - S1S2, RRR, No edema Respiratory - Normal lung expansion, Normal respiratory effort, No respiratory distress, CTA bilaterally Extremities - no calf tenderness bilaterally, no swelling Skin - Warm/Dry Neurological - Alert & oriented x3 Psychological - Appropriate affect Objective Data Active Medications Acetaminophen (Acetaminophen 325 Mg Tablet) 650 mg PO Q6H PRN PRN Reason: Pain, Mild (Pain Scale 1-3) Amlodipine Besylate (Amlodipine Besylate 10 Mg Tablet) 10 mg PO DAILY [facility]; Protocol Last Admin: 04/24/22 09:04 Dose: 10 mg Documented By: JAQUI Buprenorphine/Naloxone (Buprenorphine/Naloxone 12/3 Mg Film) 1 film SUBLINGUAL DAILY [facility] Last Admin: 04/24/22 09:04 Dose: 1 film Documented By: JAQUI Fluticasone/Vilanterol (Fluticasone/Vilanterol 100/25 Blst.W.Dev) 1 puff INHALE RDAILY [facility] Last Admin: 04/24/22 07:36 Dose: 1 puff Documented By: TC Heparin Sodium (Porcine) (Heparin Sodium,Porcine 5,000 Unit/Ml Vial) 5,000 unit SUBCUT Q12H [facility] Last Admin: 04/24/22 05:52 Dose: 5,000 unit Documented By: GENARO Hydralazine HCl (Hydralazine Hcl 20 Mg/Ml Vial) 5 mg IVPUSH Q6H PRN; Protocol PRN Reason: SBP > 180 Last Admin: 03/31/22 23:50 Dose: 5 mg Documented By: ZULAY Hydralazine HCl (Hydralazine Hcl 10 Mg Tablet) 10 mg PO TID [facility]; Protocol Last Admin: 04/24/22 09:03 Dose: 10 mg Documented By: JAQUI Lisinopril (Lisinopril 20 Mg Tablet) 20 mg PO DAILY [facility]; Protocol Last Admin: 04/24/22 09:03 Dose: 20 mg Documented By: JAQUI Melatonin (Melatonin 3 Mg Tablet) 3 mg PO BEDTIME PRN PRN Reason: Insomnia Last Admin: 04/23/22 19:42 Dose: 3 mg Documented By: PHANI Ondansetron HCl (Ondansetron Hcl 4 Mg/2 Ml Vial) 4 mg IVPUSH Q8H PRN PRN Reason: Nausea and Vomiting Paroxetine HCl (Paroxetine Hcl 40 Mg Tablet) 40 mg PO DAILY [facility] Last Admin: 04/24/22 09:04 Dose: 40 mg Documented By: JAQUI Pharmacy Consult (Consult Rx Perform Med Rec) 1 each MISCELLANE ONCE PRN PRN Reason: Consult order Polyethylene Glycol (Polyethylene Glycol 3350 17 Gm Powd.Pack) 17 gm PO DAILY [facility] Last Admin: 04/24/22 09:05 Dose: Not Given Documented By: JAQUI Non-Admin Reason: Patient Refused Propranolol HCl (Propranolol Hcl 20 Mg Tablet) 20 mg PO BID [facility]; Protocol Last Admin: 04/24/22 09:04 Dose: 20 mg Documented By: JAQUI Senna/Docusate Sodium (Sennosides/Docusate Sodium Tablet) 2 tab PO BID [facility] Last Admin: 04/24/22 09:03 Dose: 2 tab Documented By: JAQUI Sodium Chloride (0.9 % Sodium Chloride Flush 3 Ml Syringe) 3 ml IVFLUSH QSHIFT [facility] Last Admin: 04/24/22 09:04 Dose: Not Given Documented By: JAQUI Non-Admin Reason: No Access Tiotropium [place] (Tiotropium [place] 18 Mcg Cap.W.Dev) 1 puff INHALE RDAILY [facility] Last Admin: 04/24/22 07:36 Dose: 1 puff Documented By: TC Topiramate (Topiramate 100 Mg Tablet) 100 mg PO BID [facility] Last Admin: 04/24/22 09:04 Dose: 100 mg Documented By: JAQUI Labs 04/13/22 05:49 04/24/22 06:07 Labs: Laboratory Results - last 24 hr 04/24/22 06:07 Anion Gap 14 Estim Creat Clear Calc 23.9 Estimated GFR 42 Random Glucose 87 Calcium 8.9 Assessment and Plan (1) Bilateral kidney stones: Status: Acute (2) Urinary incontinence: Status: Acute (3) Recurrent UTI: Status: Acute Plan 77yo F admitted with confusion due to encephalopathy due to UTI # toxic encephalopathy due to UTI - resolved # recurrent UTI - grew E coli, treated with ceftriaxone, completed 04/07/22 - Urology consulted: has bilateral nephrolithiasis without hydronephrosis.? no anticholinergics due to constipation.? outpt f/u. # constipation - resolved # COPD with no acute exacerbation - continue triple controller therapy # HTN - continue lisinopril, amlodipine, hydralazine, and propranolol # mood disorder - continue paroxetine, topiramate # opioid dependence - continue Suboxone # VTE ppx: UFH # dispo: LTC In my clinical judgment, the patient requires continued inpatient hospitalization for the following reasons: safe disposition planning Time Spent With Patient Time: Total time managing care of this patient today ____ minutes. Quality Stroke Does the patient have a stroke diagnosis?: No VTE Prior VTE?: No VTE Risk Level:: Medical - moderate - high VTE Device Contraindication: Treatment Not Indicated VTE Drug Contraindication: Treatment Not Indicated
--- NOTE | 2022-04-24 14:53 | MHC.CM.PN ---
NO BED OFFERS OF THIS NOTE. [facility] REFERRALS UPDATED WITH REQUEST FOR HOME SERVICES. PATIENT IS REPORTEDLY ON STRAIGHT MEDICARE TODAY, NO LONGER HUMAN MEDICARE
[2022-04-24 15:03] VITALS: BP 121/54; PULSE 55; RESP 18; TEMP 36.6; O2SAT 96
[2022-04-24 19:33] VITALS: BP 121/64; PULSE 128; RESP 18; TEMP 36.9; O2SAT 97
[2022-04-25 03:08] VITALS: BP 123/56; PULSE 58; RESP 15; TEMP 36.7; O2SAT 94
[2022-04-25] MEDS: Heparin Sodium,Porcine 5,000 UNIT/ML VIAL 5000 UNIT SUBCUT ×2 (05:57→18:13)
[2022-04-25 07:57] VITALS: BP 139/63; PULSE 58; RESP 16; TEMP 36.7; O2SAT 99
[2022-04-25 08:11] VITALS: PULSE 62; RESP 18; O2SAT 95
[2022-04-25] MEDS: Fluticasone/Vilanterol 100/25 BLST.W.DEV 1 PUFF INHALE (08:11)
[2022-04-25] MEDS: amLODIPine Besylate 10 MG TABLET PO (09:00)
[2022-04-25] MEDS: PARoxetine HCL 40 MG TABLET PO (09:00)
[2022-04-25] MEDS: Sennosides/Docusate Sodium TABLET 2 TAB PO ×2 (09:00→21:47)
[2022-04-25] MEDS: hydrALAZINE HCl 10 MG TABLET PO ×2 (09:00→15:24)
[2022-04-25] MEDS: lisinopriL 20 MG TABLET PO (09:00)
[2022-04-25] MEDS: Buprenorphine/Naloxone 12/3 mg FILM 1 FILM SUBLINGUAL (09:00)
[2022-04-25] MEDS: Topiramate 100 MG TABLET PO ×2 (09:01→21:47)
[2022-04-25] MEDS: Propranolol HCL 20 MG TABLET PO (09:01)
--- NOTE | 2022-04-25 12:12 | HO.PM.IMPN ---
Subjective Subjective Date of Service: 04/25/22 Interval History: seen and examined this morning follow up for placement awake, alert no specific complaints Review of Systems Review of Systems: Yes all other systems are reviewed and are negative Constitutional Constitutional: Denies chills and Denies fever(s) Cardiovascular Cardiovascular: Denies chest pain, Denies palpitations and Denies dyspnea Respiratory Respiratory: Denies cough and Denies dyspnea Gastrointestinal Gastrointestinal: Denies abdominal pain, Denies nausea and Denies vomiting Endocrine Endocrine: Denies palpitations Physical Exam Vital Signs: Vital Signs: Last Vital Signs Temp 98.1 F 04/25/22 07:57 Pulse 62 04/25/22 08:11 Resp 18 04/25/22 08:11 BP 139/63 04/25/22 07:57 Pulse Ox 99 04/25/22 07:57 O2 Del Method 04/25/22 07:57 BMI result Body Mass Index 16.0 Const: General: cooperative, comfortable, alert and awake Nutritional Appearance: thin Resp: Effort & Inspection: normal respiratory effort, able to speak in complete sentences, no respiratory distress and no use of accessory muscles Cardio: Rate: regular rate Heart sounds: S1 normal heart sound present and S2 normal heart sound present GI: Inspection: No distended Palpation (GI): Soft to palpation Extrem: General: Yes no pedal edema Objective Data Active Medications Acetaminophen (Acetaminophen 325 Mg Tablet) 650 mg PO Q6H PRN PRN Reason: Pain, Mild (Pain Scale 1-3) Amlodipine Besylate (Amlodipine Besylate 10 Mg Tablet) 10 mg PO DAILY [facility]; Protocol Last Admin: 04/25/22 09:00 Dose: 10 mg Documented By: OBINNA Buprenorphine/Naloxone (Buprenorphine/Naloxone 12/3 Mg Film) 1 film SUBLINGUAL DAILY [facility] Last Admin: 04/25/22 09:00 Dose: 1 film Documented By: OBINNA Fluticasone/Vilanterol (Fluticasone/Vilanterol 100/25 Blst.W.Dev) 1 puff INHALE RDAILY [facility] Last Admin: 04/25/22 08:11 Dose: 1 puff Documented By: DOMINIQUE Heparin Sodium (Porcine) (Heparin Sodium,Porcine 5,000 Unit/Ml Vial) 5,000 unit SUBCUT Q12H [facility] Last Admin: 04/25/22 05:57 Dose: 5,000 unit Documented By: JACLYN Hydralazine HCl (Hydralazine Hcl 20 Mg/Ml Vial) 5 mg IVPUSH Q6H PRN; Protocol PRN Reason: SBP > 180 Last Admin: 03/31/22 23:50 Dose: 5 mg Documented By: ZULAY Hydralazine HCl (Hydralazine Hcl 10 Mg Tablet) 10 mg PO TID [facility]; Protocol Last Admin: 04/25/22 09:00 Dose: 10 mg Documented By: OBINNA Lisinopril (Lisinopril 20 Mg Tablet) 20 mg PO DAILY [facility]; Protocol Last Admin: 04/25/22 09:00 Dose: 20 mg Documented By: OBINNA Melatonin (Melatonin 3 Mg Tablet) 3 mg PO BEDTIME PRN PRN Reason: Insomnia Last Admin: 04/23/22 19:42 Dose: 3 mg Documented By: PHANI Ondansetron HCl (Ondansetron Hcl 4 Mg/2 Ml Vial) 4 mg IVPUSH Q8H PRN PRN Reason: Nausea and Vomiting Paroxetine HCl (Paroxetine Hcl 40 Mg Tablet) 40 mg PO DAILY [facility] Last Admin: 04/25/22 09:00 Dose: 40 mg Documented By: OBINNA Pharmacy Consult (Consult Rx Perform Med Rec) 1 each MISCELLANE ONCE PRN PRN Reason: Consult order Polyethylene Glycol (Polyethylene Glycol 3350 17 Gm Powd.Pack) 17 gm PO DAILY [facility] Last Admin: 04/25/22 09:01 Dose: Not Given Documented By: OBINNA Non-Admin Reason: Patient Refused Propranolol HCl (Propranolol Hcl 20 Mg Tablet) 20 mg PO BID [facility]; Protocol Last Admin: 04/25/22 09:01 Dose: 20 mg Documented By: OBINNA Senna/Docusate Sodium (Sennosides/Docusate Sodium Tablet) 2 tab PO BID [facility] Last Admin: 04/25/22 09:00 Dose: 2 tab Documented By: OBINNA Sodium Chloride (0.9 % Sodium Chloride Flush 3 Ml Syringe) 3 ml IVFLUSH QSHIFT [facility] Last Admin: 04/25/22 09:01 Dose: Not Given Documented By: HO.N-NYANM Non-Admin Reason: No Access Tiotropium [place] (Tiotropium [place] 18 Mcg Cap.W.Dev) 1 puff INHALE RDAILY [facility] Last Admin: 04/25/22 08:11 Dose: 1 puff Documented By: DOMINIQUE Topiramate (Topiramate 100 Mg Tablet) 100 mg PO BID [facility] Last Admin: 04/25/22 09:01 Dose: 100 mg Documented By: OBINNA Labs 04/13/22 05:49 04/24/22 06:07 Assessment and Plan (1) Recurrent UTI: Status: Acute Plan 77yo F admitted with confusion due to encephalopathy due to UTI # toxic encephalopathy due to UTI - resolved # recurrent UTI - grew E coli, treated with ceftriaxone, completed 04/07/22 - Urology consulted: has bilateral nephrolithiasis without hydronephrosis.? no anticholinergics due to constipation.? outpt f/u. # constipation - resolved # COPD with no acute exacerbation - continue triple controller therapy # HTN - continue lisinopril, amlodipine, hydralazine, and propranolol # mood disorder - continue paroxetine, topiramate # opioid dependence - continue Suboxone VTE ppx: UFH dispo: PT rec STR attending - dr. phelps In my clinical judgment, the patient requires continued inpatient hospitalization for the following reasons: safe disposition planning Time Spent With Patient Time: Total time managing care of this patient today ____ minutes. Quality Stroke Does the patient have a stroke diagnosis?: No VTE Prior VTE?: No VTE Risk Level:: Medical - moderate - high VTE Device Contraindication: Treatment Not Indicated VTE Drug Contraindication: Treatment Not Indicated
--- NOTE | 2022-04-25 14:54 | MHC.CM.PN ---
Addendum entered by Mendy Salas RN 04/25/22 15:07: IMM 04/25 in chart DaughterKae [phone] is aware of tomorrow's DC plan to [facility] Original Note: [facility] IS OFFERING A BED FOR Friday04/26/22 PATIENT AND RN AWARE. T/W TO CONTACT FAMILY
[2022-04-25 15:29] VITALS: BP 148/63; PULSE 56; RESP 17; TEMP 36.6; O2SAT 97
[2022-04-25 19:43] VITALS: BP 119/59; PULSE 53; RESP 18; TEMP 36.7; O2SAT 99
[2022-04-26 04:00] VITALS: BP 131/60; PULSE 63; RESP 18; TEMP 36.9; O2SAT 96
[2022-04-26] MEDS: Heparin Sodium,Porcine 5,000 UNIT/ML VIAL 5000 UNIT SUBCUT ×2 (06:33→19:39)
[2022-04-26] MEDS: Fluticasone/Vilanterol 100/25 BLST.W.DEV 1 PUFF INHALE (07:24)
[2022-04-26 07:26] VITALS: PULSE 63; RESP 18; O2SAT 95
[2022-04-26 07:42] VITALS: BP 120/59; PULSE 65; RESP 16; TEMP 36.4; O2SAT 97
[2022-04-26] MEDS: Topiramate 100 MG TABLET PO ×2 (09:30→21:14)
[2022-04-26] MEDS: Buprenorphine/Naloxone 12/3 mg FILM 1 FILM SUBLINGUAL (09:30)
[2022-04-26] MEDS: lisinopriL 20 MG TABLET PO (09:30)
[2022-04-26] MEDS: PARoxetine HCL 40 MG TABLET PO (09:30)
[2022-04-26] MEDS: amLODIPine Besylate 10 MG TABLET PO (09:30)
[2022-04-26] MEDS: Propranolol HCL 20 MG TABLET PO ×2 (09:31→21:14)
[2022-04-26] MEDS: Sennosides/Docusate Sodium TABLET 2 TAB PO (09:31)
[2022-04-26] MEDS: hydrALAZINE HCl 10 MG TABLET PO ×3 (09:31→21:14)
[2022-04-26 11:03] VITALS: BP 120/59; PULSE 65; O2SAT 97
--- NOTE | 2022-04-26 11:07 | P.DS_ITS ---
DS: Providers Provider Date of Service: 04/26/22 Date of admission: 03/26/22 18:41 Date of discharge: 04/26/22 Primary care physician: Jaye Lim MD Consults: 04/08/22 10:28 Consult to Urology Routine Consulting Provider: [facility] Reason for consultation: recurrent UTI/incontinence Attending physician on discharge: Jairon Self Discharging clinician: Charla Ruiz DS: Diagnosis Discharge Diagnosis (1) Recurrent UTI: Status: Acute DS: Summary Hospital Course Hospital Course: From H&P on day of admission 71-year-old female? with unknown PMH history brought to the ED to be evaluated for confusion, detail are lacking and patient is confused and not able to offer any reliable history at this point, she tells me she lives with roomate RN states that her daughter has called several times? when I try calling the daughter Hope only go to answering machine. CT of head is negative, UA is grossely negative and given Ceftriaxone . toxic encephalopathy due to UTI. resolved recurrent UTI. grew E coli, was treated with ceftriaxone, completed 04/07/22. Urology consulted: has bilateral nephrolithiasis without hydronephrosis.?no anticholinergics due to constipation.? outpt f/u. seen by PT -rec STR and she will be trans[facility] condition. Time Spent with Patient Time attestation: Total time managing care of this patient today ____ minutes. Discharge coordination time: Greater than 30 minutes Quality: Stroke Does the patient have a stroke diagnosis?: No Physical Exam Vital Signs: Vital Signs: Last Vital Signs Temp 97.5 F 04/26/22 07:42 Pulse 65 04/26/22 11:03 Resp 16 04/26/22 07:42 BP 120/59 L 04/26/22 11:03 Pulse Ox 97 04/26/22 11:03 O2 Del Method 04/26/22 07:42 BMI result Body Mass Index 16.0 Const: General: cooperative, comfortable, alert and awake Nutritional Appearance: thin Resp: Effort & Inspection: normal respiratory effort, able to speak in complete sentences, no respiratory distress and no use of accessory muscles Cardio: Rate: regular rate Heart sounds: S1 normal heart sound present and S2 normal heart sound present GI: Inspection: No distended Palpation (GI): Soft to palpation Extrem: General: Yes no pedal edema Discharge Plan Discharge Anticipated Discharge Date/Time: 04/26/22 13:00 Patient Disposition: Xfer SNF Discharge Diagnosis: Encephalopathy UTI Referrals: Milton Curry MD [Physician] - 1 Week Jaye Lim MD [Primary Care Provider] - 1 Week Discharge Medications: New hydralazine 10 mg Tablet 10 mg PO TID 30 Days Qty: 90 0RF Protocol: Hold for SBP< HOLD for SBP < : 90 lisinopril 20 mg Tablet 20 mg PO DAILY 30 Days Qty: 30 0RF Protocol: Hold for SBP< HOLD for SBP < : 90 propranolol 20 mg Tablet 20 mg PO BID 30 Days Qty: 60 0RF Protocol: Hold for SBP/HR < HOLD for SBP < : 90 HOLD for HR < : 60 amlodipine 10 mg Tablet 10 mg PO DAILY Qty: 30 0RF Protocol: Hold for SBP< HOLD for SBP < : 90 Continued paroxetine HCl 40 mg tablet 40 mg PO DAILY topiramate 100 mg tablet 100 mg PO BID buprenorphine-naloxone 12-3 mg film 1 film sublingual DAILY Trelegy Ellipta 100-62.5-25 mcg blister with device 1 inh INHALATION DAILY Combivent Respimat 20-100 mcg/actuation Mist 1 puff INHALATION QID Rx Instructions: space evenly during waking hours naloxone [Narcan] 4 mg/actuation [place],Non-Aerosol 4 mg INTRANASAL Q24H PRN (Reason: Opiate Reversal) Rx Instructions: spray 1 dose into ONE nostril; alternate nostrils w each dose until help arrives Discontinued bupropion HCl 150 mg tablet sustained-release 12 hr 150 mg PO DAILY propranolol 20 mg tablet 20 mg PO TID PRN (Reason: Anxiety) Activity on Discharge: As tolerated Stand Alone Forms: Patient Portal Discharge page Care Plan Goals: see below Health Concerns: encephalopathy recurrent UTI HTN Plan of Treatment: encephalopathy resolved call to schedule follow up with urology take all medications as prescribed Assessment: see discharge summary
[2022-04-26 14:53] LABS: COVID-19 Test Negative (Negative); IDNOW Serial# 16C4AD1C
--- NOTE | 2022-04-26 14:54 | P.PNIM_ITS ---
Subjective Subjective Date of Service: 04/26/22 Interval History: seen and examined this morning follow up for placement no overnight events no specific complaints this morning Review of Systems Review of Systems: Yes all other systems are reviewed and are negative Constitutional Constitutional: Denies chills and Denies fever(s) Cardiovascular Cardiovascular: Denies chest pain, Denies palpitations and Denies dyspnea Respiratory Respiratory: Denies cough and Denies dyspnea Gastrointestinal Gastrointestinal: Denies abdominal pain, Denies nausea and Denies vomiting Endocrine Endocrine: Denies palpitations Physical Exam Vital Signs: Vital Signs: Last Vital Signs Temp 97.5 F 04/26/22 07:42 Pulse 65 04/26/22 11:03 Resp 16 04/26/22 07:42 BP 120/59 L 04/26/22 11:03 Pulse Ox 97 04/26/22 11:03 O2 Del Method 04/26/22 07:42 BMI result Body Mass Index 16.0 Const: General: cooperative, comfortable, alert and awake Nutritional Appearance: thin Resp: Effort & Inspection: normal respiratory effort, able to speak in complete sentences, no respiratory distress and no use of accessory muscles Cardio: Rate: regular rate Heart sounds: S1 normal heart sound present and S2 normal heart sound present GI: Inspection: No distended Palpation (GI): Soft to palpation Extrem: General: Yes no pedal edema Objective Data Active Medications Acetaminophen (Acetaminophen 325 Mg Tablet) 650 mg PO Q6H PRN PRN Reason: Pain, Mild (Pain Scale 1-3) Amlodipine Besylate (Amlodipine Besylate 10 Mg Tablet) 10 mg PO DAILY [facility]; Protocol Last Admin: 04/26/22 09:30 Dose: 10 mg Documented By: CHRISTY Buprenorphine/Naloxone (Buprenorphine/Naloxone 12/3 Mg Film) 1 film SUBLINGUAL DAILY [facility] Last Admin: 04/26/22 09:30 Dose: 1 film Documented By: CHRISTY Fluticasone/Vilanterol (Fluticasone/Vilanterol 100/25 Blst.W.Dev) 1 puff INHALE RDAILY [facility] Last Admin: 04/26/22 07:24 Dose: 1 puff Documented By: DOMINIQUE Heparin Sodium (Porcine) (Heparin Sodium,Porcine 5,000 Unit/Ml Vial) 5,000 unit SUBCUT Q12H [facility] Last Admin: 04/26/22 06:33 Dose: 5,000 unit Documented By: BO Hydralazine HCl (Hydralazine Hcl 20 Mg/Ml Vial) 5 mg IVPUSH Q6H PRN; Protocol PRN Reason: SBP > 180 Last Admin: 03/31/22 23:50 Dose: 5 mg Documented By: LAY-SUSANNE Hydralazine HCl (Hydralazine Hcl 10 Mg Tablet) 10 mg PO TID [facility]; Protocol Last Admin: 04/26/22 09:31 Dose: 10 mg Documented By: CHRISTY Lisinopril (Lisinopril 20 Mg Tablet) 20 mg PO DAILY [facility]; Protocol Last Admin: 04/26/22 09:30 Dose: 20 mg Documented By: CHRISTY Melatonin (Melatonin 3 Mg Tablet) 3 mg PO BEDTIME PRN PRN Reason: Insomnia Last Admin: 04/23/22 19:42 Dose: 3 mg Documented By: PHANI Ondansetron HCl (Ondansetron Hcl 4 Mg/2 Ml Vial) 4 mg IVPUSH Q8H PRN PRN Reason: Nausea and Vomiting Paroxetine HCl (Paroxetine Hcl 40 Mg Tablet) 40 mg PO DAILY [facility] Last Admin: 04/26/22 09:30 Dose: 40 mg Documented By: CHRISTY Pharmacy Consult (Consult Rx Perform Med Rec) 1 each MISCELLANE ONCE PRN PRN Reason: Consult order Polyethylene Glycol (Polyethylene Glycol 3350 17 Gm Powd.Pack) 17 gm PO DAILY [facility] Last Admin: 04/26/22 13:38 Dose: Not Given Documented By: CHRISTY Non-Admin Reason: Patient Refused Propranolol HCl (Propranolol Hcl 20 Mg Tablet) 20 mg PO BID [facility]; Protocol Last Admin: 04/26/22 09:31 Dose: 20 mg Documented By: CHRISTY Senna/Docusate Sodium (Sennosides/Docusate Sodium Tablet) 2 tab PO BID [facility] Last Admin: 04/26/22 09:31 Dose: 2 tab Documented By: CHRISTY Sodium Chloride (0.9 % Sodium Chloride Flush 3 Ml Syringe) 3 ml IVFLUSH QSHIFT [facility] Last Admin: 04/26/22 09:35 Dose: Not Given Documented By: CHRISTY Non-Admin Reason: No Access Tiotropium [place] (Tiotropium [place] 18 Mcg Cap.W.Dev) 1 puff INHALE RDAILY [facility] Last Admin: 04/26/22 07:24 Dose: 1 puff Documented By: GREGGC Topiramate (Topiramate 100 Mg Tablet) 100 mg PO BID [facility] Last Admin: 04/26/22 09:30 Dose: 100 mg Documented By: CHRISTY Labs 04/13/22 05:49 04/24/22 06:07 Labs: Laboratory Results - last 24 hr 04/26/22 02:15 COVID-19 ([facility]) Negative COVID-19 Clin Com See Note Assessment and Plan (1) Recurrent UTI: Status: Acute Plan 77yo F admitted with confusion due to encephalopathy due to UTI # toxic encephalopathy due to UTI - resolved # recurrent UTI - grew E coli, treated with ceftriaxone, completed 04/07/22 - Urology consulted: has bilateral nephrolithiasis without hydronephrosis.? no anticholinergics due to constipation.? outpt f/u. # constipation - resolved # COPD with no acute exacerbation - continue triple controller therapy # HTN - continue lisinopril, amlodipine, hydralazine, and propranolol # mood disorder - continue paroxetine, topiramate # opioid dependence - continue Suboxone VTE ppx: UFH dispo: PT rec STR attending - dr. phelps In my clinical judgment, the patient requires continued inpatient hospitalization for the following reasons: plan to d/c to [facility] possibly to [place] Time Spent With Patient Time: Total time managing care of this patient today ____ minutes. Quality Stroke Does the patient have a stroke diagnosis?: No VTE Prior VTE?: No VTE Risk Level:: Medical - moderate - high VTE Device Contraindication: Treatment Not Indicated VTE Drug Contraindication: Treatment Not Indicated
--- NOTE | 2022-04-26 15:08 | MHC.CM.PN ---
[facility] APPLICATION UPLOADED INTO [employer] (2 DIFFERENT UPLOADS) [facility] NEEDS FOR BUSINESS OFFICE. PROVIDER, PATIENT, AND RN AWARE NOW MAY BE FRIDAY TRANSFER CM FOLLOWING
[2022-04-26 15:17] VITALS: BP 129/58; PULSE 54; RESP 18; TEMP 36.7; O2SAT 98
--- NOTE | 2022-04-26 15:56 | MHC.CM.PN ---
[facility] NOW HAS COMPLETE [employer] APPLICATION AND FIVE YEARS OF BANK STATEMENTS PER REQUEST. FACILITY IS OFFERING A BED BUT NEEDS THIS IN THE EVENT PATIENT DOES WANT TO TRANSITION TO LTC. BED MAY NOW NOT BE OFFERED UNTIL Friday04/29/22 PATIENT, RN, HOSPITALIST, AND HCP/DAUGHTER FABIOLA [phone] AWARE
[2022-04-26 20:00] VITALS: BP 104/51; PULSE 65; RESP 17; TEMP 36.6; O2SAT 96
[2022-04-27 03:24] VITALS: RESP 20
[2022-04-27] MEDS: Heparin Sodium,Porcine 5,000 UNIT/ML VIAL 5000 UNIT SUBCUT ×2 (06:55→17:47)
[2022-04-27 08:00] VITALS: BP 147/67; PULSE 56; RESP 18; TEMP 36.3; O2SAT 96
[2022-04-27] MEDS: Fluticasone/Vilanterol 100/25 BLST.W.DEV 1 PUFF INHALE (08:28)
[2022-04-27 08:29] VITALS: PULSE 61; RESP 16; O2SAT 96
[2022-04-27] MEDS: Buprenorphine/Naloxone 12/3 mg FILM 1 FILM SUBLINGUAL (09:10)
[2022-04-27] MEDS: hydrALAZINE HCl 10 MG TABLET PO ×3 (09:10→20:05)
[2022-04-27] MEDS: PARoxetine HCL 40 MG TABLET PO (09:10)
[2022-04-27] MEDS: Topiramate 100 MG TABLET PO ×2 (09:11→20:05)
[2022-04-27] MEDS: Propranolol HCL 20 MG TABLET PO ×2 (09:11→20:04)
[2022-04-27] MEDS: Sennosides/Docusate Sodium TABLET 2 TAB PO (09:11)
[2022-04-27] MEDS: amLODIPine Besylate 10 MG TABLET PO (09:11)
[2022-04-27] MEDS: lisinopriL 20 MG TABLET PO (09:11)
--- NOTE | 2022-04-27 11:01 | HO.PM.IMPN ---
Subjective Subjective Date of Service: 04/27/22 Interval History: seen and examined this morning follow up for placement no overnight events no specific complaints this morning Review of Systems Review of Systems: Yes all other systems are reviewed and are negative Constitutional Constitutional: Denies chills and Denies fever(s) Cardiovascular Cardiovascular: Denies chest pain, Denies palpitations and Denies dyspnea Respiratory Respiratory: Denies cough and Denies dyspnea Gastrointestinal Gastrointestinal: Denies abdominal pain, Denies nausea and Denies vomiting Endocrine Endocrine: Denies palpitations Physical Exam Vital Signs: Vital Signs: Last Vital Signs Temp 97.4 F 04/27/22 08:00 Pulse 61 04/27/22 08:29 Resp 16 04/27/22 08:29 BP 147/67 H 04/27/22 08:00 Pulse Ox 96 04/27/22 08:00 O2 Del Method 04/27/22 08:00 BMI result Body Mass Index 16.0 Appearing in no acute distress heart regular rate rhythm, clear S1, S2 positive bowel sounds, abdomen is soft, nontender neuro patient is alert x3, no focal deficits Objective Data Active Medications Acetaminophen (Acetaminophen 325 Mg Tablet) 650 mg PO Q6H PRN PRN Reason: Pain, Mild (Pain Scale 1-3) Amlodipine Besylate (Amlodipine Besylate 10 Mg Tablet) 10 mg PO DAILY [facility]; Protocol Last Admin: 04/27/22 09:11 Dose: 10 mg Documented By: FEMI Buprenorphine/Naloxone (Buprenorphine/Naloxone 12/3 Mg Film) 1 film SUBLINGUAL DAILY [facility] Last Admin: 04/27/22 09:10 Dose: 1 film Documented By: FEMI Fluticasone/Vilanterol (Fluticasone/Vilanterol 100/25 Blst.W.Dev) 1 puff INHALE RDAILY [facility] Last Admin: 04/27/22 08:28 Dose: 1 puff Documented By: ADRIANE Heparin Sodium (Porcine) (Heparin Sodium,Porcine 5,000 Unit/Ml Vial) 5,000 unit SUBCUT Q12H [facility] Last Admin: 04/27/22 06:55 Dose: 5,000 unit Documented By: ERASMO Hydralazine HCl (Hydralazine Hcl 20 Mg/Ml Vial) 5 mg IVPUSH Q6H PRN; Protocol PRN Reason: SBP > 180 Last Admin: 03/31/22 23:50 Dose: 5 mg Documented By: ZULAY Hydralazine HCl (Hydralazine Hcl 10 Mg Tablet) 10 mg PO TID [facility]; Protocol Last Admin: 04/27/22 09:10 Dose: 10 mg Documented By: FEMI Lisinopril (Lisinopril 20 Mg Tablet) 20 mg PO DAILY [facility]; Protocol Last Admin: 04/27/22 09:11 Dose: 20 mg Documented By: FEMI Melatonin (Melatonin 3 Mg Tablet) 3 mg PO BEDTIME PRN PRN Reason: Insomnia Last Admin: 04/23/22 19:42 Dose: 3 mg Documented By: PHANI Ondansetron HCl (Ondansetron Hcl 4 Mg/2 Ml Vial) 4 mg IVPUSH Q8H PRN PRN Reason: Nausea and Vomiting Paroxetine HCl (Paroxetine Hcl 40 Mg Tablet) 40 mg PO DAILY [facility] Last Admin: 04/27/22 09:10 Dose: 40 mg Documented By: FEMI Pharmacy Consult (Consult Rx Perform Med Rec) 1 each MISCELLANE ONCE PRN PRN Reason: Consult order Polyethylene Glycol (Polyethylene Glycol 3350 17 Gm Powd.Pack) 17 gm PO DAILY [facility] Last Admin: 04/27/22 09:11 Dose: Not Given Documented By: FEMI Non-Admin Reason: Patient Refused Propranolol HCl (Propranolol Hcl 20 Mg Tablet) 20 mg PO BID [facility]; Protocol Last Admin: 04/27/22 09:11 Dose: 20 mg Documented By: FEMI Senna/Docusate Sodium (Sennosides/Docusate Sodium Tablet) 2 tab PO BID [facility] Last Admin: 04/27/22 09:11 Dose: 2 tab Documented By: FEMI Sodium Chloride (0.9 % Sodium Chloride Flush 3 Ml Syringe) 3 ml IVFLUSH QSHIFT [facility] Last Admin: 04/27/22 07:28 Dose: Not Given Documented By: FEMI Non-Admin Reason: No Access Tiotropium [place] (Tiotropium [place] 18 Mcg Cap.W.Dev) 1 puff INHALE RDAILY [facility] Last Admin: 04/27/22 08:28 Dose: 1 puff Documented By: ADRIANE Topiramate (Topiramate 100 Mg Tablet) 100 mg PO BID [facility] Last Admin: 04/27/22 09:11 Dose: 100 mg Documented By: FEMI Labs 04/13/22 05:49 04/24/22 06:07 Labs: Laboratory Results - last 24 hr 04/26/22 02:15 COVID-19 ([facility]) Negative COVID-19 Clin Com See Note Assessment and Plan (1) Recurrent UTI: Status: Acute Plan 77yo F admitted with confusion due to encephalopathy due to UTI toxic encephalopathy due to UTI resolved recurrent UTI grew E coli, treated with ceftriaxone, completed 04/07/22 Urology consulted: has bilateral nephrolithiasis without hydronephrosis.? no anticholinergics due to constipation.? outpt f/u. constipation resolved COPD with no acute exacerbation continue triple controller therapy HTN continue lisinopril, amlodipine, hydralazine, and propranolol mood disorder continue paroxetine, topiramate opioid dependence continue Suboxone VTE ppx: UFH dispo: PT rec STR attending - dr. Bagley DISPO possible dc to [facility] when bed available In my clinical judgment, the patient requires continued inpatient hospitalization for the following reasons: plan to d/c to [facility] possibly tomorrow Time Spent With Patient Time: Total time managing care of this patient today ____ minutes. Quality Stroke Does the patient have a stroke diagnosis?: No VTE Prior VTE?: No VTE Risk Level:: Medical - moderate - high VTE Device Contraindication: Treatment Not Indicated VTE Drug Contraindication: Treatment Not Indicated
--- NOTE | 2022-04-27 15:21 | PC.NURSE ---
pt refusing bed alarm, red socks, camera in room, and chair alarm. Educated on fall preventions and how these interventions help promote safety. Pt still refusing.
[2022-04-27 15:34] VITALS: BP 138/71; PULSE 62; RESP 18; TEMP 36.8; O2SAT 100
[2022-04-27 20:02] VITALS: BP 136/65; PULSE 70; RESP 18; TEMP 36.5; O2SAT 98
[2022-04-28 03:44] VITALS: BP 140/91; PULSE 70; RESP 18; TEMP 37.1; O2SAT 94
[2022-04-28] MEDS: Heparin Sodium,Porcine 5,000 UNIT/ML VIAL 5000 UNIT SUBCUT ×2 (06:06→18:50)
[2022-04-28 07:26] LABS: MANUAL DIFF FLAG NO
[2022-04-28 07:47] LABS: Imm Gran Abs Auto 0.02 X10*3/uL (0.00-0.03); Imm Gran Pct Auto 0.4 % (0.0-0.4); Mean Corpuscular Volume 90.9 fL (80.0-98.0); PLT CLUMP 1; SCAN SMEAR FLAG 1
[2022-04-28 07:49] LABS: Basophils Percent Auto 0.2 % (0-2); Eosinophils Percent Auto 0.4 % (0-4); Hematocrit 32.8 % (37.0-47.0); Hemoglobin 10.7 g/dl (12.0-16.0); Lymphocytes Absolute Auto 1.5 X10*3/uL (1.2-4.9); Lymphocytes Percent Auto 32.6 % (20-40); Mean Corpuscular HGB Conc 32.6 g/dl (31.0-35.0); Mean Corpuscular Hemoglobin 29.6 pg (27.0-33.0); Monocytes Absolute Auto 0.4 X10*3/uL (0.1-1.2); Monocytes Percent Auto 8.1 % (2-11); Neutrophils Absolute Auto 2.8 x10*3/uL (2.0-8.3); Neutrophils Percent Auto 58.3 % (45-73); Red Blood Count 3.61 X10*6/uL (4.20-5.50); Red Cell Distribution Width 15.1 % (11.0-16.0)
[2022-04-28 07:51] LABS: Platelet Count 122 X10*3/uL (160-400); White Blood Count 4.7 X10*3/uL (4.8-10.8)
[2022-04-28 08:00] VITALS: BP 147/68; PULSE 59; RESP 18; TEMP 36.7; O2SAT 97
[2022-04-28] MEDS: Fluticasone/Vilanterol 100/25 BLST.W.DEV 1 PUFF INHALE (08:25)
[2022-04-28 08:27] VITALS: PULSE 70; RESP 18; O2SAT 94
[2022-04-28 08:39] LABS: Anion Gap 14 (12-20); Blood Urea Nitrogen 27 mg/dL (9-16); Calcium 9.1 mg/dL (8.4-10.2); Carbon Dioxide 22 mmol/L (22-29); Chloride 109 mmol/L (96-108); Creatinine Clr Calc Pharmacy 26.9; Estimated Glomerular Filt Rate 48; Glucose Random 93 mg/dL (60-115); Potassium 4.3 mmol/L (3.3-5.1); Sodium 141 mmol/L (135-145)
[2022-04-28] MEDS: PARoxetine HCL 40 MG TABLET PO (08:55)
[2022-04-28] MEDS: Sennosides/Docusate Sodium TABLET 2 TAB PO (08:55)
[2022-04-28] MEDS: lisinopriL 20 MG TABLET PO (08:55)
[2022-04-28] MEDS: Topiramate 100 MG TABLET PO ×2 (08:55→20:49)
[2022-04-28] MEDS: Buprenorphine/Naloxone 12/3 mg FILM 1 FILM SUBLINGUAL (08:55)
[2022-04-28] MEDS: amLODIPine Besylate 10 MG TABLET PO (08:55)
[2022-04-28] MEDS: hydrALAZINE HCl 10 MG TABLET PO ×3 (08:55→20:49)
[2022-04-28] MEDS: Propranolol HCL 20 MG TABLET PO ×2 (08:55→20:49)
--- NOTE | 2022-04-28 09:20 | HO.PM.IMPN ---
Subjective Subjective Date of Service: 04/28/22 Interval History: seen and examined this morning follow up for placement no overnight events no specific complaints this morning Review of Systems Review of Systems: Yes all other systems are reviewed and are negative Constitutional Constitutional: Denies chills and Denies fever(s) Cardiovascular Cardiovascular: Denies chest pain, Denies palpitations and Denies dyspnea Respiratory Respiratory: Denies cough and Denies dyspnea Gastrointestinal Gastrointestinal: Denies abdominal pain, Denies nausea and Denies vomiting Endocrine Endocrine: Denies palpitations Physical Exam Vital Signs: Vital Signs: Last Vital Signs Temp 98.1 F 04/28/22 08:00 Pulse 70 04/28/22 08:27 Resp 18 04/28/22 08:27 BP 147/68 H 04/28/22 08:00 Pulse Ox 97 04/28/22 08:00 O2 Del Method 04/28/22 08:00 BMI result Body Mass Index 16.0 Appearing in no acute distress lung sounds are clear to auscultation heart regular rate rhythm, clear S1, S2 positive bowel sounds, abdomen is soft, nontender neuro patient is alert x3, no focal deficits Objective Data Active Medications Acetaminophen (Acetaminophen 325 Mg Tablet) 650 mg PO Q6H PRN PRN Reason: Pain, Mild (Pain Scale 1-3) Amlodipine Besylate (Amlodipine Besylate 10 Mg Tablet) 10 mg PO DAILY [facility]; Protocol Last Admin: 04/28/22 08:55 Dose: 10 mg Documented By: FEMI Buprenorphine/Naloxone (Buprenorphine/Naloxone 12/3 Mg Film) 1 film SUBLINGUAL DAILY [facility] Last Admin: 04/28/22 08:55 Dose: 1 film Documented By: FEMI Fluticasone/Vilanterol (Fluticasone/Vilanterol 100/25 Blst.W.Dev) 1 puff INHALE RDAILY [facility] Last Admin: 04/28/22 08:25 Dose: 1 puff Documented By: ADRIANE Heparin Sodium (Porcine) (Heparin Sodium,Porcine 5,000 Unit/Ml Vial) 5,000 unit SUBCUT Q12H [facility] Last Admin: 04/28/22 06:06 Dose: 5,000 unit Documented By: ERASMO Hydralazine HCl (Hydralazine Hcl 20 Mg/Ml Vial) 5 mg IVPUSH Q6H PRN; Protocol PRN Reason: SBP > 180 Last Admin: 03/31/22 23:50 Dose: 5 mg Documented By: ZULAY Hydralazine HCl (Hydralazine Hcl 10 Mg Tablet) 10 mg PO TID [facility]; Protocol Last Admin: 04/28/22 08:55 Dose: 10 mg Documented By: FEMI Lisinopril (Lisinopril 20 Mg Tablet) 20 mg PO DAILY [facility]; Protocol Last Admin: 04/28/22 08:55 Dose: 20 mg Documented By: FEMI Melatonin (Melatonin 3 Mg Tablet) 3 mg PO BEDTIME PRN PRN Reason: Insomnia Last Admin: 04/23/22 19:42 Dose: 3 mg Documented By: PHANI Ondansetron HCl (Ondansetron Hcl 4 Mg/2 Ml Vial) 4 mg IVPUSH Q8H PRN PRN Reason: Nausea and Vomiting Paroxetine HCl (Paroxetine Hcl 40 Mg Tablet) 40 mg PO DAILY [facility] Last Admin: 04/28/22 08:55 Dose: 40 mg Documented By: FEMI Pharmacy Consult (Consult Rx Perform Med Rec) 1 each MISCELLANE ONCE PRN PRN Reason: Consult order Polyethylene Glycol (Polyethylene Glycol 3350 17 Gm Powd.Pack) 17 gm PO DAILY [facility] Last Admin: 04/28/22 08:58 Dose: Not Given Documented By: FEMI Non-Admin Reason: Patient Refused Propranolol HCl (Propranolol Hcl 20 Mg Tablet) 20 mg PO BID [facility]; Protocol Last Admin: 04/28/22 08:55 Dose: 20 mg Documented By: FEMI Senna/Docusate Sodium (Sennosides/Docusate Sodium Tablet) 2 tab PO BID [facility] Last Admin: 04/28/22 08:55 Dose: 2 tab Documented By: FEMI Sodium Chloride (0.9 % Sodium Chloride Flush 3 Ml Syringe) 3 ml IVFLUSH QSHIFT [facility] Last Admin: 04/28/22 07:07 Dose: Not Given Documented By: FEMI Non-Admin Reason: No Access Tiotropium [place] (Tiotropium [place] 18 Mcg Cap.W.Dev) 1 puff INHALE RDAILY [facility] Last Admin: 04/28/22 08:25 Dose: 1 puff Documented By: ADRIANE Topiramate (Topiramate 100 Mg Tablet) 100 mg PO BID [facility] Last Admin: 04/28/22 08:55 Dose: 100 mg Documented By: FEMI Labs 04/28/22 06:01 04/28/22 06:01 Labs: Laboratory Results - last 24 hr 04/28/22 04/28/22 06:01 06:01 MCV 90.9 MCH 29.6 MCHC 32.6 RDW 15.1 Plt Count 122 L D MPV 11.0 Immature Gran % (Auto) 0.4 Neut % (Auto) 58.3 Lymph % (Auto) 32.6 [place] % (Auto) 8.1 Eos % (Auto) 0.4 Baso % (Auto) 0.2 Lymph # (Auto) 1.5 [place] # (Auto) 0.4 Eos # (Auto) 0.0 Baso # (Auto) 0.0 Abs Immat Gran (auto) 0.02 Absolute Neuts (auto) 2.8 Absolute Nucleated RBC 0.000 Nucleated RBC % (auto) 0.0 Anion Gap 14 Estim Creat Clear Calc 26.9 Estimated GFR 48 Random Glucose 93 Calcium 9.1 Assessment and Plan (1) Recurrent UTI: Status: Acute Plan 77yo F admitted with confusion due to encephalopathy due to UTI toxic encephalopathy due to UTI resolved recurrent UTI grew E coli, treated with ceftriaxone, completed 04/07/22 Urology consulted: has bilateral nephrolithiasis without hydronephrosis.? no anticholinergics due to constipation.? outpt f/u. constipation resolved COPD with no acute exacerbation continue triple controller therapy HTN continue lisinopril, amlodipine, hydralazine, and propranolol mood disorder continue paroxetine, topiramate opioid dependence continue Suboxone VTE ppx: UFH dispo: PT rec STR attending - dr. Bagley DISPO possible dc to [facility] when bed available In my clinical judgment, the patient requires continued inpatient hospitalization for the following reasons: plan to d/c to [facility] possibly tomorrow Time Spent With Patient Time: Total time managing care of this patient today ____ minutes. Quality Stroke Does the patient have a stroke diagnosis?: No VTE Prior VTE?: No VTE Risk Level:: Medical - moderate - high VTE Device Contraindication: Treatment Not Indicated VTE Drug Contraindication: Treatment Not Indicated
[2022-04-28 15:59] VITALS: BP 119/56; PULSE 63; RESP 16; TEMP 36.8; O2SAT 96
[2022-04-28 20:04] VITALS: BP 110/58; PULSE 60; RESP 18; TEMP 36.9; O2SAT 95
[2022-04-28] MEDS: 0.9 % Sodium Chloride Flush 3 ML SYRINGE IVFLUSH (20:49)
[2022-04-29 03:00] VITALS: BP 132/60; PULSE 75; RESP 17; TEMP 36.4; O2SAT 97
[2022-04-29] MEDS: Heparin Sodium,Porcine 5,000 UNIT/ML VIAL 5000 UNIT SUBCUT ×2 (06:26→18:18)
[2022-04-29 08:00] VITALS: BP 145/92; PULSE 56; RESP 16; TEMP 36.9; O2SAT 98
[2022-04-29] MEDS: Fluticasone/Vilanterol 100/25 BLST.W.DEV 1 PUFF INHALE (08:06)
[2022-04-29 08:07] VITALS: PULSE 64; RESP 18; O2SAT 95
[2022-04-29] MEDS: Sennosides/Docusate Sodium TABLET 2 TAB PO (08:46)
[2022-04-29] MEDS: amLODIPine Besylate 10 MG TABLET PO (08:47)
[2022-04-29] MEDS: hydrALAZINE HCl 10 MG TABLET PO ×3 (08:47→20:29)
[2022-04-29] MEDS: Propranolol HCL 20 MG TABLET PO ×2 (08:47→20:29)
[2022-04-29] MEDS: Topiramate 100 MG TABLET PO ×2 (08:47→20:29)
[2022-04-29] MEDS: lisinopriL 20 MG TABLET PO (08:47)
[2022-04-29] MEDS: Buprenorphine/Naloxone 12/3 mg FILM 1 FILM SUBLINGUAL (08:47)
[2022-04-29] MEDS: PARoxetine HCL 40 MG TABLET PO (08:47)
--- NOTE | 2022-04-29 13:22 | HO.PM.IMPN ---
Subjective Subjective Date of Service: 04/29/22 Interval History: seen and examined this morning follow up for placement no overnight events no specific complaints this morning Review of Systems Review of Systems: Yes all other systems are reviewed and are negative Constitutional Constitutional: Denies chills and Denies fever(s) Cardiovascular Cardiovascular: Denies chest pain, Denies palpitations and Denies dyspnea Respiratory Respiratory: Denies cough and Denies dyspnea Gastrointestinal Gastrointestinal: Denies abdominal pain, Denies nausea and Denies vomiting Endocrine Endocrine: Denies palpitations Physical Exam Vital Signs: Vital Signs: Last Vital Signs Temp 98.5 F 04/29/22 08:00 Pulse 64 04/29/22 08:07 Resp 18 04/29/22 08:07 BP 145/92 H 04/29/22 08:00 Pulse Ox 98 04/29/22 08:00 O2 Del Method 04/29/22 08:00 BMI result Body Mass Index 16.0 Objective Data Active Medications Acetaminophen (Acetaminophen 325 Mg Tablet) 650 mg PO Q6H PRN PRN Reason: Pain, Mild (Pain Scale 1-3) Amlodipine Besylate (Amlodipine Besylate 10 Mg Tablet) 10 mg PO DAILY [facility]; Protocol Last Admin: 04/29/22 08:47 Dose: 10 mg Documented By: JADA Buprenorphine/Naloxone (Buprenorphine/Naloxone 12/3 Mg Film) 1 film SUBLINGUAL DAILY [facility] Last Admin: 04/29/22 08:47 Dose: 1 film Documented By: COTEMA Fluticasone/Vilanterol (Fluticasone/Vilanterol 100/25 Blst.W.Dev) 1 puff INHALE RDAILY [facility] Last Admin: 04/29/22 08:06 Dose: 1 puff Documented By: TC Heparin Sodium (Porcine) (Heparin Sodium,Porcine 5,000 Unit/Ml Vial) 5,000 unit SUBCUT Q12H [facility] Last Admin: 04/29/22 06:26 Dose: 5,000 unit Documented By: TAVO Hydralazine HCl (Hydralazine Hcl 20 Mg/Ml Vial) 5 mg IVPUSH Q6H PRN; Protocol PRN Reason: SBP > 180 Last Admin: 03/31/22 23:50 Dose: 5 mg Documented By: ZULAY Hydralazine HCl (Hydralazine Hcl 10 Mg Tablet) 10 mg PO TID [facility]; Protocol Last Admin: 04/29/22 08:47 Dose: 10 mg Documented By: JADA Lisinopril (Lisinopril 20 Mg Tablet) 20 mg PO DAILY [facility]; Protocol Last Admin: 04/29/22 08:47 Dose: 20 mg Documented By: JADA Melatonin (Melatonin 3 Mg Tablet) 3 mg PO BEDTIME PRN PRN Reason: Insomnia Last Admin: 04/23/22 19:42 Dose: 3 mg Documented By: PHANI Ondansetron HCl (Ondansetron Hcl 4 Mg/2 Ml Vial) 4 mg IVPUSH Q8H PRN PRN Reason: Nausea and Vomiting Paroxetine HCl (Paroxetine Hcl 40 Mg Tablet) 40 mg PO DAILY [facility] Last Admin: 04/29/22 08:47 Dose: 40 mg Documented By: JADA Pharmacy Consult (Consult Rx Perform Med Rec) 1 each MISCELLANE ONCE PRN PRN Reason: Consult order Polyethylene Glycol (Polyethylene Glycol 3350 17 Gm Powd.Pack) 17 gm PO DAILY [facility] Last Admin: 04/29/22 08:44 Dose: Not Given Documented By: JADA Non-Admin Reason: Patient Refused Propranolol HCl (Propranolol Hcl 20 Mg Tablet) 20 mg PO BID [facility]; Protocol Last Admin: 04/29/22 08:47 Dose: 20 mg Documented By: JADA Senna/Docusate Sodium (Sennosides/Docusate Sodium Tablet) 2 tab PO BID [facility] Last Admin: 04/29/22 08:46 Dose: 1 tab Documented By: JADA Comments: pt only wants to take 1 tab Sodium Chloride (0.9 % Sodium Chloride Flush 3 Ml Syringe) 3 ml IVFLUSH QSHIFT [facility] Last Admin: 04/29/22 07:28 Dose: Not Given Documented By: JADA Non-Admin Reason: No Access Tiotropium [place] (Tiotropium [place] 18 Mcg Cap.W.Dev) 1 puff INHALE RDAILY [facility] Last Admin: 04/29/22 08:07 Dose: 1 puff Documented By: TC Topiramate (Topiramate 100 Mg Tablet) 100 mg PO BID [facility] Last Admin: 04/29/22 08:47 Dose: 100 mg Documented By: JADA Labs 04/28/22 06:01 04/28/22 06:01 Assessment and Plan (1) Recurrent UTI: Status: Acute Plan 77yo F admitted with confusion due to encephalopathy due to UTI toxic encephalopathy due to UTI resolved recurrent UTI grew E coli, treated with ceftriaxone, completed 04/07/22 Urology consulted: has bilateral nephrolithiasis without hydronephrosis.? no anticholinergics due to constipation.? outpt f/u. constipation resolved COPD with no acute exacerbation continue triple controller therapy HTN continue lisinopril, amlodipine, hydralazine, and propranolol mood disorder continue paroxetine, topiramate opioid dependence continue Suboxone VTE ppx: UFH dispo: PT rec STR attending - dr. Aramis SANTIAGO possible dc to [facility] when bed available In my clinical judgment, the patient requires continued inpatient hospitalization for the following reasons: plan to d/c to [facility] possibly tomorrow Time Spent With Patient Time: Total time managing care of this patient today ____ minutes. Quality Stroke Does the patient have a stroke diagnosis?: No VTE Prior VTE?: No VTE Risk Level:: Medical - moderate - high VTE Device Contraindication: Treatment Not Indicated VTE Drug Contraindication: Treatment Not Indicated
--- NOTE | 2022-04-29 13:24 | MHC.CM.PN ---
OF THIS NOTE, NO WORD FROM [employer] (WHO NOW HAS COMPLETE [employer] APPLICATION) UPD[facility] FACILITY [facility] AND [employer],
[2022-04-29 14:54] VITALS: BP 146/90; PULSE 54; RESP 16; TEMP 36.8; O2SAT 98
[2022-04-29 14:55] VITALS: BP 146/90; PULSE 54; RESP 16; TEMP 36.8; O2SAT 98
[2022-04-29 20:00] VITALS: BP 128/63; PULSE 58; RESP 16; TEMP 36.8; O2SAT 98
[2022-04-30 03:49] VITALS: BP 120/62; PULSE 65; RESP 17; TEMP 36.1; O2SAT 97
[2022-04-30] MEDS: Heparin Sodium,Porcine 5,000 UNIT/ML VIAL 5000 UNIT SUBCUT ×2 (06:09→18:58)
[2022-04-30 07:01] VITALS: BP 133/63; PULSE 54; RESP 16; TEMP 35.5; O2SAT 92
[2022-04-30] MEDS: Fluticasone/Vilanterol 100/25 BLST.W.DEV 1 PUFF INHALE (07:59)
[2022-04-30 08:00] VITALS: PULSE 65; RESP 18; O2SAT 94
[2022-04-30] MEDS: lisinopriL 20 MG TABLET PO (08:24)
[2022-04-30] MEDS: amLODIPine Besylate 10 MG TABLET PO (08:24)
[2022-04-30] MEDS: hydrALAZINE HCl 10 MG TABLET PO ×3 (08:24→20:40)
[2022-04-30] MEDS: PARoxetine HCL 40 MG TABLET PO (08:24)
[2022-04-30] MEDS: Topiramate 100 MG TABLET PO ×2 (08:24→20:40)
[2022-04-30] MEDS: Buprenorphine/Naloxone 12/3 mg FILM 1 FILM SUBLINGUAL (08:24)
[2022-04-30] MEDS: Sennosides/Docusate Sodium TABLET 2 TAB PO ×2 (08:25→20:40)
[2022-04-30] MEDS: Propranolol HCL 20 MG TABLET PO ×2 (08:25→20:40)
--- NOTE | 2022-04-30 10:30 | HO.PM.IMPN ---
Subjective Subjective Date of Service: 04/30/22 Interval History: seen and examined this morning follow up for placement no overnight events no specific complaints this morning Review of Systems Review of Systems: Yes all other systems are reviewed and are negative Constitutional Constitutional: Denies chills and Denies fever(s) Cardiovascular Cardiovascular: Denies chest pain, Denies palpitations and Denies dyspnea Respiratory Respiratory: Denies cough and Denies dyspnea Gastrointestinal Gastrointestinal: Denies abdominal pain, Denies nausea and Denies vomiting Endocrine Endocrine: Denies palpitations Physical Exam Vital Signs: Vital Signs: Last Vital Signs Temp 96 F L 04/30/22 07:01 Pulse 65 04/30/22 08:00 Resp 18 04/30/22 08:00 BP 133/63 04/30/22 07:01 Pulse Ox 92 04/30/22 07:01 O2 Del Method 04/30/22 07:01 BMI result Body Mass Index 16.0 Objective Data Active Medications Acetaminophen (Acetaminophen 325 Mg Tablet) 650 mg PO Q6H PRN PRN Reason: Pain, Mild (Pain Scale 1-3) Amlodipine Besylate (Amlodipine Besylate 10 Mg Tablet) 10 mg PO DAILY [facility]; Protocol Last Admin: 04/30/22 08:24 Dose: 10 mg Documented By: JADA Buprenorphine/Naloxone (Buprenorphine/Naloxone 12/3 Mg Film) 1 film SUBLINGUAL DAILY [facility] Last Admin: 04/30/22 08:24 Dose: 1 film Documented By: COTEMA Fluticasone/Vilanterol (Fluticasone/Vilanterol 100/25 Blst.W.Dev) 1 puff INHALE RDAILY [facility] Last Admin: 04/30/22 07:59 Dose: 1 puff Documented By: DOMINIQUE Heparin Sodium (Porcine) (Heparin Sodium,Porcine 5,000 Unit/Ml Vial) 5,000 unit SUBCUT Q12H [facility] Last Admin: 04/30/22 06:09 Dose: 5,000 unit Documented By: TAVO Hydralazine HCl (Hydralazine Hcl 20 Mg/Ml Vial) 5 mg IVPUSH Q6H PRN; Protocol PRN Reason: SBP > 180 Last Admin: 03/31/22 23:50 Dose: 5 mg Documented By: ZULAY Hydralazine HCl (Hydralazine Hcl 10 Mg Tablet) 10 mg PO TID [facility]; Protocol Last Admin: 04/30/22 08:24 Dose: 10 mg Documented By: JADA Lisinopril (Lisinopril 20 Mg Tablet) 20 mg PO DAILY [facility]; Protocol Last Admin: 04/30/22 08:24 Dose: 20 mg Documented By: JADA Melatonin (Melatonin 3 Mg Tablet) 3 mg PO BEDTIME PRN PRN Reason: Insomnia Last Admin: 04/23/22 19:42 Dose: 3 mg Documented By: PHANI Ondansetron HCl (Ondansetron Hcl 4 Mg/2 Ml Vial) 4 mg IVPUSH Q8H PRN PRN Reason: Nausea and Vomiting Paroxetine HCl (Paroxetine Hcl 40 Mg Tablet) 40 mg PO DAILY [facility] Last Admin: 04/30/22 08:24 Dose: 40 mg Documented By: JADA Pharmacy Consult (Consult Rx Perform Med Rec) 1 each MISCELLANE ONCE PRN PRN Reason: Consult order Polyethylene Glycol (Polyethylene Glycol 3350 17 Gm Powd.Pack) 17 gm PO DAILY [facility] Last Admin: 04/30/22 08:23 Dose: Not Given Documented By: JADA Non-Admin Reason: Patient Refused Propranolol HCl (Propranolol Hcl 20 Mg Tablet) 20 mg PO BID [facility]; Protocol Last Admin: 04/30/22 08:25 Dose: 20 mg Documented By: JADA Senna/Docusate Sodium (Sennosides/Docusate Sodium Tablet) 2 tab PO BID [facility] Last Admin: 04/30/22 08:25 Dose: 1 tab Documented By: JADA Comments: pt would only like to take 1 tab Sodium Chloride (0.9 % Sodium Chloride Flush 3 Ml Syringe) 3 ml IVFLUSH QSHIFT [facility] Last Admin: 04/30/22 07:13 Dose: Not Given Documented By: JADA Non-Admin Reason: No Access Tiotropium [place] (Tiotropium [place] 18 Mcg Cap.W.Dev) 1 puff INHALE RDAILY [facility] Last Admin: 04/30/22 07:59 Dose: 1 puff Documented By: AFSANEHRICRubens Topiramate (Topiramate 100 Mg Tablet) 100 mg PO BID [facility] Last Admin: 04/30/22 08:24 Dose: 100 mg Documented By: JADA Labs 04/28/22 06:01 04/28/22 06:01 Assessment and Plan (1) Recurrent UTI: Status: Acute Plan 77yo F admitted with confusion due to encephalopathy due to UTI toxic encephalopathy due to UTI resolved recurrent UTI grew E coli, treated with ceftriaxone, completed 04/07/22 Urology consulted: has bilateral nephrolithiasis without hydronephrosis.? no anticholinergics due to constipation.? outpt f/u. constipation resolved COPD with no acute exacerbation continue triple controller therapy HTN continue lisinopril, amlodipine, hydralazine, and propranolol mood disorder continue paroxetine, topiramate opioid dependence continue Suboxone VTE ppx: UFH dispo: PT rec STR attending - dr. Aramis SANTIAGO possible dc to [facility] when bed available In my clinical judgment, the patient requires continued inpatient hospitalization for the following reasons: plan to d/c to [facility] possibly tomorrow Time Spent With Patient Time: Total time managing care of this patient today ____ minutes. Quality Stroke Does the patient have a stroke diagnosis?: No VTE Prior VTE?: No VTE Risk Level:: Medical - moderate - high VTE Device Contraindication: Treatment Not Indicated VTE Drug Contraindication: Treatment Not Indicated
--- NOTE | 2022-04-30 12:31 | MHC.CM.PN ---
Call placed to [facility]: per Jenny, pt's Medicaid application is still under review by the business office and no determination has been made. Pt has been clinically accepted pending the likelihood that the Medicaid flor will be approved. Call placed to pt's dtr Hope to update her. Informed pt as well. CM to follow.
[2022-04-30 16:00] VITALS: BP 122/72; PULSE 58; RESP 18; TEMP 36.7; O2SAT 95
[2022-04-30 20:00] VITALS: BP 124/68; PULSE 68; RESP 18; TEMP 36.4; O2SAT 96
[2022-05-01 04:00] VITALS: BP 129/64; PULSE 58; RESP 18; TEMP 36.1; O2SAT 99
[2022-05-01] MEDS: Heparin Sodium,Porcine 5,000 UNIT/ML VIAL 5000 UNIT SUBCUT ×2 (06:26→18:27)
[2022-05-01 07:36] VITALS: PULSE 62; RESP 18; O2SAT 95
[2022-05-01] MEDS: Fluticasone/Vilanterol 100/25 BLST.W.DEV 1 PUFF INHALE (07:36)
[2022-05-01 07:40] VITALS: BP 143/71; PULSE 56; RESP 18; TEMP 36.4; O2SAT 99
[2022-05-01] MEDS: Topiramate 100 MG TABLET PO ×2 (08:35→19:54)
[2022-05-01] MEDS: lisinopriL 20 MG TABLET PO (08:35)
[2022-05-01] MEDS: Propranolol HCL 20 MG TABLET PO ×2 (08:35→19:54)
[2022-05-01] MEDS: Buprenorphine/Naloxone 12/3 mg FILM 1 FILM SUBLINGUAL (08:36)
[2022-05-01] MEDS: hydrALAZINE HCl 10 MG TABLET PO ×3 (08:36→19:54)
[2022-05-01] MEDS: PARoxetine HCL 40 MG TABLET PO (08:36)
[2022-05-01] MEDS: amLODIPine Besylate 10 MG TABLET PO (08:36)
--- NOTE | 2022-05-01 09:37 | HO.PM.IMPN ---
Subjective Subjective Date of Service: 05/01/22 Interval History: seen and examined this morning follow up for placement no overnight events no specific complaints this morning Review of Systems Review of Systems: Yes all other systems are reviewed and are negative Constitutional Constitutional: Denies chills and Denies fever(s) Cardiovascular Cardiovascular: Denies chest pain, Denies palpitations and Denies dyspnea Respiratory Respiratory: Denies cough and Denies dyspnea Gastrointestinal Gastrointestinal: Denies abdominal pain, Denies nausea and Denies vomiting Endocrine Endocrine: Denies palpitations Physical Exam Vital Signs: Vital Signs: Last Vital Signs Temp 97.6 F 05/01/22 07:40 Pulse 56 05/01/22 07:40 Resp 18 05/01/22 07:40 BP 143/71 H 05/01/22 07:40 Pulse Ox 99 05/01/22 07:40 O2 Del Method 05/01/22 07:40 BMI result Body Mass Index 16.0 Appearing in no acute distress lung sounds are clear to auscultation heart regular rate rhythm, clear S1, S2 positive bowel sounds, abdomen is soft, nontender neuro patient is alert x3, no focal deficits Objective Data Active Medications Acetaminophen (Acetaminophen 325 Mg Tablet) 650 mg PO Q6H PRN PRN Reason: Pain, Mild (Pain Scale 1-3) Amlodipine Besylate (Amlodipine Besylate 10 Mg Tablet) 10 mg PO DAILY [facility]; Protocol Last Admin: 05/01/22 08:36 Dose: 10 mg Documented By: MAGGI Buprenorphine/Naloxone (Buprenorphine/Naloxone 12/3 Mg Film) 1 film SUBLINGUAL DAILY [facility] Last Admin: 05/01/22 08:36 Dose: 1 film Documented By: MAGGI Fluticasone/Vilanterol (Fluticasone/Vilanterol 100/25 Blst.W.Dev) 1 puff INHALE RDAILY [facility] Last Admin: 05/01/22 07:36 Dose: 1 puff Documented By: TC Heparin Sodium (Porcine) (Heparin Sodium,Porcine 5,000 Unit/Ml Vial) 5,000 unit SUBCUT Q12H [facility] Last Admin: 05/01/22 06:26 Dose: 5,000 unit Documented By: GENARO Hydralazine HCl (Hydralazine Hcl 20 Mg/Ml Vial) 5 mg IVPUSH Q6H PRN; Protocol PRN Reason: SBP > 180 Last Admin: 03/31/22 23:50 Dose: 5 mg Documented By: LAY-SUSANNE Hydralazine HCl (Hydralazine Hcl 10 Mg Tablet) 10 mg PO TID [facility]; Protocol Last Admin: 05/01/22 08:36 Dose: 10 mg Documented By: MAGGI Lisinopril (Lisinopril 20 Mg Tablet) 20 mg PO DAILY [facility]; Protocol Last Admin: 05/01/22 08:35 Dose: 20 mg Documented By: MAGGI Melatonin (Melatonin 3 Mg Tablet) 3 mg PO BEDTIME PRN PRN Reason: Insomnia Last Admin: 04/23/22 19:42 Dose: 3 mg Documented By: PHANI Ondansetron HCl (Ondansetron Hcl 4 Mg/2 Ml Vial) 4 mg IVPUSH Q8H PRN PRN Reason: Nausea and Vomiting Paroxetine HCl (Paroxetine Hcl 40 Mg Tablet) 40 mg PO DAILY [facility] Last Admin: 05/01/22 08:36 Dose: 40 mg Documented By: MAGGI Pharmacy Consult (Consult Rx Perform Med Rec) 1 each MISCELLANE ONCE PRN PRN Reason: Consult order Polyethylene Glycol (Polyethylene Glycol 3350 17 Gm Powd.Pack) 17 gm PO DAILY [facility] Last Admin: 05/01/22 08:36 Dose: Not Given Documented By: MAGGI Non-Admin Reason: Patient Refused Propranolol HCl (Propranolol Hcl 20 Mg Tablet) 20 mg PO BID [facility]; Protocol Last Admin: 05/01/22 08:35 Dose: 20 mg Documented By: MAGGI Senna/Docusate Sodium (Sennosides/Docusate Sodium Tablet) 2 tab PO BID [facility] Last Admin: 05/01/22 08:36 Dose: Not Given Documented By: MAGGI Non-Admin Reason: Patient Refused Sodium Chloride (0.9 % Sodium Chloride Flush 3 Ml Syringe) 3 ml IVFLUSH QSHIFT [facility] Last Admin: 05/01/22 08:28 Dose: Not Given Documented By: MAGGI Non-Admin Reason: No Access Tiotropium [place] (Tiotropium [place] 18 Mcg Cap.W.Dev) 1 puff INHALE RDAILY [facility] Last Admin: 04/30/22 07:59 Dose: 1 puff Documented By: ULRICRubens Topiramate (Topiramate 100 Mg Tablet) 100 mg PO BID [facility] Last Admin: 05/01/22 08:35 Dose: 100 mg Documented By: MAGGI Labs 04/28/22 06:01 04/28/22 06:01 Assessment and Plan (1) Recurrent UTI: Status: Acute Plan 77yo F admitted with confusion due to encephalopathy due to UTI toxic encephalopathy due to UTI resolved recurrent UTI grew E coli, treated with ceftriaxone, completed 04/07/22 Urology consulted: has bilateral nephrolithiasis without hydronephrosis.? no anticholinergics due to constipation.? outpt f/u. constipation resolved COPD with no acute exacerbation continue triple controller therapy HTN continue lisinopril, amlodipine, hydralazine, and propranolol mood disorder continue paroxetine, topiramate opioid dependence continue Suboxone VTE ppx: UFH dispo: PT rec STR attending - dr. Aramis SANTIAGO possible dc to [facility] when bed available In my clinical judgment, the patient requires continued inpatient hospitalization for the following reasons: plan to d/c to [facility] possibly tomorrow Time Spent With Patient Time: Total time managing care of this patient today ____ minutes. Quality Stroke Does the patient have a stroke diagnosis?: No VTE Prior VTE?: No VTE Risk Level:: Medical - moderate - high VTE Device Contraindication: Treatment Not Indicated VTE Drug Contraindication: Treatment Not Indicated
--- NOTE | 2022-05-01 11:01 | MHC.CLN ---
F/U DIET=REGULAR-APPROPRIATE. PO USUALLY 75-100%. PT RECEIVING MAGIC CUP TID. PROVIDES 870 KCALS, 27 G PROTEIN. DOES NOT CONSISTENTLY TAKE, BUT WOULD LIKE TO CONTINUE. MONITOR PO INTAKE AND WEIGHTS. RD TO FOLLOW WEEKLY.
--- NOTE | 2022-05-01 12:22 | MHC.CM.PN ---
Broad SNF search referrals have been updated and CM will continue to follow.
[2022-05-01 15:02] VITALS: BP 143/71; PULSE 56; O2SAT 99
[2022-05-01 15:29] VITALS: BP 120/65; PULSE 52; RESP 18; TEMP 36.4; O2SAT 96
[2022-05-01 19:33] VITALS: BP 130/68; PULSE 56; RESP 18; TEMP 36.1; O2SAT 97
[2022-05-02 03:52] VITALS: BP 130/62; PULSE 65; RESP 17; TEMP 36.1; O2SAT 97
[2022-05-02] MEDS: Heparin Sodium,Porcine 5,000 UNIT/ML VIAL 5000 UNIT SUBCUT ×2 (06:12→18:39)
[2022-05-02 07:57] VITALS: BP 131/59; PULSE 54; RESP 18; TEMP 36.2; O2SAT 97
[2022-05-02] MEDS: Sennosides/Docusate Sodium TABLET 2 TAB PO (08:29)
[2022-05-02] MEDS: amLODIPine Besylate 10 MG TABLET PO (08:29)
[2022-05-02] MEDS: Topiramate 100 MG TABLET PO ×2 (08:29→19:47)
[2022-05-02] MEDS: Propranolol HCL 20 MG TABLET PO ×2 (08:29→19:47)
[2022-05-02] MEDS: lisinopriL 20 MG TABLET PO (08:30)
[2022-05-02] MEDS: PARoxetine HCL 40 MG TABLET PO (08:30)
[2022-05-02] MEDS: Buprenorphine/Naloxone 12/3 mg FILM 1 FILM SUBLINGUAL (08:30)
[2022-05-02] MEDS: hydrALAZINE HCl 10 MG TABLET PO ×3 (08:30→19:47)
--- NOTE | 2022-05-02 09:17 | MHC.CM.PN ---
MESSAGE LEFT FOR [facility] LIAISON REQUESTING A STATUS UPDATE ON REVIEW OF PTS [employer] SHE RESPONDED INDICATING SHE WILL FIND OUT FROM BUSINESS OFFICE TODAY
[2022-05-02] MEDS: Fluticasone/Vilanterol 100/25 BLST.W.DEV 1 PUFF INHALE (11:23)
[2022-05-02 11:25] VITALS: PULSE 59; RESP 17; O2SAT 98
--- NOTE | 2022-05-02 13:26 | P.PNIM_ITS ---
Subjective Subjective Date of Service: 05/02/22 Interval History: seen and examined this morning follow up for placement no overnight events, no specific complaints this am tolerating diet, voiding without difficulty Review of Systems Review of Systems: Yes all other systems are reviewed and are negative Constitutional Constitutional: Denies chills and Denies fever(s) Cardiovascular Cardiovascular: Denies chest pain, Denies palpitations and Denies dyspnea Respiratory Respiratory: Denies cough and Denies dyspnea Gastrointestinal Gastrointestinal: Denies abdominal pain, Denies nausea and Denies vomiting Endocrine Endocrine: Denies palpitations Physical Exam Vital Signs: Vital Signs: Last Vital Signs Temp 97.1 F 05/02/22 07:57 Pulse 59 05/02/22 11:25 Resp 17 05/02/22 11:25 BP 131/59 L 05/02/22 07:57 Pulse Ox 97 05/02/22 07:57 O2 Del Method 05/02/22 07:57 BMI result Body Mass Index 16.0 Const: General: cooperative, comfortable, alert and awake Nutritional Appearance: thin Resp: Effort & Inspection: normal respiratory effort and able to speak in complete sentences Cardio: Rate: regular rate Heart sounds: S1 normal heart sound present and S2 normal heart sound present GI: Inspection: No distended Palpation (GI): Soft to palpation and nontender Neuro: General: CN's II-XI intact bilaterally Extrem: General: Yes no pedal edema Objective Data Active Medications Acetaminophen (Acetaminophen 325 Mg Tablet) 650 mg PO Q6H PRN PRN Reason: Pain, Mild (Pain Scale 1-3) Amlodipine Besylate (Amlodipine Besylate 10 Mg Tablet) 10 mg PO DAILY [facility]; Protocol Last Admin: 05/02/22 08:29 Dose: 10 mg Documented By: NAYELI Buprenorphine/Naloxone (Buprenorphine/Naloxone 12/3 Mg Film) 1 film SUBLINGUAL DAILY [facility] Last Admin: 05/02/22 08:30 Dose: 1 film Documented By: NAYELI Fluticasone/Vilanterol (Fluticasone/Vilanterol 100/25 Blst.W.Dev) 1 puff INHALE RDAILY [facility] Last Admin: 05/02/22 11:23 Dose: 1 puff Documented By: OLI Heparin Sodium (Porcine) (Heparin Sodium,Porcine 5,000 Unit/Ml Vial) 5,000 unit SUBCUT Q12H [facility] Last Admin: 05/02/22 06:12 Dose: 5,000 unit Documented By: ROLANDO Hydralazine HCl (Hydralazine Hcl 20 Mg/Ml Vial) 5 mg IVPUSH Q6H PRN; Protocol PRN Reason: SBP > 180 Last Admin: 03/31/22 23:50 Dose: 5 mg Documented By: ZULAY Hydralazine HCl (Hydralazine Hcl 10 Mg Tablet) 10 mg PO TID [facility]; Protocol Last Admin: 05/02/22 08:30 Dose: 10 mg Documented By: NAYELI Lisinopril (Lisinopril 20 Mg Tablet) 20 mg PO DAILY [facility]; Protocol Last Admin: 05/02/22 08:30 Dose: 20 mg Documented By: NAYELI Melatonin (Melatonin 3 Mg Tablet) 3 mg PO BEDTIME PRN PRN Reason: Insomnia Last Admin: 04/23/22 19:42 Dose: 3 mg Documented By: PHANI Ondansetron HCl (Ondansetron Hcl 4 Mg/2 Ml Vial) 4 mg IVPUSH Q8H PRN PRN Reason: Nausea and Vomiting Paroxetine HCl (Paroxetine Hcl 40 Mg Tablet) 40 mg PO DAILY [facility] Last Admin: 05/02/22 08:30 Dose: 40 mg Documented By: NAYELI Pharmacy Consult (Consult Rx Perform Med Rec) 1 each MISCELLANE ONCE PRN PRN Reason: Consult order Polyethylene Glycol (Polyethylene Glycol 3350 17 Gm Powd.Pack) 17 gm PO DAILY [facility] Last Admin: 05/02/22 08:30 Dose: Not Given Documented By: NAYELI Non-Admin Reason: Patient Refused Propranolol HCl (Propranolol Hcl 20 Mg Tablet) 20 mg PO BID [facility]; Protocol Last Admin: 05/02/22 08:29 Dose: 20 mg Documented By: NAYELI Senna/Docusate Sodium (Sennosides/Docusate Sodium Tablet) 2 tab PO BID [facility] Last Admin: 05/02/22 08:29 Dose: 2 tab Documented By: NAYELI Sodium Chloride (0.9 % Sodium Chloride Flush 3 Ml Syringe) 3 ml IVFLUSH QSHIFT [facility] Last Admin: 05/02/22 08:30 Dose: Not Given Documented By: NAYELI Non-Admin Reason: No Access Tiotropium Donna (Tiotropium [place] 18 Mcg Cap.W.Dev) 1 puff INHALE TETE [facility] Last Admin: 05/02/22 11:24 Dose: Not Given Documented By: OLI Non-Admin Reason: Med Not Available Topiramate (Topiramate 100 Mg Tablet) 100 mg PO BID [facility] Last Admin: 05/02/22 08:29 Dose: 100 mg Documented By: NAYELI Labs 04/28/22 06:01 04/28/22 06:01 Assessment and Plan (1) HTN (hypertension): Status: Acute Plan 77yo F admitted with confusion due to encephalopathy due to UTI toxic encephalopathy due to UTI resolved recurrent UTI grew E coli, treated with ceftriaxone, completed 04/07/22 Urology consulted: has bilateral nephrolithiasis without hydronephrosis.? no anticholinergics due to constipation.? outpt f/u. constipation resolved COPD with no acute exacerbation continue triple controller therapy HTN continue lisinopril, amlodipine, hydralazine, and propranolol mood disorder continue paroxetine, topiramate opioid dependence continue Suboxone VTE ppx: UFH dispo: PT rec STR attending - dr. Aramis SANTIAGO possible dc to [facility] when bed available In my clinical judgment, the patient requires continued inpatient hospitalization for the following reasons: plan to d/c to [facility] Time Spent With Patient Time: Total time managing care of this patient today ____ minutes. Quality Stroke Does the patient have a stroke diagnosis?: No VTE Prior VTE?: No VTE Risk Level:: Medical - moderate - high VTE Device Contraindication: Treatment Not Indicated VTE Drug Contraindication: Treatment Not Indicated
[2022-05-02 14:01] VITALS: PULSE 59
[2022-05-02 15:19] VITALS: BP 113/48; PULSE 59; RESP 14; TEMP 36.9; O2SAT 98
[2022-05-02 19:29] VITALS: BP 130/60; PULSE 65; RESP 18; TEMP 37.2; O2SAT 96
[2022-05-03] MEDS: Heparin Sodium,Porcine 5,000 UNIT/ML VIAL 5000 UNIT SUBCUT ×2 (06:26→20:17)
[2022-05-03 07:44] VITALS: BP 157/70; PULSE 56; RESP 18; TEMP 36.3; O2SAT 97
[2022-05-03] MEDS: Fluticasone/Vilanterol 100/25 BLST.W.DEV 1 PUFF INHALE (08:07)
[2022-05-03 08:09] VITALS: PULSE 56; RESP 18; O2SAT 97
[2022-05-03] MEDS: amLODIPine Besylate 10 MG TABLET PO (11:29)
[2022-05-03] MEDS: PARoxetine HCL 40 MG TABLET PO (11:29)
[2022-05-03] MEDS: Sennosides/Docusate Sodium TABLET 2 TAB PO ×2 (11:29→20:18)
[2022-05-03] MEDS: Buprenorphine/Naloxone 12/3 mg FILM 1 FILM SUBLINGUAL (11:29)
[2022-05-03] MEDS: Topiramate 100 MG TABLET PO ×2 (11:29→20:18)
[2022-05-03] MEDS: lisinopriL 20 MG TABLET PO (11:30)
[2022-05-03] MEDS: Propranolol HCL 20 MG TABLET PO ×2 (11:30→20:18)
[2022-05-03] MEDS: hydrALAZINE HCl 10 MG TABLET PO ×2 (11:30→20:18)
[2022-05-03 11:55] LABS: Appearance Urine Turbid; Color Urine Yellow; Glucose Urine UA Negative (Negative); Leukocyte Esterase Urine Large (3+) (Negative); Nitrite Urine Negative (Negative); UMIC TRIGGER UACC YES; Urine Blood Moderate (2+) (Negative); Urine Ketones Negative (Negative); Urine Protein 300 (3+) mg/dL (Neg-Trace)
[2022-05-03 11:59] LABS: Hematocrit 34.6 % (37.0-47.0); Hemoglobin 11.4 g/dl (12.0-16.0); Mean Corpuscular HGB Conc 32.9 g/dl (31.0-35.0); Mean Corpuscular Hemoglobin 30.2 pg (27.0-33.0); Mean Corpuscular Volume 91.5 fL (80.0-98.0); Mean Platelet Volume 9.7 fL (9.4-12.3); Platelet Count 172 X10*3/uL (160-400); Red Blood Count 3.78 X10*6/uL (4.20-5.50); Red Cell Distribution Width 14.8 % (11.0-16.0); White Blood Count 6.1 X10*3/uL (4.8-10.8)
[2022-05-03 12:09] LABS: Bacteria Urine 4+ (None Seen); Hyaline Casts Urine 0-2 /LPF (0-2); RBC Urine >20 /HPF (0-2); UACC Culture Trigger YES; WBC Clumps Urine Present; WBC Urine >50 /HPF (0-5)
[2022-05-03 12:25] LABS: Anion Gap 12 (12-20); Blood Urea Nitrogen 30 mg/dL (9-16); Calcium 9.1 mg/dL (8.4-10.2); Carbon Dioxide 23 mmol/L (22-29); Chloride 111 mmol/L (96-108); Creatinine Clr Calc Pharmacy 25.5; Estimated Glomerular Filt Rate 45; Glucose Random 98 mg/dL (60-115); Potassium 4.6 mmol/L (3.3-5.1); Sodium 141 mmol/L (135-145)
--- NOTE | 2022-05-03 12:43 | MHC.CM.PN ---
PER COMMUNICATIONS WITH [facility], NO RESPONSE FROM BUSINESS OFFICE TODAY T/W ASKED TWO QUESTIONS ABOUT POTENTIAL OBSTACLES AND LIASION REPORTS THAT SHE WILL FIND OUT AND LET US KNOW
[2022-05-03 14:33] VITALS: PULSE 56
[2022-05-03 15:40] VITALS: BP 98/44; PULSE 57
--- NOTE | 2022-05-03 15:44 | PC.NURSE ---
BP 98/44 ,pulse57 ,PA Charla notified,Hydralazine held
[2022-05-03 15:58] VITALS: BP 142/52; PULSE 60; RESP 18; TEMP 37.1; O2SAT 93
--- NOTE | 2022-05-03 16:03 | HO.PM.IMPN ---
Subjective Subjective Date of Service: 05/03/22 Interval History: seen and examined this morning follow up for placement reporting dysuria. no abdominal pain or vomiting. denies fever Review of Systems Review of Systems: Yes all other systems are reviewed and are negative Constitutional Constitutional: Denies chills and Denies fever(s) Cardiovascular Cardiovascular: Denies chest pain, Denies palpitations and Denies dyspnea Respiratory Respiratory: Denies cough and Denies dyspnea Gastrointestinal Gastrointestinal: Denies nausea and Denies vomiting Endocrine Endocrine: Denies palpitations Physical Exam Vital Signs: Vital Signs: Last Vital Signs Temp 98.8 F 05/03/22 15:58 Pulse 60 05/03/22 15:58 Resp 18 05/03/22 15:58 BP 142/52 H 05/03/22 15:58 Pulse Ox 93 05/03/22 15:58 O2 Del Method 05/03/22 15:58 BMI result Body Mass Index 16.0 Const: General: cooperative, comfortable, alert and awake Nutritional Appearance: thin Resp: Effort & Inspection: normal respiratory effort, able to speak in complete sentences, no respiratory distress and no use of accessory muscles Cardio: Rate: regular rate Heart sounds: S1 normal heart sound present and S2 normal heart sound present GI: Inspection: No distended Palpation (GI): Soft to palpation and nontender Neuro: General: CN's II-XI intact bilaterally Extrem: General: Yes no pedal edema Objective Data Active Medications Acetaminophen (Acetaminophen 325 Mg Tablet) 650 mg PO Q6H PRN PRN Reason: Pain, Mild (Pain Scale 1-3) Amlodipine Besylate (Amlodipine Besylate 10 Mg Tablet) 10 mg PO DAILY [facility]; Protocol Last Admin: 05/03/22 11:29 Dose: 10 mg Documented By: SHEREE Buprenorphine/Naloxone (Buprenorphine/Naloxone 12/3 Mg Film) 1 film SUBLINGUAL DAILY [facility] Last Admin: 05/03/22 11:29 Dose: 1 film Documented By: SHEREE Fluticasone/Vilanterol (Fluticasone/Vilanterol 100/25 Blst.W.Dev) 1 puff INHALE RDAILY [facility] Last Admin: 05/03/22 08:07 Dose: 1 puff Documented By: ADRIANE Heparin Sodium (Porcine) (Heparin Sodium,Porcine 5,000 Unit/Ml Vial) 5,000 unit SUBCUT Q12H [facility] Last Admin: 05/03/22 06:26 Dose: 5,000 unit Documented By: ERASMO Hydralazine HCl (Hydralazine Hcl 20 Mg/Ml Vial) 5 mg IVPUSH Q6H PRN; Protocol PRN Reason: SBP > 180 Last Admin: 03/31/22 23:50 Dose: 5 mg Documented By: ZULAY Hydralazine HCl (Hydralazine Hcl 10 Mg Tablet) 10 mg PO TID [facility]; Protocol Last Admin: 05/03/22 15:43 Dose: Not Given Documented By: AARON Non-Admin Reason: BP 98/44 Lisinopril (Lisinopril 20 Mg Tablet) 20 mg PO DAILY [facility]; Protocol Last Admin: 05/03/22 11:30 Dose: 20 mg Documented By: SHEREE Melatonin (Melatonin 3 Mg Tablet) 3 mg PO BEDTIME PRN PRN Reason: Insomnia Last Admin: 04/23/22 19:42 Dose: 3 mg Documented By: PHANI Ondansetron HCl (Ondansetron Hcl 4 Mg/2 Ml Vial) 4 mg IVPUSH Q8H PRN PRN Reason: Nausea and Vomiting Paroxetine HCl (Paroxetine Hcl 40 Mg Tablet) 40 mg PO DAILY [facility] Last Admin: 05/03/22 11:29 Dose: 40 mg Documented By: SHEREE Pharmacy Consult (Consult Rx Perform Med Rec) 1 each MISCELLANE ONCE PRN PRN Reason: Consult order Polyethylene Glycol (Polyethylene Glycol 3350 17 Gm Powd.Pack) 17 gm PO DAILY [facility] Last Admin: 05/03/22 11:31 Dose: Not Given Documented By: SHEREE Non-Admin Reason: Patient Refused Propranolol HCl (Propranolol Hcl 20 Mg Tablet) 20 mg PO BID [facility]; Protocol Last Admin: 05/03/22 11:30 Dose: 20 mg Documented By: SHEREE Senna/Docusate Sodium (Sennosides/Docusate Sodium Tablet) 2 tab PO BID [facility] Last Admin: 05/03/22 11:29 Dose: 1 tab Documented By: SHEREE Comments: wants only 1 Sodium Chloride (0.9 % Sodium Chloride Flush 3 Ml Syringe) 3 ml IVFLUSH QSHIFT [facility] Last Admin: 05/03/22 15:39 Dose: Not Given Documented By: AARON Non-Admin Reason: No Access Tiotropium [place] (Tiotropium [place] 18 Mcg Cap.W.Dev) 1 puff INHALE RDAILY [facility] Last Admin: 05/03/22 08:07 Dose: 1 puff Documented By: ADRIANE Topiramate (Topiramate 100 Mg Tablet) 100 mg PO BID [facility] Last Admin: 05/03/22 11:29 Dose: 100 mg Documented By: SHEREE Labs 05/03/22 11:39 05/03/22 11:39 Labs: Laboratory Results - last 24 hr 05/03/22 05/03/22 05/03/22 11:23 11:39 11:39 MCV 91.5 MCH 30.2 MCHC 32.9 RDW 14.8 Plt Count 172 D MPV 9.7 Absolute Nucleated RBC 0.000 Nucleated RBC % (auto) 0.0 Anion Gap 12 Estim Creat Clear Calc 25.5 Estimated GFR 45 Random Glucose 98 Calcium 9.1 Urine Color Yellow Urine Appearance Turbid Urine pH 6.0 Ur Specific [place] 1.020 Urine Protein 300 (3+) H Urine Glucose (UA) Negative Urine Ketones Negative Urine Blood Moderate (2+) H Urine Nitrite Negative Ur Leukocyte Esterase Large (3+) H Urine RBC >20 H Urine WBC >50 H Urine WBC Clumps Present Ur Squamous Epith Cells 6-10 Urine Bacteria 4+ Hyaline Casts 0-2 Assessment and Plan (1) Recurrent UTI: Status: Acute Plan 77yo F admitted with confusion due to encephalopathy due to UTI toxic encephalopathy due to UTI resolved recurrent UTI grew E coli, treated with ceftriaxone, completed 04/07/22 Urology consulted: has bilateral nephrolithiasis without hydronephrosis.? no anticholinergics due to constipation.? outpt f/u. now with dysuria - ua + will start ceftin po - follow up urine culture constipation resolved COPD with no acute exacerbation continue triple controller therapy HTN continue lisinopril, amlodipine, hydralazine, and propranolol mood disorder continue paroxetine, topiramate opioid dependence continue Suboxone VTE ppx: UFH dispo: PT rec STR attending - dr. Self DISPO possible dc to [facility] when bed available In my clinical judgment, the patient requires continued inpatient hospitalization for the following reasons: [facility] Time Spent With Patient Time: Total time managing care of this patient today ____ minutes. Quality Stroke Does the patient have a stroke diagnosis?: No VTE Prior VTE?: No VTE Risk Level:: Medical - moderate - high VTE Device Contraindication: Treatment Not Indicated VTE Drug Contraindication: Treatment Not Indicated
[2022-05-03 20:13] VITALS: BP 140/63; PULSE 60
[2022-05-04 04:00] VITALS: BP 129/59; PULSE 66; RESP 18; TEMP 36.4; O2SAT 98
[2022-05-04] MEDS: Heparin Sodium,Porcine 5,000 UNIT/ML VIAL 5000 UNIT SUBCUT ×2 (06:24→18:01)
[2022-05-04 07:30] VITALS: BP 129/60; PULSE 56; RESP 12; TEMP 36.7; O2SAT 97
[2022-05-04] MEDS: Fluticasone/Vilanterol 100/25 BLST.W.DEV 1 PUFF INHALE (08:15)
[2022-05-04 08:16] VITALS: PULSE 61; RESP 18; O2SAT 98
[2022-05-04] MEDS: Buprenorphine/Naloxone 12/3 mg FILM 1 FILM SUBLINGUAL (09:54)
[2022-05-04] MEDS: Topiramate 100 MG TABLET PO ×2 (09:55→20:52)
[2022-05-04] MEDS: Sennosides/Docusate Sodium TABLET 2 TAB PO ×2 (09:55→20:52)
[2022-05-04] MEDS: PARoxetine HCL 40 MG TABLET PO (09:55)
[2022-05-04] MEDS: amLODIPine Besylate 10 MG TABLET PO (09:55)
[2022-05-04] MEDS: lisinopriL 20 MG TABLET PO (09:55)
[2022-05-04] MEDS: hydrALAZINE HCl 10 MG TABLET PO ×3 (09:55→20:52)
[2022-05-04] MEDS: Propranolol HCL 20 MG TABLET PO (09:55)
--- NOTE | 2022-05-04 12:32 | HO.PM.IMPN ---
Subjective Subjective Date of Service: 05/04/22 Interval History: seen and examined this morning follow up for placement dysuria improving today no abdominal pain, nausea, vomiting Review of Systems Review of Systems: Yes all other systems are reviewed and are negative Constitutional Constitutional: Denies chills and Denies fever(s) Cardiovascular Cardiovascular: Denies chest pain, Denies palpitations and Denies dyspnea Respiratory Respiratory: Denies cough and Denies dyspnea Gastrointestinal Gastrointestinal: Denies abdominal pain, Denies nausea and Denies vomiting Endocrine Endocrine: Denies palpitations Physical Exam Vital Signs: Vital Signs: Last Vital Signs Temp 98.1 F 05/04/22 07:30 Pulse 61 05/04/22 08:16 Resp 18 05/04/22 08:16 BP 129/60 05/04/22 07:30 Pulse Ox 97 05/04/22 07:30 O2 Del Method 05/04/22 07:30 BMI result Body Mass Index 16.0 Const: General: cooperative, comfortable, no acute distress, alert and awake Nutritional Appearance: thin Resp: Effort & Inspection: normal respiratory effort and able to speak in complete sentences Cardio: Rate: regular rate Heart sounds: S1 normal heart sound present and S2 normal heart sound present GI: Inspection: No distended Palpation (GI): Soft to palpation and nontender Neuro: General: CN's II-XI intact bilaterally Extrem: General: Yes no pedal edema Objective Data Active Medications Acetaminophen (Acetaminophen 325 Mg Tablet) 650 mg PO Q6H PRN PRN Reason: Pain, Mild (Pain Scale 1-3) Amlodipine Besylate (Amlodipine Besylate 10 Mg Tablet) 10 mg PO DAILY [facility]; Protocol Last Admin: 05/04/22 09:55 Dose: 10 mg Documented By: KARLEY Buprenorphine/Naloxone (Buprenorphine/Naloxone 12/3 Mg Film) 1 film SUBLINGUAL DAILY [facility] Last Admin: 05/04/22 09:54 Dose: 1 film Documented By: KARLEY Cefuroxime Axetil (Cefuroxime Axetil 500 Mg Tablet) 500 mg PO Q12H [facility] Last Admin: 05/04/22 06:24 Dose: 500 mg Documented By: ROLANDO Fluticasone/Vilanterol (Fluticasone/Vilanterol 100/25 Blst.W.Dev) 1 puff INHALE RDAILY [facility] Last Admin: 05/04/22 08:15 Dose: 1 puff Documented By: TC Heparin Sodium (Porcine) (Heparin Sodium,Porcine 5,000 Unit/Ml Vial) 5,000 unit SUBCUT Q12H [facility] Last Admin: 05/04/22 06:24 Dose: 5,000 unit Documented By: ROLANDO Hydralazine HCl (Hydralazine Hcl 20 Mg/Ml Vial) 5 mg IVPUSH Q6H PRN; Protocol PRN Reason: SBP > 180 Last Admin: 03/31/22 23:50 Dose: 5 mg Documented By: ZULAY Hydralazine HCl (Hydralazine Hcl 10 Mg Tablet) 10 mg PO TID [facility]; Protocol Last Admin: 05/04/22 09:55 Dose: 10 mg Documented By: KARLEY Lisinopril (Lisinopril 20 Mg Tablet) 20 mg PO DAILY [facility]; Protocol Last Admin: 05/04/22 09:55 Dose: 20 mg Documented By: KARLEY Melatonin (Melatonin 3 Mg Tablet) 3 mg PO BEDTIME PRN PRN Reason: Insomnia Last Admin: 04/23/22 19:42 Dose: 3 mg Documented By: PHANI Ondansetron HCl (Ondansetron Hcl 4 Mg/2 Ml Vial) 4 mg IVPUSH Q8H PRN PRN Reason: Nausea and Vomiting Paroxetine HCl (Paroxetine Hcl 40 Mg Tablet) 40 mg PO DAILY [facility] Last Admin: 05/04/22 09:55 Dose: 40 mg Documented By: KARLEY Pharmacy Consult (Consult Rx Perform Med Rec) 1 each MISCELLANE ONCE PRN PRN Reason: Consult order Polyethylene Glycol (Polyethylene Glycol 3350 17 Gm Powd.Pack) 17 gm PO DAILY [facility] Last Admin: 05/04/22 09:57 Dose: Not Given Documented By: KARLEY Non-Admin Reason: Patient Refused Propranolol HCl (Propranolol Hcl 20 Mg Tablet) 20 mg PO BID [facility]; Protocol Last Admin: 05/04/22 09:55 Dose: 20 mg Documented By: KARLEY Senna/Docusate Sodium (Sennosides/Docusate Sodium Tablet) 2 tab PO BID [facility] Last Admin: 05/04/22 09:55 Dose: 2 tab Documented By: KARLEY Sodium Chloride (0.9 % Sodium Chloride Flush 3 Ml Syringe) 3 ml IVFLUSH QSHIFT [facility] Last Admin: 05/04/22 09:13 Dose: Not Given Documented By: KARLEY Non-Admin Reason: No Access Tiotropium [place] (Tiotropium [place] 18 Mcg Cap.W.Dev) 1 puff INHALE RDAILY [facility] Last Admin: 05/04/22 08:15 Dose: 1 puff Documented By: TC Topiramate (Topiramate 100 Mg Tablet) 100 mg PO BID [facility] Last Admin: 05/04/22 09:55 Dose: 100 mg Documented By: KARLEY Labs 05/03/22 11:39 05/03/22 11:39 Assessment and Plan (1) Recurrent UTI: Status: Acute Plan 77yo F admitted with confusion due to encephalopathy due to UTI toxic encephalopathy due to UTI resolved recurrent UTI grew E coli, treated with ceftriaxone, completed 04/07/22 Urology consulted: has bilateral nephrolithiasis without hydronephrosis.? no anticholinergics due to constipation.? outpt f/u. now with dysuria - ua + on ceftin po - follow up urine culture constipation resolved COPD with no acute exacerbation continue triple controller therapy HTN continue lisinopril, amlodipine, hydralazine, and propranolol mood disorder continue paroxetine, topiramate opioid dependence continue Suboxone CKD3 renal function at baseline VTE ppx: UFH dispo: PT rec STR attending - dr. Liu DISPO possible dc to [facility] when bed available In my clinical judgment, the patient requires continued inpatient hospitalization for the following reasons: [facility] Time Spent With Patient Time: Total time managing care of this patient today ____ minutes. Quality Stroke Does the patient have a stroke diagnosis?: No VTE Prior VTE?: No VTE Risk Level:: Medical - moderate - high VTE Device Contraindication: Treatment Not Indicated VTE Drug Contraindication: Treatment Not Indicated
[2022-05-04 15:31] VITALS: BP 122/61; PULSE 54; RESP 16
[2022-05-04 20:00] VITALS: BP 121/60; PULSE 56; RESP 20; TEMP 35.9; O2SAT 97
[2022-05-05 03:55] VITALS: BP 120/58; PULSE 52; RESP 14; TEMP 36.6; O2SAT 96
[2022-05-05] MEDS: Heparin Sodium,Porcine 5,000 UNIT/ML VIAL 5000 UNIT SUBCUT ×2 (05:58→17:44)
[2022-05-05 07:21] VITALS: BP 108/55; PULSE 54; RESP 18; TEMP 36.1; O2SAT 97
[2022-05-05] MEDS: Fluticasone/Vilanterol 100/25 BLST.W.DEV 1 PUFF INHALE (07:52)
[2022-05-05 07:53] VITALS: PULSE 59; RESP 18; O2SAT 97
[2022-05-05] MEDS: Buprenorphine/Naloxone 12/3 mg FILM 1 FILM SUBLINGUAL (09:55)
[2022-05-05] MEDS: lisinopriL 20 MG TABLET PO (09:56)
[2022-05-05] MEDS: hydrALAZINE HCl 10 MG TABLET PO ×3 (09:56→20:15)
[2022-05-05] MEDS: Propranolol HCL 20 MG TABLET PO (09:56)
[2022-05-05] MEDS: Topiramate 100 MG TABLET PO ×2 (09:56→20:14)
[2022-05-05] MEDS: amLODIPine Besylate 10 MG TABLET PO (09:56)
[2022-05-05] MEDS: Sennosides/Docusate Sodium TABLET 2 TAB PO ×2 (09:56→20:15)
[2022-05-05] MEDS: PARoxetine HCL 40 MG TABLET PO (09:56)
--- NOTE | 2022-05-05 11:34 | HO.PM.IMPN ---
Subjective Subjective Date of Service: 05/05/22 Interval History: seen and examined this morning follow up for placement, uti dysuria resolved. no abdominal pain, nausea, vomiting Review of Systems Review of Systems: Yes all other systems are reviewed and are negative Constitutional Constitutional: Denies chills and Denies fever(s) Cardiovascular Cardiovascular: Denies chest pain, Denies palpitations and Denies dyspnea Respiratory Respiratory: Denies cough and Denies dyspnea Gastrointestinal Gastrointestinal: Denies abdominal pain, Denies nausea and Denies vomiting Endocrine Endocrine: Denies palpitations Physical Exam Vital Signs: Vital Signs: Last Vital Signs Temp 97.0 F 05/05/22 07:21 Pulse 59 05/05/22 07:53 Resp 18 05/05/22 07:53 BP 108/55 L 05/05/22 07:21 Pulse Ox 97 05/05/22 07:21 O2 Del Method 05/05/22 07:21 BMI result Body Mass Index 16.0 Const: General: cooperative, comfortable, no acute distress, alert and awake Nutritional Appearance: thin Resp: Effort & Inspection: normal respiratory effort and able to speak in complete sentences Cardio: Rate: regular rate Heart sounds: S1 normal heart sound present and S2 normal heart sound present GI: Inspection: No distended Palpation (GI): Soft to palpation and nontender Neuro: General: CN's II-XI intact bilaterally Extrem: General: Yes no pedal edema Objective Data Active Medications Acetaminophen (Acetaminophen 325 Mg Tablet) 650 mg PO Q6H PRN PRN Reason: Pain, Mild (Pain Scale 1-3) Amlodipine Besylate (Amlodipine Besylate 10 Mg Tablet) 10 mg PO DAILY [facility]; Protocol Last Admin: 05/05/22 09:56 Dose: 10 mg Documented By: KARLEY Buprenorphine/Naloxone (Buprenorphine/Naloxone 12/3 Mg Film) 1 film SUBLINGUAL DAILY [facility] Last Admin: 05/05/22 09:55 Dose: 1 film Documented By: KARLEY Cefuroxime Axetil (Cefuroxime Axetil 500 Mg Tablet) 500 mg PO Q12H [facility] Last Admin: 05/05/22 05:58 Dose: 500 mg Documented By: ROLANDO Fluticasone/Vilanterol (Fluticasone/Vilanterol 100/25 Blst.W.Dev) 1 puff INHALE RDAILY [facility] Last Admin: 05/05/22 07:52 Dose: 1 puff Documented By: TC Heparin Sodium (Porcine) (Heparin Sodium,Porcine 5,000 Unit/Ml Vial) 5,000 unit SUBCUT Q12H [facility] Last Admin: 05/05/22 05:58 Dose: 5,000 unit Documented By: ROLANDO Hydralazine HCl (Hydralazine Hcl 20 Mg/Ml Vial) 5 mg IVPUSH Q6H PRN; Protocol PRN Reason: SBP > 180 Last Admin: 03/31/22 23:50 Dose: 5 mg Documented By: ZULAY Hydralazine HCl (Hydralazine Hcl 10 Mg Tablet) 10 mg PO TID [facility]; Protocol Last Admin: 05/05/22 09:56 Dose: 10 mg Documented By: KARLEY Lisinopril (Lisinopril 20 Mg Tablet) 20 mg PO DAILY [facility]; Protocol Last Admin: 05/05/22 09:56 Dose: 20 mg Documented By: KARLEY Melatonin (Melatonin 3 Mg Tablet) 3 mg PO BEDTIME PRN PRN Reason: Insomnia Last Admin: 04/23/22 19:42 Dose: 3 mg Documented By: PHANI Ondansetron HCl (Ondansetron Hcl 4 Mg/2 Ml Vial) 4 mg IVPUSH Q8H PRN PRN Reason: Nausea and Vomiting Paroxetine HCl (Paroxetine Hcl 40 Mg Tablet) 40 mg PO DAILY [facility] Last Admin: 05/05/22 09:56 Dose: 40 mg Documented By: KARLEY Pharmacy Consult (Consult Rx Perform Med Rec) 1 each MISCELLANE ONCE PRN PRN Reason: Consult order Polyethylene Glycol (Polyethylene Glycol 3350 17 Gm Powd.Pack) 17 gm PO DAILY [facility] Last Admin: 05/05/22 09:56 Dose: Not Given Documented By: KARLEY Non-Admin Reason: Patient Refused Propranolol HCl (Propranolol Hcl 20 Mg Tablet) 20 mg PO BID [facility]; Protocol Last Admin: 05/05/22 09:56 Dose: 20 mg Documented By: KARLEY Senna/Docusate Sodium (Sennosides/Docusate Sodium Tablet) 2 tab PO BID [facility] Last Admin: 05/05/22 09:56 Dose: 2 tab Documented By: KARLEY Sodium Chloride (0.9 % Sodium Chloride Flush 3 Ml Syringe) 3 ml IVFLUSH QSHIFT [facility] Last Admin: 05/05/22 09:37 Dose: Not Given Documented By: KARLEY Non-Admin Reason: No Access Tiotropium [place] (Tiotropium [place] 18 Mcg Cap.W.Dev) 1 puff INHALE RDAILY [facility] Last Admin: 05/05/22 07:52 Dose: 1 puff Documented By: TC Topiramate (Topiramate 100 Mg Tablet) 100 mg PO BID [facility] Last Admin: 05/05/22 09:56 Dose: 100 mg Documented By: KARLEY Labs 05/03/22 11:39 05/03/22 11:39 Microbiology Microbiology Results: Microbiology 05/03/22 Unknown Urine Culture - Final Urine clean catch - Urine lucero top Escherichia coli Assessment and Plan (1) Recurrent UTI: Status: Acute Plan 77yo F admitted with confusion due to encephalopathy due to UTI toxic encephalopathy due to UTI resolved recurrent UTI grew E coli, treated with ceftriaxone, completed 04/07/22 Urology consulted: has bilateral nephrolithiasis without hydronephrosis.? no anticholinergics due to constipation.? outpt f/u. now with dysuria - urine culture growing ecoli sensitive to ceftriaxone, continue ceftin day 2/5 constipation resolved COPD with no acute exacerbation continue triple controller therapy HTN continue lisinopril, amlodipine, hydralazine, and propranolol mood disorder continue paroxetine, topiramate opioid dependence continue Suboxone CKD3 renal function at baseline VTE ppx: UFH dispo: PT rec STR attending - dr. Liu DISPO possible dc to [facility] when bed available In my clinical judgment, the patient requires continued inpatient hospitalization for the following reasons: plan to d/c to [facility] Time Spent With Patient Time: Total time managing care of this patient today ____ minutes. Quality Stroke Does the patient have a stroke diagnosis?: No VTE Prior VTE?: No VTE Risk Level:: Medical - moderate - high VTE Device Contraindication: Treatment Not Indicated VTE Drug Contraindication: Treatment Not Indicated
[2022-05-05 16:00] VITALS: BP 126/80; PULSE 60; RESP 20; TEMP 36.5; O2SAT 96
[2022-05-05 20:00] VITALS: BP 132/60; PULSE 58; RESP 19; TEMP 36.5; O2SAT 96
[2022-05-06 04:00] VITALS: BP 123/56; PULSE 57; RESP 18; TEMP 36.4; O2SAT 94
[2022-05-06] MEDS: Heparin Sodium,Porcine 5,000 UNIT/ML VIAL 5000 UNIT SUBCUT ×2 (04:41→17:50)
[2022-05-06] MEDS: Fluticasone/Vilanterol 100/25 BLST.W.DEV 1 PUFF INHALE (07:18)
[2022-05-06 07:20] VITALS: PULSE 81; RESP 18; O2SAT 94
[2022-05-06 07:41] VITALS: BP 117/58; PULSE 56; RESP 17; TEMP 37.1; O2SAT 98
--- NOTE | 2022-05-06 08:54 | MHC.CLN ---
F/U PATIENT NO LONGER WANTS MAGIC CUP. ORDER DISCONTINUED.
[2022-05-06] MEDS: Sennosides/Docusate Sodium TABLET 2 TAB PO ×2 (10:45→20:39)
[2022-05-06] MEDS: hydrALAZINE HCl 10 MG TABLET PO ×3 (10:46→20:39)
[2022-05-06] MEDS: amLODIPine Besylate 10 MG TABLET PO (10:46)
[2022-05-06] MEDS: lisinopriL 20 MG TABLET PO (10:47)
[2022-05-06] MEDS: Propranolol HCL 20 MG TABLET PO ×2 (10:47→20:39)
[2022-05-06] MEDS: PARoxetine HCL 40 MG TABLET PO (10:47)
[2022-05-06] MEDS: Topiramate 100 MG TABLET PO ×2 (10:47→20:39)
[2022-05-06] MEDS: Buprenorphine/Naloxone 12/3 mg FILM 1 FILM SUBLINGUAL (10:47)
--- NOTE | 2022-05-06 11:50 | P.PNIM_ITS ---
Subjective Subjective Date of Service: 05/06/22 Interval History: seen and examined this morning follow up for placement, uti dysuria resolved. no abdominal pain, nausea, vomiting Review of Systems Review of Systems: Yes all other systems are reviewed and are negative Constitutional Constitutional: Denies chills and Denies fever(s) Cardiovascular Cardiovascular: Denies chest pain, Denies palpitations and Denies dyspnea Respiratory Respiratory: Denies cough and Denies dyspnea Gastrointestinal Gastrointestinal: Denies abdominal pain, Denies nausea and Denies vomiting Endocrine Endocrine: Denies palpitations Physical Exam Vital Signs: Vital Signs: Last Vital Signs Temp 98.7 F 05/06/22 07:41 Pulse 56 05/06/22 07:41 Resp 17 05/06/22 07:41 BP 117/58 L 05/06/22 07:41 Pulse Ox 98 05/06/22 07:41 O2 Del Method 05/06/22 07:41 BMI result Body Mass Index 16.0 Appearing in no acute distress lung sounds are clear to auscultation heart regular rate rhythm, clear S1, S2 positive bowel sounds, abdomen is soft, nontender neuro patient is alert x3, no focal deficits Objective Data Active Medications Acetaminophen (Acetaminophen 325 Mg Tablet) 650 mg PO Q6H PRN PRN Reason: Pain, Mild (Pain Scale 1-3) Amlodipine Besylate (Amlodipine Besylate 10 Mg Tablet) 10 mg PO DAILY [facility]; Pro tocol Last Admin: 05/06/22 10:46 Dose: 10 mg Documented By: RASHEL Buprenorphine/Naloxone (Buprenorphine/Naloxone 12/3 Mg Film) 1 film SUBLINGUAL DAILY [facility] Last Admin: 05/06/22 10:47 Dose: 1 film Documented By: RASHEL Cefuroxime Axetil (Cefuroxime Axetil 500 Mg Tablet) 500 mg PO Q12H [facility] Last Admin: 05/06/22 04:41 Dose: 500 mg Documented By: DEVANG Fluticasone/Vilanterol (Fluticasone/Vilanterol 100/25 Blst.W.Dev) 1 puff INHALE RDAILY [facility] Last Admin: 05/06/22 07:18 Dose: 1 puff Documented By: DOMINIQUE Heparin Sodium (Porcine) (Heparin Sodium,Porcine 5,000 Unit/Ml Vial) 5,000 unit SUBCUT Q12H [facility] Last Admin: 05/06/22 04:41 Dose: 5,000 unit Documented By: DEVANG Hydralazine HCl (Hydralazine Hcl 20 Mg/Ml Vial) 5 mg IVPUSH Q6H PRN; Protocol PRN Reason: SBP > 180 Last Admin: 03/31/22 23:50 Dose: 5 mg Documented By: ZULAY Hydralazine HCl (Hydralazine Hcl 10 Mg Tablet) 10 mg PO TID [facility]; Protocol Last Admin: 05/06/22 10:46 Dose: 10 mg Documented By: RASHEL Lisinopril (Lisinopril 20 Mg Tablet) 20 mg PO DAILY [facility]; Protocol Last Admin: 05/06/22 10:47 Dose: 20 mg Documented By: RASHEL Melatonin (Melatonin 3 Mg Tablet) 3 mg PO BEDTIME PRN PRN Reason: Insomnia Last Admin: 04/23/22 19:42 Dose: 3 mg Documented By: PHANI Ondansetron HCl (Ondansetron Hcl 4 Mg/2 Ml Vial) 4 mg IVPUSH Q8H PRN PRN Reason: Nausea and Vomiting Paroxetine HCl (Paroxetine Hcl 40 Mg Tablet) 40 mg PO DAILY [facility] Last Admin: 05/06/22 10:47 Dose: 40 mg Documented By: RASHEL Pharmacy Consult (Consult Rx Perform Med Rec) 1 each MISCELLANE ONCE PRN PRN Reason: Consult order Polyethylene Glycol (Polyethylene Glycol 3350 17 Gm Powd.Pack) 17 gm PO DAILY [facility] Last Admin: 05/06/22 10:47 Dose: Not Given Documented By: RASHEL Non-Admin Reason: Patient Refused Propranolol HCl (Propranolol Hcl 20 Mg Tablet) 20 mg PO BID [facility]; Protocol Last Admin: 05/06/22 10:47 Dose: 20 mg Documented By: RASHEL Senna/Docusate Sodium (Sennosides/Docusate Sodium Tablet) 2 tab PO BID [facility] Last Admin: 05/06/22 10:45 Dose: 2 tab Documented By: RASHEL Sodium Chloride (0.9 % Sodium Chloride Flush 3 Ml Syringe) 3 ml IVFLUSH QSHIFT [facility] Last Admin: 05/06/22 08:15 Dose: Not Given Documented By: RASHEL Non-Admin Reason: No Access Tiotropium Bells (Tiotropium Bells 18 Mcg Cap.W.Dev) 1 puff INHALE RDAILY [facility] Last Admin: 05/06/22 07:18 Dose: 1 puff Documented By: DOMINIQUE Topiramate (Topiramate 100 Mg Tablet) 100 mg PO BID [facility] Last Admin: 05/06/22 10:47 Dose: 100 mg Documented By: RASHEL Labs 05/03/22 11:39 05/03/22 11:39 Microbiology Microbiology Results: Microbiology 05/03/22 Unknown Urine Culture - Final Urine clean catch - Urine lucero top Escherichia coli Assessment and Plan (1) Recurrent UTI: Status: Acute Plan 77yo F admitted with confusion due to encephalopathy due to UTI toxic encephalopathy due to UTI resolved recurrent UTI grew E coli, treated with ceftriaxone, completed 04/07/22 Urology consulted: has bilateral nephrolithiasis without hydronephrosis.? no anticholinergics due to constipation.? outpt f/u. now with dysuria - urine culture growing ecoli sensitive to ceftriaxone, continue ceftin day 2/ constipation resolved COPD with no acute exacerbation continue triple controller therapy HTN continue lisinopril, amlodipine, hydralazine, and propranolol mood disorder continue paroxetine, topiramate opioid dependence continue Suboxone CKD3 renal function at baseline VTE ppx: UFH dispo: PT rec STR attending - dr. Aramis SANTIAGO pending safe discharge In my clinical judgment, the patient requires continued inpatient hospitalization for the following reasons: safe disposition Time Spent With Patient Time: Total time managing care of this patient today ____ minutes. Quality Stroke Does the patient have a stroke diagnosis?: No VTE Prior VTE?: No VTE Risk Level:: Medical - moderate - high VTE Device Contraindication: Treatment Not Indicated VTE Drug Contraindication: Treatment Not Indicated
--- NOTE | 2022-05-06 13:38 | MHC.CM.PN ---
Addendum entered by Mendy Salas RN 05/06/22 15:18: DAUGHTER FABIOLA AWARE OF PLAN FOR DC FRIDAY FABIOLA UNDERSTANDS BARRIERS TO BED OFFER Original Note: TRANSPORTATION CONSULTANT MET WITH PATIENT AND ROOMMATE, VANESSA (WITH PERMISSION) PATIENT AWARE THAT [facility] AND THAT PATIENT HAS USED UP HER MEDICARE DAYS FOR REHAB. PATIENT WAS AMBULATING IN HALLWAY TODAY WITHOUT A WALKER AND FEELS THAT SHE IS DOING BETTER. ROOMMATE ASKED IF PATIENT WILL BE ABLE TO COOK FOR HERSELF. T/W ASKED IF PATIENT WAS COOKING FOR HERSELF PRIOR TO ADMISSION, WHICH SHE WAS BUT HAD RECENTLY FALLEN WHILE DOING SO WHEN T/W ASKED VANESSA IF SHE PREFER PATIENT LIVE ELSEWHERE, SHE AGREES, STATING THAT SHE NEEDS A ONE LEVEL, FIRST FLOOR APARTMENT AND ASKS IF HOUSING DEPT CAN ASSIST. BOTH PATIENT AND VANESSA AWARE THAT EFFORTS TO SECURE THIS CAN BE DONE FROM THE HOME. PATIENT AND VANESSA AWARE THAT [facility] IS OFFERING SERVICES AND A REFERRAL IS SENT TO [facility] FOR MEALS AND WHEELS AND HOME HEALTH AIDE NEED ASSESSMENT. [facility] LIASION STATES THAT THEY ARE OVERWHELMED WITH NEW ADMISSIONS AND SHE IS UNSURE WHEN THE APPLICATION WILL BE REVIEWED AND APPROVED PATIENT AND VANESSA AWARE OF THIS CALL TO HOPE (DAUGHTER/HCP) @ [phone] FABIOLA WILL CALL T/W BACK ON HER BREAK. PLAN IS TO INFORM FABIOLA OF NEW DC PLAN
[2022-05-06 15:54] VITALS: BP 100/54; PULSE 62; RESP 17; TEMP 36; O2SAT 96
[2022-05-06 19:26] VITALS: BP 146/68; PULSE 62; RESP 17; TEMP 36.6; O2SAT 92
[2022-05-07 03:32] VITALS: BP 113/53; PULSE 59; RESP 16; TEMP 36.8; O2SAT 94
[2022-05-07] MEDS: Heparin Sodium,Porcine 5,000 UNIT/ML VIAL 5000 UNIT SUBCUT (06:02)
[2022-05-07 08:00] VITALS: BP 139/63; PULSE 55; RESP 18; TEMP 36.4; O2SAT 96
[2022-05-07] MEDS: PARoxetine HCL 40 MG TABLET PO (09:07)
[2022-05-07] MEDS: amLODIPine Besylate 10 MG TABLET PO (09:07)
[2022-05-07] MEDS: Sennosides/Docusate Sodium TABLET 2 TAB PO (09:08)
[2022-05-07] MEDS: lisinopriL 20 MG TABLET PO (09:08)
[2022-05-07] MEDS: hydrALAZINE HCl 10 MG TABLET PO ×2 (09:09→14:35)
[2022-05-07] MEDS: Buprenorphine/Naloxone 12/3 mg FILM 1 FILM SUBLINGUAL (09:09)
[2022-05-07] MEDS: Topiramate 100 MG TABLET PO (09:09)
[2022-05-07] MEDS: Fluticasone/Vilanterol 100/25 BLST.W.DEV 1 PUFF INHALE (09:10)
[2022-05-07 09:12] VITALS: PULSE 60; RESP 18; O2SAT 95
--- NOTE | 2022-05-07 10:18 | PM.DS ---
DS: Providers Provider Date of Service: 05/07/22 Date of admission: 03/26/22 18:41 Primary care physician: Jaye Lim MD Consults: 04/08/22 10:28 Consult to Urology Routine Consulting Provider: [facility] Reason for consultation: recurrent UTI/incontinence Attending physician on discharge: Jairon Self Discharging clinician: Irina Glez DS: Diagnosis Discharge Diagnosis (1) Recurrent UTI: Status: Acute DS: Summary Hospital Course Hospital Course: From H&P on day of admission 71-year-old female? with unknown PMH history brought to the ED to be evaluated for confusion, detail are lacking and patient is confused and not able to offer any reliable history at this point, she tells me she lives with roomate RN states that her daughter has called several times? when I try calling the daughter Hope only go to answering machine. CT of head is negative, UA is grossely negative and given Ceftriaxone . toxic encephalopathy due to UTI. resolved early on during admission recurrent UTI. grew E coli, was treated with ceftriaxone, completed 04/07/22. Urology consulted: has bilateral nephrolithiasis without hydronephrosis.?no anticholinergics due to constipation.? outpt f/u as needed Has been evaluated by Physical therapy daily, walking in the hallway with walker, ambulating in her room without a walker. Eating independently. safe for discharge home with multiple services. Time Spent with Patient Time attestation: Total time managing care of this patient today ____ minutes. Discharge coordination time: Greater than 30 minutes Quality: Safe Use of Opioids Does Pt have an Active Cancer Diagnosis on the Problem List?: No Quality: Stroke Does the patient have a stroke diagnosis?: No Physical Exam Vital Signs: Vital Signs: Last Vital Signs Temp 97.5 F 05/07/22 08:00 Pulse 60 05/07/22 09:12 Resp 18 05/07/22 09:12 BP 139/63 05/07/22 08:00 Pulse Ox 96 05/07/22 08:00 O2 Del Method 05/07/22 08:00 BMI result Body Mass Index 16.0 Appearing in no acute distress head is normocephalic atraumatic eyes pupils are PERRLA sclera is anicteric mouth throat mucous membranes are intact and moist neck is supple no lymphadenopathy, no JVD noted lung sounds are clear to auscultation heart regular rate rhythm, clear S1, S2 positive bowel sounds, abdomen is soft, nontender neuro patient is alert x3, no focal deficits Discharge Plan Discharge Anticipated Discharge Date/Time: 04/26/22 13:00 Patient Disposition: Xfer [facility] Discharge Diagnosis: Encephalopathy UTI Referrals: Milton Curry MD [Physician] - 1 Week Jyae Lim MD [Primary Care Provider] - 1 Week Discharge Medications: New hydralazine 10 mg Tablet 10 mg PO TID 30 Days Qty: 90 0RF Protocol: Hold for SBP< HOLD for SBP < : 90 lisinopril 20 mg Tablet 20 mg PO DAILY 30 Days Qty: 30 0RF Protocol: Hold for SBP< HOLD for SBP < : 90 amlodipine 10 mg Tablet 10 mg PO DAILY Qty: 30 0RF Protocol: Hold for SBP< HOLD for SBP < : 90 propranolol 20 mg Tablet 20 mg PO BID 30 Days Qty: 60 0RF Protocol: Hold for SBP/HR < HOLD for SBP < : 90 HOLD for HR < : 60 Continued paroxetine HCl 40 mg tablet 40 mg PO DAILY topiramate 100 mg tablet 100 mg PO BID buprenorphine-naloxone 12-3 mg film 1 film sublingual DAILY Trelegy Ellipta 100-62.5-25 mcg blister with device 1 inh INHALATION DAILY Combivent Respimat 20-100 mcg/actuation Mist 1 puff INHALATION QID Rx Instructions: space evenly during waking hours naloxone [Narcan] 4 mg/actuation [place],Non-Aerosol 4 mg INTRANASAL Q24H PRN (Reason: Opiate Reversal) Rx Instructions: spray 1 dose into ONE nostril; alternate nostrils w each dose until help arrives Discontinued bupropion HCl 150 mg tablet sustained-release 12 hr 150 mg PO DAILY propranolol 20 mg tablet 20 mg PO TID PRN (Reason: Anxiety) Discharge Orders: Discharge Order (Routine); Ordered 05/07/22 Ordered By: Irina Glez Diet: Advance to usual diet Activity on Discharge: As tolerated Stand Alone Forms: Patient Portal Discharge page Care Plan Goals: see below Health Concerns: encephalopathy recurrent UTI HTN Plan of Treatment: encephalopathy resolved call to schedule follow up with urology take all medications as prescribed Assessment: see discharge summary
--- NOTE | 2022-05-07 10:41 | MHC.CM.PN ---
HOME TODAY WITH [facility] IMM 05/06 IN CHART
--- NOTE | 2022-05-07 11:47 | MHC.CM.PN ---
PATIENT TO DC HOME WITH NEW [facility] SERVICES (PT, OT, AND HOME SAFETY EVAL) [facility] NOTIFIED OF DC AND REQUEST FOR MEALS ON WHEELS AND HOME HEALTH AIDE SERVICES (AT MINIMUM) DAUGHTER, FABIOLA, CALLED THIS [employer] ARCHITECT AND IS AWARE OF TODAY'S DC HOME, WITH WHAT SERVICES, AND THAT T/W WILL SET UP TRANSPORT HOME. [facility] ALSO AWARE THAT FAMILY ASSIST WOULD BENEFIT PATIENT, SHE COULD USE HELP SECURING DESIRED HOUSING, AND RIDES TO APPOINTMENTS [facility] [place] [facility] AWARE OF PLANNED DC HOME AND THERE WAS TALK OF LTC APPLICATION BEING MADE INTO A HOME AND COMMUNITY LT APPLICATION [facility] STILL ATTEMPTING TO OFFER A BED. THIS CAN BE WORKED ON FROM HOME, PATIENT DOES NOT HAVE A MEDICAL DIAGNOSIS FOR HOSPITAL STAY IMM 05/06 IN CHART
--- NOTE | 2022-05-07 13:46 | W.MHC.F2F ---
Service Date Service Date: 05/07/22 Encounter Date of encounter: 05/07/22 Reasons for Services Signs and symptoms assessed: UTI, weakness Reason for [facility]: CV/CP assess and/or care Reason for physical therapy: home safety and mobility Homebound: Leaving the home is medically contraindicated at this time without the asist of a device and/or another person due th the listed conditions above and below. Reason homebound: unsteady gait / fall risk Certification: Based on the above findings, I certify that this patient is confined to the home and needs intermittent [facility] care, physical therapy and/or speech therapy, or continues to need occupational therapy. The patient is under my care, and I have initiated the establishment of the plan of care. The patient will be followed by a physician who will periodically review the plan of care. Time Spent With Patient Time: Total time managing care of this patient today ____ minutes.
--- NOTE | 2022-05-07 14:02 | MHC.CM.PN ---
[facility] AWARE OF PATIENT DC HOME WITH SERVICES
== END 2022-05-07 17:23 | disposition home health service (06) | DRG 689 ==
LOC: HO.ED 18:24 → HO.EDOVER 18:50 → HO.S3 03-27 17:47
PROVIDERS: Physician Assistant; Physician Assistant Medical; Student in an Organized Health Care Education/Training Program; Admitting Provider Internal Medicine; Emergency Provider Student in an Organized Health Care Education/Training Program; PCP Family Medicine; Visit Provider Nurse Practitioner Acute Care
DX: N39.0 Urinary tract infection, site not specified (principal); G92.8 Other toxic encephalopathy; E44.1 Mild protein-calorie malnutrition; Z68.1 Body mass index [BMI] 19.9 or less, adult; F11.20 Opioid dependence, uncomplicated; Z16.11 Resistance to penicillins; Z16.29 Resistance to other single specified antibiotic; N20.0 Calculus of kidney; F03.90 Unspecified dementia, unspecified severity, without behavioral disturbance, psychotic disturbance, mood disturbance, and anxiety; F39 Unspecified mood [affective] disorder; N39.41 Urge incontinence; K59.00 Constipation, unspecified; B96.20 Unspecified Escherichia coli [E. coli] as the cause of diseases classified elsewhere; I12.9 Hypertensive chronic kidney disease with stage 1 through stage 4 chronic kidney disease, or unspecified chronic kidney disease; N18.30 Chronic kidney disease, stage 3 unspecified; J44.9 Chronic obstructive pulmonary disease, unspecified; Z20.822 Contact with and (suspected) exposure to COVID-19; Z75.1 Person awaiting admission to adequate facility elsewhere; Z87.440 Personal history of urinary (tract) infections; Z87.891 Personal history of nicotine dependence; Z79.899 Other long term (current) drug therapy
CPT/HCPCS: 36415; 70450; 71045; 74176; 80048; 80053; 81001; 82947; 83605; 84484; 85025; 85027; 86704; 86705; 86706; 86803; 87040; 87086; 87088; 87186; 87340; 87389; 87502; 87635; 93005; 94640; 96365; 97110; 97116; 97162; 97166; 97530; 97535; 99285; J0696

== ENCOUNTER 2022-05-20 10:10 | Outpatient (REF) | payer MEDICARE, SELFPAY | END 2022-05-20 10:11 | disposition home or self-care (01) | LOC: HO.LAB 10:10 | PROVIDERS: PCP Family Medicine; Visit Provider Urology | DX: N20.0 Calculus of kidney (principal); N39.0 Urinary tract infection, site not specified; R32 Unspecified urinary incontinence | CPT/HCPCS: 87086; 87088; 87186; 99212 ==

== ENCOUNTER 2022-06-14 15:37 | Outpatient (REF) | payer MEDICARE, MEDICAID, SELFPAY ==
--- NOTE | ~2022-06-14 | XR_ITS ---
EXAMINATION: XR ABDOMEN KUB CLINICAL INDICATION: Renal calculus. COMPARISON: CT abdomen and pelvis dated 04/08/2022. TECHNIQUE: 2 AP views of the abdomen and pelvis are submitted. FINDINGS: There is a large stool burden, suggesting constipation. No obstruction, ileus or free intraperitoneal air is seen. At the interpolar right kidney, a 4 mm linear calculus is seen. At the interpolar left kidney, a 2 mm calculus is seen. At the lower pole of the left kidney, a 4 mm and 2 mm calculi are seen. No further urinary calculus is appreciated. There are pelvic phleboliths. No acute osseous abnormality is seen. There is bony demineralization. There is a moderately severe thoracolumbar levoscoliosis. There are aortoiliac atherosclerotic calcifications. Pelvic phleboliths are noted. XR/XR KUB IMPRESSION: Bilateral ureteric calculi are seen, as detailed.
--- NOTE | ~2022-06-14 | XR_ITS ---
EXAMINATION: XR KNEE, LEFT CLINICAL INFORMATION: Pain. COMPARISON: None available. TECHNIQUE: AP and lateral views of the left knee. FINDINGS: There is bony demineralization. The lateral, medial and patellofemoral joint space compartments are well-maintained. No fracture or dislocation is seen. There is a small to moderate left knee joint effusion. There are diffuse atherosclerotic calcifications. No foreign body is seen. XR/XR knee LT 2V IMPRESSION: 1. No left knee fracture, dislocation or unusual degenerative change is seen. 2. There is a small to moderate left knee joint effusion.
--- NOTE | ~2022-06-14 | XR_ITS ---
EXAMINATION: XR CHEST CLINICAL INFORMATION: Chest pain COMPARISON: Chest radiographs 04/15/2022, 02/20/2022, CT thoracic spine 02/20/2022. TECHNIQUE: 2 views of the chest were obtained. FINDINGS: No pneumothorax, pleural reaction, or effusion. There is no airspace consolidation or groundglass opacity. The costophrenic sulci are clear. There is a density overlying left posterior seventh rib consistent with old rib fracture. Some fine linear scarring again noted left lateral base. The heart is normal in size. The vascularity is normal. The hilar and mediastinal contours are unremarkable. There is a curvature thoracic spine with multilevel degenerative changes again seen. XR/XR chest 2V IMPRESSION: No acute intrathoracic disease. No pneumothorax, infiltrate, or effusion.
== END 2022-06-14 15:38 | disposition home or self-care (01) ==
LOC: HO.XRAY 15:37
PROVIDERS: PCP Family Medicine; Visit Provider Family Medicine
DX: N20.0 Calculus of kidney (principal); M25.562 Pain in left knee
CPT/HCPCS: 71046; 73560; 74018

== ENCOUNTER 2022-06-24 10:37 | Outpatient (REF) | payer MEDICARE, MEDICAID, SELFPAY | END 2022-06-24 10:38 | disposition home or self-care (01) | LOC: HO.LAB 10:37 | PROVIDERS: PCP Family Medicine; Visit Provider Urology | DX: N20.0 Calculus of kidney (principal); R32 Unspecified urinary incontinence; N32.81 Overactive bladder; N39.0 Urinary tract infection, site not specified | CPT/HCPCS: 52000; 87086; 87088; 87186; 99212 ==

== ENCOUNTER 2022-06-25 13:15 | Outpatient (REF) | payer MEDICARE, MEDICAID, SELFPAY | END 2022-06-25 13:16 | disposition home or self-care (01) | LOC: HO.10HDLNP 13:15 | PROVIDERS: Visit Provider Urology | DX: N39.0 Urinary tract infection, site not specified (principal) | CPT/HCPCS: 88121 ==

== ENCOUNTER 2022-07-29 16:01 | Outpatient (REF) | payer MEDICARE, MEDICAID, SELFPAY ==
--- NOTE | ~2022-07-29 | XR_ITS ---
EXAMINATION: XR RIBS, LEFT CLINICAL INFORMATION: Injury. Fell on 07/22. COMPARISON: 06/14/2022 chest x-ray TECHNIQUE: Frontal view of the chest and 3 oblique views of the left ribs were obtained. FINDINGS: Linear left basilar markings likely due to scarring or atelectasis similar to the prior examination. No consolidation, pneumothorax, or pleural effusion. The cardiomediastinal silhouette is unchanged with a tortuous calcified aorta. Degenerative changes in the spine again noted. I do not appreciate any displaced rib fracture on these images. Left carotid artery stent again noted. XR/XR ribs LT min 3V w CXR1V IMPRESSION: Chronic appearing changes similar to the prior study. I do not appreciate any acute displaced rib fracture.
== END 2022-07-29 16:02 | disposition home or self-care (01) ==
LOC: HO.HHCX 16:01
PROVIDERS: PCP Family Medicine; Visit Provider Emergency Medicine
DX: R07.81 Pleurodynia (principal); W19.XXXD Unspecified fall, subsequent encounter
CPT/HCPCS: 71101

== ENCOUNTER 2022-08-01 10:22 | Outpatient (REF) | payer MEDICARE, MEDICAID, SELFPAY ==
--- NOTE | ~2022-08-01 | US_ITS ---
EXAMINATION: US RETROPERITONEAL LIMITED (RENAL ONLY) CLINICAL INFORMATION: Calculus of kidney. COMPARISON: KUB dated 06/14/2022. CT abdomen and pelvis without contrast dated 04/08/2022. TECHNIQUE: Real-time imaging of the kidneys. FINDINGS: RIGHT KIDNEY: 9.0 x 3.1 x 4.5 cm (SAG x AP x TRV). The kidney is normal in size, contour, and echogenicity. Renal cortical thickness is normal. No calculi or focal parenchymal lesions. No hydronephrosis. The stone in the upper pole the right kidney seen on CT March 2022 is not appreciated by ultrasound. LEFT KIDNEY: 9.3 x 5.7 x 4.0 cm (SAG x AP x TRV). The kidney is normal in size, contour, and echogenicity. Renal cortical thickness is normal. There is a 2 mm stone in the midpole. No focal parenchymal lesions or hydronephrosis. The spleen may be enlarged and measures 19 cm in length. The transverse and AP splenic measurements do not appear increased. This appears increased in length compared to CT scan however some of the difference in measurement may be due to difference in modality and oblique plane used to measure the spleen with ultrasound. US/US renal BI IMPRESSION: Small left renal stone. No right renal stone seen. Question enlarged spleen.
== END 2022-08-01 10:23 | disposition home or self-care (01) ==
LOC: HO.HMGCX 10:22
PROVIDERS: PCP Family Medicine; Visit Provider Urology
DX: N20.0 Calculus of kidney (principal)
CPT/HCPCS: 76775

== ENCOUNTER 2023-05-05 15:36 | Outpatient (REF) | payer MEDICARE, SELFPAY ==
[2023-05-05 17:53] LABS: MANUAL DIFF FLAG NO
[2023-05-05 18:00] LABS: Basophils Percent Auto 0.4 % (0-2); Eosinophils Percent Auto 0.4 % (0-4); Hematocrit 33.6 % (37.0-47.0); Hemoglobin 10.6 g/dl (12.0-16.0); Imm Gran Abs Auto 0.04 X10*3/uL (0.00-0.03); Imm Gran Pct Auto 0.5 % (0.0-0.4); Lymphocytes Absolute Auto 2.1 X10*3/uL (1.2-4.9); Lymphocytes Percent Auto 29.3 % (20-40); Mean Corpuscular HGB Conc 31.5 g/dl (31.0-35.0); Mean Corpuscular Hemoglobin 28.8 pg (27.0-33.0); Mean Corpuscular Volume 91.3 fL (80.0-98.0); Mean Platelet Volume 11.4 fL (9.4-12.3); Monocytes Absolute Auto 0.3 X10*3/uL (0.1-1.2); Monocytes Percent Auto 4.5 % (2-11); Neutrophils Absolute Auto 4.7 x10*3/uL (2.0-8.3); Neutrophils Percent Auto 64.9 % (45-73); Platelet Count 122 X10*3/uL (160-400); Red Blood Count 3.68 X10*6/uL (4.20-5.50); Red Cell Distribution Width 15.5 % (11.0-16.0); White Blood Count 7.3 X10*3/uL (4.8-10.8)
[2023-05-05 18:12] LABS: Alanine Aminotransferase 16 U/L (0-31); Alkaline Phosphatase 104 U/L (39-117); Anion Gap 13 (12-20); Aspartate Amino Transferase 25 U/L (5-31); Bilirubin Total 0.5 mg/dL (0.0-1.0); Blood Urea Nitrogen 31 mg/dL (9-16); Calcium 8.7 mg/dL (8.4-10.2); Carbon Dioxide 25 mmol/L (22-29); Chloride 106 mmol/L (96-108); Estimated Glomerular Filt Rate 35; Glucose Random 100 mg/dL (60-115); Potassium 4.5 mmol/L (3.3-5.1); Sodium 139 mmol/L (135-145)
[2023-05-05 18:16] LABS: Prothrombin Time 12.4 SEC (11.1-13.3)
[2023-05-06 04:50] LABS: HIV AB/AG Nonreactive (Nonreactive); HIV Num 2 0.05 S/CO; HIV Num 3 0.05 S/CO
[2023-05-07 13:08] LABS: HCV Log PCR 6.94 Log IU/mL (NOT DETECTED)
[2023-05-08 10:14] LABS: Hepatitis B Viral DNA Qn - cp NOT DETECTED Log IU/mL (NOT DETECTED); Hepatitis B Viral DNA Qn-IU/mL NOT DETECTED (NOT DETECTED)
[2023-05-09 17:08] LABS: Hepatitis C Genotype 1a
== END 2023-05-05 15:37 | disposition home or self-care (01) ==
LOC: HO.CHCLDS 15:36
PROVIDERS: Visit Provider Family Medicine
DX: Z11.4 Encounter for screening for human immunodeficiency virus [HIV] (principal); B18.2 Chronic viral hepatitis C
CPT/HCPCS: 36415; 80053; 85025; 85610; 87389; 87517; 87522; 87902

== ENCOUNTER 2023-05-26 12:39 | Outpatient (REF) | payer MEDICARE, SELFPAY ==
[2023-05-26 13:42] LABS: Anion Gap 10 (12-20); Blood Urea Nitrogen 31 mg/dL (9-16); Calcium 9.1 mg/dL (8.4-10.2); Carbon Dioxide 28 mmol/L (22-29); Chloride 106 mmol/L (96-108); Estimated Glomerular Filt Rate 33; Glucose Random 94 mg/dL (60-115); Potassium 4.5 mmol/L (3.3-5.1); Sodium 139 mmol/L (135-145)
[2023-06-03 17:43] LABS: FIB-ALT 18 U/L (6-29); FIB-Alpha-2-Macroglobulin 341 mg/dL (106-279); FIB-Apolipoprotein A1 168 mg/dL (101-198); FIB-GGT 31 U/L (3-65); FIB-Haptoglobin 37 mg/dL (43-212); FIB-Total Bilirubin 0.5 mg/dL (0.2-1.2); Liver Fibrosis Score 0.65; Liver Fibrosis Stage F3; Nec Inflam Act Grade A0; Nec Inflam Act Score 0.11
== END 2023-05-26 12:40 | disposition home or self-care (01) ==
LOC: HO.LAB 12:39
PROVIDERS: Absent Provider Family Medicine; PCP Family Medicine; Visit Provider Family Medicine
DX: B18.2 Chronic viral hepatitis C (principal); R79.89 Other specified abnormal findings of blood chemistry
CPT/HCPCS: 36415; 80048; 81596